=== PATIENT | male | born 1935 ===

== ENCOUNTER 2016-05-18 03:17 | Inpatient (IN) | payer MEDICARE, OTHER ==
[2016-05-18 03:19] VITALS: BMI 24.4
--- NOTE | 2016-05-18 03:25 | ED PDOC ---
Arrival/HPI - General Time Seen by Provider: 05/18/16 03:18 Historian: Patient, EMS - History of Present Illness Narrative History of Present Illness (Text): 05/18/16 03:22 Jese Damon is an 81 year old male, whose past medical history includes atrial fibrillation, CHF, diabetes, CAD, hypertension, hyperlipidemia, and CABG , who presents to the ED brought in by EMS on CPAP complaining of worsening shortness of breath tonight. Patient also reports associated chest pain. Patient denies any fever, chills, nausea, vomiting, diarrhea, urinary symptoms, back pain, neck pain, headache, dizziness, or any other complaints. Time/Duration: Other (tonight) Symptom Course: Unchanged Activities at Onset: Rest, Light Context: Home Past Medical History - Provider Review Nursing Documentation Reviewed: Yes - Infectious Disease Hx of Infectious Diseases: None - Tetanus Immunization Tetanus Immunization: Unknown - Cardiac Hx Cardiac Disorders: Yes (CAD,AICD) Hx Congestive Heart Failure: Yes Hx Hypertension: Yes - Pulmonary Hx Respiratory Disorders: Yes (SMOKED CIGARETTES H/O QUIT 1992) Hx Bronchitis: Yes Hx Pneumonia: Yes - Neurological Hx Neurological Disorder: (DENIES HISTORY) - HEENT Hx HEENT Disorder: Yes Hx Cataracts: Yes (Left) Hx Glaucoma: Yes (Right) - Renal Hx Renal Disorder: Yes Other/Comment: Kidney damage: 60% and 65% - Endocrine/Metabolic Hx Diabetes Mellitus Type 2: Yes - Hematological/Oncological Hx Blood Disorders: Yes Other/Comment: PATIENT STATED THAT HE HAD EPISODES OF HEMATURIA INTHE PAST AND HAD BLOOD TRANSFUSION - Integumentary Hx Dermatological Disorder: (DENIES HISTORY) - Musculoskeletal/Rheumatological Hx Musculoskeletal Disorders: Yes Hx Falls: Yes (in the past) Hx Gout: Yes - Gastrointestinal Hx Gastrointestinal Disorders: Yes Hx Gall Bladder Disease: Yes (CHOLECYSTECTOMY) - Genitourinary/Gynecological Hx Genitourinary Disorders: Yes Hx Prostate Problems: Yes - Psychiatric Hx Psychophysiologic Disorder: No Hx Substance Use: No - Surgical History Hx Cardiac Catheterization: Yes Hx Cholecystectomy: Yes (GB Sx: ? removal) Hx Open Heart Surgery: Yes (quadruple) Other/Comment: ICD implant - Anesthesia Hx Anesthesia: Yes Hx Anesthesia Reactions: No Hx Malignant Hyperthermia: No - Suicidal Assessment Feels Threatened In Home Enviroment: No Family/Social History - Physician Review Nursing Documentation Reviewed: Yes Family/Social History: No Known Family HX Smoking Status: Former Smoker Hx Alcohol Use: No Hx Substance Use: No Hx Substance Use Treatment: No Allergies/Home Meds Allergies/Adverse Reactions: Allergies aspirin Allergy (Verified 01/15/16 18:41) RASH Latex, Natural Rubber Allergy (Verified 01/15/16 18:41) RASH penicillin V Allergy (Verified 01/15/16 18:41) RASH Home Medications: Home Meds Medication Instructions Recorded Confirmed Atorvastatin [Lipitor] 20 mg PO DAILY 05/18/16 05/18/16 Colchicine [Colcrys] 0.6 mg PO DAILY 05/18/16 05/18/16 Docusate Sodium [Col-Rite] 100 mg PO DAILY 05/18/16 05/18/16 Febuxostat [Uloric] 40 mg PO DAILY 05/18/16 05/18/16 Furosemide [Lasix] 20 mg PO DAILY 05/18/16 05/18/16 Isosorbide Mononitrate [Imdur] 30 mg PO DAILY 05/18/16 05/18/16 Losartan [Cozaar] 25 mg PO DAILY 05/18/16 05/18/16 Metoprolol Tartrate [Lopressor] 25 mg PO BID 05/18/16 05/18/16 Multivits,Ca,Min/Iron/FA/Lycop 1 each PO DAILY 05/18/16 05/18/16 [Centrum Men's Tablet] Mv/Gnk Bi Ex/K.ginsg [Ra Central 1 each PO DAILY 05/18/16 05/18/16 Kaya Tablet] SITagliptin [Januvia] 50 mg PO DAILY 05/18/16 05/18/16 Warfarin [Coumadin] 2.5 mg PO DAILY 05/18/16 05/18/16 Review of Systems - Physician Review All systems were reviewed & negative as marked: Yes - Review of Systems Constitutional: Normal. absent: Fevers Eyes: Normal ENT: Normal Respiratory: SOB. absent: Cough Cardiovascular: Chest Pain Gastrointestinal: Normal. absent: Abdominal Pain, Diarrhea, Nausea, Vomiting Genitourinary Male: Normal. absent: Dysuria, Frequency, Hematuria, Urinary Output Changes Musculoskeletal: Normal. absent: Back Pain, Neck Pain Skin: Normal. absent: Rash Neurological: Normal. absent: Headache, Dizziness Endocrine: Normal Hemo/Lymphatic: Normal Psychiatric: Normal Physical Exam Vital Signs Reviewed: Yes Vital Signs Temp Pulse Resp BP Pulse Ox 05/18/16 18:15 60 113/69 05/18/16 18:02 113/69 05/18/16 18:00 66 113/64 05/18/16 13:14 64 122/60 05/18/16 13:06 65 122/60 05/18/16 09:31 98.2 F 69 17 129/60 99 05/18/16 07:58 67 18 118/65 100 05/18/16 07:10 70 18 124/57 L 100 05/18/16 06:00 73 18 161/67 H 100 05/18/16 05:08 84 18 143/89 95 05/18/16 03:20 98.0 F 77 30 H 150/94 H 100 Temperature: Afebrile Blood Pressure: Normal Pulse: Regular Respiratory Rate: Tachypneic Appearance: Positive for: Non-Toxic, Comfortable Pain Distress: None Mental Status: Positive for: Alert and Oriented X 3 - Systems Exam Head: Present: Atraumatic, Normocephalic Pupils: Present: PERRL Extroacular Muscles: Present: EOMI Conjunctiva: Present: Normal Mouth: Present: Moist Mucous Membranes Neck: Present: Normal Range of Motion Respiratory/Chest: Present: Rales (Rales at the bases). No: Respiratory Distress, Accessory Muscle Use Cardiovascular: Present: Regular Rate and Rhythm, Normal S1, S2. No: Murmurs Abdomen: Present: Normal Bowel Sounds. No: Tenderness, Distention, Peritoneal Signs Back: Present: Normal Inspection Upper Extremity: Present: Normal Inspection. No: Cyanosis, Edema Lower Extremity: Present: Normal Inspection. No: Edema Neurological: Present: GCS=15, CN II-XII Intact, Speech Normal Skin: Present: Warm, Dry, Normal Color. No: Rashes Psychiatric: Present: Alert, Oriented x 3, Normal Insight, Normal Concentration Medical Decision Making ED Course and Treatment: 05/18/16 03:22 Impression: 81 year old male brought in by EMS for shortness of breath and chest pain tonight. Differential Diagnosis include but are not limited to: CHF vs. COPD vs. pneumonia vs. ACS vs. dyspnea Plan: -- EKG -- Chest X-ray -- Labs, cardiac enzymes, BNP, VBG, blood cultures -- Reassess and disposition Prior Visits: Notes and results from previous visits were reviewed. Progress Notes: Reviewed EKG, atrial fibrillation at 119 bpm. Rapid ventricular response. Non- specific ST/T wave changes. Unchanged from previous EKG on 01/15/2016. 05/18/16 03:42 Reviewed radiology, Chest X-ray shows CHF. 05/18/16 04:[address] Jennings, who is aware and agrees with plan. Accepts pt in to her service. Requests ICU evaluation. 05/18/16 04:[address] Banks, tour agent, who is aware and agrees to evaluate pt for ICU. 05/18/16 05:[address] Banks, states pt can go to Telemetry. Pt will be admitted to Telemetry for CHF and pneumonia under Dr. Jennings's service. - Critical Care Critical Care Minutes: 30 minutes Narrative Critical Care (Text): Management of CHF - Lab Interpretations Lab Results: 05/18/16 03:41 05/18/16 03:41 Lab Results 05/18/16 03:41: WBC 7.5 D, RBC 3.65, Hgb 12.2 L, Hct 36.3 L, MCV 99.5, MCH 33.4 , MCHC 33.6, RDW 16.6 H, Plt Count 163, MPV 11.6 H, Gran % 86.2 H, Lymph % (Auto ) 8.2 L, [place] % (Auto) 3.8, Eos % (Auto) 1.3 L, Baso % (Auto) 0.5, Gran # 6.43, Lymph # 0.6 L, [place] # 0.3, Eos # 0.1, Baso # 0.04, PT 28.2 H, INR 2.61 H, APTT 28.9, pO2 83 H, VBG pH 7.36, VBG pCO2 47.0, VBG HCO3 26.6, VBG Total CO2 28.0, VBG O2 Sat (Calc) 97.8 H, VBG Base Excess 0.6, VBG Potassium 5.1, Glucose 168 H , Lactate 3.1 H, FiO2 21.0, Sodium 138.0, Potassium 4.1, Chloride 103.0, Carbon Dioxide 26, Anion Gap 16, BUN 36 H, Creatinine 2.1 H, Est GFR ( Amer) 37 , Est GFR (Non-Af Amer) 30, Random Glucose 159 H, Calcium 9.1, Total Bilirubin 1.3, AST 47, ALT 46, Alkaline Phosphatase 117, Lactate Dehydrogenase 638, Total Creatine Kinase 80, Troponin I 0.25 H* D, NT-Pro-B Natriuret Pep 3690 H, Total Protein 7.3, Albumin 3.8, Globulin 3.5, Albumin/Globulin Ratio 1.1, Venous Blood Potassium 5.1 - RAD Interpretation Radiology Orders: 05/18/16 03:23 CHEST PORTABLE [RAD] Stat - Medication Orders Current Medication Orders: Colchicine (Colocrys) 0.6 mg PO DAILY [facility] Last Admin: 05/18/16 13:14 Dose: 0.6 MG Docusate Sodium (Colace) 100 mg PO DAILY [facility] Last Admin: 05/18/16 13:06 Dose: 100 MG Stool Assessment Document 05/18/16 13:06 CHART (Rec: 05/18/16 13:06 CHART [id number]) Pattern Bowel Pattern No Bowel Movement Furosemide (Lasix) 40 mg IVP DAILY CHERYL Azithromycin (Zithromax 500mg In Ns) 250 mls @ 167 mls/hr IVPB DAILY CHERYL PRN Reason: Protocol Last Admin: 05/18/16 14:36 Dose: 167 MLS/HR eMAR Start Stop Document 05/18/16 14:36 CHART (Rec: 05/18/16 14:37 CHART [id number]) Intravenous Solution Start Date 05/18/16 Start Time 14:36 End Date 05/18/16 End time 16:06 Total Infusion Time 90 Milrinone Lactate/Dextrose (Primacor 20mg/100ml D5w) 100 mls @ 4.899 mls/hr IV .[id number] PRN; Protocol; 0.2 MCG/KG/MIN PRN Reason: TITRATE PER MD ORDER Last Admin: 05/18/16 18:00 Dose: 4.899 MLS/HR MAR Vitals Document 05/18/16 18:00 CHART (Rec: 05/18/16 18:01 CHART [id number]) Measurements Blood Pressure (100/60-150/90) 113/64 Pulse Rate (60-90) 66 Titration Intervention Document 05/18/16 18:00 CHART (Rec: 05/18/16 18:01 CHART [id number]) Titration Intake Container Volume 100 Titration Dosing Titration Dose 0.2 IV Rate 4.899 Intake/Decrease Start eMAR Start Stop Document 05/18/16 18:00 CHART (Rec: 05/18/16 18:01 CHART [id number]) Intravenous Solution Start Date 05/18/16 Start Time 18:01 Insulin Human Lispro (Humalog Med) 0 units SC ACHS CHERYL PRN Reason: Protocol Last Admin: 05/18/16 22:34 Dose: Not Given Non-Admin Reason: Blood Sugar Parameter MAR Blood Glucose Document 05/18/16 22:34 LGA (Rec: 05/18/16 22:34 LGA [id number]) Blood Glucose Finger Stick Blood Glucose (70-120) 145 Isosorbide Mononitrate (Imdur) 30 mg PO DAILY [facility] Last Admin: 05/18/16 13:06 Dose: 30 MG Levalbuterol HCl (Xopenex) 1.25 mg IH [id number] PRN PRN Reason: Shortness of Breath Losartan Potassium (Cozaar) 25 mg PO DAILY [facility] Last Admin: 05/18/16 13:14 Dose: 25 MG MAR Pulse and Blood Pressure Document 05/18/16 13:14 CHART (Rec: 05/18/16 13:15 CHART [id number]) Pulse Pulse Rate (60-90) 64 Blood Pressure Blood Pressure (100/60-150/90) 122/60 Metoprolol Tartrate (Lopressor) 25 mg PO BID [facility] Last Admin: 05/18/16 18:15 Dose: 25 MG MAR Pulse and Blood Pressure Document 05/18/16 18:15 CHART (Rec: 05/18/16 18:15 CHART [id number]) Pulse Pulse Rate (60-90) 60 Blood Pressure Blood Pressure (100/60-150/90) 113/69 Sitagliptin Phosphate (Januvia) 50 mg PO DAILY [facility] Last Admin: 05/18/16 13:14 Dose: 50 MG Discontinued Medications Atorvastatin Calcium (Lipitor) 20 mg PO DAILY [facility] Last Admin: 05/18/16 13:06 Dose: 20 MG Furosemide (Lasix) 20 mg PO DAILY [facility] Last Admin: 05/18/16 13:06 Dose: 20 MG MAR Blood Pressure Document 05/18/16 13:06 CHART (Rec: 05/18/16 13:06 CHART [id number]) Blood Pressure Blood Pressure (100/60-150/90) 122/60 Furosemide (Lasix) 40 mg IV ONCE ONE Stop: 05/18/16 18:01 Last Admin: 05/18/16 18:02 Dose: 40 MG MAR Blood Pressure Document 05/18/16 18:02 CHART (Rec: 05/18/16 18:02 CHART [id number]) Blood Pressure Blood Pressure (100/60-150/90) 113/69 eMAR Start Stop Document 05/18/16 18:02 CHART (Rec: 05/18/16 18:02 CHART [id number]) Intravenous Solution Start Date 05/18/16 Start Time 18:02 End Date 05/18/16 End time 18:04 Total Infusion Time 2 Aztreonam (Azactam 1 Gm) 100 mls @ 100 mls/hr IVPB STAT STA PRN Reason: Protocol Stop: 05/18/16 05:31 Last Admin: 05/18/16 05:05 Dose: 100 MLS/HR eMAR Start Stop Document 05/18/16 05:05 SB (Rec: 05/18/16 05:06 SB [id number]) Intravenous Solution Start Date 05/18/16 Start Time 05:06 End Date 05/18/16 Vancomycin HCl (Vancomycin 1gm) 250 mls @ 167 mls/hr IVPB STAT STA PRN Reason: Protocol Stop: 05/18/16 06:00 Last Admin: 05/18/16 06:22 Dose: 167 MLS/HR eMAR Start Stop Document 05/18/16 06:22 SB (Rec: 05/18/16 06:23 SB [id number]) Intravenous Solution Start Date 05/18/16 Start Time 06:23 End Date 05/18/16 Aztreonam (Azactam 1 Gm) 100 mls @ 100 mls/hr IVPB Q8 CHERYL PRN Reason: Protocol Stop: 05/18/16 22:59 Last Admin: 05/18/16 22:33 Dose: 100 MLS/HR eMAR Start Stop Document 05/18/16 22:33 LGA (Rec: 05/18/16 22:34 LGA [id number]) Intravenous Solution Start Date 05/18/16 Start Time 22:34 End Date 05/18/16 End time 23:34 Total Infusion Time 60 - Scribe Statement The provider has reviewed the documentation as recorded by the Wellington Suh Provider Attestation: All medical record entries made by the [place] were at my direction and personally dictated by me. I have reviewed the chart and agree that the record accurately reflects my personal performance of the history, physical exam, medical decision making, and the department course for this patient. I have also personally directed, reviewed, and agree with the discharge instructions and disposition. Disposition/Present on Arrival - Present on Arrival Any Indicators Present on Arrival: No History of DVT/PE: No History of Uncontrolled Diabetes: No Urinary Catheter: No History Surgical Site Infection Following: None - Disposition Have Diagnosis and Disposition been Completed?: Yes Diagnosis: CHF (congestive heart failure), Pneumonia Disposition: HOSPITALIZED Disposition Time: 05:15 Condition: FAIR
[2016-05-18 03:55] LABS: ADD MANUAL DIFF? NO
[2016-05-18 03:59] LABS: VENOUS BLOOD GAS BASE EXCESS 0.6 mmol/L (0.0-2.0); VENOUS BLOOD PH 7.36 (7.32-7.43)
[2016-05-18 04:19] LABS: ALB/GLOB RATIO 1.1 (1.1-1.8); BASO # 0.04 K/mm3 (0.0-2.0); BASO % 0.5 % (0.0-3.0); BILIRUBIN,TOTAL 1.3 mg/dL (0.2-1.3); CALCIUM 9.1 mg/dL (8.4-10.5); EOS # 0.1 (0.0-0.7); EOS % 1.3 % (1.5-5.0); GRAN # 6.43 (1.4-6.5); GRAN % 86.2 % (50.0-68.0); HEMATOCRIT 36.3 % (42.0-52.0); LYMPH # 0.6 (1.2-3.4); LYMPH % 8.2 % (22.0-35.0); MEAN CELL VOLUME 99.5 fL (80.0-105.0); MEAN CORPUSCULAR HEMOGLOBIN 33.4 pg (25.0-35.0); MEAN CORPUSCULAR HGB CONC 33.6 g/dl (31.0-37.0); MEAN PLATELET VOLUME 11.6 fl (7.0-11.0); MONO # 0.3 (0.1-0.6); MONO % 3.8 % (1.0-6.0); PLATELET COUNT 163 10^3/uL (120.0-450.0); POTASSIUM 4.1 mmol/L (3.6-5.0); RED CELL DISTRIBUTION WIDTH 16.6 % (11.5-14.5); TOTAL PROTEIN 7.3 g/dL (5.8-8.3); WHITE BLOOD COUNT 7.5 10^3/ul (4.5-11.0)
[2016-05-18 04:29] LABS: INR 2.61 (0.93-1.08); PARTIAL THROMBOPLASTIN TIME 28.9 Seconds (23.7-30.8)
[2016-05-18] MEDS ORDERED: Vancomycin 1gm in NS 250ml 250 ML IVPB STA (04:31)
[2016-05-18] MEDS ORDERED: Aztreonam 1 Gm in NS 100mL 100 ML IVPB STA (04:32)
[2016-05-18 04:35] LABS: TROPONIN I 0.25 ng/mL
--- NOTE | 2016-05-18 05:27 | CP.PCM.CON ---
<Davidson Malcolm - Last Filed: 05/18/16 06:53> History of Present Illness - History of Present Illness History of Present Illness: ICU Consult Note - Davidson Thomasedmond PGY1 HPI: Patient is a 81yo male with past medical history of chronic afib, CAD s/p CABG, CKD stage 3, ischemic cardiomyopathy s/p AICD placement, HTN, HLD, DM type 2, systolic CHF (LVEF ~25-30%) that presented c/o shortness of breath for the past 2 weeks. Patient reported that his shortness of breath was associated with intermittent chest pain that radiates into his back and nonproductive cough. He states that his symptoms have been on and off for the past 2 weeks however today he had more difficulty breathing and decided to come to the emergency room for evaluation. He states that he normally has to sleep on 3 pillows at night otherwise he feels like he is drowning. In the ED, patient's vitals were as follows: temperature 98.0F, heart rate 84bpm, blood pressure 143/ 89, o2 sat 98% on 2L NC. Labs were notable for a troponin of 0.25, NT-proBNP of 3690, lactate of 3.1, BUN 36, Creatinine 2.1. EKG revealed afib at [address]-T wave changes relative to prior EKG's. Patient denied abdominal pain, nausea, vomiting, diarrhea, fever, chills, dysuria, frequency, urgency, focal weakness, numbness, tingling. 12 point ROS as per HPI above, otherwise negative PMHx: see above PSHx: CABG, AICD placement Family Hx: Noncontributory Social Hx: Denies tobacco, alcohol and illicit drug use Allergies: ASA, latex, penicillin PMD: Dr. Jennings Past Patient History - Infectious Disease Hx of Infectious Diseases: None - Tetanus Immunizations Tetanus Immunization: Unknown - Past Social History Smoking Status: Former Smoker - CARDIAC Hx Cardiac Disorders: Yes (CAD,AICD) Hx Congestive Heart Failure: Yes Hx Hypertension: Yes - PULMONARY Hx Respiratory Disorders: Yes (SMOKED CIGARETTES H/O QUIT 1992) Hx Bronchitis: Yes Hx Pneumonia: Yes - NEUROLOGICAL Hx Neurological Disorder: (DENIES HISTORY) - HEENT Hx HEENT Problems: Yes Hx Cataracts: Yes (Left) Hx Glaucoma: Yes (Right) - RENAL Hx Chronic Kidney Disease: Yes Other/Comment: Kidney damage: 60% and 65% - ENDOCRINE/METABOLIC Hx Diabetes Mellitus Type 2: Yes - HEMATOLOGICAL/ONCOLOGICAL Hx Blood Disorders: Yes Other/Comment: PATIENT STATED THAT HE HAD EPISODES OF HEMATURIA INTHE PAST AND HAD BLOOD TRANSFUSION - INTEGUMENTARY Hx Dermatological Problems: (DENIES HISTORY) - MUSCULOSKELETAL/RHEUMATOLOGICAL Hx Musculoskeletal Disorders: Yes Hx Falls: Yes (in the past) Hx Gout: Yes - GASTROINTESTINAL Hx Gastrointestinal Disorders: Yes Hx Gall Bladder Disease: Yes (CHOLECYSTECTOMY) - GENITOURINARY/GYNECOLOGICAL Hx Genitourinary Disorders: Yes Hx Prostate Problems: Yes - PSYCHIATRIC Hx Psychophysiologic Disorder: No Hx Substance Use: No - SURGICAL HISTORY Hx Cardiac Catheterization: Yes Hx Cholecystectomy: Yes (GB Sx: ? removal) Hx Open Heart Surgery: Yes (quadruple) Other/Comment: ICD implant - ANESTHESIA Hx Anesthesia: Yes Hx Anesthesia Reactions: No Hx Malignant Hyperthermia: No Meds Allergies/Adverse Reactions: Allergies Allergy/AdvReac Type Severity Reaction Status Date / Time aspirin Allergy RASH Verified 01/15/16 18:41 Latex, Natural Rubber Allergy RASH Verified 01/15/16 18:41 penicillin V Allergy RASH Verified 01/15/16 18:41 - Medications Medications: Current Medications Aztreonam (Azactam 1 Gm) 100 mls @ 100 mls/hr IVPB STAT STA PRN Reason: Protocol Stop: 05/18/16 05:31 Last Admin: 05/18/16 05:05 Dose: 100 mls/hr Vancomycin HCl (Vancomycin 1gm) 250 mls @ 167 mls/hr IVPB STAT STA PRN Reason: Protocol Stop: 05/18/16 06:00 Physical Exam - Constitutional Appears: Non-toxic, No Acute Distress - Head Exam Head Exam: ATRAUMATIC, NORMAL INSPECTION, NORMOCEPHALIC - Eye Exam Eye Exam: EOMI, PERRL. absent: Conjunctival injection, Periorbital swelling, Scleral icterus - ENT Exam ENT Exam: Mucous Membranes Moist - Respiratory Exam Respiratory Exam: Decreased Breath Sounds (decreased breath sounds at bilateral lung bases; bilateral rales at bases), Rales, NORMAL BREATHING PATTERN. absent : Accessory Muscle Use, Chest Wall Tenderness, Clear to Auscultation Bilateral, Rhonchi, Wheezes, Respiratory Distress, Stridor - Cardiovascular Exam Cardiovascular Exam: Irregular Rhythm, +S1, +S2. absent: Bradycardia, Tachycardia, Gallop, Rubs - GI/Abdominal Exam GI & Abdominal Exam: Soft. absent: Distended, Firm, Guarding, Rebound, Rigid, Tenderness - Extremities Exam Extremities exam: Positive for: normal inspection, pedal edema (1+ pitting edema bilaterally). Negative for: calf tenderness, tenderness - Back Exam Back exam: NORMAL INSPECTION. absent: paraspinal tenderness, tenderness, vertebral tenderness - Neurological Exam Neurological exam: Alert, CN II-XII Intact, Oriented x3 - Psychiatric Exam Psychiatric exam: Normal Affect, Normal Mood - Skin Skin Exam: Dry, Intact, Normal Color, Warm Results - Vital Signs Recent Vital Signs: Last Vital Signs Temp 98.0 F 05/18/16 03:20 Pulse 84 05/18/16 05:08 Resp 18 05/18/16 05:08 BP 143/89 05/18/16 05:08 Pulse Ox 95 05/18/16 05:08 - Labs Result Diagrams: 05/18/16 03:41 05/18/16 03:41 Labs: Laboratory Results - last 24 hr 05/18/16 03:41 WBC 7.5 D RBC 3.65 Hgb 12.2 L Hct 36.3 L MCV 99.5 MCH 33.4 MCHC 33.6 RDW 16.6 H Plt Count 163 MPV 11.6 H Gran % 86.2 H Lymph % (Auto) 8.2 L [place] % (Auto) 3.8 Eos % (Auto) 1.3 L Baso % (Auto) 0.5 Gran # 6.43 Lymph # 0.6 L Dundy # 0.3 Eos # 0.1 Baso # 0.04 PT 28.2 H INR 2.61 H APTT 28.9 pO2 83 H VBG pH 7.36 VBG pCO2 47.0 VBG HCO3 26.6 VBG Total CO2 28.0 VBG O2 Sat (Calc) 97.8 H VBG Base Excess 0.6 VBG Potassium 5.1 Sodium 138 Chloride 100 Glucose 168 H Lactate 3.1 H FiO2 21.0 Potassium 4.1 Carbon Dioxide 26 Anion Gap 16 BUN 36 H Creatinine 2.1 H Est GFR ( Amer) 37 Est GFR (Non-Af Amer) 30 Random Glucose 159 H Calcium 9.1 Total Bilirubin 1.3 AST 47 ALT 46 Alkaline Phosphatase 117 Lactate Dehydrogenase 638 Total Creatine Kinase 80 Troponin I 0.25 H* D NT-Pro-B Natriuret Pep 3690 H Total Protein 7.3 Albumin 3.8 Globulin 3.5 Albumin/Globulin Ratio 1.1 Venous Blood Potassium 5.1 Assessment & Plan - Assessment and Plan (Free Text) Assessment: 81yo male with past medical history of chronic afib, CAD s/p CABG, CKD stage 3, ischemic cardiomyopathy s/p AICD placement, HTN, HLD, DM type 2, systolic CHF ( LVEF ~25-30%) that presented c/o shortness of breath for the past 2 weeks secondary to decompensated systolic congestive heart failure in the setting of possible NSTEMI. Plan: -Lab work and EKG reviewed and revealed no acute ST-T wave changes -Chest xray reviewed; increased pulmonary vascular congestion and pleural effusion/atelectasis; concerning for CHF exacerbation -Patient vitals within normal limits at the time of evaluation; O2sat >90% on 2L NC -Patient clinically stable and at this time does not require ICU level care for further evaluation and treatment -Recommend admitting the patient to telemetry for further evaluation and treatment of CHF exacerbation/NSTEMI as well as cardiology consultation Patient seen, discussed and evaluated with attending, Dr. Banks - Date & Time Date: 05/18/16 Time: 05:46 <Jocelyn CHRISTIANSON,Joe - Last Filed: 05/18/16 08:17> Results - Vital Signs Recent Vital Signs: Last Vital Signs Temp 98.0 F 05/18/16 03:20 Pulse 67 05/18/16 07:58 Resp 18 05/18/16 07:58 BP 118/65 05/18/16 07:58 Pulse Ox 100 05/18/16 07:58 - Labs Result Diagrams: 05/18/16 03:41 05/18/16 03:41 Labs: Laboratory Results - last 24 hr 05/18/16 07:15 pO2 117 H VBG pH 7.35 VBG pCO2 53.0 VBG HCO3 29.3 H VBG Total CO2 30.9 H VBG O2 Sat (Calc) 98.8 H VBG Base Excess 2.5 H VBG Potassium 4.3 Sodium 138.0 Chloride 107.0 Glucose 146 H Lactate 1.0 FiO2 21.0 Venous Blood Potassium 4.3 Attending/Attestation - Attestation Notes (Text): 04/03/17 08:15 -I agree with the above ICU consultation note completed by the resident physician. -Briefly, the patient is an 81 year old man with multiple chronic medical problems, who presents with elevated troponin, chest pain and SOB. Because his vitals signs are relatively normal, he can be adequately managed on the tele cervantes and doesn't require ICU level of care at this time. Recommend antibiotics, diuresis, serial trop's/EKG's, ASA, and a cards consult. Please feel free to reconsult if patient's condition changes. Thanks.
[2016-05-18 07:25] LABS: VENOUS BLOOD GAS BASE EXCESS 2.5 mmol/L (0.0-2.0); VENOUS BLOOD PH 7.35 (7.32-7.43)
--- NOTE | 2016-05-18 09:11 | RAD ---
HISTORY: sob COMPARISON: 01/15/2016 FINDINGS: LUNGS: There is a diffuse alveolar infiltrate in the right lung consistent with pneumonia PLEURA: No significant pleural effusion identified, no pneumothorax apparent. CARDIOVASCULAR: Moderate cardiomegaly OSSEOUS STRUCTURES: No significant abnormalities. VISUALIZED UPPER ABDOMEN: Normal. OTHER FINDINGS: None. IMPRESSION: There is a diffuse alveolar infiltrate in the right lung consistent with pneumonia
[2016-05-18] MEDS ORDERED: Levalbuterol 1.25 MG/3 ML Inhal Soln UD IH PRN (13:05)
[2016-05-18] MEDS: Azithromycin 500MG/NS 250ml 250 ML IVPB SCH (14:36)
[2016-05-18] MEDS: Aztreonam 1 Gm in NS 100mL 100 ML IVPB SCH ×2 (17:57→22:33)
[2016-05-18] MEDS: Milrinone 20mg/100ml D5W 100 ML IV PRN (18:00)
--- NOTE | 2016-05-18 19:02 | CARD ---
APPROVED REPORT EKG Measurement Heart [id number] <Conclusion> Atrial fibrillation with rapid ventricular response with premature ventricular or aberrantly conducted complexes Nonspecific ST and T wave abnormality, probably digitalis effect Abnormal ECG
--- NOTE | 2016-05-18 20:07 | HP ---
HISTORY OF PRESENT ILLNESS: The patient is an 81-year-old. States he has not been feeling well for the last few days, got shortness of breath, had chills yesterday and got increasingly weak, so family brought him to Emergency Room for evaluation. He was having intermittent chest discomfort also that radiates to his back. Complaining of cough with scant phlegm, has been going on for 2 weeks, but go t worse for the last 2 days and this morning. PAST MEDICAL HISTORY: Significant for: 1. Hypertension. 2. Chronic atrial fibrillation. 3. History of gout. 4. Non-insulin dependent diabetes. 5. Ischemic cardiomyopathy, status post defibrillator placement. 6. Hyperlipidemia. 7. Hypertension. 8. Deconditioning and difficulty walking. ALLERGIES: LATEX AND PENICILLIN. MEDICATIONS AT HOME: 1. He is on Colace 100 mg daily. 2. Multivitamin. 3. Coumadin 2.5 daily. 4. Lipitor 20 mg at bedtime. 5. Colcrys 0.6 daily, Lasix ____ mg daily, isosorbide 60 mg daily, Cozaar 50 mg daily. 6. Metoprolol 50 mg twice a day. 7. Januvia 50 mg daily. SOCIAL HISTORY: He is , lives with his . He used to be a smoker in the past. REVIEW OF SYSTEMS: Significant for generalized weakness, increasing shortness of breath, cough and c ongestion. PHYSICAL EXAMINATION: GENERAL: He is awake, alert, oriented, communicative. VITAL SIGNS: He is afebrile, pulse 60, respirations 18, blood pressure 113/69. LUNGS: Bilateral few expiratory rhonchi. Decreased breath sounds at bases. HEART: S1, S2 audible. ABDOMEN: Soft, nontender, no rebound, no guarding. NEUROLOGIC: The patient is awake and alert, able to move all extremities. EXTREMITIES: Bilateral leg, no edema. LABORATORY DATA: WBC 7.5, hemoglobin 12.2, hematocrit 36.3, platelet 163. PT 28.2, INR 2.61. Chemi stry: Sodium 138, potassium 4.1, chloride 100, CO2 26, BUN 36, creatinine 2.1, blood sugar 139. Tro ponin 0.25, BNP 3690. He had an x-ray chest done that shows diffuse alveolar infiltrate in the right lung consistent with pneumonia. ASSESSMENT AND PLAN: 1. Community-acquired pneumonia. 2. Ischemic cardiomyopathy. 3. Hypertension. 4. Hyperlipidemia. 5. Chronic kidney disease. 6. Coronary artery disease, status post open heart surgery many, many years ago. PLAN: We will continue patient on Azactam and Zithromax. Cardiology consult by Dr. Ruano has been re quested. We will follow up patient's CBC, CMP in a.m. Leonila Jennings MD cc: [phone] TT: 05/18/2016 20:06:04 jn
[2016-05-18] MEDS: Insulin Lispro (humaLOG) MEDIUM Coverage SC SCH (22:34)
[2016-05-19 07:01] LABS: ADD MANUAL DIFF? NO
[2016-05-19] MEDS: Milrinone 20mg/100ml D5W 100 ML IV PRN (07:07)
[2016-05-19 07:10] LABS: BASO # 0.03 K/mm3 (0.0-2.0); BASO % 0.5 % (0.0-3.0); EOS # 0.2 (0.0-0.7); EOS % 2.6 % (1.5-5.0); GRAN # 4.58 (1.4-6.5); GRAN % 71.4 % (50.0-68.0); HEMATOCRIT 31.7 % (42.0-52.0); LYMPH # 0.8 (1.2-3.4); LYMPH % 12.6 % (22.0-35.0); MEAN CORPUSCULAR HEMOGLOBIN 34.1 pg (25.0-35.0); MEAN CORPUSCULAR HGB CONC 34.1 g/dl (31.0-37.0); MEAN PLATELET VOLUME 10.9 fl (7.0-11.0); MONO # 0.8 (0.1-0.6); MONO % 12.9 % (1.0-6.0); PLATELET COUNT 120 10^3/uL (120.0-450.0); RED CELL DISTRIBUTION WIDTH 16.5 % (11.5-14.5); WHITE BLOOD COUNT 6.4 10^3/ul (4.5-11.0)
[2016-05-19 07:13] LABS: INR 2.74 (0.93-1.08)
[2016-05-19 07:22] LABS: BILIRUBIN,TOTAL 1.4 mg/dL (0.2-1.3); CALCIUM 8.7 mg/dL (8.4-10.5); MAGNESIUM 1.7 mg/dL (1.7-2.2); PHOSPHOROUS 3.3 mg/dL (2.5-4.5); POTASSIUM 3.9 mmol/L (3.6-5.0); TOTAL PROTEIN 6.2 g/dL (5.8-8.3)
[2016-05-19] MEDS: Insulin Lispro (humaLOG) MEDIUM Coverage SC SCH ×4 (07:30→22:10)
--- NOTE | 2016-05-19 08:04 | CON ---
DATE: 05/18/2016 REASON FOR CONSULTATION AND FOLLOWUP: Shortness of breath, chest pain in the axilla. BRIEF CLINICAL HISTORY: This is an 81-year-old male with past medical history significant for lopez ry artery disease, CABG, 5 vessels in 2007, history of AICD in 11/2014, congestive heart failure, car diomyopathy, came in with complaint of shortness of breath, was on CPAP, had of 1 episode of chest pa in in the axillary area. Denies any chest pain now. Denies any shortness of breath now. Denies any palpitation. PAST MEDICAL HISTORY: Significant for coronary artery disease, status post 5-vessel bypass in 1999; history of cardiomyopathy, history of chronic atrial fibrillation, diabetes, hypertension, hype rlipidemia, gouty arthritis; history of ICD placement, left axillary side of the chest in the axillar y line in the lateral chest wall. The AICD was done by Dr. Herron. Last stress test in 04/2015. H istory of AICD placed in 11/[address] Herron. PREVIOUS CARDIAC WORKUP: History of coronary artery disease, CABG 5 vessels, [place], in ; history of AICD 11/2014. Last echo 02/14/2015 showed 4-chamber dilatation, ejection fraction 30-35% , moderate aortic regurgitation, mild to moderate mitral regurgitation, moderate to severe tricuspid regurgitation, RV systolic pressure of 62, mild to moderate pulmonary hypertension, dilated IVC. La st stress test 04/16/2015 shows abnormal myocardial perfusion with fixed defect suggestive of myocard ial injury in the past, ejection fraction 50%. The patient's last echo 02/14/2015, as mentioned, 4-c hamber dilatation, ejection fraction 30-35%, moderate aortic regurg, mild to moderate mitral regurgit ation, moderate to severe tricuspid regurgitation, RV systolic pressure of 62, mild to moderate pulmo nary insufficiency. Following that, the patient had another stress test and echo done. Repeat stres s test was done on 01/16/2016, when the patient was admitted with shortness of breath, that shows abn ormal SPECT myocardial perfusion study, fixed anteroseptal and inferior defect suggestive of myocardi al injury, ejection fraction 32%. When compared with the previous study dated 04/15/2014, perfusion defect ____ no change dated 01/16/2016. The patient also had echocardiography done on 01/16/2016 maribel t shows mildly dilated hypertrophy, moderate to severe hypokinesis anterior wall, moderate aortic reg urgitation, moderate mitral regurgitation, severe tricuspid regurg, RV systolic pressure of 79 . The patient is in AFib. Calculated ejection fraction 31%. SOCIAL HISTORY: Denies any smoking. Denies any history of alcohol abuse. ALLERGIES: PENICILLIN, LATEX, ASPIRIN, TAPE. INTOLERANCE TO JUAN AND ARB INHIBITORS, GETS A COUGH. CURRENT MEDICATIONS: The patient is taking Coumadin 2.5 mg, Januvia, multivitamin, losartan, isosorb jacy ____nitrate, furosemide, Colace, colchicine, atorvastatin. REVIEW OF SYSTEMS: As per HPI. PHYSICAL EXAMINATION: VITAL SIGNS: Temperature afebrile, heart rate 65, blood pressure 122/60. HEENT: PERRLA. Extraocular muscles intact. NECK: Supple. No carotid bruit or thyromegaly. CHEST: Clear to auscultation. HEART: S1, S2 regular. ABDOMEN: Soft. EXTREMITIES: Clubbing and cyanosis negative. BLOOD WORKUP: WBC 7.5, hemoglobin 12.2, hematocrit 36.3, platelet count 163. Chemistry shows sodium 130, potassium 4.____, chloride 100, carbon dioxide 26, anion gap of 16, BUN 36, creatinine 2.1. Tr oponin 0.25. BNP 3690. Troponin 0.25. 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 Possibly this troponin could be secondary to a true myocardial infarction versus spill of the troponin from his congestive h eart failure in face of kidney disease; history of coronary artery disease, coronary artery bypass gr aft, status post 5 vessels in 1999, history of automatic implantable cardioverter-defibrillator place d previous to a stress test that was negative for ischemia, cardiomyopathy. RECOMMENDATION: Will start low dose of Primacor. Continue diuresis. Monitor CPK and troponin. If CPK and troponin trend up, consider cardiac catheterization. Otherwise, will treat medically because of risk of cardiac catheterization and patient may end up in dialysis; but if the patient ____ sympt oms suggestive of acute coronary syndrome, the choices are limited and we will proceed. Otherwise, w ill treat medically. INR is 2.61. We will hold Coumadin for now today and we will monitor the trend . Will follow with you. Thank you, Dr. Jennings, for providing the opportunity in taking care of this patient. Johanna Ruano MD cc: [phone] TT: 05/18/2016 18:06:12 Confirmation # [id number] Dictation # [id number] mn
[2016-05-19 08:43] LABS: TROPONIN I 0.31 ng/mL
--- NOTE | 2016-05-19 11:02 | PN ---
DATE: 05/19/2016 REASON FOR CONSULTATION AND FOLLOWUP: Shortness of breath and chest pain. BRIEF CLINICAL HISTORY: An 81-year-old male with past medical history significant for coronary arter y disease, CABG 5 vessels in 2007, history of AICD in 2014, congestive heart failure, cardiomyopathy, came in with complaint of shortness of breath, had one episode of chest pain in the axillary area. Denies any further episode of chest pain. The patient started IV Primacor, much comfortable. PHYSICAL EXAMINATION: VITAL SIGNS: Temperature afebrile, heart rate 74, blood pressure 144/71. HEENT: PERRLA. Extraocular muscles intact. NECK: Supple. No carotid bruits. No thyromegaly. CHEST: Clear to auscultation. HEART: S1, S2 regular. ABDOMEN: Soft. EXTREMITIES: Clubbing and cyanosis negative. LABORATORY DATA: Blood workup as follows: WBC 6.4, hemoglobin ____, hematocrit 31.7, platelet count 120. Chemistry shows sodium ____, potassium 3.9, chloride ____, carbon dioxide 33, anion gap of 11, BUN 38, creatinine 2.1. Troponin 0.25 and 0.31. BNP 3080. IMPRESSION: Decompensated congestive heart failure, acute on chronic systolic dysfunction, as well a s renal insufficiency, creatinine clearance 30 mL, PT/INR is 2.74 today. Rule out yrb-MO-vmastnu juliana cardial infarction versus leak of troponin secondary to congestive heart failure as well as renal ins ufficiency, history of coronary artery disease, 5-vessel coronary artery bypass graft in 2007, histor y of automatic implantable cardioverter-defibrillator in 2014, history of last stress test 04/16/2015 t hat showed fixed defect, no reversible ischemia, ejection fraction 50%. Last echo 02/14/2015, 4 moreno shawn dilatation, ejection fraction 30%-35%, moderate aortic regurg, mild to moderate mitral regurg, mi ld to moderate tricuspid regurg, right ventricular systolic pressure of 62, mild to moderate pulmonar y insufficiency. RECOMMENDATION: Continue to hold Coumadin. We will start when below. Lovenox, continue Primacor. Continue IV Lasix. History of chronic atrial fibrillation, tricuspid regurgitation, mitral regurgita tion, pulmonary hypertension. We will discuss with the family ____ cardiac catheterization versus me dical treatment because the patient has renal insufficiency, leak of troponin could be secondary to r enal insufficiency. Also risk of worsening renal insufficiency after the cardiac catheterization. I f the patient remains asymptomatic will treat medically, but if the patient develops chest pain, cons ider cardiac catheterization. Risk of cardiac catheterization is high. After the cardiac cath, caroline ent may need ____ of dialysis. We will discuss with the family. For now, we will hold Coumadin, we will put Plavix, add aspirin and discuss with the family. If the family agrees, we may proceed for c ardiac cath if patient agrees. Otherwise, we will treat medically and resume back Coumadin. Right n ow, does not need Lovenox because INR is therapeutic 2.6, going on the higher side. Johanna Ruano MD cc: [phone] TT: 05/19/2016 11:01:55 Confirmation # [id number] Dictation # [id number] lam
--- NOTE | 2016-05-19 12:38 | RAD ---
HISTORY: F/U pneumonia and compare COMPARISON: 05/18/2016 TECHNIQUE: Chest PA and lateral FINDINGS: LUNGS: There is improvement in the right-sided alveolar infiltrate. A minimal patchy infiltrate remains PLEURA: No significant pleural effusion identified. No pneumothorax apparent. CARDIOVASCULAR: Normal. OSSEOUS STRUCTURES: No significant abnormalities. VISUALIZED UPPER ABDOMEN: Normal. OTHER FINDINGS: None. IMPRESSION: Improvement in right-sided alveolar infiltrate
--- NOTE | 2016-05-19 12:53 | PN ---
DATE: 05/19/2016 SUBJECTIVE: The patient is an 81-year-old, seen and examined, lying in bed, comfortable. No more ch est pain. Has scanty cough. No fever or chills. PHYSICAL EXAMINATION: VITAL SIGNS: He is afebrile, pulse 74, respirations 20, blood pressure 144/71. LUNGS: Bilateral occasional scattered rhonchi posteriorly. HEART: S1, S2 audible. ABDOMEN: Soft, nontender, no rebound, no guarding. NEUROLOGIC: He is awake and alert, communicative. LABORATORY: WBC 6.4, hemoglobin 10.8, hematocrit 31.7, platelets 120. PT 29.6, creatinine 2.74. Ch emistry: Sodium 139, potassium 3.9, chloride 99, CO2 33, BUN 38, creatinine 2.0, blood sugar of 90. Troponin 0.31. BNP was 3690, today is 3380. His blood cultures are negative. ASSESSMENT: 1. Community-acquired pneumonia, chest pain, probably secondary to bronchitis. 2. Acute on chronic systolic congestive heart failure. 3. Status post pacemaker placement. 4. Chronic kidney disease. 5. History of gout. 6. Status post open heart surgery in 2007, and had defibrillator placed in 2014. 7. Biventricular failure, and in 2014, echo showed ejection fraction of 30%-35%. 8. Moderate aortic regurgitation. PLAN: Currently, patient is on nebulizer treatment. He is on IV antibiotics. He was started on mil rinone drip. His Coumadin is held in anticipation of possible cardiac catheterization if his chest p ain continues, as per Dr. Ruano's notes. He is on Zithromax and Azactam. We will continue that. Arnold andrews reevaluate this patient in a.m. Out of bed to chair and physical therapy has been recommended. Leonila Jennings MD cc: [phone] TT: 05/19/2016 12:52:37 Confirmation # [id number] Dictation # [id number] lam
[2016-05-19] MEDS: Azithromycin 500MG/NS 250ml 250 ML IVPB SCH (12:54)
[2016-05-19] MEDS: Aztreonam 1 Gm in NS 100mL 100 ML IVPB SCH ×2 (14:58→22:09)
[2016-05-20] MEDS: Milrinone 20mg/100ml D5W 100 ML IV PRN (06:39)
[2016-05-20 07:15] LABS: BASO # 0.03 K/mm3 (0.0-2.0); BASO % 0.6 % (0.0-3.0); EOS # 0.3 (0.0-0.7); EOS % 5.1 % (1.5-5.0); GRAN # 3.24 (1.4-6.5); GRAN % 63.4 % (50.0-68.0); HEMATOCRIT 31.4 % (42.0-52.0); LYMPH # 0.6 (1.2-3.4); LYMPH % 12.3 % (22.0-35.0); MEAN CELL VOLUME 99.7 fL (80.0-105.0); MEAN CORPUSCULAR HEMOGLOBIN 33.3 pg (25.0-35.0); MEAN CORPUSCULAR HGB CONC 33.4 g/dl (31.0-37.0); MEAN PLATELET VOLUME 10.6 fl (7.0-11.0); MONO % 18.6 % (1.0-6.0); PLATELET COUNT 118 10^3/uL (120.0-450.0); RED CELL DISTRIBUTION WIDTH 16.5 % (11.5-14.5); WHITE BLOOD COUNT 5.1 10^3/ul (4.5-11.0)
[2016-05-20 07:22] LABS: ADD MANUAL DIFF? NO
[2016-05-20 07:35] LABS: ALB/GLOB RATIO 0.9 (1.1-1.8); BILIRUBIN,TOTAL 1.2 mg/dL (0.2-1.3); CALCIUM 8.5 mg/dL (8.4-10.5); MAGNESIUM 1.8 mg/dL (1.7-2.2); PHOSPHOROUS 3.7 mg/dL (2.5-4.5); POTASSIUM 3.9 mmol/L (3.6-5.0); TOTAL PROTEIN 6.5 g/dL (5.8-8.3)
[2016-05-20 07:45] LABS: TROPONIN I 0.17 ng/mL
[2016-05-20] MEDS: Insulin Lispro (humaLOG) MEDIUM Coverage SC SCH ×4 (08:03→21:48)
--- NOTE | 2016-05-20 09:25 | PN ---
DATE: 05/20/2016 REASON FOR CONSULTATION AND FOLLOWUP: Shortness of breath, chest pain, unstable angina, hkh-XX-fcolh nt myocardial infarction. BRIEF CLINICAL HISTORY: This is an 81-year-old male with past medical history significant for lopez ry artery disease status post CABG in 1999, history of AICD in 1994 biventricular device, congestive heart failure with cardiomyopathy, came in with complaint of chest pain and 1 episode of chest pain i n axillary area. Denies any chest pain now, but troponin remains positive though it is trending down . PHYSICAL EXAMINATION: VITAL SIGNS: Temperature afebrile, heart rate 71, blood pressure 126/67. HEENT: PERRLA. Extraocular muscles intact. NECK: Supple. No carotid bruits. No thyromegaly. CHEST: Clear to auscultation. HEART: S1, S2 regular. ABDOMEN: Soft. EXTREMITIES: Clubbing and cyanosis negative. BLOOD WORKUP: WBC 5.1, hemoglobin 10.5, hematocrit 31.4, platelet count 118. Chemistry shows sodium 139, potassium 3.9, chloride 99, carbon dioxide 33, anion gap of 11, BUN 38, creatinine 2.1. Today' s creatinine is 1.8; 2.1 yesterday. Troponin 0.17. 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 Last stress t est 04/27/2015 shows a fixed defect, no reversible ischemia. Last echocardiogram had 4-chamber dilat ation, dated 02/14/2015, ejection fraction 30-35%, moderate aortic regurgitation, mild to moderate mi tral regurgitation, mild to moderate tricuspid regurgitation, right ventricular systolic pressure of 62. RECOMMENDATION: Will start aspirin and Plavix. Check PT/INR. Will discuss with the daughter, Devon zhang; left a message to call back for possible cardiac catheterization tomorrow (telephone [phone]) . Will check the renal function tomorrow. Continue Primacor for now. The patient came in with a cr eatinine 2.1. Now it is 1.8 today, improving. Will continue hydration. Will start Mucomyst and sta rt hydration 100 mL an hour tomorrow to prevent contrast-induced nephropathy. Will follow with you. Will update Dr. Jennings also. Thank you, Dr. Jennings, for providing the opportunity in taking care of this patient. Johanna Ruano MD cc: [phone] TT: 05/20/2016 09:25:22 Confirmation # [id number] Dictation # [id number] mn
[2016-05-20] MEDS: Azithromycin 500MG/NS 250ml 250 ML IVPB SCH (10:04)
[2016-05-20 10:20] LABS: INR 2.23 (0.93-1.08)
[2016-05-20] MEDS ORDERED: Magnesium Citrate Oral SOL (300 ml) PO ONE (11:40)
--- NOTE | 2016-05-20 16:12 | PN ---
DATE: 05/20/2016 SUBJECTIVE: The patient is 81 years old, seen and examined, lying in bed, seems to be comfortable. No cough, no congestion, no nausea, no vomiting, no diarrhea. I doubt that he has constipation. No fever or chills. PHYSICAL EXAMINATION: VITAL SIGNS: He is afebrile, pulse 64, respirations 19, blood pressure 136/74. LUNGS: Bilateral good air flow. HEART: S1, S2 audible. ABDOMEN: Soft, nontender, no rebound, no guarding. NEUROLOGIC: He is awake and alert, communicative. LABORATORY: Sodium 139, potassium 3.9, chloride 99, CO2 33, BUN 37, creatinine 1.8, blood sugar of 2 07, troponin 0.7. WBC is 5.1, hemoglobin 10.5, hematocrit 31.4, platelet of 118. His PT today is 24 .1, INR is 2.23. Blood cultures are negative. ASSESSMENT AND PLAN: 1. Community-acquired pneumonia. 2. Non-ST elevation myocardial infarction. 3. Chronic kidney disease that is improving on Primacor drip. 4. Probably ischemic cardiomyopathy. 5. Noninsulin dependent diabetes. 6. History of coronary artery disease, status post open heart surgery in 1999. 7. Status post defibrillator placement. 8. Hyperlipidemia. 9. Chronic atrial fibrillation. 10. History of gout. PLAN: He is off of Coumadin. We will give him 1 dose of magnesium citrate. He is currently on milr inone drip. We will continue that. He is getting Zithromax and was on Azactam. We will switch it t o p.o. . The patient is scheduled for cardiac cath in a.m. Discussed with Dr. Ruano. Discussed with the patient's daughter, Pili. Leonila Jennings MD cc: [phone] TT: 05/20/2016 16:11:38 Confirmation # [id number] Dictation # [id number] dn
[2016-05-20] MEDS: Cefpodoxime (Vantin) 200 mg Tab PO SCH (21:46)
[2016-05-21] MEDS: Milrinone 20mg/100ml D5W 100 ML IV PRN ×2 (02:08→23:52)
[2016-05-21 05:37] VITALS: O2SAT 100
[2016-05-21 06:46] LABS: ADD MANUAL DIFF? NO
[2016-05-21 06:56] LABS: BASO # 0.03 K/mm3 (0.0-2.0); BASO % 0.7 % (0.0-3.0); EOS # 0.3 (0.0-0.7); EOS % 6.6 % (1.5-5.0); GRAN # 2.65 (1.4-6.5); GRAN % 60.3 % (50.0-68.0); HEMATOCRIT 30.9 % (42.0-52.0); LYMPH # 0.8 (1.2-3.4); LYMPH % 18.7 % (22.0-35.0); MEAN CORPUSCULAR HEMOGLOBIN 33.3 pg (25.0-35.0); MEAN CORPUSCULAR HGB CONC 33.3 g/dl (31.0-37.0); MEAN PLATELET VOLUME 10.2 fl (7.0-11.0); MONO # 0.6 (0.1-0.6); MONO % 13.7 % (1.0-6.0); PLATELET COUNT 120 10^3/uL (120.0-450.0); RED CELL DISTRIBUTION WIDTH 16.3 % (11.5-14.5); WHITE BLOOD COUNT 4.4 10^3/ul (4.5-11.0)
[2016-05-21] MEDS ORDERED: Sodium Chloride 0.9% 1,000 ML IV SCH ×2 (07:00→10:01)
[2016-05-21 07:08] LABS: INR 1.74 (0.93-1.08)
[2016-05-21 07:10] LABS: CALCIUM 8.6 mg/dL (8.4-10.5); POTASSIUM 4.1 mmol/L (3.6-5.0)
[2016-05-21] MEDS: Insulin Lispro (humaLOG) MEDIUM Coverage SC SCH ×4 (07:38→23:50)
[2016-05-21] MEDS ORDERED: DiphenhydrAMINE 50 mg/ml Inj ONE (07:39)
[2016-05-21] MEDS ORDERED: Famotidine 20mg/50ml 50 ML IVPB ONE (07:40)
[2016-05-21] MEDS ORDERED: Lidocaine 2% Inj (20ml) ONE (08:30)
[2016-05-21] MEDS ORDERED: Iodixanol 320 MG/ML 200 ML BOTTLE IV ONE (08:30)
[2016-05-21] MEDS ORDERED: Midazolam 2 MG/2 ML VIAL ONE (08:30)
[2016-05-21] MEDS: Acetylcysteine 20% Inhal Soln (4ml) PO SCH ×2 (10:00→17:32)
--- NOTE | 2016-05-21 10:37 | PN ---
DATE: 05/21/2016 REASON FOR CONSULTATION AND FOLLOWUP: Shortness of breath, chest pain, unstable angina, pwb-MD-hdybz nt myocardial infarction. BRIEF CLINICAL HISTORY: This is an 81-year-old male with past medical history significant for lopez ry artery disease, status post CABG in 2004, 5 vessels, status post defibrillator done in 2014, admit claudio with unstable angina, underwent cardiac catheterization today that revealed 100% left main, RCA p roximal 99% occluded, saphenous graft to RCA, widely patent, PIÑA patent to LAD and diagonal was sequ ential, left radial sequential to OM1 and OM2, decreased LV function. Medical treatment recommended. IMPRESSION: The patient had INR today 1.7, BUN and creatinine today is 36 and 1.7. Admitting creati nine is 2.1. The patient is on Primacor. PLAN: Continue IV Lasix, give Primacor for 24 hours and if BUN and creatinine remain stable, possibl e discharge to transitional care unit tomorrow. We will resume back Coumadin. We will discuss with Dr. Jennings. Discussed with the family. Add digoxin diuretic, JUAN inhibitor and low dose of Coreg a nd when the patient is discharged, will give the prescription for Entresto. Discussed with the virginia mobley. The patient will get the benefit from the Entresto which is non-formulary here. We will add on now to the current regimen Coreg, as well as digoxin low doses on Wednesday, Wednesday, Wednesday. Thank you, Dr. Jennings, for providing the opportunity in taking care of this patient. Repeat the blo od workup in the morning including INR. Will give 5 mg Coumadin today. Johanna Ruano MD cc: [phone] TT: 05/21/2016 10:36:39 Confirmation # [id number] Dictation # [id number] lam
--- NOTE | 2016-05-21 12:22 | PN ---
DATE: 05/21/2016 SUBJECTIVE: The patient is an 81-year-old, seen and examined, lying in bed, just had cardiac cath do ne this morning. All his stents and grafts were found to be patent. The patient had a positive trop onin, probably it was demand ischemia because of his recent community-acquired pneumonia. PHYSICAL EXAMINATION: GENERAL: Today, he is awake and alert, communicative. VITAL SIGNS: He is afebrile, pulse 80, respirations 18, blood pressure 139/64. LUNGS: Bilateral fair airflow, no rhonchi or crackle. HEART: S1, S2 audible. Irregular rate control. ABDOMEN: Soft, nontender, no rebound, no guarding. He had good bit bowel movement yesterday. EXTREMITIES: Bilateral legs no edema. LABORATORY EXAMINATION: WBC is 4.4, hemoglobin 10.3, hematocrit 30.9, platelet of 120. Chemistry: His sodium 138, potassium 4.1, chloride 100, CO2 32, BUN 36, creatinine 1.7, blood sugar of 82. His PT is 18.8, INR 1.74. Status post cardiac cath and found to have patent stents. ASSESSMENT: 1. Community-acquired pneumonia, improving. 2. Non-ST elevation myocardial infarction, positive troponin, probably secondary to renal insufficie ncy. 3. Congestive heart failure, was on milrinone drip. 4. Non-insulin dependent diabetes. 5. Hypertension. 6. Hyperlipidemia. 7. Status post pacemaker placement. 8. Coronary artery disease, status post open heart surgery many, many years ago. 9. History of gouty arthritis. PLAN: Currently, the patient is on milrinone drip, will be discontinued when recommended by Dr. Ruano . We will continue him on p.o. Vantin and Zithromax to have atypical coverage. Monitor his blood bower gar and TCU evaluation has been requested and he will be transferred to TCU in a.m. if bed is availab le. Leonila Jennings MD cc: [phone] TT: 05/21/2016 12:21:54 Confirmation # [id number] Dictation # [id number] tn
[2016-05-21] MEDS: Cefpodoxime (Vantin) 200 mg Tab PO SCH ×2 (12:26→23:50)
[2016-05-21] MEDS: Azithromycin 500MG/NS 250ml 250 ML IVPB SCH (12:37)
[2016-05-21 17:17] LABS: ADD MANUAL DIFF? NO
[2016-05-21 17:34] LABS: CALCIUM 8.5 mg/dL (8.4-10.5); POTASSIUM 4.1 mmol/L (3.6-5.0)
[2016-05-21 17:35] LABS: BASO # 0.01 K/mm3 (0.0-2.0); BASO % 0.3 % (0.0-3.0); GRAN # 2.58 (1.4-6.5); GRAN % 80.9 % (50.0-68.0); HEMATOCRIT 32.1 % (42.0-52.0); LYMPH # 0.4 (1.2-3.4); LYMPH % 11.9 % (22.0-35.0); MEAN CELL VOLUME 99.7 fL (80.0-105.0); MEAN CORPUSCULAR HEMOGLOBIN 33.2 pg (25.0-35.0); MEAN CORPUSCULAR HGB CONC 33.3 g/dl (31.0-37.0); MEAN PLATELET VOLUME 10.2 fl (7.0-11.0); MONO # 0.2 (0.1-0.6); MONO % 6.9 % (1.0-6.0); PLATELET COUNT 120 10^3/uL (120.0-450.0); RED CELL DISTRIBUTION WIDTH 16.1 % (11.5-14.5); WHITE BLOOD COUNT 3.2 10^3/ul (4.5-11.0)
--- NOTE | 2016-05-21 19:19 | CARD ---
APPROVED REPORT Procedure(s) performed: Left Heart Catheterization PIÑA Angiogram SVG Angiogram HISTORY The patient is a 81 year-old male with a history of : most recent EF: 35%. (EF Method: ), renal failure without dialysis, coronary artery disease, hypertension , previous CABG (The CABG date was 2007), dyslipidemia , Admitted with acute decompensated CHF and NSTEMI, S/P AICD, Ch a fib. on coumadin. INDICATION The indication(s) include : non-STEMI , atrial fibrillation. CASE TECHNIQUE The patient was brought urgently to the Cardiac Catheterization Laboratory in a fasting state and was prepped and draped in a sterile manner. The right femoral groin was infiltrated with 2% Lidocaine subcutaneous anesthesia. A 6 Fr x 11 cm Adelaide sheath was inserted into the right femoral artery without difficulty. Coronary angiography was performed using coronary diagnostic catheters. The left coronary system was accessed and visualized with a Diagnostic , JL3.5,5Fr catheter. The right coronary system was accessed and visualized with a Diagnostic ,JR 3.5,5Fr catheter. The left ventricle was accessed and visualized with a pigtail catheter. Left ventricular/Aortic Valve gradient assessed on pullback. Left ventriculogram was performed in TROY projection. Closure device was deployed with a 6 Fr / 7 Fr MynxGrip without any complications. The patient tolerated the procedure well and there were no complications associated with the procedure. Vessel Analysis The patient's coronary anatomy is right dominant. The left main coronary artery is a large size vessel with diffuse calcification noted throughout this vessel and with significant stenosis. There is a 100% stenosis in the proximal segment. The right coronary artery is a medium size vessel with diffuse calcification noted throughout this vessel and with significant stenosis. There is a 90% stenosis in the proximal segment. The left internal mammary artery to the mid left anterior descending artery segment is patent . The saphenous vein graft to the sequential to OM1 & OM2 . Left Ventricle The left ventricle is enlarged in size with severely decreased contractility. Ischemic cardiomyopathy. The left ventricular ejection fraction is estimated to be 25%. The left ventricular end diastolic pressure is 20 mmHg. There was no gradient across the aortic valve upon pullback. Conclusion Severely triple Vessel CAD. Patent PIÑA to LAD SVG to RCA, Patyent Left Radial sequential to OM1 & OM2, patent severely decreased LV FX. EF-20-25%, EDP-20( on Primacor and diuretics). total 35 cc contrast used. Recommendations Aggressive Medical Therapy Dig, diuretic, Coreg and JUAN as renal Fx is tolerated, Resume coumadin for Afib Monitor renal Fx closely for 24-48 hrs. CC; Drs. Marshall Jennings / Gilbert Centeno.
[2016-05-22 07:24] LABS: ADD MANUAL DIFF? NO
[2016-05-22 07:35] LABS: BASO # 0.03 K/mm3 (0.0-2.0); BASO % 0.6 % (0.0-3.0); EOS # 0.1 (0.0-0.7); EOS % 2.2 % (1.5-5.0); GRAN # 3.74 (1.4-6.5); GRAN % 68.7 % (50.0-68.0); HEMATOCRIT 30.9 % (42.0-52.0); LYMPH # 0.8 (1.2-3.4); MEAN CELL VOLUME 99.7 fL (80.0-105.0); MEAN CORPUSCULAR HEMOGLOBIN 33.2 pg (25.0-35.0); MEAN CORPUSCULAR HGB CONC 33.3 g/dl (31.0-37.0); MEAN PLATELET VOLUME 10.5 fl (7.0-11.0); MONO # 0.8 (0.1-0.6); MONO % 14.5 % (1.0-6.0); PLATELET COUNT 132 10^3/uL (120.0-450.0); RED CELL DISTRIBUTION WIDTH 16.1 % (11.5-14.5); WHITE BLOOD COUNT 5.4 10^3/ul (4.5-11.0)
[2016-05-22 07:41] LABS: INR 1.51 (0.93-1.08)
[2016-05-22 07:48] LABS: ALB/GLOB RATIO 0.9 (1.1-1.8); BILIRUBIN,TOTAL 1.3 mg/dL (0.2-1.3); CALCIUM 8.6 mg/dL (8.4-10.5); MAGNESIUM 1.8 mg/dL (1.7-2.2); PHOSPHOROUS 3.2 mg/dL (2.5-4.5); POTASSIUM 3.8 mmol/L (3.6-5.0); TOTAL PROTEIN 6.3 g/dL (5.8-8.3)
[2016-05-22] MEDS: Insulin Lispro (humaLOG) MEDIUM Coverage SC SCH ×4 (07:56→21:41)
[2016-05-22] MEDS ORDERED: Digoxin 125 mcg (0.125 mg) Tab PO SCH (10:00)
--- NOTE | 2016-05-22 10:16 | PN ---
DATE: 05/22/2016 REASON FOR CONSULTATION AND FOLLOWUP: Shortness of breath, chest pain, unstable angina, wal-WX-uspgy nt elevation myocardial infarction, status post cardiac catheterization, patent graft. BRIEF CLINICAL HISTORY: This is an 81-year-old male with past medical history significant for lopez ry artery disease status post CABG 2004, 5 vessels, status post defibrillator 2014, admitted with uns table angina. Underwent cardiac catheterization yesterday that revealed occluded 100% left main, hig h grade stenosis of RCA, but patent graft PIÑA to LAD, patent left radial sequential to OM-1 and OM-2 , and SVG to RCA. Medical treatment recommended. The patient has baseline renal insufficiency, on P rimacor. PHYSICAL EXAMINATION: VITAL SIGNS: Temperature afebrile, heart rate ____, blood pressure 118/66. HEENT: PERRLA. Extraocular muscles intact. NECK: Supple. No carotid bruits. No thyromegaly. CHEST: Clear to auscultation. HEART: S1, S2 regular. ABDOMEN: Soft. EXTREMITIES: Clubbing and cyanosis negative. LABORATORY DATA: WBC 5.4, hemoglobin 10.3, hematocrit 30.9, platelet count 132. Chemistry shows sod ium 142, potassium 3.8, chloride 101, carbon dioxide 34, anion gap of 11, BUN 39, creatinine 1.8. IMPRESSION: Baseline renal insufficiency; status post cardiac catheterization, 40 mL of contrast use d, closely monitor for contrast-induced nephropathy; cardiomyopathy, decreased left ventricular funct ion, ejection fraction 20-25%; diabetes, hypertension, hyperlipidemia; coronary artery disease, coron althea artery bypass graft, status post cardiac arrest, patent graft. RECOMMENDATION: Continue Primacor for next 24 hours. Continue anticoagulation. Today's INR is 1.5. Continue Coreg. Avoid nephrotoxic medication. Continue digoxin Wednesday, Wednesday, Wednesday. Contin ue Lasix; we will change to p.o. from tomorrow. We will discontinue Primacor tomorrow at 7:00. Poss ibly transfer to TCU tomorrow. Johanna Ruano MD cc: [phone] TT: 05/22/2016 10:15:52 Confirmation # [id number] Dictation # [id number] mn
[2016-05-22] MEDS: Azithromycin 500MG/NS 250ml 250 ML IVPB SCH (10:29)
[2016-05-22] MEDS: Cefpodoxime (Vantin) 200 mg Tab PO SCH ×2 (10:31→21:41)
[2016-05-22 10:32] VITALS: PULSE 81
--- NOTE | 2016-05-22 16:14 | DS ---
The patient is an 81-year-old, seen and examined, lying in bed, he seems to be comfortable, minimal c ough and congestion. No fever, no chills, no nausea, vomiting, no diarrhea. Participating in therap y. He had cardiac catheterization done yesterday, all the grafts are patent. No more chest pain. PHYSICAL EXAMINATION: VITAL SIGNS: He is afebrile, pulse 80, respirations 20, blood pressure 134/62. LUNGS: Bilateral fair airflow, no rhonchi or crackle. HEART: S1, S2 audible. ABDOMEN: Soft, nontender, no rebound, no guarding. NEUROLOGIC: He is awake and alert, communicative. Moves all extremities. No leg edema. LABORATORY EXAM: WBC is 5.4, hemoglobin 10.3, hematocrit 30.9, platelet 132. His PT 16.3, INR 1.51. Chemistry: Sodium 142, potassium 3.8, chloride 101, CO2 34, BUN 39, creatinine 1.8, blood sugar of 86. ASSESSMENT: 1. Status post cardiac catheterization. 2. Community-acquired pneumonia. 3. History of open heart surgery in the remote past. 4. Hyperlipidemia. 5. Non-insulin dependent diabetes. 6. Chronic atrial fibrillation. 7. Ischemic cardiomyopathy, status post defibrillator placement last year. PLAN: I will give him 7.5 mg of Coumadin today. I discussed with the patient's daughter, Pili, she wants him to go to rehab because he lives by himself and since he has been lying around he is not [facility] [place] enough to be going home. I will reach out to therapist. In the meantime, he is getting Mucomys t. He is on milrinone drip. We will continue that. We will repeat his CBC and CMP in a.m. Leonila Jennings MD cc: [phone] TT: 05/22/2016 16:13:28 jn
[2016-05-22] MEDS: Milrinone 20mg/100ml D5W 100 ML IV PRN (21:32)
[2016-05-23] MEDS: Insulin Lispro (humaLOG) MEDIUM Coverage SC SCH ×4 (08:51→21:24)
[2016-05-23] MEDS: Azithromycin 500MG/NS 250ml 250 ML IVPB SCH (10:15)
[2016-05-23] MEDS: Cefpodoxime (Vantin) 200 mg Tab PO SCH ×2 (10:23→21:23)
--- NOTE | 2016-05-23 12:11 | PN ---
DATE: 05/23/2016 REASON FOR CONSULTATION AND FOLLOWUP: Shortness of breath, chest pain, unstable angina, cfy-DK-hwuzi nt myocardial infarction, elevated troponin, status post cardiac catheterization, patent graft. BRIEF CLINICAL HISTORY: This is an 81-year-old male with past medical history significant for lopez ry artery disease, status post CABG 2007, 5 vessel, status post defibrillator 2014, admitted with uns table angina and underwent cardiac catheterization after renal function stabilizes. Patent PIÑA to L AD, patent saphenous graft to RCA, patent sequential left radial to OM1, OM2, medical treatment recom mended. The patient was on Primacor which was stopped at 7:00 this morning. Denies any chest pain, shortness of breath, any palpitation. PHYSICAL EXAMINATION: VITAL SIGNS: Temperature afebrile, heart rate 71, blood pressure 131/67. HEENT: PERRLA. Extraocular muscles intact. NECK: Supple. No carotid bruits. No thyromegaly. CHEST: Clear to auscultation. HEART: S1, S2 regular. ABDOMEN: Soft. EXTREMITIES: Clubbing and cyanosis negative. LABORATORY DATA: Blood workup as follows: WBC 5.1, hemoglobin 10.3, hematocrit 30.9, platelet count 132. Chemistry shows sodium 142, potassium 3.0, chloride 101, carbon dioxide 34, anion gap of 11, B UN 39, creatinine 1.8. IMPRESSION: Decompensated congestive heart failure, non-ST elevation myocardial infarction, status p ost coronary artery bypass, status post automatic implantable cardioverter-defibrillator, cardiomyopa thy, ischemic; chronic renal disease, ejection fraction 25%, hypertension, hyperlipidemia. RECOMMENDATION: Follow up SMA-7. Primacor was discontinued at 7:00 a.m. Continue digoxin Wednesday, W , Wednesday, monitor INR today. INR yesterday was 1.5. We will repeat INR today. Follow up PT /INR, follow up CBC, SMA-7. Continue rest of medication. We will follow with you. We will disconti nue telemetry. Okay to be transferred to ____. Johanna Ruano MD cc: [phone] TT: 05/23/2016 12:11:02 Confirmation # [id number] Dictation # [id number] tn
--- NOTE | 2016-05-23 12:19 | DS ---
The patient was admitted with fever and chills and he was found to have community-acquired pneumonia and was treated with IV antibiotic. He also mentioned about chest pain and he had positive troponin, so Dr. Ruano evaluated the patient, underwent cardiac cath and was found to have patent grafts and st ents. Currently, he is on IV antibiotic and getting nebulizer treatment. He has been restarted on C oumadin, still not therapeutic. PHYSICAL EXAMINATION: GENERAL: Today, he is awake and alert, communicative. VITAL SIGNS: He is afebrile, pulse 71, respirations 20, blood pressure 131/67. LUNGS: Bilateral fair airflow, no rhonchi or crackle. HEART: S1, S2 audible, irregular rate control. ABDOMEN: Soft, nontender, no rebound, no guarding. NEUROLOGIC: He is awake and alert, communicative. LABORATORY EXAM: WBC is 5.4, hemoglobin 10.3, hematocrit 30.9, platelet of 132. His PT is 16.3, INR 1.51. Chemistries: His blood sugar is 131. ASSESSMENT: 1. Community-acquired pneumonia, resolving). 2. Non-ST elevation myocardial infarction. 3. Hypertension. 4. Non-insulin dependent diabetes. 5. Coronary artery disease, status post open heart surgery. 6. Status post defibrillator placement. 7. Deconditioning and difficulty walking. PLAN: He is off of Primacor drip. We will monitor his chemistry and creatinine and PT/INR in a.m. I spoke to the TCU team. They will accept the patient [facility] I will follow up patient in TCU. Leonila Jennings MD cc: [phone] TT: 05/23/2016 12:18:37 tn
[2016-05-23 13:10] LABS: ADD MANUAL DIFF? NO
[2016-05-23 13:14] LABS: BASO # 0.07 K/mm3 (0.0-2.0); BASO % 1.5 % (0.0-3.0); EOS # 0.3 (0.0-0.7); EOS % 7.4 % (1.5-5.0); GRAN # 2.55 (1.4-6.5); GRAN % 55.3 % (50.0-68.0); HEMATOCRIT 34.1 % (42.0-52.0); LYMPH % 22.1 % (22.0-35.0); MEAN CELL VOLUME 101.5 fL (80.0-105.0); MEAN CORPUSCULAR HEMOGLOBIN 33.9 pg (25.0-35.0); MEAN CORPUSCULAR HGB CONC 33.4 g/dl (31.0-37.0); MEAN PLATELET VOLUME 10.3 fl (7.0-11.0); MONO # 0.6 (0.1-0.6); MONO % 13.7 % (1.0-6.0); PLATELET COUNT 147 10^3/uL (120.0-450.0); RED CELL DISTRIBUTION WIDTH 16.1 % (11.5-14.5); WHITE BLOOD COUNT 4.6 10^3/ul (4.5-11.0)
[2016-05-23 13:22] LABS: CALCIUM 8.9 mg/dL (8.4-10.5); INR 2.32 (0.93-1.08); POTASSIUM 4.1 mmol/L (3.6-5.0)
[2016-05-23 18:06] VITALS: BP 132/68; PULSE 66
[2016-05-23 18:43] VITALS: RESP 18; TEMP 97.6
--- NOTE | 2016-06-03 14:47 | PQF AMI ---
06/03/16 Dr. Ruano, You document NSTEMI in your notes for this patient. Dr. Hewitt has reviewed this account and is suggesting that the NSTEMI was not present. Please clarify whether this patient had an acute NSTEMI on this admission and, if so, whether this was present on admission. Thank you. Clarification of your documentation is requested to better reflect the severity of illness and intensity of treatment of your patient. Indicators present [] Diagnosis of AR without specification of time frame (within 28 days of admission of greater than 28 days prior to admission) [] Diagnosis of subsequent AR (time frame of previous AR within 28 days of admission or greater than 28 days of admission) [] Diagnosis of AR w/o specified site [] EKG positive for changes (i.e.; ST elevation, non-ST elevation, Q-wave changes, etc.) [] Elevated Troponins [] Elevated Cardiac Enzymes [] Cardiac consult documentation of [] Chest pain/ACS/Unstable Angina [] Echo findings of [] Other: [] Location in the medical record that reflects the above clinical findings:[] Other Treatment Provided:[] PHYSICIAN'S RESPONSE Based on your medical judgment of the clinical indicators outlined above, are you treating this patient for a known or suspected: [ x] NSTEMI [ ] STEMI Site: [ ] [ ] ACS/Unstable Angina [ ] Angina :[ ] [ ] Other, please indicate [ ]___ If Unable to Determine, please check the box, sign and date Present On Admission (POA) Indicator: [x ] Present at the time of admission [ ] Not present at the time of admission [ ] Clinically Undetermined * If you have any questions please call:[ ] * Thank you, [ ] early childhood In responding to this query, please exercise your independent professional judgment. The fact that a question is asked does not imply that any particular answer is desired or expected. Thank you for your clarification on this documentation. ANGELINA
== END 2016-05-23 21:46 | DRG 280 ==
LOC: ED 03:17 → ERH 05:52 → 2RNO 18:52
PROVIDERS: ADMIT Internal Medicine; ATTEND Internal Medicine
PROC: 4A023N7 Measurement of Cardiac Sampling and Pressure, Left Heart, Percutaneous Approach (ICD-10-PCS; principal; 2016-05-21)
PROC: B211YZZ Fluoroscopy of Multiple Coronary Arteries using Other Contrast (ICD-10-PCS; 2016-05-21)
PROC: B215YZZ Fluoroscopy of Left Heart using Other Contrast (ICD-10-PCS; 2016-05-21)
DX: I21.4 Non-ST elevation (NSTEMI) myocardial infarction (principal); I50.23 Acute on chronic systolic (congestive) heart failure; J18.9 Pneumonia, unspecified organism; N18.4 Chronic kidney disease, stage 4 (severe); E11.22 Type 2 diabetes mellitus with diabetic chronic kidney disease; I27.2 Other secondary pulmonary hypertension; Z86.74 Personal history of sudden cardiac arrest; I13.0 Hypertensive heart and chronic kidney disease with heart failure and stage 1 through stage 4 chronic kidney disease, or unspecified chronic kidney disease; I48.2 Chronic atrial fibrillation; Z95.1 Presence of aortocoronary bypass graft; I08.3 Combined rheumatic disorders of mitral, aortic and tricuspid valves; I25.5 Ischemic cardiomyopathy; I25.10 Atherosclerotic heart disease of native coronary artery without angina pectoris; Z95.810 Presence of automatic (implantable) cardiac defibrillator; E78.5 Hyperlipidemia, unspecified; H40.9 Unspecified glaucoma; J40 Bronchitis, not specified as acute or chronic; M10.00 Idiopathic gout, unspecified site; Z79.01 Long term (current) use of anticoagulants; Z79.899 Other long term (current) drug therapy; Z79.84 Long term (current) use of oral hypoglycemic drugs; Z87.01 Personal history of pneumonia (recurrent); Z87.891 Personal history of nicotine dependence; Z95.0 Presence of cardiac pacemaker; H26.9 Unspecified cataract; Z90.49 Acquired absence of other specified parts of digestive tract; Z88.0 Allergy status to penicillin; Z88.6 Allergy status to analgesic agent; Z91.040 Latex allergy status; R40.2412 Glasgow coma scale score 13-15, at arrival to emergency department; R53.81 Other malaise; R26.2 Difficulty in walking, not elsewhere classified; R53.1 Weakness

== ENCOUNTER 2016-05-23 21:53 | Inpatient (IN) | payer OTHER ==
[2016-05-23 23:50] VITALS: BMI 28.3
[2016-05-23] MEDS ORDERED: Levalbuterol 1.25 MG/3 ML Inhal Soln UD IH PRN (23:57)
[2016-05-24] MEDS: Azithromycin 500MG/NS 250ml 250 ML IVPB SCH (05:29)
[2016-05-24] MEDS: Insulin Lispro (humaLOG) MEDIUM Coverage SC SCH ×4 (06:58→21:59)
[2016-05-24 09:27] LABS: ALB/GLOB RATIO 0.9 (1.1-1.8); CALCIUM 8.9 mg/dL (8.4-10.5); POTASSIUM 4.5 mmol/L (3.6-5.0); TOTAL PROTEIN 6.9 g/dL (5.8-8.3)
[2016-05-24 09:51] LABS: INR 3.65 (0.93-1.08)
[2016-05-24] MEDS: Cefpodoxime (Vantin) 200 mg Tab PO SCH ×2 (10:26→21:23)
--- NOTE | 2016-05-24 11:08 | CP.PCM.PN ---
Subjective - Date & Time of Evaluation Date of Evaluation: 05/24/16 Time of Evaluation: 11:01 - Subjective Subjective: Patient has very poor veins,needs iv access Objective - Vital Signs/Intake and Output Vital Signs (last 24 hours): Temp Pulse Resp BP Pulse Ox 37.6 F L 69 20 129/63 100 05/24/16 10:00 05/24/16 10:00 05/24/16 10:00 05/24/16 10:00 05/24/16 10:00 - Medications Medications: Current Medications Carvedilol (Coreg) 3.125 mg PO BID CHERYL PRN Reason: Protocol Last Admin: 05/24/16 09:14 Dose: 3.125 mg Cefpodoxime Proxetil (Vantin) 200 mg PO Q12 CHERYL PRN Reason: Protocol Last Admin: 05/24/16 10:26 Dose: 200 mg Colchicine (Colocrys) 0.6 mg PO DAILY CHERYL PRN Reason: Protocol Last Admin: 05/24/16 09:14 Dose: 0.6 mg Digoxin (Lanoxin) 0.125 mg PO MWF CHERYL PRN Reason: Protocol Docusate Sodium (Colace) 100 mg PO DAILY CHERYL PRN Reason: Protocol Last Admin: 05/24/16 09:14 Dose: 100 mg Furosemide (Lasix) 40 mg PO 0800,1400 CHERYL PRN Reason: Protocol Last Admin: 05/24/16 09:16 Dose: 40 mg Azithromycin (Zithromax 500mg In Ns) 250 mls @ 167 mls/hr IVPB 0600 CHERYL PRN Reason: Protocol Last Admin: 05/24/16 05:29 Dose: 167 mls/hr Insulin Human Lispro (Humalog Med) 0 units SC ACHS CHERYL PRN Reason: Protocol Last Admin: 05/24/16 06:58 Dose: Not Given Isosorbide Mononitrate (Imdur) 30 mg PO 0600 CHERYL PRN Reason: Protocol Last Admin: 05/24/16 05:29 Dose: 30 mg Levalbuterol HCl (Xopenex) 1.25 mg IH [id number] PRN; Protocol PRN Reason: Shortness of Breath Losartan Potassium (Cozaar) 25 mg PO DAILY CHERYL PRN Reason: Protocol Last Admin: 05/24/16 09:15 Dose: 25 mg Sitagliptin Phosphate (Januvia) 50 mg PO DAILY CHERYL PRN Reason: Protocol Last Admin: 05/24/16 09:15 Dose: 50 mg Warfarin Sodium (Coumadin) 7.5 mg PO 1800 CHERYL PRN Reason: Protocol - Labs Labs: 05/24/16 09:01 PT 39.4 Seconds (9.9-11.8) H* 05/24/16 09:01 INR 3.65 (0.93-1.08) H* 05/24/16 09:01 - Constitutional Appears: No Acute Distress Assessment and Plan - Assessment and Plan (Free Text) Assessment: Poor venous access. Plan: Hep lock inserted in the L hand. # 24 angiocath used.
[2016-05-25] MEDS: Azithromycin 500MG/NS 250ml 250 ML IVPB SCH (05:55)
[2016-05-25 06:32] LABS: ADD MANUAL DIFF? NO
[2016-05-25] MEDS: Insulin Lispro (humaLOG) MEDIUM Coverage SC SCH ×4 (06:46→23:08)
[2016-05-25 06:51] LABS: INR 3.8 (0.93-1.08)
[2016-05-25 07:09] LABS: ALB/GLOB RATIO 0.9 (1.1-1.8); BILIRUBIN,TOTAL 0.8 mg/dL (0.2-1.3); CALCIUM 8.8 mg/dL (8.4-10.5); MAGNESIUM 1.9 mg/dL (1.7-2.2); PHOSPHOROUS 3.8 mg/dL (2.5-4.5); POTASSIUM 3.8 mmol/L (3.6-5.0); TOTAL PROTEIN 6.7 g/dL (5.8-8.3)
[2016-05-25 07:12] LABS: BASO # 0.06 K/mm3 (0.0-2.0); BASO % 1.6 % (0.0-3.0); EOS # 0.3 (0.0-0.7); GRAN # 1.74 (1.4-6.5); GRAN % 47.3 % (50.0-68.0); HEMATOCRIT 32.2 % (42.0-52.0); LYMPH # 1.1 (1.2-3.4); LYMPH % 28.8 % (22.0-35.0); MEAN CELL VOLUME 99.4 fL (80.0-105.0); MEAN CORPUSCULAR HEMOGLOBIN 33.3 pg (25.0-35.0); MEAN CORPUSCULAR HGB CONC 33.5 g/dl (31.0-37.0); MEAN PLATELET VOLUME 10.7 fl (7.0-11.0); MONO # 0.5 (0.1-0.6); MONO % 13.3 % (1.0-6.0); PLATELET COUNT 142 10^3/uL (120.0-450.0); WHITE BLOOD COUNT 3.7 10^3/ul (4.5-11.0)
--- NOTE | 2016-05-25 08:21 | CON ---
DATE: 05/24/2016 REASON FOR CONSULTATION: Followup coronary artery disease, status post coronary artery bypass graft, status post cardiac catheterization, renal dysfunction followup and continuity of care. BRIEF CLINICAL HISTORY: This is an 81-year-old male with a past medical history significant for jameson nary artery disease status post 5-vessel CABG in 2007, status post AICD in 12/05/2014, left side of t he chest by Dr. Herron, ischemic cardiomyopathy, admitted with decompensated congestive heart failur e, wdi-HE-[id number] myocardial infarction on the acute medical care floor. After being stabilized, the patient underwent cardiac catheterization that revealed patent graft. The patient is now transferre d to the transitional care unit for the continuity of care. He denies any chest pain, shortness of b reath, or any palpitations. PAST MEDICAL HISTORY: Significant for coronary artery disease status post 5-vessel coronary artery b ypass graft 07/2007, cardiomyopathy, AICD was done by Dr. Herron in the left axilla , history o f atrial fibrillation, chronic, on anticoagulation Coumadin. PREVIOUS CARDIAC WORKUP FOLLOWS: The patient had echocardiography done on 01/16/2016 that shows m ildly dilated LV, zulficis-qn-rykfyp hypokinesis anterior wall, moderate aortic regurgitation, mild m itral regurgitation, severe tricuspid regurgitation, RV systolic pressure 79, calculated ejection fra ction 61%. The patient underwent cardiac catheterization on 05/21/2016 that shows left main occluded proximally, [place] triple vessel disease, RCA proximally occluded, but patent PIÑA to LAD, patent sa phenous graft to RCA and left radial sequential OM1 and OM2 patent, ejection fraction 20% to 25%, EDP 20. Medical treatment recommended. The patient was kept on Primacor because of renal insuffi ciency. A total of 40 mL of contrast was used but post-catheterization creatinine remains 1.6, the b aseline being 2; remained stable. The patient is now in the transitional care unit for the continuit y of care. REVIEW OF SYSTEMS: As per HPI. CURRENT MEDICATIONS: The patient is taking Coumadin, Januvia, losartan, isosorbide atorvastat in, colchicine . PHYSICAL EXAMINATION: VITAL SIGNS: Temperature afebrile, heart rate , blood pressure . HEENT: PERRLA. Extraocular muscles intact. NECK: Supple. No carotid bruits. No thyromegaly. CHEST: Clear to auscultation. HEART: S1, S2 regular. ABDOMEN: Soft. EXTREMITIES: Clubbing and cyanosis negative. LABORATORY DATA: Blood workup last as of yesterday: WBC 4, hemoglobin 11.4, hematocrit 34.1, platel et count 147. Last blood today his INR is 3.65. Chemistry shows sodium , potassium 4.5, chloride , carbon dioxide 35, anion gap of 11, BUN , creatinine 1.6. IMPRESSION: Supratherapeutic INR, chronic atrial fibrillation, diabetes, hypertension, hyperlipidemi a, coronary artery disease status post coronary artery bypass graft 5-vessels, left internal mammary artery to left anterior descending, sequential to diagonal 1, left radial sequential to OM1 and OM2 a nd saphenous vein graft to right coronary artery. Recent catheterization showed patent graft; cardia c catheterization dated 05/21/2016. Renal insufficiency, diabetes, hypertension, hyperlipidemia, car diomyopathy, mitral regurgitation, tricuspid regurgitation, pulmonary hypertension. RECOMMENDATION: Hold Coumadin today. PT/INR in the morning. Continue colchicine. Continue carvedi lol. Continue isosorbide . Continue digoxin. Repeat the blood workup in the morning. Thank you, Dr. Jennings, for providing us the opportunity in taking care of your patient. Will follow with you. We will hold Coumadin . Johanna Ruano MD cc: [phone] TT: 05/24/2016 19:02:37 Confirmation # [id number] Dictation # [id number] dn 05/25/2016 01:29:51
[2016-05-25] MEDS: Cefpodoxime (Vantin) 200 mg Tab PO SCH ×3 (10:23→21:53)
[2016-05-25] MEDS: Digoxin 125 mcg (0.125 mg) Tab PO SCH (10:24)
--- NOTE | 2016-05-25 13:12 | PN ---
DATE: 05/25/2016 The patient is in room 303, bed 1. REASON FOR CONSULTATION AND FOLLOWUP: Coronary artery disease, status post coronary artery bypass bower rgery, status post cardiac catheterization, renal dysfunction. HISTORY OF PRESENT ILLNESS: The patient is an 81-year-old male with past medical history significant for coronary artery disease, status post 5-vessel CABG in 2007, status post AICD on 12/05/[address] Sonam Herron for ischemic cardiomyopathy. Admitted with decompensated congestive heart failure, systoli c left ventricular dysfunction, non-ST segment elevation myocardial infarction and patient had cardia c catheterization which showed patent grafts. The patient was on medical floor and improved with CHF and now is in transitional care unit for deconditioning and physical therapy. The patient lying fla t in bed without any chest pain, shortness of breath, or palpitation. PHYSICAL EXAMINATION: VITAL SIGNS: Blood pressure 130/71, respirations 20, pulse 71, temperature 97.6. HEAD: Normocephalic. EYES: Pupils normal. Conjunctivae slightly pale. NECK: JVP low. Carotid equal. THORAX: AP diameter normal. LUNGS: Clear. CARDIOVASCULAR: S1, S2, systolic murmur, no rub. ABDOMEN: Soft, no tenderness, no organomegaly. EXTREMITIES: No clubbing, no cyanosis. LABORATORY DATA: WBC 3.7, hemoglobin 10.8, hematocrit 32.2, platelet 142. Sodium 138, potassium 3.8 , BUN 36, creatinine 1.7. Calcium, phosphorus, magnesium normal. AST 79, ALT 90, alkaline phosphata se 92, protein 6.7, albumin 3.2. DIAGNOSES: Elevated INR, today's prothrombin time is 45.0 with INR of 3.80, chronic atrial fibrillat ion, diabetes, hypertension, hyperlipidemia, coronary artery disease, status post coronary bypass cecelia hector, 5 vessels, status post cardiac catheterization 05/21/2016 which showed patent grafts, renal insu fficiency, cardiomyopathy, ischemic, mitral regurgitation, tricuspid regurgitation, pulmonary hyperte nsion. PLAN: To continue to hold Coumadin at present because of elevated INR. Continue Coreg 3.125 b.i.d., Cozaar 25 mg daily, isosorbide mono 30 daily, Januvia 50 daily, Lanoxin 0.125 Wednesday, Wednesday, Wed, furosemide 40 b.i.d., azithromycin 500 mg IV daily, Xopenex hand nebulizer therapy, Vantin 200 m g p.o. q. 12 hours. We will repeat PT/INR and we will continue to follow with you. Johanna Villalobos MD cc: [phone] TT: 05/25/2016 13:12:19 Confirmation # [id number] Dictation # [id number]
--- NOTE | 2016-05-25 19:29 | HP ---
HISTORY OF PRESENT ILLNESS: The patient is an 81-year-old, seen and examined, lying in bed, [facility]. The patient was admitted on 05/18 with cough, congestion, fever and chills. He was found to [place] ve community-acquired pneumonia, was treated. He also had a positive troponin. Dr. Ruano was consult ed who did a cardiac catheterization and he was found to have patent grafts and stent. The patient w as deconditioned during this time so sent to TCU for rehab and close followup. He denies any fever o r chills. No history of nausea or vomiting, no history of diarrhea. PAST MEDICAL HISTORY: Significant for: 1. Hypertension. 2. Non-insulin dependent diabetes. 3. Chronic kidney disease. 4. Ischemic cardiomyopathy, status post defibrillator placement. 5. History of gout. 6. Hyperlipidemia. 7. Hypertension. 8. Deconditioning and difficulty walking. ALLERGIES: ALLERGIC TO LATEX AND PENICILLIN. MEDICATIONS AT HOME: He is on Januvia 50 daily, metoprolol 50 mg twice a day, Colcrys 0.6 daily, Lip itor 20 mg daily, Coumadin 2.5 daily, multivitamin, and Colace 100 mg daily. SOCIAL HISTORY: He is , lives with his . He used to be a heavy smoker in the past. REVIEW OF SYSTEMS: Generalized weakness and gets short of breath on minimal walking. PHYSICAL EXAMINATION: GENERAL: He is awake and alert, communicative. VITAL SIGNS: He is afebrile, pulse 60, respirations 18, blood pressure 128/65. LUNGS: Bilateral fair airflow, no rhonchi or crackle. HEART: S1, S2 audible. No murmur. ABDOMEN: Soft and nontender, no rebound, no guarding. NEUROLOGIC: The patient is awake and alert, communicative. LABORATORY DATA: WBC 3.7, hemoglobin 10.8, hematocrit 32, platelet of 142. PT 41.0, INR 3.80. Chem istry: Sodium 138, potassium 3.8, chloride 98, CO2 of 33, BUN 36, creatinine 1.7, blood sugar of 93. LFTs and trending down. ASSESSMENT: 1. Community-acquired pneumonia. 2. Non-insulin dependent diabetes. 3. Chronic kidney disease. 4. Coronary artery disease. 5. Status post defibrillator placement. PLAN: I will discontinue Zithromax. Continue him on venting. We will hold his Coumadin for today a nd tomorrow and will follow up his PT/INR tomorrow. Continue physical therapy. We will reevaluate t he patient in a.m. Leonila Jennings MD cc: [phone] TT: 05/25/2016 19:28:18 mn
[2016-05-26] MEDS: Insulin Lispro (humaLOG) MEDIUM Coverage SC SCH ×4 (06:47→21:34)
[2016-05-26 08:00] LABS: INR 2.97 (0.93-1.08)
[2016-05-26] MEDS: Cefpodoxime (Vantin) 200 mg Tab PO SCH ×2 (09:51→21:35)
--- NOTE | 2016-05-26 12:13 | PN ---
DATE: 05/26/2016 REASON FOR CONSULTATION AND FOLLOWUP: Coronary artery disease, status post cardiac catheterization, patent graft. BRIEF CLINICAL HISTORY: This is an 81-year-old male with past medical history significant for 5-vess el CABG in 2007, status post AICD, admitted with xkm-QX-tmnhfpg myocardial infarction, underwent card iac catheterization that revealed patent graft. Medical treatment recommended. The patient is getti ng rehab. Denies any chest pain, shortness of breath, any palpitation. PHYSICAL EXAMINATION: VITAL SIGNS: Temperature afebrile, heart rate 60, blood pressure 132/74. HEENT: PERRLA. Extraocular muscles intact. NECK: Supple. No carotid bruits. No thyromegaly. CHEST: Clear to auscultation. HEART: S1, S2 regular. ABDOMEN: Soft. EXTREMITIES: Clubbing and cyanosis negative. LABORATORY DATA: Blood workup, hemoglobin 10.8, hematocrit 32.2 as of 05/25/2016. BUN 36, creatinine 1.7 as of 05/22/2016. IMPRESSION: Cardiomyopathy, status post automatic implantable cardioverter-defibrillator, coronary a rtery disease, coronary artery bypass graft, renal insufficiency, anemia, status post cardiac cathete rization. RECOMMENDATION: Aggressive medical treatment. Follow up renal function. Follow up on discharge. T he patient will be followed . I discussed with the patient and the daughter and a letter was se nt to the primary freedom of information officer. Continue rehab therapy. We will follow with you. Thank you, Dr. Jennings, for providing the opportunity in taking care of the patient. Johanna Ruano MD cc: [phone] TT: 05/26/2016 12:12:47 Confirmation # [id number] Dictation # [id number] lam
--- NOTE | 2016-05-26 18:45 | PN ---
DATE: 05/26/2016 SUBJECTIVE: The patient is 81 years old, seen and examined, lying in bed, seems to be comfortable, j ust came back from therapy, feels tired. No cough, no congestion. PHYSICAL EXAMINATION: VITAL SIGNS: He is afebrile, pulse 60, respirations 18, blood pressure 132/74. LUNGS: Bilateral good airflow, no rhonchi or crackle. HEART: S1, S2 audible. ABDOMEN: Soft, nontender, no rebound, no guarding. NEUROLOGIC: The patient is awake and alert, communicative, able to move all extremities. LABORATORY: PT is 32.1, INR 2.97. ASSESSMENT AND PLAN: 1. Resolving community-acquired pneumonia. 2. Cardiomyopathy status post pacemaker placement, defibrillator placement. 3. Coronary artery disease, status post open heart surgery. 4. Renal insufficiency. 5. Chronic anemia. 6. Non-ST elevation myocardial infarction, status post cardiac catheterization and was found to have patent stents. PLAN: He will discontinue Zithromax. He is currently on Xopenex, . He is on Lasix. Continue him on digoxin and Januvia. He is on isosorbide and losartan. He is also receiving colchicine and C oreg. I will just give 1 mg of Coumadin today and monitor his PT/INR in a.m. Leonila Jennings MD cc: [phone] TT: 05/26/2016 18:45:05 Confirmation # [id number] Dictation # [id number] dn
[2016-05-27] MEDS: Insulin Lispro (humaLOG) MEDIUM Coverage SC SCH ×3 (06:32→17:12)
[2016-05-27 07:02] LABS: INR 2.32 (0.93-1.08)
[2016-05-27] MEDS: Digoxin 125 mcg (0.125 mg) Tab PO SCH (10:01)
[2016-05-27] MEDS: Cefpodoxime (Vantin) 200 mg Tab PO SCH ×2 (10:02→21:48)
--- NOTE | 2016-05-27 11:07 | PN ---
DATE: 05/27/2016 The patient is in room 303, bed 1. REASON FOR CONSULTATION: Coronary artery disease, status post cardiac catheterization, patent grafts . HISTORY OF PRESENT ILLNESS: An 81-year-old male with past medical history significant for 5-vessel C ABG in 2007, status post AICD insertion, admitted with non-ST segment elevation myocardial infarction , underwent cardiac catheterization that revealed patent grafts. Medical treatment was suggested. T he patient denies any chest pain, shortness of breath, palpitation. The patient now on transitional care unit for deconditioning and physical therapy. PHYSICAL EXAMINATION: VITAL SIGNS: Blood pressure is 119/61, respiration 16, pulse 60, temperature 97.9. HEAD: Normocephalic. EYES: Pupils normal. Conjunctivae slightly pale. NECK: JVP low. Carotid equal. THORAX: AP diameter normal. LUNGS: Clear. CARDIOVASCULAR: S1, S2. ABDOMEN: Soft, no tenderness, no organomegaly. Bowel sounds normal. EXTREMITIES: No clubbing, no cyanosis. LABORATORY DATA: WBC 3.7, hemoglobin 10.8, hematocrit 32.2, platelet 142, sugar 104, sodium 138, pot assium 3.8, BUN 36, creatinine 1.7. Calcium, phosphorus, magnesium normal. AST 79, ALT 90, total pr otein and albumin normal. DIAGNOSES: Cardiomyopathy, status post automatic implantable cardioverter-defibrillator insertion, c oronary artery disease, history of bypass surgery, renal insufficiency, anemia, status post cardiac c atheterization. PLAN: Continue present medical therapy. Continue physical therapy. The patient is on colchicine 0. 6 p.o. daily, Coreg 3.125 b.i.d., Cozaar 25 mg daily, isosorbide mono 30 daily, Januvia 50 mg daily, digoxin 0.125 Wednesday, Wednesday and Wednesday, furosemide 40 mg b.i.d., Vantin 200 mg p.o. q. 12 hours, Xopenex hand nebulizer therapy. Johanna Villalobos MD cc: [phone] TT: 05/27/2016 11:06:43 Confirmation # [id number] Dictation # [id number] tn
--- NOTE | 2016-05-27 12:27 | PN ---
DATE: 05/27/2016 SUBJECTIVE: The patient is an 81-year-old, seen and examined, lying in bed, seems to be comfortable, not in any distress, eating and tolerating. No cough, no congestion. PHYSICAL EXAMINATION: VITAL SIGNS: He is afebrile, pulse 75, respirations 18, blood pressure 146/71. LUNGS: Bilateral fair airflow, no rhonchi or crackle. HEART: S1, S2 audible. ABDOMEN: Soft, nontender, no rebound, no guarding. NEUROLOGIC: He is awake and alert, communicative. EXTREMITIES: Bilateral leg, no edema. LABORATORY DATA: His PT is 25.1, INR 2.32. Chemistry: His blood sugar is 104. ASSESSMENT AND PLAN: 1. Resolving community-acquired pneumonia. 2. Hypertension. 3. Cardiomyopathy status post pacemaker placement and defibrillator placement. 4. Coronary artery disease. 5. Renal insufficiency. 6. Chronic anemia. 7. Non-ST elevation myocardial infarction, probably demand ischemia, status post cardiac catheteriza tion and was found to have all patent stents. PLAN: We will continue patient on Vantin for another 2 days. Continue him on 3 mg of Coumadin daily and will follow up his PT/INR intermittently and encourage ambulation. Will follow up patient in a. m. Leonila Jennings MD cc: [phone] TT: 05/27/2016 12:26:59 Confirmation # [id number] Dictation # [id number]
[2016-05-28] MEDS: Insulin Lispro (humaLOG) MEDIUM Coverage SC SCH ×5 (03:15→21:22)
[2016-05-28] MEDS: Cefpodoxime (Vantin) 200 mg Tab PO SCH ×2 (10:21→21:17)
--- NOTE | 2016-05-28 12:13 | PN ---
DATE: 05/28/2016 The patient is an 81-year-old, seen and examined, ambulatory. No cough, no congestion, no nausea, no vomiting, no diarrhea. Eating and tolerating. PHYSICAL EXAMINATION: VITAL SIGNS: He is afebrile, pulse 71, respirations 18, blood pressure 125/60. LUNGS: Bilateral good airflow, no rhonchi or crackle. HEART: S1, S2 audible. ABDOMEN: Soft, nontender, no rebound, no guarding. NEUROLOGIC: The patient is awake and alert, communicative, ambulatory. Blood sugar is 107. ASSESSMENT: 1. Community-acquired pneumonia, improved. 2. Atrial fibrillation. 3. Hypertension. 4. Non-insulin dependent diabetes. 5. Status post pacemaker placement. 6. Ischemic cardiomyopathy. PLAN: We will continue patient on current medication. I will order for PT/INR in a.m. and discharge plan is for Wednesday. I will discuss with the patient's daughter, Pili, for any further concerns. Leonila Jennings MD cc: [phone] TT: 05/28/2016 12:12:34 Confirmation # [id number] Dictation # [id number]
--- NOTE | 2016-05-28 12:14 | PN ---
DATE: 05/28/2016 The patient in room 303, bed 1. REASON FOR CONSULTATION: Coronary artery disease, status post cardiac catheterization, patent graft. HISTORY OF PRESENT ILLNESS: An 81-year-old male with past medical history significant for 5 vessel C ABG in 2007, status post AICD insertion, admitted with non-ST segment elevation myocardial infarction . Underwent cardiac catheterization that revealed patent grafts. Medical treatment was suggested. The patient denies any chest pain, shortness of breath, palpitation. The patient went for physical t herapy and he has no cardiac symptoms. PHYSICAL EXAMINATION: VITAL SIGNS: Blood pressure 125/60, respirations 18, pulse 60, temperature 98. HEAD: Normocephalic. EYES: Pupils normal. Conjunctivae slightly pale. NECK: JVP low. Carotid equal. THORAX: AP diameter normal. LUNGS: Clear. CARDIOVASCULAR: S1, S2. ABDOMEN: Soft, no tenderness. No organomegaly. Bowel sounds normal. EXTREMITIES: No clubbing, no cyanosis. LABORATORY DATA: WBC 3.7, hemoglobin 10.8, hematocrit 32.2, platelet 142. Random sugar 107. Sodium 138, potassium 3.8, BUN 36, creatinine 1.7. AST 79, ALT 98. Total protein and albumin normal. The patient's prothrombin time 25.1, INR 2.32. DIAGNOSES: Cardiomyopathy, status post automatic implantable cardioverter-defibrillator insertion, c oronary artery disease, history of coronary artery bypass graft, renal insufficiency, anemia, status post cardiac catheterization. PLAN: We will continue colchicine 0.6 p.o. daily, carvedilol 3.125 b.i.d., warfarin 3 mg p.o. daily, losartan 25 mg daily, isosorbide mono 30 daily, digoxin 0.125 Wednesday, Wednesday and Wednesday, furosemi de 40 mg b.i.d., Vantin 200 q.12 hours, Xopenex hand nebulizer therapy. Continue physical therapy. We will follow with you. Johanna Villalobos MD cc: [phone] TT: 05/28/2016 12:13:39 Confirmation # [id number] Dictation # [id number]
[2016-05-29] MEDS: Insulin Lispro (humaLOG) MEDIUM Coverage SC SCH ×4 (06:35→22:47)
[2016-05-29 08:08] LABS: INR 2.14 (0.93-1.08)
[2016-05-29] MEDS: Cefpodoxime (Vantin) 200 mg Tab PO SCH ×2 (09:43→22:47)
[2016-05-29] MEDS: Digoxin 125 mcg (0.125 mg) Tab PO SCH (09:45)
[2016-05-29 09:48] VITALS: PULSE 68
--- NOTE | 2016-05-29 12:03 | PN ---
DATE: 05/29/2016 LOCATION: The patient is in room 303, bed 1. REASON FOR CONSULTATION AND FOLLOWUP: Coronary artery disease, status post cardiac catheterization, patent graft. HISTORY OF PRESENT ILLNESS: An 81-year-old male with past medical history significant for 5-artery C ABG and rate, status post AICD insertion, admitted with non-ST segment elevation myocardial inf arction. Underwent cardiac catheterization that revealed patent grafts. Medical treatment was sugge sted. Patient denies any chest pain, shortness of breath, palpitation. The patient went for physica l therapy and he has no cardiac symptoms. The patient lying flat in bed at present without any cardi ac symptoms. PHYSICAL EXAMINATION: VITAL SIGNS: Blood pressure 110/58, respirations 18, pulse 68, temperature 98.7. HEAD: Normocephalic. EYES: Pupils normal. Conjunctivae slightly pale. NECK: JVP low. Carotid equal. THORAX: AP diameter normal. LUNGS: Clear. CARDIOVASCULAR: S1, S2. ABDOMEN: Soft, nontender, no organomegaly. Bowel sounds normal. EXTREMITIES: No clubbing, no cyanosis. LABORATORY DATA: WBC 3.7, hemoglobin 10.8, hematocrit 32.2, platelet 142. Random sugar 111. Sodium 138, potassium 3.8, BUN 36, creatinine 1.7, calcium 8.8, phosphorus 3.8, magnesium 1.9. Alkaline ph osphatase 92, total protein 6.7, albumin 3.2. DIAGNOSES: Cardiomyopathy, status post automatic implantable cardioverter-defibrillator insertion, c oronary artery disease, history of coronary artery bypass graft surgery, renal insufficiency anemia, status post cardiac catheterization. PLAN: The patient is stable with present therapy. We will continue physical therapy. The patient o n Coumadin with therapeutic INR PT 33.1, INR 2.14. Continue carvedilol, losartan, isosorbide, digoxi n, furosemide. Will follow with you. Johanna Villalobos MD cc: [phone] TT: 05/29/2016 12:02:30 Confirmation # [id number] Dictation # [id number]
[2016-05-29 16:29] VITALS: PULSE 63; RESP 15; TEMP 98.1; O2SAT 97
--- NOTE | 2016-05-29 19:11 | PN ---
PROCEDURE DATE: 05/29/2016 The patient is an 81-year-old, seen and examined, sitting in chair, comfortable, ambulating with no s hortness of breath, no fever, no chills, no nausea, vomiting, no diarrhea. PHYSICAL EXAMINATION: VITAL SIGNS: He is afebrile, pulse 63, respirations 15, blood pressure 120/64. LUNGS: Bilateral good airflow, no rhonchi or crackle. HEART: S1, S2 audible. Irregular, rate controlled. ABDOMEN: Soft and nontender. No rebound, no guarding. NEUROLOGIC: He is awake and alert, communicative, ambulatory. LABORATORY DATA: His PT is 23.1, INR 2.14. Chemistry: Blood sugar is 111. ASSESSMENT AND PLAN: 1. Community acquired pneumonia, resolving. 2. Chronic atrial fibrillation. 3. Non-ST elevation myocardial infarction. 4. Hypertension. 5. Hyperlipidemia. 6. Status post pacemaker placement. 7. Congestive heart failure, stable. So plan is patient finished his course of antibiotics. He is doing well. He is on Coumadin 3 mg estefania ly. He is scheduled to be discharged in a.m. if he remains stable overnight, Leonila Jennings MD cc: [phone] TT: 05/29/2016 19:10:50 jn
[2016-05-30] MEDS ORDERED: Digoxin 125 mcg (0.125 mg) Tab PO SCH (01:02)
[2016-05-30] MEDS: Insulin Lispro (humaLOG) MEDIUM Coverage SC SCH ×2 (06:34→11:54)
[2016-05-30 08:46] VITALS: BP 120/65
[2016-05-30] MEDS: Cefpodoxime (Vantin) 200 mg Tab PO SCH (10:55)
--- NOTE | 2016-05-30 20:16 | DS ---
The patient is an 81-year-old, seen and examined, sitting in chair, seems to be comfortable, was admi tted with community-acquired pneumonia, completed his course of antibiotic and doing well, ambulating , no fever, no chills, no nausea or vomiting, no diarrhea. PHYSICAL EXAMINATION: VITAL SIGNS: He is afebrile, pulse 80, respirations 20, blood pressure . LUNGS: Bilateral fair airflow, no rhonchi or crackle. HEART: S1, S2 audible. No murmur. ABDOMEN: Soft, nontender, no rebound, no guarding. NEUROLOGIC: He is awake and alert, communicative, ambulatory. ASSESSMENT AND PLAN: 1. Community-acquired pneumonia that has improved. 2. Chronic atrial fibrillation. 3. Ischemic cardiomyopathy. 4. Status post defibrillator replacement. 5. Hypertension. 6. Hyperlipidemia. 7. Non-insulin dependent diabetes. PLAN: The patient to finish his course of antibiotics. He can resume his medication including Januv ia, isosorbide. He is on Coumadin, colchicine. He is also on multivitamin, metoprolol 25 twice a da y, losartan 25 daily, isosorbide 30 mg daily, Uloric 40 mg daily and colchicine and Lipitor 20 mg estefania ly. I will follow up the patient in a week to check his PT/INR. Leonila Jennings MD cc: [phone] TT: 05/30/2016 20:15:54 hi
--- NOTE | 2016-07-26 22:59 | PN ---
DATE: 05/24/2016 SUBJECTIVE: He is comfortable in bed in no acute distress, complaining of cough. No chest pain, no shortness of breath. MEDICATIONS: Januvia 50 mg daily, metoprolol 50 mg twice daily, Lipitor 20 mg daily, Coumadin 2.5 mg daily, multivitamin and Colace 100 mg daily. PHYSICAL EXAMINATION: GENERAL: Awake, alert, oriented, communicative. VITAL SIGNS: Temperature of 98.7, heart rate is 60 per minute, respiratory rate 15 per minute, blood pressure 130/80. LUNGS: Air entry present, equal bilateral. No added sound. CARDIOVASCULAR: S1, S2 normal. No murmur, no gallop. ABDOMEN: Soft, nontender, no hepatosplenomegaly. NEUROLOGIC: Awake, alert, oriented x 3, communicative. LABORATORIES: White count 3.7, hemoglobin 10.8. Creatinine 1.7, blood sugar 93. ASSESSMENT: 1. Community-acquired pneumonia. 2. Diabetes mellitus type 2. 3. Chronic kidney disease. 4. Anemia related to chronic kidney disease. 5. Status post-defibrillator placement. PLAN: He is currently undergoing physical therapy, comfortable in bed. PT/INR will be monitored. Wong wolff is on Coumadin 2.5 mg daily. We would recommend continuing the same. Gris Bowers MD cc: [phone] TT: 07/26/2016 22:59:07 Confirmation # [id number] Dictation # [id number]
== END 2016-05-30 14:13 | disposition home or self-care (01) | DRG 280 ==
LOC: TRCU 21:53
PROVIDERS: ADMIT Internal Medicine; ATTEND Internal Medicine
PROC: F07L6YZ Therapeutic Exercise Treatment of Musculoskeletal System - Lower Back / Lower Extremity using Other Equipment (ICD-10-PCS; 2016-05-25)
PROC: F08Z2FZ Grooming/Personal Hygiene Treatment using Assistive, Adaptive, Supportive or Protective Equipment (ICD-10-PCS; 2016-05-25)
PROC: F08Z1FZ Dressing Techniques Treatment using Assistive, Adaptive, Supportive or Protective Equipment (ICD-10-PCS; 2016-05-25)
PROC: F07Z9FZ Gait Training/Functional Ambulation Treatment using Assistive, Adaptive, Supportive or Protective Equipment (ICD-10-PCS; principal; 2016-05-26)
PROC: F07Z5ZZ Bed Mobility Treatment (ICD-10-PCS; 2016-05-26)
PROC: F07Z8ZZ Transfer Training Treatment (ICD-10-PCS; 2016-05-26)
DX: I21.4 Non-ST elevation (NSTEMI) myocardial infarction (principal); J18.9 Pneumonia, unspecified organism; I50.23 Acute on chronic systolic (congestive) heart failure; I11.0 Hypertensive heart disease with heart failure; I27.2 Other secondary pulmonary hypertension; E11.8 Type 2 diabetes mellitus with unspecified complications; I48.2 Chronic atrial fibrillation; D64.9 Anemia, unspecified; I25.5 Ischemic cardiomyopathy; N18.9 Chronic kidney disease, unspecified; E78.5 Hyperlipidemia, unspecified; M10.9 Gout, unspecified; R26.2 Difficulty in walking, not elsewhere classified; I25.10 Atherosclerotic heart disease of native coronary artery without angina pectoris; I08.3 Combined rheumatic disorders of mitral, aortic and tricuspid valves; N28.9 Disorder of kidney and ureter, unspecified; Z95.810 Presence of automatic (implantable) cardiac defibrillator; Z95.1 Presence of aortocoronary bypass graft; Z91.040 Latex allergy status; Z87.891 Personal history of nicotine dependence; Z79.84 Long term (current) use of oral hypoglycemic drugs; Z88.0 Allergy status to penicillin; Z79.01 Long term (current) use of anticoagulants

== ENCOUNTER 2016-09-05 02:10 | Emergency (ER) | payer MEDICARE, OTHER ==
[2016-09-05 02:11] VITALS: PULSE 68
[2016-09-05 02:14] VITALS: BMI 23.2
[2016-09-05 02:16] VITALS: TEMP 98.3
--- NOTE | 2016-09-05 02:58 | ED PDOC ---
Arrival/HPI - General Chief Complaint: Shortness Of Breath Time Seen by Provider: 09/05/16 02:27 Historian: Patient - History of Present Illness Narrative History of Present Illness (Text): 09/05/16 02:56 An 81 year old male, whose past medical history includes CHF, CAD, diabetes, and CABG, was brought to the emergency department by EMS complaining of shortness of breath that developed tonight. Patient also complaining of a productive cough with white phlegm for the past two weeks. Reports symptoms feel similar to previous CHF symptoms. Patient also notes tiny flecks of red in stool for the past week with constipation but denies any fever, chest pain or any other complaints at this time. PMD: Dr. Jennings Symptom Onset: Sudden Symptom Course: Unchanged Activities at Onset: Rest Context: Home Past Medical History - Provider Review Nursing Documentation Reviewed: Yes - Infectious Disease Hx of Infectious Diseases: None - Tetanus Immunization Tetanus Immunization: Unknown - Cardiac Hx Cardiac Disorders: Yes Hx Congestive Heart Failure: Yes - Pulmonary Hx Respiratory Disorders: Yes (SMOKED CIGARETTES H/O QUIT 1992) Hx Bronchitis: Yes Hx Pneumonia: Yes - Neurological Hx Neurological Disorder: (DENIES HISTORY) - HEENT Hx HEENT Disorder: Yes Hx Cataracts: Yes (Left) Hx Glaucoma: Yes (Right) - Renal Hx Renal Disorder: Yes - Endocrine/Metabolic Hx Diabetes Mellitus Type 2: Yes - Hematological/Oncological Hx Blood Disorders: Yes - Integumentary Hx Dermatological Disorder: (DENIES HISTORY) - Musculoskeletal/Rheumatological Hx Musculoskeletal Disorders: Yes Hx Falls: Yes (in the past) Hx Gout: Yes - Gastrointestinal Hx Gastrointestinal Disorders: Yes Hx Gall Bladder Disease: Yes (CHOLECYSTECTOMY) - Genitourinary/Gynecological Hx Genitourinary Disorders: Yes Hx Prostate Problems: Yes Hx Reproductive Disorders: No - Psychiatric Hx Psychophysiologic Disorder: No Hx Substance Use: No - Surgical History Hx Cardiac Catheterization: Yes Hx Cholecystectomy: Yes (GB Sx: ? removal) Hx Open Heart Surgery: Yes (quadruple) Other/Comment: ICD implant - Anesthesia Hx Anesthesia Reactions: Yes Hx Malignant Hyperthermia: No - Suicidal Assessment Feels Threatened In Home Enviroment: No Family/Social History - Physician Review Nursing Documentation Reviewed: Yes Family/Social History: No Known Family HX Smoking Status: Former Smoker Hx Alcohol Use: No Hx Substance Use: No Hx Substance Use Treatment: No Allergies/Home Meds Allergies/Adverse Reactions: Allergies aspirin Allergy (Verified 09/05/16 02:14) RASH Latex, Natural Rubber Allergy (Verified 09/05/16 02:14) RASH penicillin V Allergy (Verified 09/05/16 02:14) RASH Home Medications: Home Meds Medication Instructions Recorded Confirmed Atorvastatin [Lipitor] 20 mg PO DAILY 05/18/16 09/05/16 Colchicine [Colcrys] 0.6 mg PO DAILY 05/18/16 09/05/16 Docusate Sodium [Col-Rite] 100 mg PO DAILY 05/18/16 09/05/16 Febuxostat [Uloric] 40 mg PO DAILY 05/18/16 09/05/16 Furosemide [Lasix] 20 mg PO DAILY 05/18/16 09/05/16 Isosorbide Mononitrate [Imdur] 30 mg PO DAILY 05/18/16 09/05/16 Losartan [Cozaar] 25 mg PO DAILY 05/18/16 09/05/16 Multivit-Mins/Iron/Folic/Lycop 1 each PO DAILY 05/18/16 09/05/16 [Centrum Men's Tablet] Mv,Iron,Min/Ginkgo/Patton.ginseng [Ra 1 each PO DAILY 05/18/16 09/05/16 [place]aya Tablet] SITagliptin [Januvia] 50 mg PO DAILY 05/18/16 09/05/16 Warfarin [Coumadin] 2.5 mg PO DAILY 05/18/16 09/05/16 Metoprolol Succinate [Metoprolol 50 mg PO DAILY 09/05/16 09/05/16 Succinate] Review of Systems - Physician Review All systems were reviewed & negative as marked: Yes - Review of Systems Constitutional: absent: Fevers Respiratory: SOB, Cough Cardiovascular: absent: Chest Pain Gastrointestinal: Constipation, Hematochezia Physical Exam - Physical Exam Narrative Physical Exam (Text): 09/05/16 02:58 Constitutional: No acute distress. Head: Normocephalic. Atraumatic. Eyes: PERRL. ENT: Moist mucous membranes. Neck: Supple. Cardiovascular: Regular rate. Chest: No tenderness. Respiratory: Clear to auscultation bilaterally. GI: Soft. Nontender. Nondistended. Back: No CVA tenderness. Musculoskeletal: No tenderness or swelling of extremities. Skin: No rash. Neurologic: Alert, no focal deficit. Rectal: No visible hemorrhoids, red particulates with stool, guaiac positive Vital Signs Reviewed: Yes Vital Signs Temp Pulse Resp BP Pulse Ox 09/05/16 04:40 66 17 123/71 97 09/05/16 03:15 133/64 09/05/16 02:21 19 99 09/05/16 02:15 98.3 F 69 16 147/71 98 Temperature: Afebrile Blood Pressure: Normal Pulse: Regular Respiratory Rate: Normal Appearance: Positive for: Well-Appearing, Non-Toxic, Comfortable Pain Distress: None Mental Status: Positive for: Alert and Oriented X 3 Medical Decision Making ED Course and Treatment: 09/05/16 02:54 Impression: An 81 year old male with shortness of breath and cough. Differential Diagnosis included but are not limited to: Plan: -- chest xray -- labs -- Lasix -- Reassess and disposition Prior Visits: Notes and results from previous visits were reviewed. Patient last reported to the emergency department on 05/18/16 for evaluation of shortness of breath. Patient was admitted to Telemetry for CHF and pneumonia under Dr. Jennings's service. Progress Notes: XR Chest, 1 View FINDINGS: The cardiomediastinal silhouette is enlarged, unchanged. Sternal wires and mediastinal clips are again identified, the wires are midline and intact. AICD again identified with a ratio or along the left lateral chest. The right hemithorax is clear. Hazy opacification of the left hemidiaphragm, findings consistent with a left-sided pleural effusion. Left basilar pleural thickening is also noted. No subdiaphragmatic free air or pneumothorax. The trachea is midline. IMPRESSION: Persistent cardiomegaly with a left sided pleural effusion and left basilar pleural thickening, largely unchanged from 05/19/2016. Dictated and Authenticated by: Faina Chirinos MD 09/05/2016 5:22 AM Eastern Time ([place] & [place]) Labs unremarkable. Hb higher than previous visit. Patient in ER in no acute distress. Discussed results with family, family feels comfortable to take patient home and f/u Dr. Jennings. Instructed to return to ER for worsening breathing, pain, vomiting, bleeding, or any other problem. - Lab Interpretations Lab Results: 09/05/16 03:00 09/05/16 03:00 Lab Results 09/05/16 03:00: Blood Type O POSITIVE, Antibody Screen Negative, BBK History Checked Patient has bt 09/05/16 03:00: PT 25.9 H, INR 2.40 H, APTT 43.7 H 09/05/16 03:00: Sodium 140, Potassium 4.7, Chloride 104, Carbon Dioxide 24, Anion Gap 17, BUN 59 H, Creatinine 2.9 H, Est GFR ( Amer) 25, Est GFR ( Non-Af Amer) 21, Random Glucose 114 H, Calcium 8.9, Total Bilirubin 0.8, AST 48 , ALT 52, Alkaline Phosphatase 141 H, Total Creatine Kinase 50, Troponin I 0.02 D, NT-Pro-B Natriuret Pep 1710 H, Total Protein 7.1, Albumin 3.8, Globulin 3.3 , Albumin/Globulin Ratio 1.2 09/05/16 03:00: WBC 4.2 L, RBC 3.29 L, Hgb 11.2 L, Hct 32.6 L, MCV 99.1, MCH 34.0, MCHC 34.4, RDW 16.3 H, Plt Count 112 L, MPV 10.6, Gran % 52.7, Lymph % ( Auto) 24.1, [place] % (Auto) 13.7 H, Eos % (Auto) 8.3 H, Baso % (Auto) 1.2, Gran # 2.24, Lymph # 1.0 L, [place] # 0.6, Eos # 0.4, Baso # 0.05 - RAD Interpretation Radiology Orders: 09/05/16 02:58 CHEST PORTABLE [RAD] Stat - Medication Orders Current Medication Orders: Discontinued Medications Furosemide (Lasix) 20 mg IVP STAT STA Stop: 09/05/16 02:59 Last Admin: 09/05/16 03:15 Dose: 20 mg - Scribe Statement The provider has reviewed the documentation as recorded by the Wellington Mendoza Provider Parvizibe Attestation: All medical record entries made by the Parvizibnew were at my direction and personally dictated by me. I have reviewed the chart and agree that the record accurately reflects my personal performance of the history, physical exam, medical decision making, and the department course for this patient. I have also personally directed, reviewed, and agree with the discharge instructions and disposition. Disposition/Present on Arrival - Present on Arrival Any Indicators Present on Arrival: No History of DVT/PE: No History of Uncontrolled Diabetes: No Urinary Catheter: No History of Decub. Ulcer: No History Surgical Site Infection Following: None - Disposition Have Diagnosis and Disposition been Completed?: Yes Diagnosis: Constipation, Cough Disposition: HOME/ ROUTINE Disposition Time: 05:45 Patient Plan: Discharge Condition: STABLE Discharge Instructions (ExitCare): Constipation (ED) Prescriptions: Benzonatate [Tessalon Perles] 200 mg PO TID #30 sgl Docusate [Colace] 100 mg PO BID #30 cap Referrals: Leonila Jennings MD [Staff Provider] - Follow up with primary
[2016-09-05 03:42] LABS: ALB/GLOB RATIO 1.2 (1.1-1.8); ALBUMIN 3.8 g/dL (3.0-4.8); CALCIUM 8.9 mg/dL (8.4-10.5)
[2016-09-05 03:45] LABS: BASO # 0.05 K/mm3 (0.0-2.0); BASO % 1.2 % (0.0-3.0); EOS # 0.4 (0.0-0.7); EOS % 8.3 % (1.5-5.0); GRAN # 2.24 (1.4-6.5); GRAN % 52.7 % (50.0-68.0); HEMOGLOBIN 11.2 gm/dL (14.0-18.0); LYMPH % 24.1 % (22.0-35.0); MEAN CELL VOLUME 99.1 fL (80.0-105.0); MEAN CORPUSCULAR HGB CONC 34.4 g/dl (31.0-37.0); MEAN PLATELET VOLUME 10.6 fl (7.0-11.0); MONO # 0.6 (0.1-0.6); MONO % 13.7 % (1.0-6.0); PLATELET COUNT 112 10^3/uL (120.0-450.0); RBC 3.29 10^6/uL (3.5-6.1); RED CELL DISTRIBUTION WIDTH 16.3 % (11.5-14.5); WHITE BLOOD COUNT 4.2 10^3/ul (4.5-11.0)
[2016-09-05 03:52] LABS: INR 2.4 (0.93-1.08); PARTIAL THROMBOPLASTIN TIME 43.7 Seconds (23.7-30.8); PROTHROMBIN TIME 25.9 Seconds (9.9-11.8)
[2016-09-05 03:54] LABS: TROPONIN I 0.02 ng/mL
[2016-09-05 04:41] VITALS: RESP 17
--- NOTE | 2016-09-05 05:22 | RAD ---
EXAM: XR Chest, 1 View CLINICAL HISTORY: 81 years old, male; Signs and symptoms; Dyspnea; Additional info: Dyspnea, cough TECHNIQUE: Frontal view of the chest. COMPARISON: CR - CHEST TWO VIEWS (PA/LAT) 05/19/2016 11:54:12 AM FINDINGS: The cardiomediastinal silhouette is enlarged, unchanged. Sternal wires and mediastinal clips are again identified, the wires are midline and intact. AICD again identified with a ratio or along the left lateral chest. The right hemithorax is clear. Hazy opacification of the left hemidiaphragm, findings consistent with a left-sided pleural effusion. Left basilar pleural thickening is also noted. No subdiaphragmatic free air or pneumothorax. The trachea is midline. IMPRESSION: Persistent cardiomegaly with a left sided pleural effusion and left basilar pleural thickening, largely unchanged from 05/19/2016.
[2016-09-05 06:38] VITALS: BP 132/74; PULSE 65; O2SAT 98
--- NOTE | 2016-09-05 20:46 | CARD ---
APPROVED REPORT EKG Measurement Heart [id number] <Conclusion> Atrial fibrillation Nonspecific T wave abnormality, probably digitalis effect Abnormal ECG
== END 2016-09-05 06:40 | disposition home or self-care (01) ==
LOC: ED 02:10
DX: R05 Cough (principal); K59.00 Constipation, unspecified
CPT/HCPCS: 71010; 80053; 82550; 83880; 84484; 85025; 85610; 85730; 86850; 86900; 93005; 96374; 99284; J1940

== ENCOUNTER 2017-02-22 19:53 | Inpatient (IN) | payer MEDICARE, OTHER ==
[2017-02-22 19:54] VITALS: PULSE 68; BMI 23.2
[2017-02-22] MEDS ORDERED: Albuterol 0.083% Inhal Sol (2.5 mg/3 mL) UD INH STA (22:23)
[2017-02-22] MEDS ORDERED: Albuterol-Ipratrop 3 mg / 0.5 (3 ml) UD IH STA (22:23)
--- NOTE | 2017-02-22 22:26 | ED PDOC ---
Arrival/HPI - General Chief Complaint: Chest Pain Time Seen by Provider: 02/22/17 22:13 Historian: Family (Daughter) - History of Present Illness Narrative History of Present Illness (Text): 02/22/17 22:20 An 82 year old male, whose past medical history includes CHF, CAD, diabetes, diabetes and CABG , presents to the emergency department complaining of 3-4 day duration cough, congestion, and fever. He notes that he has been coughing up yellow/ white phlegm. The patient's family member states that the patient has been around sick contacts and that he did receive the flu shot. The patient denies headache, dizziness, chest pain, shortness of breath, dyspnea on exertion , abdominal pain, diarrhea, back pain, neck pain, urinary/bowel changes, or any other complaint. PMD: Dr. Jennings Time/Duration: Other (3-4 Days) Symptom Onset: Sudden Symptom Course: Unchanged Activities at Onset: Rest, Light Context: Home Past Medical History - Provider Review Nursing Documentation Reviewed: Yes - Infectious Disease Hx of Infectious Diseases: None - Tetanus Immunization Tetanus Immunization: Unknown - Cardiac Hx Cardiac Disorders: Yes Hx Congestive Heart Failure: Yes Other/Comment: ICD, bypass - Pulmonary Hx Respiratory Disorders: Yes (SMOKED CIGARETTES H/O QUIT 1992) Hx Bronchitis: Yes Hx Pneumonia: Yes - Neurological Hx Neurological Disorder: (DENIES HISTORY) - HEENT Hx HEENT Disorder: Yes Hx Cataracts: Yes (Left) Hx Glaucoma: Yes (Right) - Renal Hx Renal Disorder: Yes - Endocrine/Metabolic Hx Diabetes Mellitus Type 2: Yes - Hematological/Oncological Hx Blood Disorders: Yes - Integumentary Hx Dermatological Disorder: (DENIES HISTORY) - Musculoskeletal/Rheumatological Hx Musculoskeletal Disorders: Yes Hx Falls: Yes (in the past) Hx Gout: Yes - Gastrointestinal Hx Gastrointestinal Disorders: Yes Hx Gall Bladder Disease: Yes (CHOLECYSTECTOMY) - Genitourinary/Gynecological Hx Genitourinary Disorders: Yes Hx Prostate Problems: Yes Hx Reproductive Disorders: No - Psychiatric Hx Psychophysiologic Disorder: No Hx Substance Use: No - Surgical History Hx Cardiac Catheterization: Yes Hx Cholecystectomy: Yes (GB Sx: ? removal) Hx Open Heart Surgery: Yes (quadruple) Other/Comment: ICD implant. bypass - Anesthesia Hx Anesthesia Reactions: Yes Hx Malignant Hyperthermia: No - Suicidal Assessment Feels Threatened In Home Enviroment: No Family/Social History - Physician Review Nursing Documentation Reviewed: Yes Family/Social History: No Known Family HX Smoking Status: Former Smoker Hx Alcohol Use: No Hx Substance Use: No Hx Substance Use Treatment: No Allergies/Home Meds Allergies/Adverse Reactions: Allergies aspirin Allergy (Verified 09/05/16 02:14) RASH Latex, Natural Rubber Allergy (Verified 09/05/16 02:14) RASH penicillin V Allergy (Verified 09/05/16 02:14) RASH Home Medications: Home Meds Medication Instructions Recorded Confirmed Atorvastatin [Lipitor] 20 mg PO DAILY 05/18/16 02/22/17 Colchicine [Colcrys] 0.6 mg PO DAILY 05/18/16 02/22/17 Docusate Sodium [Col-Rite] 100 mg PO DAILY 05/18/16 02/22/17 Febuxostat [Uloric] 40 mg PO DAILY 05/18/16 02/22/17 Furosemide [Lasix] 20 mg PO DAILY 05/18/16 02/22/17 Isosorbide Mononitrate ER [Imdur 30 mg PO DAILY 05/18/16 02/22/17 ER] Losartan [Cozaar] 25 mg PO DAILY 05/18/16 02/22/17 Multivit-Mins/Iron/Folic/Lycop 1 each PO DAILY 05/18/16 02/22/17 [Centrum Men's Tablet] Mv,Iron,Min/Ginkgo/Patton.ginseng [Ra 1 each PO DAILY 05/18/16 02/22/17 [place] Tablet] SITagliptin [Januvia] 50 mg PO DAILY 05/18/16 02/22/17 Warfarin [Coumadin] 2.5 mg PO DAILY 05/18/16 02/22/17 Metoprolol Succinate [Metoprolol 50 mg PO TID 09/05/16 02/22/17 Succinate] Review of Systems - Physician Review All systems were reviewed & negative as marked: Yes - Review of Systems Constitutional: Fevers Respiratory: Cough. absent: SOB Cardiovascular: absent: Chest Pain, LONG Gastrointestinal: absent: Abdominal Pain Genitourinary Male: absent: Urinary Output Changes Musculoskeletal: absent: Back Pain, Neck Pain Neurological: absent: Headache, Dizziness Physical Exam Vital Signs Reviewed: Yes Vital Signs Temp Pulse Resp BP Pulse Ox 02/22/17 19:54 100.4 F H 80 16 160/87 H 98 Temperature: Febrile Blood Pressure: Hypertensive Pulse: Regular Respiratory Rate: Normal Appearance: Positive for: Well-Appearing, Non-Toxic Pain Distress: None Mental Status: Positive for: Alert and Oriented X 3 - Systems Exam Head: Present: Atraumatic, Normocephalic Pupils: Present: PERRL Extroacular Muscles: Present: EOMI Conjunctiva: Present: Normal Mouth: Present: Moist Mucous Membranes Neck: Present: Normal Range of Motion Respiratory/Chest: Present: Rales (Throughout entire chest. ), Rhonchi ( Throughout entire chest. ) Cardiovascular: Present: Regular Rate and Rhythm, Normal S1, S2. No: Murmurs Abdomen: Present: Normal Bowel Sounds. No: Tenderness, Distention, Peritoneal Signs Back: Present: Normal Inspection Upper Extremity: Present: Normal Inspection. No: Cyanosis, Edema Lower Extremity: Present: Normal Inspection. No: Edema Neurological: Present: GCS=15, CN II-XII Intact, Speech Normal Skin: Present: Warm, Dry, Normal Color. No: Rashes Psychiatric: Present: Alert, Oriented x 3, Normal Insight, Normal Concentration Medical Decision Making ED Course and Treatment: 02/22/17 22:28 Impression: An 82 year old male presents to the emergency department complaining of 3-4 day duration fever, cough, and congestion that has worsened over the past 2 days. Plan: -- EKG -- Chest X-ray -- Labs -- Tylenol, Albuterol, Duoneb, and IV Fluids -- Blood/ Sputum/ Urine Culture -- Urinalysis -- Reassess and disposition Prior Visits: Notes and results from previous visits were reviewed. Patient was last seen in the emergency department on 09/05/16. The patient was seen in the emergency department compaining of shortness of breath. The pateint was dsicharged home. Progress Notes: 02/23/17 01:35: Chest X-ray: Read and interpreted by me shows left lower lobe infiltrate. 02/23/17 01:56: Case discussed in detail with Dr. Villagomez, covering for Dr. Jennings. Will admit patient to his service. - Lab Interpretations Lab Results: 02/22/17 22:29 02/22/17 22:29 Lab Results 02/22/17 23:00: Influenza Typ A,B (EIA) Negative for flu a/b 02/22/17 23:00: Urine Color Yellow, Urine Appearance Clear, Urine pH 6.0, Ur Specific [place] 1.020, Urine Protein Trace H, Urine Glucose (UA) Negative, Urine Ketones Negative, Urine Blood Trace-lysed H, Urine Nitrate Negative, Urine Bilirubin Negative, Urine Urobilinogen 0.2, Ur Leukocyte Esterase Negative , Urine RBC 1 - 3, Urine WBC 0 - 2, Ur Epithelial Cells 0 - 2 02/22/17 22:29: Sodium 141, Chloride 105, Potassium 4.8, Carbon Dioxide 24, Anion Gap 17, BUN 52 H, Creatinine 2.3 H, Est GFR ( Amer) 33, Est GFR ( Non-Af Amer) 27, Random Glucose 130 H, Calcium 9.2, Phosphorus 3.7, Magnesium 1.9, Total Bilirubin 1.2, AST 55, ALT 52, Alkaline Phosphatase 103, Troponin I 0.05 D, NT-Pro-B Natriuret Pep 3630 H, Total Protein 7.7, Albumin 4.0, Globulin 3.7, Albumin/Globulin Ratio 1.1 02/22/17 22:29: pO2 88 H, VBG pH 7.38, VBG pCO2 44.0, VBG HCO3 26.0, VBG Total CO2 27.4, VBG O2 Sat (Calc) 97.9 H, VBG Base Excess 0.5, VBG Potassium 6.0 H, Sodium 138.0, Chloride 105.0, Glucose 137 H, Lactate 1.9, FiO2 21.0, Venous Blood Potassium 6.0 H 02/22/17 22:29: PT 39.2 H, INR 3.35 H, APTT 59.1 H 02/22/17 22:29: WBC 4.8, RBC 3.41 L, Hgb 11.6 L, Hct 34.9 L, MCV 102.3, MCH 34.0 , MCHC 33.2, RDW 15.9 H, Plt Count 111 L, MPV 10.9, Gran % 66.8, Lymph % (Auto) 7.2 L, Darke % (Auto) 23.8 H, Eos % (Auto) 1.4 L, Baso % (Auto) 0.8, Gran # 3.23 , Lymph # 0.4 L, Darke # 1.2 H, Eos # 0.1, Baso # 0.04, Neutrophils % (Manual) 61 , Band Neutrophils % 7 H, Lymphocytes % (Manual) 7 L, Monocytes % (Manual) 21 H , Eosinophils % (Manual) 2, Platelet Evaluation Low I have reviewed the lab results: Yes - RAD Interpretation Radiology Orders: 02/22/17 22:18 CHEST PORTABLE [RAD] Stat - EKG Interpretation Interpreted by ED Physician: Yes Type: 12 lead EKG - Medication Orders Current Medication Orders: Acetaminophen (Tylenol 325mg Tab) 975 mg PO ONCE PRN PRN Reason: Fever >100.4 F Last Admin: 02/22/17 22:29 Dose: 975 mg MAR Pain/Vitals Document 02/22/17 22:29 AB (Rec: 02/22/17 22:29 [id number]) Pain Reassessment Is This A Pain ReAssessment? No Sodium Chloride (Sodium Chloride 0.9%) 1,000 mls @ 150 mls/hr IV .Q6H40M CHERYL Last Admin: 02/22/17 22:29 Dose: 150 mls/hr eMAR Start Stop Document 02/22/17 22:29 AB (Rec: 02/22/17 22:30 AB [facility] [id number]) Intravenous Solution Start Date 02/22/17 Start Time 22:30 Ceftriaxone Sodium (Rocephin 1 Gram Ivpb) 1 gm in 100 mls @ 200 mls/hr IVPB STAT STA PRN Reason: Protocol Stop: 02/23/17 02:10 Azithromycin (Zithromax 500mg In Ns) 500 mg in 250 mls @ 167 mls/hr IVPB STAT STA PRN Reason: Protocol Stop: 02/23/17 03:10 Discontinued Medications Albuterol Sulfate (Albuterol 0.083% Inhal Beranne (2.5 Mg/3 Ml) Ud) 2.5 mg INH STAT STA Stop: 02/22/17 22:24 Last Admin: 02/22/17 22:50 Dose: 2.5 mg Albuterol/Ipratropium (Duoneb 3 Mg/0.5 Mg (3 Ml) Ud) 3 ml IH STAT STA Stop: 02/22/17 22:24 Last Admin: 02/22/17 23:48 Dose: 3 ml Furosemide (Lasix) 20 mg PO STAT STA Stop: 02/23/17 01:42 - PA / SURVEILLANCE SYSTEM MONITOR / Resident Statement MD/DO has reviewed & agrees with the documentation as recorded. - Scribe Statement The provider has reviewed the documentation as recorded by the Parvizibnew Sommers Provider [place] Attestation: All medical record entries made by the Parvizibnew were at my direction and personally dictated by me. I have reviewed the chart and agree that the record accurately reflects my personal performance of the history, physical exam, medical decision making, and the department course for this patient. I have also personally directed, reviewed, and agree with the discharge instructions and disposition. Disposition/Present on Arrival - Present on Arrival Any Indicators Present on Arrival: No History of DVT/PE: No History of Uncontrolled Diabetes: No Urinary Catheter: No History of Decub. Ulcer: No History Surgical Site Infection Following: None - Disposition Have Diagnosis and Disposition been Completed?: Yes Diagnosis: CHF (congestive heart failure), Pneumonia Disposition: HOSPITALIZED Disposition Time: 01:41 Patient Plan: Admission Patient Problems: Current Active Problems Problem Status Onset CHF (congestive heart failure) Acute Pneumonia Acute Condition: GOOD Discharge Instructions (ExitCare): Heart Failure (ED) Referrals: Leonila Jennings MD [Primary Care Provider] - Follow up with primary Forms: [employer] (Croatian)
[2017-02-22] MEDS: Sodium Chloride 0.9% 1,000 ML IV SCH (22:29)
[2017-02-22 22:36] LABS: VENOUS BLOOD GAS BASE EXCESS 0.5 mmol/L (0.0-2.0); VENOUS BLOOD GAS PO2 88 mm/Hg (30-55); VENOUS BLOOD PH 7.38 (7.32-7.43)
[2017-02-22 22:48] LABS: INR 3.35 (0.93-1.08); PARTIAL THROMBOPLASTIN TIME 59.1 Seconds (25.1-36.5); PROTHROMBIN TIME 39.2 SECONDS (9.4-12.5)
[2017-02-22 22:49] LABS: BASO # 0.04 K/mm3 (0.0-2.0); BASO % 0.8 % (0.0-3.0); EOS # 0.1 (0.0-0.7); EOS % 1.4 % (1.5-5.0); GRAN # 3.23 (1.4-6.5); GRAN % 66.8 % (50.0-68.0); HEMOGLOBIN 11.6 g/dL (14.0-18.0); LYMPH # 0.4 (1.2-3.4); LYMPH % 7.2 % (22.0-35.0); MEAN CELL VOLUME 102.3 fl (80.0-105.0); MEAN CORPUSCULAR HGB CONC 33.2 g/dl (31.0-37.0); MEAN PLATELET VOLUME 10.9 fl (7.0-11.0); MONO # 1.2 (0.1-0.6); MONO % 23.8 % (1.0-6.0); PLATELET COUNT 111 10^3/uL (120.0-450.0); RBC 3.41 10^6/uL (3.5-6.1); RED CELL DISTRIBUTION WIDTH 15.9 % (11.5-14.5); WHITE BLOOD COUNT 4.8 10^3/ul (4.5-11.0)
[2017-02-22 22:55] LABS: TROPONIN I 0.05 ng/mL
[2017-02-22 23:02] LABS: ALB/GLOB RATIO 1.1 (1.1-1.8); CALCIUM 9.2 mg/dL (8.4-10.5); MAGNESIUM 1.9 mg/dL (1.7-2.2)
[2017-02-23 00:04] LABS: BAND 7 % (0-2); EOSINOPHIL 2 % (0.0-3.0); LYMPHOCYTE 7 % (22.0-35.0); MONOCYTE 21 % (1.0-6.0); NEUTROPHIL 61 % (50.0-70.0); PLATELET ESTIMATE LOW (NORMAL)
[2017-02-23 00:04] LABS: URINE BILIRUBIN NEGATIVE (NEGATIVE); URINE BLOOD TRACE-LYSED (NEGATIVE); URINE GLUCOSE (UA) NEGATIVE (NEGATIVE); URINE LEUKOCYTE ESTERASE NEGATIVE Leu/uL (NEGATIVE); URINE NITRATE NEGATIVE (NEGATIVE); URINE PROTEIN TRACE mg/dL (<30 mg/dL); URINE UROBILINOGEN 0.2 E.U./dL (<1 E.U./dL)
[2017-02-23 00:05] LABS: URINE APPEARANCE CLEAR (CLEAR); URINE COLOR YELLOW (YELLOW)
[2017-02-23 00:16] LABS: URINE EPITHELIAL CELLS 0 - 2 /hpf (0-5); URINE WBC 0 - 2 /hpf (0-6)
[2017-02-23] MEDS ORDERED: cefTRIAXone 1 gm 1 GM/100 ML BAG IVPB STA (01:41)
[2017-02-23] MEDS ORDERED: Azithromycin 500MG/NS 250ml 500 MG/250 ML BAG IVPB STA (01:41)
[2017-02-23] MEDS: Sodium Chloride 0.9% 1,000 ML IV SCH (06:45)
[2017-02-23] MEDS ORDERED: Sodium Chloride 0.9% 1,000 ML IV SCH (07:20)
--- NOTE | 2017-02-23 08:23 | HP ---
CHIEF COMPLAINT AND HISTORY OF PRESENT ILLNESS: This is an 82-year-old who is coming into the hospital with complaints of cough, congestion and fever for the past 4 days. The patient states that he has a history of diabetes type 2, coronary artery disease with coronary artery bypass graft. He says he has been around other family members, who have been ill. He did receive the flu shot by his primary care doctor. He denies any nausea. He does have some epigastric discomfort as well. He says it is about 3/10. No back pain. No dysuria or frequency. He has no dizziness. He denies any numbness or tingling in the hands or the feet. REVIEW OF SYMPTOMS: All other review of symptoms are within normal limits except as mentioned. ALLERGIES: ASPIRIN, LATEX, NATURAL RUBBER, AND PENICILLIN. PAST MEDICAL HISTORY: 1. Hypertension. 2. Diabetes type 2. 3. CKD. 4. Ischemic cardiomyopathy status post defibrillator placement. 5. Gout. 6. Dyslipidemia. 7. Hypertension. SOCIAL HISTORY: He is . He lives with his . He was heavy smoker in the past, but quit. FAMILY HISTORY: Noncontributory. PHYSICAL EXAMINATION: VITAL SIGNS: He has temperature of 97.5, pulse of 82, blood pressure of 125/70, respirations 16, and O2 saturation is 99%. Height 6 feet, weight is 200 pounds, and BMI is 27.1. GENERAL: The patient lying in bed, uncomfortable, and in no acute distress. HEENT: Atraumatic and normocephalic. Anicteric sclerae. Moist mucosa. [place] conjunctivae. No oral lesions. NECK: No JVD, anterior and posterior adenopathy, thyromegaly, or bruits. CARDIOVASCULAR: S1 and S2 regular. No murmur, rubs, or gallop. LUNGS: Clear to auscultation bilaterally. No wheezes, rales, or rhonchi. ABDOMEN: Bowel sounds are positive. Soft, nontender and nondistended. No hepatosplenomegaly. No rebound and no guarding. EXTREMITIES: No cyanosis, clubbing, or edema. NEUROLOGIC: No facial asymmetry. Tongue is midline. No uvula deviation. Power is 5/5 upper extremity and lower extremity. Sensation intact in upper extremity and lower extremity. PSYCHIATRIC: He is awake, alert and oriented x3. No anxiety or depression. He has normal affect. GENITOURINARY: No CVA tenderness. VASCULAR: 2+ pulses in the carotid pulses and pedal pulses. SKIN: No erythema or nodules. SPINE: Shows normal curvature. LABORATORY DATA: White count of 4.8, hemoglobin 11.6, and platelet count of 111. He has INR of 3.3. The patient has sodium of 141 and his creatinine is 2.3. ProBNP is 3630 and now troponin is 0.05. Urine shows nitrates are negative, bilirubin is negative, and esterase is negative. Serology is negative. IMAGING DATA: Chest x-ray shows left lower lobe infiltrate. ASSESSMENT: 1. Pneumonia. 2. Diabetes type 2. 3. Chronic kidney disease, stage III. 4. Penicillin allergy. 5. Diabetes type 2. 6. Gout. 7. Dyslipidemia. 8. Hypertension. 9. Ischemic cardiomyopathy status post defibrillator. PLAN: The patient wants to be admitted to the hospital. Blood cultures and urine cultures have been ordered. The patient is on nebulizer treatment. He is getting IV fluids with normal saline. I will decrease his edwin saline to 75 an hour. He is going to need Infectious Diseases evaluation. He will be on Colchicine for his gout. The patient is going to be on Coumadin. I will decrease the patient's dosage as his INR is elevated. He is on losartan for his hypertension. He is on isosorbide for his heart condition. He is going to be on Januvia for his diabetes, I will continue that. The patient is on Lasix daily. I will increase his Lasix to 40 mg, while he is being treated for the pneumonia. The patient is on Lipitor for dyslipidemia. He is going to be on Uloric for his gout as well. He is on Colace for his constipation and this will be continued. The patient will be on a diabetic diet. Peyman Villagomez MD
[2017-02-23] MEDS: Promethazine 6.25 MG/5 ML CUP PO PRN ×2 (09:00→17:43)
--- NOTE | 2017-02-23 09:39 | RAD ---
HISTORY: Sepsis Patient COMPARISON: 09/05/2016 FINDINGS: LUNGS: No active pulmonary disease. PLEURA: No significant pleural effusion identified, no pneumothorax apparent. CARDIOVASCULAR: Moderate cardiomegaly. OSSEOUS STRUCTURES: Sternal wires. VISUALIZED UPPER ABDOMEN: Normal. OTHER FINDINGS: External pacer/defibrillator IMPRESSION: No active disease.
[2017-02-23] MEDS: Non Formulary Medication (Febuxostat [Uloric] 40 MG) PO SCH (09:51)
[2017-02-23] MEDS ORDERED: Non Formulary Medication (Febuxostat [Uloric] 40 MG) PO SCH (10:00)
[2017-02-23] MEDS: Albuterol-Ipratrop 3 mg / 0.5 (3 ml) UD IH SCH ×2 (11:17→19:56)
--- NOTE | 2017-02-23 12:54 | CP.PCM.CON ---
<HoangRonaldo leiva - Last Filed: 02/23/17 12:57> History of Present Illness - History of Present Illness History of Present Illness: Infectious disease consultation. Attending: Dr. Aguilar. This is an 82 yo male with past medical hx of CAD, s/p CABG and defibrillator, HTN, HLD, DM presenting with chief complaint of subjective fever and cough x 3 days. ID consulted for "pneumonia." Pt was in usual state of health until 3 days ago. Reports cough with white and yellow phlegm. Also reports sob. PMD was on vacation and condition was getting worse so pt came into ER. Denies recent travel but does report both and daughter sick at home with flu like sx. Did receive flu shot this past year. Reports only subjective fever at home, did not take temp. PMH: CAD, HTN, HLD, DM PSH: CABG, defibrillator Allergies: ASA, PCN, natural rubber FH: non contributory Social hx: Former smoker. Quit 1989. Does not drink or use drugs. Born in [facility]. Review of Systems - Review of Systems All systems: reviewed and no additional remarkable complaints except Review of Systems: negative except as stated in HPI. Past Patient History - Infectious Disease Hx of Infectious Diseases: None - Tetanus Immunizations Tetanus Immunization: Unknown - Past Medical History & Family History Past Medical History?: Yes Past Family History: Reviewed and not pertinent - Past Social History Smoking Status: Former Smoker Chewing Tobacco Use: No Cigar Use: No Alcohol: None Drugs: Denies Home Situation {Lives}: With Family Domestic Violence: Negative - CARDIAC Hx Congestive Heart Failure: Yes Hx Internal Defibrillator: Yes - PULMONARY Hx Pneumonia: Yes - NEUROLOGICAL Hx Neurological Disorder: (DENIES HISTORY) - HEENT Hx HEENT Problems: Yes Hx Cataracts: Yes (Left) Hx Glaucoma: Yes (Right) - RENAL Hx Chronic Kidney Disease: Yes - ENDOCRINE/METABOLIC Hx Diabetes Mellitus Type 1: Yes - HEMATOLOGICAL/ONCOLOGICAL Hx Blood Disorders: Yes - INTEGUMENTARY Hx Dermatological Problems: (DENIES HISTORY) - MUSCULOSKELETAL/RHEUMATOLOGICAL Hx Falls: No - GASTROINTESTINAL Hx Gastrointestinal Disorders: Yes Hx Gall Bladder Disease: Yes (CHOLECYSTECTOMY) - GENITOURINARY/GYNECOLOGICAL Hx Genitourinary Disorders: Yes Hx Prostate Problems: Yes Hx Reproductive Disorders: No - PSYCHIATRIC Hx Psychophysiologic Disorder: No Hx Substance Use: No - SURGICAL HISTORY Hx Surgeries: Yes Hx Open Heart Surgery: Yes - ANESTHESIA Hx Anesthesia Reactions: Yes Hx Malignant Hyperthermia: No Meds Allergies/Adverse Reactions: Allergies Allergy/AdvReac Type Severity Reaction Status Date / Time aspirin Allergy RASH Verified 09/05/16 02:14 Latex, Natural Rubber Allergy RASH Verified 09/05/16 02:14 penicillin V Allergy RASH Verified 09/05/16 02:14 - Medications Medications: Current Medications Acetaminophen (Tylenol 325mg Tab) 975 mg PO ONCE PRN PRN Reason: Fever >100.4 F Last Admin: 02/22/17 22:29 Dose: 975 mg Albuterol/Ipratropium (Duoneb 3 Mg/0.5 Mg (3 Ml) Ud) 3 ml IH BID [facility] Last Admin: 02/23/17 11:17 Dose: 3 ml Atorvastatin Calcium (Lipitor) 20 mg PO DIN [facility] Colchicine (Colocrys) 0.6 mg PO DAILY [facility] Last Admin: 02/23/17 09:50 Dose: Not Given Docusate Sodium (Colace) 100 mg PO BID [facility] Last Admin: 02/23/17 09:50 Dose: 100 mg Furosemide (Lasix) 40 mg PO DAILY [facility] Last Admin: 02/23/17 09:52 Dose: 20 mg Azithromycin (Zithromax 500mg In Ns) 500 mg in 250 mls @ 167 mls/hr IVPB DAILY [facility] PRN Reason: Protocol Isosorbide Mononitrate (Imdur Er) 30 mg PO DAILY [facility] Last Admin: 02/23/17 09:51 Dose: 30 mg Losartan Potassium (Cozaar) 25 mg PO DAILY [facility] Last Admin: 02/23/17 09:50 Dose: 25 mg Non-Formulary Medication (Febuxostat [Uloric]) 40 mg PO DAILY [facility] Last Admin: 02/23/17 09:51 Dose: Not Given Promethazine HCl (Phenergan Syrup) 6.25 mg PO Q4H PRN PRN Reason: Cough Last Admin: 02/23/17 09:00 Dose: 6.25 mg Sitagliptin Phosphate (Januvia) 25 mg PO DAILY [facility] Last Admin: 02/23/17 09:51 Dose: 25 mg Warfarin Sodium (Coumadin) 2 mg PO 1800 [facility] Physical Exam - Constitutional Appears: Non-toxic, No Acute Distress - Head Exam Head Exam: ATRAUMATIC, NORMAL INSPECTION, NORMOCEPHALIC - Eye Exam Eye Exam: EOMI - ENT Exam ENT Exam: Mucous Membranes Moist - Neck Exam Neck exam: Positive for: Full Rom, Normal Inspection - Respiratory Exam Respiratory Exam: Wheezes. absent: Respiratory Distress - Cardiovascular Exam Cardiovascular Exam: +S1, +S2 - GI/Abdominal Exam GI & Abdominal Exam: Normal Bowel Sounds, Soft. absent: Tenderness - Extremities Exam Extremities exam: Positive for: full ROM, normal inspection - Back Exam Back exam: NORMAL INSPECTION - Neurological Exam Neurological exam: Alert, Oriented x3 - Psychiatric Exam Psychiatric exam: Normal Affect, Normal Mood - Skin Skin Exam: Dry, Intact, Normal Color, Warm Results - Vital Signs Recent Vital Signs: Last Vital Signs Temp 98.4 F 02/23/17 10:13 Pulse 74 02/23/17 10:13 Resp 18 02/23/17 10:13 BP 158/85 H 02/23/17 10:13 Pulse Ox 100 02/23/17 10:13 - Labs Result Diagrams: 02/22/17 22:29 02/22/17 22:29 Assessment & Plan - Assessment and Plan (Free Text) Assessment: This is an 82 yo male with past medical hx of CAD, HTN, HLD, DM presenting with productive cough, congestion, subjective fever, sob x 3 days. 1. Bronchitis -suspect bronchitis -pt does have significant wheezing -pneumonia lower on differential -will order CXR PA and lateral to further assist in diagnosis -procalcitonin pending -urine legionella and mycoplasma pending -UA neg for LE and nitrate, trace blood -pt is currently afebrile with 100.4 overnight -continue azithromycin 500 mg IVPB daily -blood cultures pending -urine culture pending -sputum culture pending discussed with Dr. Aguilar <Lorenzo Aguilar - Last Filed: 02/23/17 16:33> Meds - Medications Medications: Current Medications Acetaminophen (Tylenol 325mg Tab) 975 mg PO ONCE PRN PRN Reason: Fever >100.4 F Last Admin: 02/22/17 22:29 Dose: 975 mg Albuterol/Ipratropium (Duoneb 3 Mg/0.5 Mg (3 Ml) Ud) 3 ml IH BID [facility] Last Admin: 02/23/17 11:17 Dose: 3 ml Atorvastatin Calcium (Lipitor) 20 mg PO DIN [facility] Colchicine (Colocrys) 0.6 mg PO DAILY [facility] Last Admin: 02/23/17 09:50 Dose: Not Given Docusate Sodium (Colace) 100 mg PO BID [facility] Last Admin: 02/23/17 09:50 Dose: 100 mg Furosemide (Lasix) 40 mg PO DAILY [facility] Last Admin: 02/23/17 09:52 Dose: 20 mg Azithromycin (Zithromax 500mg In Ns) 500 mg in 250 mls @ 167 mls/hr IVPB DAILY [facility] PRN Reason: Protocol Isosorbide Mononitrate (Imdur Er) 30 mg PO DAILY [facility] Last Admin: 02/23/17 09:51 Dose: 30 mg Losartan Potassium (Cozaar) 25 mg PO DAILY [facility] Last Admin: 02/23/17 09:50 Dose: 25 mg Non-Formulary Medication (Febuxostat [Uloric]) 40 mg PO DAILY [facility] Last Admin: 02/23/17 09:51 Dose: Not Given Promethazine HCl (Phenergan Syrup) 6.25 mg PO Q4H PRN PRN Reason: Cough Last Admin: 02/23/17 09:00 Dose: 6.25 mg Sitagliptin Phosphate (Januvia) 25 mg PO DAILY [facility] Last Admin: 02/23/17 09:51 Dose: 25 mg Warfarin Sodium (Coumadin) 2 mg PO 1800 [facility] Results - Vital Signs Recent Vital Signs: Last Vital Signs Temp 98.4 F 02/23/17 10:13 Pulse 74 02/23/17 10:13 Resp 18 02/23/17 10:13 BP 158/85 H 02/23/17 10:13 Pulse Ox 100 02/23/17 10:13 - Labs Result Diagrams: 02/22/17 22:29 02/22/17 22:29 Assessment & Plan - Assessment and Plan (Free Text) Assessment: Infectious Diseases Attending Physician Attestation Patient seen and examined, discussed with medical laboratory technical officer. I have reviewed the patient's HPI, ROS, past medical, social, personal and family histories, physical exam, labs and imaging. I agree with the above findings, assessment and plan. In addition, we will check blood cx and CXR PA-L and treat probable acute bronchitis with Zithromax and will monitor clinically.
--- NOTE | 2017-02-23 14:29 | RAD ---
HISTORY: chest congestion/wheezing COMPARISON: 02/22/2017 TECHNIQUE: Chest PA and lateral FINDINGS: LUNGS: No active pulmonary disease. PLEURA: No significant pleural effusion identified. No pneumothorax apparent. CARDIOVASCULAR: There is moderate cardiomegaly. There is mild vascular congestion. OSSEOUS STRUCTURES: No significant abnormalities. VISUALIZED UPPER ABDOMEN: Normal. OTHER FINDINGS: None. IMPRESSION: Moderate cardiomegaly. Mild vascular congestion
--- NOTE | 2017-02-23 22:43 | CARD ---
APPROVED REPORT EKG Measurement Heart [id number] <Conclusion> Atrial fibrillation Nonspecific T wave abnormality, probably digitalis effect Abnormal ECG
[2017-02-24 07:38] LABS: INR 2.3 (0.93-1.08); PROTHROMBIN TIME 26.9 SECONDS (9.4-12.5)
[2017-02-24] MEDS: Albuterol-Ipratrop 3 mg / 0.5 (3 ml) UD IH SCH ×4 (07:40→19:38)
--- NOTE | 2017-02-24 08:14 | PN ---
DATE: 02/24/2017 SUBJECTIVE: The patient says that he is feeling a bit better from yesterday. He has no complaints of any headaches, dizziness, or nausea. PHYSICAL EXAMINATION: VITAL SIGNS: Temperature is 98.4, pulse is 74, blood pressure is 158/85, and respirations are 18. GENERAL: The patient is lying in bed, flat, comfortable. HEENT: No oral lesion. Anicteric sclerae. Moist mucosa. NECK: No JVD, adenopathy, or thyromegaly. CARDIOVASCULAR: S1 and S2, regular. No murmurs, rubs, or gallops. LUNGS: Clear to auscultation bilaterally. No wheeze, rales, or rhonchi. ABDOMEN: Bowel sounds are positive, soft, nontender, and nondistended. EXTREMITIES: No cyanosis, clubbing or edema. LABORATORY DATA: White count of 4.8, hemoglobin 11.6. ASSESSMENT: 1. Bronchitis. 2. Acute chronic obstructive pulmonary disease exacerbation. 3. Diabetes type 2. 4. Chronic kidney disease, stage III. 5. PENICILLIN ALLERGY. 6. Gout. 7. Dyslipidemia. 8. Hypertension. 9. Ischemic cardiomyopathy, status post defibrillator. PLAN: The patient is currently comfortable. He is on Coumadin, this will be continued. The patient has an INR that has been ordered today. He is being followed by Infectious Disease, I appreciate their input. I did speak to the patient's and daughter yesterday. They are also sick. I gave them antibiotics in my office. The patient is on Lipitor for dyslipidemia. The patient is on Lasix. The patient is on Zithromax antibiotics. I have also asked physical therapy to follow the patient. The patient had blood cultures that are negative. The procalcitonin level is low at 0.35. Flu is negative as well. Peyman Villagomez MD
[2017-02-24] MEDS ORDERED: Albuterol-Ipratrop 3 mg / 0.5 (3 ml) UD IH PRN (09:42)
--- NOTE | 2017-02-24 10:01 | PQF PNEUMO ---
This form is a permanent part of the medical record Dr. Villagomez, Your H&P noted a LLL infiltrate on the CXR and listed pneumonia as a diagnosis. This diagnosis also noted by ER physician. Please document if pneumonia was ruled out after more through workup. Pneumonia , Bronchitis and Flu Clarification of your documentation is requested to better reflect the severity of illness and intensity of treatment of your patient. Indicators present [x] Documented diagnosis of pneumonia [x] X-ray findings: [] Positive Sputum cultures [x] Cough w/ fever [] Abnormal lungs sounds [] Poor gag reflex [] Speech consults/swallow evaluation [] Vent dependence [] Other: [] Location in the medical record that reflects the above clinical findings: [] Treatment Provided: [] PHYSICIAN'S RESPONSE Based on your medical judgment of the clinical indicators outlined above, are you treating this patient for a known or suspected: [] Aspiration pneumonia [] Community acquired pneumonia [] Ventilator associated pneumonia [] Viral pneumonia [] Bacterial pneumonia Please specify organism: [] [] Other, please indicate [] If Unable to Determine, please check the box, sign and date. Present On Admission (POA) Indicator: [] Present at the time of admission [] Not present at the time of admission [] Clinically Undetermined In responding to this query, please exercise your independent professional judgment. The fact that a question is asked does not imply that any particular answer is desired or expected. Thank you for your clarification on this documentation. If you have any questions please call:[ ] * Thank you, [ ]Venessa Roberson [facility] #[id number] telecommunications analyst ANGELINA
[2017-02-24] MEDS: Azithromycin 500MG/NS 250ml 500 MG/250 ML BAG IVPB SCH (10:08)
[2017-02-24] MEDS: MethylPREDNISolone 40 mg Vial IVP SCH ×2 (10:08→22:01)
[2017-02-24] MEDS: Non Formulary Medication (Febuxostat [Uloric] 40 MG) PO SCH (10:16)
--- NOTE | 2017-02-24 12:59 | CP.PCM.PN ---
<Ronaldo Harris - Last Filed: 02/24/17 13:03> Subjective - Date & Time of Evaluation Date of Evaluation: 02/24/17 Time of Evaluation: 13:00 - Subjective Subjective: Infectious disease progress note. Attending: Dr. Aguilar. Pt seen and examined at bedside. No acute distress. Still feels congested with headache. No fevers. Still with some wheezing. Flu is negative Objective - Vital Signs/Intake and Output Vital Signs (last 24 hours): Temp Pulse Resp BP Pulse Ox 99.5 F 77 18 114/57 L 97 02/24/17 08:28 02/24/17 08:28 02/24/17 08:28 02/24/17 09:58 02/24/17 08:28 Intake and Output: 02/24/17 02/24/17 06:59 18:59 Intake Total 180 Balance 180 - Medications Medications: Current Medications Acetaminophen (Tylenol 325mg Tab) 975 mg PO ONCE PRN PRN Reason: Fever >100.4 F Last Admin: 02/22/17 22:29 Dose: 975 mg Albuterol/Ipratropium (Duoneb 3 Mg/0.5 Mg (3 Ml) Ud) 3 ml IH Q2H PRN PRN Reason: Shortness of Breath Albuterol/Ipratropium (Duoneb 3 Mg/0.5 Mg (3 Ml) Ud) 3 ml IH TID [facility] Last Admin: 02/24/17 07:40 Dose: 3 ml Atorvastatin Calcium (Lipitor) 20 mg PO DIN [facility] Last Admin: 02/23/17 17:17 Dose: 20 mg Colchicine (Colocrys) 0.6 mg PO DAILY [facility] Last Admin: 02/24/17 09:58 Dose: 0.6 mg Docusate Sodium (Colace) 100 mg PO BID [facility] Last Admin: 02/24/17 10:16 Dose: Not Given Furosemide (Lasix) 40 mg PO DAILY [facility] Last Admin: 02/24/17 09:58 Dose: 40 mg Azithromycin (Zithromax 500mg In Ns) 500 mg in 250 mls @ 167 mls/hr IVPB DAILY [facility] PRN Reason: Protocol Last Admin: 02/24/17 10:08 Dose: 167 mls/hr Isosorbide Mononitrate (Imdur Er) 30 mg PO DAILY [facility] Last Admin: 02/24/17 09:58 Dose: 30 mg Losartan Potassium (Cozaar) 25 mg PO DAILY [facility] Last Admin: 02/24/17 10:05 Dose: 25 mg Methylprednisolone (Solu-Medrol) 40 mg IVP Q12 [facility] Last Admin: 02/24/17 10:08 Dose: 40 mg Non-Formulary Medication (Febuxostat [Uloric]) 40 mg PO DAILY [facility] Last Admin: 02/24/17 10:16 Dose: Not Given Promethazine HCl (Phenergan Syrup) 6.25 mg PO Q4H PRN PRN Reason: Cough Last Admin: 02/23/17 17:43 Dose: 6.25 mg Sitagliptin Phosphate (Januvia) 25 mg PO DAILY [facility] Last Admin: 02/24/17 10:05 Dose: 25 mg Warfarin Sodium (Coumadin) 2.5 mg PO 1800 [facility] PRN Reason: Protocol - Labs Labs: PT 26.9 SECONDS (9.4-12.5) H 02/24/17 06:45 INR 2.30 (0.93-1.08) H 02/24/17 06:45 APTT 59.1 Seconds (25.1-36.5) H 02/22/17 22:29 - Constitutional Appears: No Acute Distress - Head Exam Head Exam: ATRAUMATIC, NORMAL INSPECTION, NORMOCEPHALIC - Eye Exam Eye Exam: EOMI - ENT Exam ENT Exam: Mucous Membranes Moist - Neck Exam Neck Exam: Full ROM, Normal Inspection - Respiratory Exam Respiratory Exam: Wheezes. absent: Respiratory Distress - Cardiovascular Exam Cardiovascular Exam: +S1, +S2 - GI/Abdominal Exam GI & Abdominal Exam: Soft, Normal Bowel Sounds. absent: Tenderness - Extremities Exam Extremities Exam: Full ROM, Normal Inspection - Neurological Exam Neurological Exam: Alert, Awake, Oriented x3 - Psychiatric Exam Psychiatric exam: Normal Affect, Normal Mood - Skin Skin Exam: Dry, Intact, Normal Color, Warm Assessment and Plan - Assessment and Plan (Free Text) Assessment: This is an 82 yo male with past medical hx of CAD, HTN, HLD, DM presenting with productive cough, congestion, subjective fever, sob x 3 days. 1. Bronchitis -suspect bronchitis -pneumonia lower on differential -CXR PA and lateral shows no evidence of pulmonary disease with cardiomegaly and mild vascular congestion -procalcitonin within normal limits -urine legionella negative and mycoplasma pending -UA neg for LE and nitrate, trace blood -pt is currently afebrile -continue azithromycin 500 mg IVPB daily -continue solumedrol -flu negative -blood cultures negative thus far -urine culture pending -sputum culture pending discussed with Dr. Aguilar <Lorenzo Aguilardomenic oRberts - Last Filed: 02/24/17 17:14> Objective - Vital Signs/Intake and Output Vital Signs (last 24 hours): Temp Pulse Resp BP Pulse Ox 99.5 F 77 18 114/57 L 97 02/24/17 08:28 02/24/17 08:28 02/24/17 08:28 02/24/17 09:58 02/24/17 08:28 Intake and Output: 02/24/17 02/24/17 06:59 18:59 Intake Total 180 Balance 180 - Medications Medications: Current Medications Acetaminophen (Tylenol 325mg Tab) 975 mg PO ONCE PRN PRN Reason: Fever >100.4 F Last Admin: 02/22/17 22:29 Dose: 975 mg Albuterol/Ipratropium (Duoneb 3 Mg/0.5 Mg (3 Ml) Ud) 3 ml IH Q2H PRN PRN Reason: Shortness of Breath Albuterol/Ipratropium (Duoneb 3 Mg/0.5 Mg (3 Ml) Ud) 3 ml IH TID [facility] Last Admin: 02/24/17 14:20 Dose: 3 ml Atorvastatin Calcium (Lipitor) 20 mg PO DIN [facility] Last Admin: 02/23/17 17:17 Dose: 20 mg Colchicine (Colocrys) 0.6 mg PO DAILY [facility] Last Admin: 02/24/17 09:58 Dose: 0.6 mg Docusate Sodium (Colace) 100 mg PO BID [facility] Last Admin: 02/24/17 10:16 Dose: Not Given Furosemide (Lasix) 40 mg PO DAILY [facility] Last Admin: 02/24/17 09:58 Dose: 40 mg Azithromycin (Zithromax 500mg In Ns) 500 mg in 250 mls @ 167 mls/hr IVPB DAILY [facility] PRN Reason: Protocol Last Admin: 02/24/17 10:08 Dose: 167 mls/hr Isosorbide Mononitrate (Imdur Er) 30 mg PO DAILY [facility] Last Admin: 02/24/17 09:58 Dose: 30 mg Losartan Potassium (Cozaar) 25 mg PO DAILY [facility] Last Admin: 02/24/17 10:05 Dose: 25 mg Methylprednisolone (Solu-Medrol) 40 mg IVP Q12 [facility] Last Admin: 02/24/17 10:08 Dose: 40 mg Non-Formulary Medication (Febuxostat [Uloric]) 40 mg PO DAILY [facility] Last Admin: 02/24/17 10:16 Dose: Not Given Promethazine HCl (Phenergan Syrup) 6.25 mg PO Q4H PRN PRN Reason: Cough Last Admin: 02/23/17 17:43 Dose: 6.25 mg Sitagliptin Phosphate (Januvia) 25 mg PO DAILY [facility] Last Admin: 02/24/17 10:05 Dose: 25 mg Warfarin Sodium (Coumadin) 2.5 mg PO 1800 [facility] PRN Reason: Protocol - Labs Labs: PT 26.9 SECONDS (9.4-12.5) H 02/24/17 06:45 INR 2.30 (0.93-1.08) H 02/24/17 06:45 APTT 59.1 Seconds (25.1-36.5) H 02/22/17 22:29 Assessment and Plan - Assessment and Plan (Free Text) Assessment: Infectious Diseases Attending Physician Attestation Patient seen and examined, discussed with medical center manager. I agree with the above findings, assessment and plan.
[2017-02-25] MEDS: Albuterol-Ipratrop 3 mg / 0.5 (3 ml) UD IH SCH ×4 (07:46→20:38)
[2017-02-25 07:56] LABS: HEMOGLOBIN 10.8 g/dL (14.0-18.0); MEAN CELL VOLUME 101.5 fl (80.0-105.0); MEAN CORPUSCULAR HEMOGLOBIN 33.3 pg (25.0-35.0); MEAN CORPUSCULAR HGB CONC 32.8 g/dl (31.0-37.0); MEAN PLATELET VOLUME 9.9 fl (7.0-11.0); RBC 3.24 10^6/uL (3.5-6.1); RED CELL DISTRIBUTION WIDTH 15.5 % (11.5-14.5); WHITE BLOOD COUNT 4.5 10^3/ul (4.5-11.0)
[2017-02-25 08:13] LABS: ALBUMIN 3.5 g/dL (3.0-4.8); CALCIUM 8.8 mg/dL (8.4-10.5)
--- NOTE | 2017-02-25 10:37 | CP.PCM.PN ---
<Linsey Diaz - Last Filed: 02/25/17 10:47> Subjective - Date & Time of Evaluation Date of Evaluation: 02/25/17 Time of Evaluation: 10:34 - Subjective Subjective: PGY-[address] Villagomez Pt complaint of sore throat but no odynophagia. Breathing was "a little better" , still have coughs, and the phlegms was hard to produce. Denies F/C, CP. Objective - Vital Signs/Intake and Output Vital Signs (last 24 hours): Temp Pulse Resp BP Pulse Ox 98.0 F 77 18 133/78 98 02/25/17 07:30 02/25/17 07:30 02/25/17 07:30 02/25/17 07:30 02/25/17 07:30 Intake and Output: 02/25/17 02/25/17 06:59 18:59 Intake Total 1020 Output Total 800 Balance 220 - Medications Medications: Current Medications Acetaminophen (Tylenol 325mg Tab) 975 mg PO ONCE PRN PRN Reason: Fever >100.4 F Last Admin: 02/22/17 22:29 Dose: 975 mg Albuterol/Ipratropium (Duoneb 3 Mg/0.5 Mg (3 Ml) Ud) 3 ml IH Q2H PRN PRN Reason: Shortness of Breath Albuterol/Ipratropium (Duoneb 3 Mg/0.5 Mg (3 Ml) Ud) 3 ml IH TID [facility] Last Admin: 02/25/17 07:46 Dose: 3 ml Atorvastatin Calcium (Lipitor) 20 mg PO DIN [facility] Last Admin: 02/24/17 18:15 Dose: 20 mg Colchicine (Colocrys) 0.6 mg PO DAILY [facility] Last Admin: 02/24/17 09:58 Dose: 0.6 mg Docusate Sodium (Colace) 100 mg PO BID [facility] Last Admin: 02/24/17 18:15 Dose: Not Given Furosemide (Lasix) 40 mg PO DAILY [facility] Last Admin: 02/24/17 09:58 Dose: 40 mg Azithromycin (Zithromax 500mg In Ns) 500 mg in 250 mls @ 167 mls/hr IVPB DAILY [facility] PRN Reason: Protocol Last Admin: 02/24/17 10:08 Dose: 167 mls/hr Isosorbide Mononitrate (Imdur Er) 30 mg PO DAILY [facility] Last Admin: 02/24/17 09:58 Dose: 30 mg Losartan Potassium (Cozaar) 25 mg PO DAILY [facility] Last Admin: 02/24/17 10:05 Dose: 25 mg Methylprednisolone (Solu-Medrol) 40 mg IVP Q12 [facility] Last Admin: 02/24/17 22:01 Dose: 40 mg Non-Formulary Medication (Febuxostat [Uloric]) 40 mg PO DAILY [facility] Last Admin: 02/24/17 10:16 Dose: Not Given Promethazine HCl (Phenergan Syrup) 6.25 mg PO Q4H PRN PRN Reason: Cough Last Admin: 02/23/17 17:43 Dose: 6.25 mg Sitagliptin Phosphate (Januvia) 25 mg PO DAILY [facility] Last Admin: 02/24/17 10:05 Dose: 25 mg Warfarin Sodium (Coumadin) 2.5 mg PO 1800 [facility] PRN Reason: Protocol Last Admin: 02/24/17 18:15 Dose: 2.5 mg - Labs Labs: 02/25/17 07:30 02/25/17 07:30 PT 26.9 SECONDS (9.4-12.5) H 02/24/17 06:45 INR 2.30 (0.93-1.08) H 02/24/17 06:45 APTT 59.1 Seconds (25.1-36.5) H 02/22/17 22:29 - Constitutional Appears: No Acute Distress - Head Exam Head Exam: ATRAUMATIC, NORMAL INSPECTION, NORMOCEPHALIC - Eye Exam Eye Exam: EOMI, Normal appearance, PERRL. absent: Scleral icterus Pupil Exam: NORMAL ACCOMODATION - ENT Exam ENT Exam: Mucous Membranes Moist Additional comments: Slightly injected pharynx. No erythema. No pus - Neck Exam Additional comments: supple - Respiratory Exam Respiratory Exam: Clear to Ausculation Bilateral, Rales (Base of lungs), Wheezes , NORMAL BREATHING PATTERN - Cardiovascular Exam Cardiovascular Exam: REGULAR RHYTHM, +S1, +S2 - GI/Abdominal Exam GI & Abdominal Exam: Soft, Normal Bowel Sounds. absent: Tenderness - Extremities Exam Extremities Exam: absent: Calf Tenderness - Neurological Exam Neurological Exam: Alert, Awake, Oriented x3 - Psychiatric Exam Psychiatric exam: Normal Affect, Normal Mood - Skin Skin Exam: Dry, Warm Assessment and Plan - Assessment and Plan (Free Text) Plan: Mr Damon 82M presented with cough, congestion, fever x 4 days. A: 1. Bronchitis. Unlikely pneumonia 2. COPD exacerbaton 3. Diabetes 2 4. LARRY on CKD 3 - improving. Cre 2.1 5. Gout 6. Hypertension, dyslipidemia 7. Ischemic cardiomyopathy. s/p defibrillator placement 8. Hx CAD s/p CABG 9. A fib on warfarin 10. Allergy to penicillin P: Zithromax 500 daily Solumedrol 40 q12 Duoneb tid. phergan prn Daily INR. Coumadin dose accordingly (2.5) On lasix PO 40 qd Continue imdur ER 30, losartan 25 Continue lipitor, colchicine. uloric daily Continue Januvia 25 daily colace bid f/u urine leginella, mycoplasma Carb consit diet Consult: Dr Castelan s/r/d/w Dr. Villagomez <Peyman Villagomez S - Last Filed: 02/26/17 00:27> Objective - Vital Signs/Intake and Output Vital Signs (last 24 hours): Temp Pulse Resp BP Pulse Ox 98.0 F 77 18 133/78 98 02/25/17 07:30 02/25/17 07:30 02/25/17 07:30 02/25/17 10:49 02/25/17 07:30 Intake and Output: 02/25/17 02/26/17 18:59 06:59 Intake Total 600 1200 Output Total 600 300 Balance 0 900 - Medications Medications: Current Medications Acetaminophen (Tylenol 325mg Tab) 975 mg PO ONCE PRN PRN Reason: Fever >100.4 F Last Admin: 02/22/17 22:29 Dose: 975 mg Albuterol/Ipratropium (Duoneb 3 Mg/0.5 Mg (3 Ml) Ud) 3 ml IH Q2H PRN PRN Reason: Shortness of Breath Albuterol/Ipratropium (Duoneb 3 Mg/0.5 Mg (3 Ml) Ud) 3 ml IH TID [facility] Last Admin: 02/25/17 20:38 Dose: 3 ml Atorvastatin Calcium (Lipitor) 20 mg PO DIN [facility] Last Admin: 02/25/17 16:28 Dose: 20 mg Benzocaine/Menthol (Cepacol Sore Throat) 1 jacob MT TID [facility] Last Admin: 02/25/17 17:32 Dose: 1 jacob Colchicine (Colocrys) 0.6 mg PO DAILY [facility] Last Admin: 02/25/17 10:52 Dose: 0.6 mg Docusate Sodium (Colace) 100 mg PO BID [facility] Last Admin: 02/25/17 17:33 Dose: Not Given Furosemide (Lasix) 40 mg PO DAILY [facility] Last Admin: 02/25/17 10:49 Dose: 40 mg Azithromycin (Zithromax 500mg In Ns) 500 mg in 250 mls @ 167 mls/hr IVPB DAILY [facility] PRN Reason: Protocol Last Admin: 02/25/17 10:53 Dose: 167 mls/hr Isosorbide Mononitrate (Imdur Er) 30 mg PO DAILY [facility] Last Admin: 02/25/17 10:51 Dose: 30 mg Losartan Potassium (Cozaar) 25 mg PO DAILY [facility] Last Admin: 02/25/17 10:57 Dose: 25 mg Methylprednisolone (Solu-Medrol) 40 mg IVP Q12 [facility] Last Admin: 02/25/17 21:21 Dose: 40 mg Non-Formulary Medication (Febuxostat [Uloric]) 40 mg PO DAILY [facility] Last Admin: 02/25/17 10:52 Dose: Not Given Promethazine HCl (Phenergan Syrup) 6.25 mg PO Q4H PRN PRN Reason: Cough Last Admin: 02/25/17 21:27 Dose: 6.25 mg Sitagliptin Phosphate (Januvia) 25 mg PO DAILY [facility] Last Admin: 02/25/17 10:51 Dose: 25 mg Warfarin Sodium (Coumadin) 2.5 mg PO 1800 [facility] PRN Reason: Protocol Last Admin: 02/25/17 17:31 Dose: 2.5 mg - Labs Labs: 02/25/17 07:30 02/25/17 07:30 PT 26.9 SECONDS (9.4-12.5) H 02/24/17 06:45 INR 2.30 (0.93-1.08) H 02/24/17 06:45 APTT 59.1 Seconds (25.1-36.5) H 02/22/17 22:29 Assessment and Plan - Assessment and Plan (Free Text) Plan: Pt seen by me and above note reviewed. Pt seen and examined. Labs and vitals reviewed.Agree with above note. Pt is impoving with Sue Bose. May need TCU.
[2017-02-25] MEDS: MethylPREDNISolone 40 mg Vial IVP SCH ×2 (10:51→21:21)
[2017-02-25] MEDS: Non Formulary Medication (Febuxostat [Uloric] 40 MG) PO SCH (10:52)
[2017-02-25] MEDS: Azithromycin 500MG/NS 250ml 500 MG/250 ML BAG IVPB SCH (10:53)
[2017-02-25] MEDS: Benzocaine/Menthol (Cepacol) Lozenge MT SCH ×2 (16:27→17:32)
--- NOTE | 2017-02-25 16:53 | CP.PCM.PN ---
Subjective - Date & Time of Evaluation Date of Evaluation: 02/25/17 Time of Evaluation: 13:00 - Subjective Subjective: Breathing a little better, less cough. No fevers overnight. Objective - Vital Signs/Intake and Output Vital Signs (last 24 hours): Temp Pulse Resp BP Pulse Ox 98.0 F 77 18 133/78 98 02/25/17 07:30 02/25/17 07:30 02/25/17 07:30 02/25/17 07:30 02/25/17 07:30 Intake and Output: 02/25/17 02/25/17 06:59 18:59 Intake Total 1020 Output Total 800 Balance 220 - Medications Medications: Current Medications Acetaminophen (Tylenol 325mg Tab) 975 mg PO ONCE PRN PRN Reason: Fever >100.4 F Last Admin: 02/22/17 22:29 Dose: 975 mg Albuterol/Ipratropium (Duoneb 3 Mg/0.5 Mg (3 Ml) Ud) 3 ml IH Q2H PRN PRN Reason: Shortness of Breath Albuterol/Ipratropium (Duoneb 3 Mg/0.5 Mg (3 Ml) Ud) 3 ml IH TID [facility] Last Admin: 02/25/17 07:46 Dose: 3 ml Atorvastatin Calcium (Lipitor) 20 mg PO DIN [facility] Last Admin: 02/24/17 18:15 Dose: 20 mg Colchicine (Colocrys) 0.6 mg PO DAILY [facility] Last Admin: 02/24/17 09:58 Dose: 0.6 mg Docusate Sodium (Colace) 100 mg PO BID [facility] Last Admin: 02/24/17 18:15 Dose: Not Given Furosemide (Lasix) 40 mg PO DAILY [facility] Last Admin: 02/24/17 09:58 Dose: 40 mg Azithromycin (Zithromax 500mg In Ns) 500 mg in 250 mls @ 167 mls/hr IVPB DAILY [facility] PRN Reason: Protocol Last Admin: 02/24/17 10:08 Dose: 167 mls/hr Isosorbide Mononitrate (Imdur Er) 30 mg PO DAILY [facility] Last Admin: 02/24/17 09:58 Dose: 30 mg Losartan Potassium (Cozaar) 25 mg PO DAILY [facility] Last Admin: 02/24/17 10:05 Dose: 25 mg Methylprednisolone (Solu-Medrol) 40 mg IVP Q12 [facility] Last Admin: 02/24/17 22:01 Dose: 40 mg Non-Formulary Medication (Febuxostat [Uloric]) 40 mg PO DAILY [facility] Last Admin: 02/24/17 10:16 Dose: Not Given Promethazine HCl (Phenergan Syrup) 6.25 mg PO Q4H PRN PRN Reason: Cough Last Admin: 02/23/17 17:43 Dose: 6.25 mg Sitagliptin Phosphate (Januvia) 25 mg PO DAILY [facility] Last Admin: 02/24/17 10:05 Dose: 25 mg Warfarin Sodium (Coumadin) 2.5 mg PO 1800 [facility] PRN Reason: Protocol Last Admin: 02/24/17 18:15 Dose: 2.5 mg - Labs Labs: 02/25/17 07:30 02/25/17 07:30 PT 26.9 SECONDS (9.4-12.5) H 02/24/17 06:45 INR 2.30 (0.93-1.08) H 02/24/17 06:45 APTT 59.1 Seconds (25.1-36.5) H 02/22/17 22:29 - Constitutional Appears: Non-toxic - Head Exam Head Exam: NORMAL INSPECTION - ENT Exam ENT Exam: Mucous Membranes Moist - Neck Exam Neck Exam: absent: Meningismus - Respiratory Exam Respiratory Exam: Decreased Breath Sounds - Cardiovascular Exam Cardiovascular Exam: +S1, +S2 - GI/Abdominal Exam GI & Abdominal Exam: Soft. absent: Tenderness Assessment and Plan - Assessment and Plan (Free Text) Plan: Assessment acute bronchitis, slowly improving history of Sepsis secondary to Left upper lobe and left lower lobe (multifocal) healthcare-associated pneumonia with possible gram positive cocci and/or gram negative bacilli CAD S/P CABG in 1999 with ischemic cardiomyopathy and congestive heart failure Chronic renal failure S/P AICD placement (Nov 2014) HTN history of pneumonia history of bronchitis Left eye cataract right eye glaucoma DM lower extremities arthritis Plan Will continue Zithromax to complete 3-5 days
[2017-02-25] MEDS: Promethazine 6.25 MG/5 ML CUP PO PRN (21:27)
--- NOTE | 2017-02-26 07:33 | PN ---
DATE: 02/26/2017 SUBJECTIVE: The patient states he is feeling better. He has no complaints of any headaches or dizziness. No nausea. PHYSICAL EXAMINATION: VITAL SIGNS: Temperature is 98, pulse of 77, blood pressure 132/78, respirations 18. GENERAL: The patient is lying in bed, flat, comfortable. HEENT: No oral lesion. Anicteric sclerae. Moist mucosa. NECK: No JVD, adenopathy, or thyromegaly. CARDIOVASCULAR: S1 and S2, regular. No murmurs, rubs, or gallops. LUNGS: Clear to auscultation bilaterally. No wheeze, rales, or rhonchi. ABDOMEN: Bowel sounds are positive, soft, nontender and nondistended. EXTREMITIES: No cyanosis, clubbing or edema. LABORATORY DATA: White count of 4.5, hemoglobin of 10.8. Creatinine is 3.1. ASSESSMENT: 1. Bronchitis. 2. Chronic obstructive pulmonary disease exacerbation. 3. Diabetes type 2. 4. Chronic kidney disease, stage III. 5. PENICILLIN ALLERGY. 6. Gout. 7. Dyslipidemia. 8. Hypertension. 9. Ischemic cardiomyopathy, status post defibrillator. PLAN: The patient continues to be on Coumadin. The patient is on Colchicine for his gout. He is receiving nebulizer treatments. He is on Januvia for his diabetes. The patient is on steroids for his COPD. The patient is ambulating. He is on Lipitor for dyslipidemia. He is on azithromycin for antibiotics. He was seen by physical therapy. He had blood cultures, urine cultures and have been negative. Peyman Villagomez MD
[2017-02-26] MEDS: Albuterol-Ipratrop 3 mg / 0.5 (3 ml) UD IH SCH ×3 (07:54→22:15)
[2017-02-26 08:17] VITALS: RESP 20
[2017-02-26] MEDS: MethylPREDNISolone 40 mg Vial IVP SCH (09:53)
[2017-02-26] MEDS: Azithromycin 500MG/NS 250ml 500 MG/250 ML BAG IVPB SCH (09:53)
[2017-02-26] MEDS: Benzocaine/Menthol (Cepacol) Lozenge MT SCH ×3 (10:10→17:23)
--- NOTE | 2017-02-26 14:24 | CP.PCM.PN ---
Subjective - Date & Time of Evaluation Date of Evaluation: 02/26/17 Time of Evaluation: 12:25 - Subjective Subjective: Comfortable, still with cough but a little less, no fevers overnight, breathing is better. Objective - Vital Signs/Intake and Output Vital Signs (last 24 hours): Temp Pulse Resp BP Pulse Ox 97.7 F 83 20 120/60 97 02/26/17 07:30 02/26/17 07:30 02/26/17 07:30 02/26/17 09:53 02/26/17 07:30 Intake and Output: 02/26/17 02/26/17 06:59 18:59 Intake Total 1200 Output Total 400 Balance 800 - Medications Medications: Current Medications Acetaminophen (Tylenol 325mg Tab) 975 mg PO ONCE PRN PRN Reason: Fever >100.4 F Last Admin: 02/22/17 22:29 Dose: 975 mg Albuterol/Ipratropium (Duoneb 3 Mg/0.5 Mg (3 Ml) Ud) 3 ml IH Q2H PRN PRN Reason: Shortness of Breath Albuterol/Ipratropium (Duoneb 3 Mg/0.5 Mg (3 Ml) Ud) 3 ml IH TID [facility] Last Admin: 02/26/17 07:54 Dose: 3 ml Atorvastatin Calcium (Lipitor) 20 mg PO DIN [facility] Last Admin: 02/25/17 16:28 Dose: 20 mg Benzocaine/Menthol (Cepacol Sore Throat) 1 jacob MT TID [facility] Last Admin: 02/26/17 10:10 Dose: 1 jacob Colchicine (Colocrys) 0.6 mg PO DAILY [facility] Last Admin: 02/26/17 09:52 Dose: 0.6 mg Docusate Sodium (Colace) 100 mg PO BID [facility] Last Admin: 02/26/17 09:52 Dose: 100 mg Furosemide (Lasix) 40 mg PO DAILY [facility] Last Admin: 02/26/17 09:53 Dose: 40 mg Azithromycin (Zithromax 500mg In Ns) 500 mg in 250 mls @ 167 mls/hr IVPB DAILY [facility] PRN Reason: Protocol Last Admin: 02/26/17 09:53 Dose: 167 mls/hr Isosorbide Mononitrate (Imdur Er) 30 mg PO DAILY [facility] Last Admin: 02/26/17 09:53 Dose: 30 mg Losartan Potassium (Cozaar) 25 mg PO DAILY [facility] Last Admin: 02/26/17 09:52 Dose: 25 mg Methylprednisolone (Solu-Medrol) 40 mg IVP DAILY [facility] Last Admin: 02/26/17 09:53 Dose: 40 mg Non-Formulary Medication (Febuxostat [Uloric]) 40 mg PO DAILY [facility] Last Admin: 02/25/17 10:52 Dose: Not Given Promethazine HCl (Phenergan Syrup) 6.25 mg PO Q4H PRN PRN Reason: Cough Last Admin: 02/25/17 21:27 Dose: 6.25 mg Sitagliptin Phosphate (Januvia) 25 mg PO DAILY [facility] Last Admin: 02/26/17 09:53 Dose: 25 mg Warfarin Sodium (Coumadin) 2.5 mg PO 1800 [facility] PRN Reason: Protocol Last Admin: 02/25/17 17:31 Dose: 2.5 mg - Labs Labs: 02/25/17 07:30 02/25/17 07:30 PT 26.9 SECONDS (9.4-12.5) H 02/24/17 06:45 INR 2.30 (0.93-1.08) H 02/24/17 06:45 APTT 59.1 Seconds (25.1-36.5) H 02/22/17 22:29 - Constitutional Appears: Non-toxic - Head Exam Head Exam: NORMAL INSPECTION - ENT Exam ENT Exam: Mucous Membranes Moist - Neck Exam Neck Exam: absent: Lymphadenopathy, Meningismus - Respiratory Exam Respiratory Exam: Decreased Breath Sounds - Cardiovascular Exam Cardiovascular Exam: +S1, +S2 - GI/Abdominal Exam GI & Abdominal Exam: Soft. absent: Tenderness Assessment and Plan - Assessment and Plan (Free Text) Plan: Assessment acute bronchitis, slowly improving history of Sepsis secondary to Left upper lobe and left lower lobe (multifocal) healthcare-associated pneumonia with possible gram positive cocci and/or gram negative bacilli CAD S/P CABG in 1999 with ischemic cardiomyopathy and congestive heart failure Chronic renal failure S/P AICD placement (Nov 2014) HTN history of pneumonia history of bronchitis Left eye cataract right eye glaucoma DM lower extremities arthritis Plan Will continue Zithromax to complete 3-5 days (day 3 today), steroids and nebulizer treatments
[2017-02-26] MEDS: Non Formulary Medication (Febuxostat [Uloric] 40 MG) PO SCH (16:28)
[2017-02-27] MEDS: Promethazine 6.25 MG/5 ML CUP PO PRN (04:35)
[2017-02-27 07:50] LABS: INR 3.41 (0.93-1.08); PROTHROMBIN TIME 40.2 SECONDS (9.4-12.5)
[2017-02-27] MEDS: Albuterol-Ipratrop 3 mg / 0.5 (3 ml) UD IH SCH ×4 (08:00→19:27)
[2017-02-27] MEDS: Benzocaine/Menthol (Cepacol) Lozenge MT SCH ×3 (12:09→18:19)
[2017-02-27] MEDS: Azithromycin 500MG/NS 250ml 500 MG/250 ML BAG IVPB SCH (12:11)
[2017-02-27] MEDS: MethylPREDNISolone 40 mg Vial IVP SCH (12:15)
[2017-02-27] MEDS: Non Formulary Medication (Febuxostat [Uloric] 40 MG) PO SCH (18:14)
--- NOTE | 2017-02-27 18:17 | PN ---
DATE: 02/27/2017 SUBJECTIVE: The patient is in bed, in no acute distress, nontoxic. PHYSICAL EXAMINATION VITAL SIGNS: Temperature is 98, blood pressure is 130/60, respiratory rate of 18. HEENT: Unremarkable. NECK: Supple. LUNGS: Have decreased breath sounds. HEART: Normal S1, S2. ABDOMEN: Soft, nontender. LABORATORY DATA: Reveals a white count is 4.5, hemoglobin of 10, platelets of 86. Chemistries reveals a BUN of 54, creatinine of 2.1 and procalcitonin 0.35. Urinalysis is noted. Serology is positive. Microbiology reveals cultures are no growth. Review of orders reveals the patient is to be on IV azithromycin and the patient is on prednisone. ASSESSMENT/PLAN: This is an 82-year-old male admitted with sepsis secondary to left upper lobe and left lower lobe multifocal healthcare-associated pneumonia with normal procalcitonin. The patient with coronary artery disease, ischemic cardiomyopathy, congestive heart failure, history of pneumonia, bronchitis, and diabetes and arthritis and on day number 4 of Zithromax and the patient is found to have positive serology for influenza. Urine antigen is negative. A chest x-ray is reviewed. We will switch to p.o. Zithromax and Tamiflu. Dr. Villagomez's note is reviewed. On admission, the patient did have a fever. We will place the patient on isolation. We will follow with you. Review of the EKG reveals the patient to have a QTC interval of 421. Trevor Castelan MD
[2017-02-27 21:47] VITALS: O2SAT 100
[2017-02-28] MEDS: Albuterol-Ipratrop 3 mg / 0.5 (3 ml) UD IH SCH ×2 (07:45→13:44)
[2017-02-28 08:32] VITALS: PULSE 78; TEMP 97.4
[2017-02-28] MEDS: Benzocaine/Menthol (Cepacol) Lozenge MT SCH (09:13)
[2017-02-28] MEDS: MethylPREDNISolone 40 mg Vial IVP SCH (09:13)
[2017-02-28] MEDS: Non Formulary Medication (Febuxostat [Uloric] 40 MG) PO SCH (09:15)
[2017-02-28] MEDS: Promethazine 6.25 MG/5 ML CUP PO PRN (09:18)
[2017-02-28 09:21] VITALS: BP 145/85
--- NOTE | 2017-02-28 19:27 | PN ---
DATE: 02/27/2017 FOLLOWUP NOTE HISTORY OF PRESENT ILLNESS: Mr. Damon is an 82-year-old male admitted with cough, fever, congestion and he was found to have influenza positive. He has a history of hypertension, blood pressure controlled on current medication, history of coronary artery disease, stable. No issues recently. He also has chronic kidney disease and chronic anemia. Hemoglobin and hematocrit has been stable. He is complaining of cough, fatigue, and weakness. REVIEW OF SYSTEMS: Overnight review of system as per HPI. Rest of 12-point review of systems reviewed negative. PHYSICAL EXAMINATION: GENERAL: Comfortable in bed, in no acute distress. VITAL SIGNS: Temperature is 98.7, heart rate is 80 per minute, blood pressure 125/70, respiratory rate is 18 per minute, oxygen saturation is 99% on room air. HEENT: Normal. Pallor positive. NECK: Supple. No lymphadenopathy. CHEST: Air entry present and equal bilaterally. No added sounds. CARDIOVASCULAR: S1, S2 normal. No murmur. No gallop. ABDOMEN: Soft, nontender. No hepatosplenomegaly. EXTREMITIES: No edema. VP PUBLIC RELATIONS: Alert and oriented x3. No focal sensorimotor deficit. SPINE: Nontender. SKIN: No petechiae. No rash. LABORATORY DATA: White count 4.8, hemoglobin 10, platelet count of 80,000. INR 3.3. Sodium 141 and creatinine 2.3. ASSESSMENT AND PLAN: 1. Left lower lobe pneumonia. 2. Influenza A. 3. Anemia. 4. Thrombocytopenia. 5. Chronic kidney disease stage III. 6. Influenza A. 7. Coronary artery disease status post defibrillator. PLAN: We will continue Tamiflu, therapeutic on current dose of Coumadin. Encourage bedside physical therapy. He is currently on respiratory isolation for influenza A. ID consultation with Dr. Castelan appreciated and notes reviewed. We will continue Tamiflu 75 mg p.o. b.i.d. He is also on prednisolone 40 mg daily, Imdur 30 mg daily. Continue Lasix 40 mg daily, Zithromax 250 mg daily. Discharge planning for tomorrow. Gris Bowers MD
--- NOTE | 2017-03-01 10:08 | DS ---
DISCHARGE DIAGNOSES: 1. Influenza A. 2. Coronary artery disease. 3. Chronic kidney disease stage 3. 4. Anemia. 5. Thrombocytopenia. HOSPITAL COURSE: The patient was admitted with cough, fever, cold. He was found to have influenza A, treated with Tamiflu. He also received antibiotics for pneumonia. Left lower lobe infiltrate. General condition improved during hospitalization. He is being discharged home in stable condition. PHYSICAL EXAMINATION: GENERAL: Comfortable in bed in no acute distress. VITAL SIGNS: Temperature 98.7, heart rate 80 per minute, blood pressure 120/70, respiratory rate 18 per minute. HEENT: Pallor positive. NECK: No lymphadenopathy. CHEST: Fair entry present and equal bilateral. No added sounds. CARDIOVASCULAR: S1 and S2 normal. No murmur, no gallop. ABDOMEN: Soft, nontender. No hepatosplenomegaly. EXTREMITIES: No edema. ASSISTANT BROKER: Alert and oriented x3. No focal, sensory, or motor deficits. SKIN: No petechiae. No rash. DISPOSITION: Discharged home. DISCHARGE MEDICATIONS: Continue home medications; Lipitor 20 mg daily, Tamiflu 75 mg p.o. b.i.d., Lasix 40 mg daily, Imdur 30 mg p.o. b.i.d., Cozaar 25 mg daily, Coumadin 2.5 mg daily, Januvia 75 mg daily. Prescription given to the patient. DIET: Regular diet. FOLLOWUP: With Dr. Jennings in one week. Discussed with the staff nurse, discussed with the patient. Discussed with the patient's daughter regarding discharge home. Time spent in preparing discharge and coordinating care, 60 minutes. Gris Bowers MD
--- NOTE | 2017-03-01 10:39 | PN ---
DATE: 02/28/2017 SUBJECTIVE: The patient seen earlier this morning in room 568, bed 2. He is doing well. No fevers. No chills. No nausea. PHYSICAL EXAMINATION VITAL SIGNS: Temperature was 97, blood pressure was 140/80, respiratory rate 20. HEENT: Unremarkable. NECK: Supple. LUNGS: Have decreased breath sounds. HEART: Normal S1, S2. ABDOMEN: Soft and nontender. LABORATORY DATA: Reveals a white count of 4.5, hemoglobin of 10, and platelets of 86,000. Microbiology is noted. ASSESSMENT AND PLAN: This is an 82-year-old admitted with sepsis secondary to upper lobe, left lower lobe multifocal healthcare associated pneumonia with a normal procalcitonin, coronary artery disease and the patient with ischemic cardiomyopathy, congestive heart failure, history of pneumonia, bronchitis, diabetes, and arthritis and day #5 of Zithromax and positive influenza, should complete five days of Tamiflu and Zithromax. Trevor Castelan MD
== END 2017-02-28 14:03 | disposition home or self-care (01) | DRG 194 ==
LOC: ED 19:53 → ERH 02-23 01:56 → 2A 02-23 07:27 → 5RNO 02-23 19:07
PROVIDERS: ADMIT Internal Medicine Nephrology; ATTEND Internal Medicine
DX: J18.9 Pneumonia, unspecified organism (principal); J10.00 Influenza due to other identified influenza virus with unspecified type of pneumonia; I13.0 Hypertensive heart and chronic kidney disease with heart failure and stage 1 through stage 4 chronic kidney disease, or unspecified chronic kidney disease; N17.9 Acute kidney failure, unspecified; J44.1 Chronic obstructive pulmonary disease with (acute) exacerbation; J44.0 Chronic obstructive pulmonary disease with (acute) lower respiratory infection; E11.22 Type 2 diabetes mellitus with diabetic chronic kidney disease; I12.9 Hypertensive chronic kidney disease with stage 1 through stage 4 chronic kidney disease, or unspecified chronic kidney disease; I50.9 Heart failure, unspecified; N18.3 Chronic kidney disease, stage 3 (moderate); D69.6 Thrombocytopenia, unspecified; D64.9 Anemia, unspecified; I48.91 Unspecified atrial fibrillation; I25.10 Atherosclerotic heart disease of native coronary artery without angina pectoris; J20.9 Acute bronchitis, unspecified; H40.9 Unspecified glaucoma; H26.9 Unspecified cataract; M10.9 Gout, unspecified; E78.5 Hyperlipidemia, unspecified; I25.5 Ischemic cardiomyopathy; M19.90 Unspecified osteoarthritis, unspecified site; Z87.891 Personal history of nicotine dependence; Z79.01 Long term (current) use of anticoagulants; Z95.1 Presence of aortocoronary bypass graft; Z88.6 Allergy status to analgesic agent; Z88.0 Allergy status to penicillin; Z95.810 Presence of automatic (implantable) cardiac defibrillator; Z79.84 Long term (current) use of oral hypoglycemic drugs

== ENCOUNTER 2017-04-20 09:50 | Emergency (ER) | payer MEDICARE, OTHER ==
[2017-04-20 09:51] VITALS: PULSE 68
[2017-04-20 09:55] VITALS: BMI 25.7
[2017-04-20 10:04] VITALS: RESP 18; TEMP 98.1
--- NOTE | 2017-04-20 10:24 | ED PDOC ---
Arrival/HPI - General Chief Complaint: Trauma Time Seen by Provider: 04/20/17 10:20 - History of Present Illness Narrative History of Present Illness (Text): 82 y/o M c PMHx Afib on warfarin p/w fall this morning. Patient's knees buckled , causing him to fall onto his buttocks and striking the back of his head. He denies preceding dizziness, chest pain, palpitations, dyspnea. He does report nausea after the fall. Past Medical History - Infectious Disease Hx of Infectious Diseases: None - Tetanus Immunization Tetanus Immunization: Unknown - Cardiac Hx Cardiac Disorders: Yes Hx Congestive Heart Failure: Yes - Pulmonary Hx Pneumonia: Yes - Neurological Hx Neurological Disorder: (DENIES HISTORY) - HEENT Hx HEENT Disorder: Yes Hx Cataracts: Yes (Left) Hx Glaucoma: Yes (Right) - Renal Hx Renal Disorder: Yes - Endocrine/Metabolic Hx Diabetes Mellitus Type 1: Yes - Hematological/Oncological Hx Blood Disorders: Yes - Integumentary Hx Dermatological Disorder: (DENIES HISTORY) - Musculoskeletal/Rheumatological Hx Falls: No - Gastrointestinal Hx Gastrointestinal Disorders: Yes Hx Gall Bladder Disease: Yes (CHOLECYSTECTOMY) - Genitourinary/Gynecological Hx Genitourinary Disorders: Yes Hx Prostate Problems: Yes Hx Reproductive Disorders: No - Psychiatric Hx Psychophysiologic Disorder: No Hx Substance Use: No - Surgical History Hx Open Heart Surgery: Yes - Anesthesia Hx Anesthesia Reactions: Yes Hx Malignant Hyperthermia: No - Suicidal Assessment Feels Threatened In Home Enviroment: No Family/Social History Family/Social History: No Known Family HX Smoking Status: Former Smoker Hx Alcohol Use: No Hx Substance Use: No Hx Substance Use Treatment: No Allergies/Home Meds Allergies/Adverse Reactions: Allergies aspirin Allergy (Verified 04/20/17 10:01) RASH Latex, Natural Rubber Allergy (Verified 09/05/16 02:14) RASH penicillin V Allergy (Verified 04/20/17 10:01) RASH Home Medications: Home Meds Medication Instructions Recorded Confirmed Atorvastatin [Lipitor] 20 mg PO DAILY 05/18/16 04/20/17 Colchicine [Colcrys] 0.6 mg PO DAILY 05/18/16 04/20/17 Docusate Sodium [Col-Rite] 100 mg PO DAILY 05/18/16 04/20/17 Febuxostat [Uloric] 40 mg PO DAILY 05/18/16 04/20/17 Furosemide [Lasix] 20 mg PO DAILY 05/18/16 04/20/17 Isosorbide Mononitrate ER [Imdur 30 mg PO DAILY 05/18/16 04/20/17 ER] Losartan [Cozaar] 25 mg PO DIN 05/18/16 04/20/17 SITagliptin [Januvia] 50 mg PO DAILY 05/18/16 04/20/17 Metoprolol Succinate [Metoprolol 50 mg PO BID 09/05/16 04/20/17 Succinate] Multivitamin/Iron/Folic Acid 1 tab PO DAILY 04/20/17 04/20/17 [Centrum Adults Tablet] Review of Systems - Physician Review All systems were reviewed & negative as marked: Yes - Review of Systems Constitutional: absent: Fevers Respiratory: absent: SOB Physical Exam - Physical Exam Narrative Physical Exam (Text): Gen: NAD Head: NC, AT Eyes: PERRL ENT: MMM Neck: No midline tenderness Chest: No tenderness CV: Regular rate Lungs: CTA b/l Abd: Soft, NT Back: No CVA tenderness. + lumbar midline tenderness. Extremities: No tenderness or swelling, FROM x 4. Pelvis stable. Skin: No rash Neuro: Alert, no focal deficit Vital Signs Temp Pulse Resp BP Pulse Ox 04/20/17 09:51 98.1 F 64 18 137/72 99 Finger Stick Blood Glucose: 126 Medical Decision Making ED Course and Treatment: 04/20/17 11:02 CT Head: Creator : Dr. Demarco, Joaquín CHRISTIANSON COMPARISON: 09/12/2012 FINDINGS: HEMORRHAGE: No intracranial hemorrhage. BRAIN: No mass effect or edema. There is chronic encephalomalacia in the right cerebellar hemisphere VENTRICLES: Unremarkable. No hydrocephalus. CALVARIUM: Unremarkable. PARANASAL SINUSES: Unremarkable as visualized. No significant inflammatory changes. MASTOID AIR CELLS: Unremarkable as visualized. No inflammatory changes. OTHER FINDINGS: None. IMPRESSION: No acute intracranial findings 04/20/17 11:39 FINDINGS: BONES: Normal alignment. No listhesis. No fracture. DISC SPACES: Unremarkable. OTHER FINDINGS: Marginal osteophytes are seen with larger osteophytes anteriorly IMPRESSION: No acute findings Patient in no acute distress. Will discharge with copy of INR for his PMD, no active bleeding at this time. - Lab Interpretations Lab Results: 04/20/17 10:30 04/20/17 10:30 Lab Results 04/20/17 10:30: Sodium 140, Potassium 4.1, Chloride 105, Carbon Dioxide 26, Anion Gap 14, BUN 43 H, Creatinine 2.0 H, Est GFR ( Amer) 39, Est GFR ( Non-Af Amer) 32, Random Glucose 122 H, Calcium 9.2, Total Bilirubin 0.9, AST 48 , ALT 47, Alkaline Phosphatase 135 H D, Total Protein 6.9, Albumin 3.5, Globulin 3.4, Albumin/Globulin Ratio 1.0 L 04/20/17 10:30: PT 44.1 H, INR 3.73 H*, APTT 55.4 H 04/20/17 10:30: WBC 4.3 L, RBC 3.44 L, Hgb 11.6 L, Hct 34.8 L, MCV 101.2, MCH 33.7, MCHC 33.3, RDW 15.5 H, Plt Count 106 L, MPV 10.0, Gran % 53.5, Lymph % ( Auto) 18.0 L, [place] % (Auto) 21.5 H, Eos % (Auto) 6.3 H, Baso % (Auto) 0.7, Gran # 2.29, Lymph # (Auto) 0.8 L, [place] # (Auto) 0.9 H, Eos # (Auto) 0.3, Baso # ( Auto) 0.03, Neutrophils % (Manual) 58, Lymphocytes % (Manual) 18 L, Monocytes % (Manual) 20 H, Eosinophils % (Manual) 4 H - RAD Interpretation Radiology Orders: 04/20/17 10:20 HEAD W/O CONTRAST [CT] Stat LS SPINE AP/LAT [RAD] Stat Imaging Aide: Radiologist Disposition/Present on Arrival - Present on Arrival Any Indicators Present on Arrival: No History of DVT/PE: No History of Uncontrolled Diabetes: No Urinary Catheter: No History of Decub. Ulcer: No History Surgical Site Infection Following: None - Disposition Have Diagnosis and Disposition been Completed?: Yes Diagnosis: Back pain Disposition: HOME/ ROUTINE Disposition Time: 11:39 Patient Plan: Discharge Condition: STABLE Discharge Instructions (ExitCare): Preventing Falls in the Older Adult Referrals: Leonila Jennings MD [Primary Care Provider] - Follow up with primary Forms: [employer] (Nepali)
[2017-04-20 10:43] LABS: BASO # 0.03 K/mm3 (0.0-2.0); BASO % 0.7 % (0.0-3.0); EOS # 0.3 (0.0-0.7); EOS % 6.3 % (1.5-5.0); GRAN # 2.29 (1.4-6.5); GRAN % 53.5 % (50.0-68.0); HEMOGLOBIN 11.6 g/dL (14.0-18.0); LYMPH # 0.8 (1.2-3.4); MEAN CELL VOLUME 101.2 fl (80.0-105.0); MEAN CORPUSCULAR HEMOGLOBIN 33.7 pg (25.0-35.0); MEAN CORPUSCULAR HGB CONC 33.3 g/dl (31.0-37.0); MONO # 0.9 (0.1-0.6); MONO % 21.5 % (1.0-6.0); PLATELET COUNT 106 10^3/uL (120.0-450.0); RBC 3.44 10^6/uL (3.5-6.1); RED CELL DISTRIBUTION WIDTH 15.5 % (11.5-14.5); WHITE BLOOD COUNT 4.3 10^3/ul (4.5-11.0)
[2017-04-20 10:52] LABS: ALBUMIN 3.5 g/dL (3.0-4.8); CALCIUM 9.2 mg/dL (8.4-10.5)
--- NOTE | 2017-04-20 10:56 | CT ---
PROCEDURE: CT HEAD WITHOUT CONTRAST. HISTORY: fall COMPARISON: 09/12/2012 TECHNIQUE: Axial computed tomography images were obtained through the head/brain without intravenous contrast. Radiation dose: Total exam DLP = 830 mGy-cm. This CT exam was performed using one or more of the following dose reduction techniques: Automated exposure control, adjustment of the mA and/or kV according to patient size, and/or use of iterative reconstruction technique. FINDINGS: HEMORRHAGE: No intracranial hemorrhage. BRAIN: No mass effect or edema. There is chronic encephalomalacia in the right cerebellar hemisphere VENTRICLES: Unremarkable. No hydrocephalus. CALVARIUM: Unremarkable. PARANASAL SINUSES: Unremarkable as visualized. No significant inflammatory changes. MASTOID AIR CELLS: Unremarkable as visualized. No inflammatory changes. OTHER FINDINGS: None. IMPRESSION: No acute intracranial findings
[2017-04-20 11:00] LABS: PARTIAL THROMBOPLASTIN TIME 55.4 Seconds (25.1-36.5); PROTHROMBIN TIME 44.1 SECONDS (9.4-12.5)
[2017-04-20 11:02] LABS: INR 3.73 (0.93-1.08)
[2017-04-20 11:13] LABS: EOSINOPHIL 4 % (0.0-3.0); LYMPHOCYTE 18 % (22.0-35.0); MONOCYTE 20 % (1.0-6.0); NEUTROPHIL 58 % (50.0-70.0)
--- NOTE | 2017-04-20 11:37 | RAD ---
PROCEDURE: Radiographs of the Lumbar Spine. HISTORY: fall, back pain COMPARISON: No prior. FINDINGS: BONES: Normal alignment. No listhesis. No fracture. DISC SPACES: Unremarkable. OTHER FINDINGS: Marginal osteophytes are seen with larger osteophytes anteriorly IMPRESSION: No acute findings
[2017-04-20 12:07] VITALS: BP 128/61; PULSE 55; O2SAT 96
--- NOTE | 2017-04-20 19:44 | CARD ---
APPROVED REPORT EKG Measurement Heart [id number] <Conclusion> Atrial fibrillation Nonspecific T wave abnormality, probably digitalis effect Abnormal ECG
--- NOTE | 2017-04-21 04:06 | CON ---
DATE: HISTORY OF PRESENT ILLNESS: Patient is an 82-year-old, seen, known to me from office practice. According to daughter, he was getting ready to go to the bathroom and he got up. His right knee buckled and he fell on his hips, hitting his back of the head against the wall. After that, he started to feel dizzy and lightheaded and he felt nauseous. So daughter called ambulance and he was brought to the emergency room. No history of shortness of breath. No chest pain. PAST MEDICAL HISTORY: Significant for: 1. Chronic kidney disease. 2. Status post pacemaker placement. 3. History of congestive heart failure. 4. Status post open heart surgery. 5. History of multiple admissions for pneumonia and gouty arthritis. 6. Ead-dntuyij-hmmrvdzum diabetes. PAST SURGICAL HISTORY: Significant for: 1. Left cataract extraction and right eye glaucoma surgery. 2. Open heart surgery. 3. History of defibrillator placement. 4. Status post cholecystectomy. ALLERGIES: HE IS ALLERGIC TO ASPIRIN, LATEX, NATURAL RUBBER, AND PENICILLIN. MEDICATIONS: At home, he is on multivitamin, warfarin 2.5 daily, Januvia 50 mg daily, metoprolol 50 mg twice a day, losartan 25 daily, isosorbide 30 mg daily, Lasix 20 mg daily, Uloric 40 mg daily, Colace, colchicine, and atorvastatin. REVIEW OF SYSTEMS: Significant for right knee pain and slight back pain. PHYSICAL EXAMINATION: GENERAL: He is awake, alert, oriented, communicative, conversing appropriately. VITAL SIGNS: He is afebrile, pulse 64, respirations 18, blood pressure 128/61. LUNGS: Bilateral good airflow. No rhonchi or crackle. HEART: S1 and S2 audible. ABDOMEN: Soft, nontender. No rebound. No guarding. NEUROLOGIC: He is awake, alert, oriented, and communicate. Moves all extremities. LABORATORY DATA: WBC 4.3, hemoglobin 11.6, hematocrit 34.8, and platelets of 106. PT 44.1, INR 3.73. Chemistry: Sodium 140, potassium 4.1, chloride 105, CO2 23, BUN 43, creatinine 2.0, blood sugar 122, alk phos is 135. He has lumbar spine x-ray done that has no active finding. CT scan of the head is unremarkable for any intracranial bleed. ASSESSMENT: 1. Status post fall, secondary to right knee buckling and arthritis. 2. History of gouty arthritis. 3. Coronary artery disease. 4. Hypertension. 5. Chronic atrial fibrillation. 6. Lmv-eekiqzz-wyjjvpach diabetes. PLAN: The patient was seen and examined. Clinically stable. Can be discharged home. He is given prescription of tramadol 50 mg q. 8 hours p.r.n. He will follow up in the office. Leonila Jennings MD
== END 2017-04-20 12:46 | disposition home or self-care (01) ==
LOC: ED 09:50
DX: M54.9 Dorsalgia, unspecified (principal); E10.9 Type 1 diabetes mellitus without complications; N18.9 Chronic kidney disease, unspecified; I50.9 Heart failure, unspecified; Z95.0 Presence of cardiac pacemaker

== ENCOUNTER 2017-07-27 21:48 | Observation (INO) | payer MEDICARE, OTHER ==
[2017-07-27 21:48] VITALS: PULSE 68
--- NOTE | 2017-07-27 22:17 | ED PDOC ---
Arrival/HPI <Som Mandel - Last Filed: 07/27/17 22:24> - General Historian: Patient <Ilan Carrera - Last Filed: 07/28/17 01:25> - General Chief Complaint: Abnormal Labs Time Seen by Provider: 07/27/17 22:01 - History of Present Illness Narrative History of Present Illness (Text): 07/27/17 22:11 82yo male with pmhx of Afib, diabetes, CAD on Coumadin referred to ED by Dr. Jennings for elevated INR. The daughter by the bedside states patient have red left eye and bruises on his left arm. He saw Dr. Jennings yesterday where blood was taken and was called tonight and referred to ED. He otherwise denies hemoptysis, melena, hematochezia, any other complaint. (Ilan Carrera) Past Medical History - Provider Review Nursing Documentation Reviewed: Yes - Infectious Disease Hx of Infectious Diseases: None - Tetanus Immunization Tetanus Immunization: Unknown - Cardiac Hx Cardiac Disorders: Yes Hx Congestive Heart Failure: Yes - Pulmonary Hx Pneumonia: Yes - Neurological Hx Neurological Disorder: (DENIES HISTORY) - HEENT Hx HEENT Disorder: Yes Hx Cataracts: Yes (Left) Hx Glaucoma: Yes (Right) - Renal Hx Renal Disorder: Yes - Endocrine/Metabolic Hx Diabetes Mellitus Type 1: Yes - Hematological/Oncological Hx Blood Disorders: Yes - Integumentary Hx Dermatological Disorder: (DENIES HISTORY) - Musculoskeletal/Rheumatological Hx Falls: No - Gastrointestinal Hx Gastrointestinal Disorders: Yes Hx Gall Bladder Disease: Yes (CHOLECYSTECTOMY) - Genitourinary/Gynecological Hx Genitourinary Disorders: Yes Hx Prostate Problems: Yes Hx Reproductive Disorders: No - Psychiatric Hx Psychophysiologic Disorder: No Hx Substance Use: No - Surgical History Hx Open Heart Surgery: Yes - Anesthesia Hx Anesthesia Reactions: Yes Hx Malignant Hyperthermia: No - Suicidal Assessment Feels Threatened In Home Enviroment: No <Ilan Carrera - Last Filed: 07/28/17 01:25> Family/Social History - Physician Review Nursing Documentation Reviewed: Yes Family/Social History: Unknown Family HX Smoking Status: Former Smoker Hx Alcohol Use: No Hx Substance Use: No Hx Substance Use Treatment: No <Ilan Carrera - Last Filed: 07/28/17 01:25> Allergies/Home Meds <Som Mandel - Last Filed: 07/27/17 22:24> <drissIlan A - Last Filed: 07/28/17 01:25> Allergies/Adverse Reactions: Allergies aspirin Allergy (Verified 04/20/17 10:01) RASH Latex, Natural Rubber Allergy (Verified 09/05/16 02:14) RASH penicillin V Allergy (Verified 04/20/17 10:01) RASH Home Medications: Home Meds Medication Instructions Recorded Confirmed Atorvastatin [Lipitor] 20 mg PO DAILY 05/18/16 04/20/17 Colchicine [Colcrys] 0.6 mg PO DAILY 05/18/16 04/20/17 Docusate Sodium [Col-Rite] 100 mg PO DAILY 05/18/16 04/20/17 Febuxostat [Uloric] 40 mg PO DAILY 05/18/16 04/20/17 Furosemide [Lasix] 20 mg PO DAILY 05/18/16 04/20/17 Isosorbide Mononitrate ER [Imdur 30 mg PO DAILY 05/18/16 04/20/17 ER] Losartan [Cozaar] 25 mg PO DIN 05/18/16 04/20/17 SITagliptin [Januvia] 50 mg PO DAILY 05/18/16 04/20/17 Metoprolol Succinate [Metoprolol 50 mg PO BID 09/05/16 04/20/17 Succinate] Multivitamin/Iron/Folic Acid 1 tab PO DAILY 04/20/17 04/20/17 [Centrum Adults Tablet] Review of Systems - Physician Review All systems were reviewed & negative as marked: Yes - Review of Systems Constitutional: Normal Eyes: Other (Left eye redness) ENT: Normal Respiratory: Normal Cardiovascular: Normal Gastrointestinal: Normal Genitourinary Male: Normal Musculoskeletal: Normal Skin: Other (Left arm bruise) Neurological: Normal Endocrine: Normal Hemo/Lymphatic: Normal Psychiatric: Normal <Ilan Carrera A - Last Filed: 07/28/17 01:25> Physical Exam Vital Signs Reviewed: Yes Temperature: Afebrile Blood Pressure: Normal Pulse: Regular Respiratory Rate: Normal Appearance: Positive for: Well-Appearing, Non-Toxic, Comfortable Pain Distress: None Mental Status: Positive for: Alert and Oriented X 3 - Systems Exam Head: Present: Atraumatic, Normocephalic Pupils: Present: PERRL Extroacular Muscles: Present: EOMI Conjunctiva: No: Icteric (Blood red left conjuctiva) Mouth: Present: Moist Mucous Membranes Neck: Present: Normal Range of Motion Respiratory/Chest: Present: Clear to Auscultation, Good Air Exchange. No: Respiratory Distress, Accessory Muscle Use Cardiovascular: Present: Regular Rate and Rhythm, Normal S1, S2. No: Murmurs Abdomen: No: Tenderness, Distention, Peritoneal Signs Back: Present: Normal Inspection Upper Extremity: Present: Normal Inspection. No: Cyanosis, Edema Lower Extremity: Present: Normal Inspection. No: Edema Neurological: Present: GCS=15, CN II-XII Intact, Speech Normal Skin: Present: Warm, Dry, Normal Color, Other (Purpura noted over left arm). No : Rashes Psychiatric: Present: Alert, Oriented x 3, Normal Insight, Normal Concentration <Ilan Carrera - Last Filed: 07/28/17 01:25> Vital Signs Temp Pulse Resp BP Pulse Ox 07/27/17 22:05 97.7 F 74 18 136/78 98 Medical Decision Making <Som Mandel - Last Filed: 07/27/17 22:24> <Ilan Carrera - Last Filed: 07/28/17 01:25> ED Course and Treatment: 07/28/17 01:22 PT present for stated history. He was hemodynamically stable. He denied melena, hematochezia and hemoptysis. He however has left subconjunctival hemorrhage and left arm purpura. INR of 4.99 was noted. Vitamin 5mg was given in ED. He will be placed on OBS for a repeat INR. Case was DW Dr. Jennings and she accepts pt for admission. Result and plan was DW both pt and the daughter and they agreed. (Ilan Carrera A) - Lab Interpretations Lab Results: 07/27/17 22:41 07/27/17 22:41 Lab Results 07/27/17 22:41: Blood Type O POSITIVE, Antibody Screen Negative, BBK History Checked Patient has bt 07/27/17 22:41: Sodium 143, Potassium 4.7, Chloride 102, Carbon Dioxide 28, Anion Gap 18, BUN 44 H, Creatinine 2.5 H, Est GFR ( Amer) 30, Est GFR ( Non-Af Amer) 25, Random Glucose 85, Calcium 9.1, Total Bilirubin 1.4 H, AST 56, ALT 46, Alkaline Phosphatase 154 H, Total Protein 7.4, Albumin 3.9, Globulin 3.5 , Albumin/Globulin Ratio 1.1 07/27/17 22:41: PT 58.8 H, INR 4.99 H*, APTT 69.3 H 07/27/17 22:41: WBC 4.4 L, RBC 3.64, Hgb 11.9 L, Hct 35.6 L, MCV 97.8 D, MCH 32.7, MCHC 33.4, RDW 16.3 H, Plt Count 118 L, MPV 10.2, Gran % 54.5, Lymph % ( Auto) 20.9 L, [place] % (Auto) 17.2 H, Eos % (Auto) 6.0 H, Baso % (Auto) 1.4, Gran # 2.37, Lymph # (Auto) 0.9 L, [place] # (Auto) 0.8 H, Eos # (Auto) 0.3, Baso # ( Auto) 0.06 - Medication Orders Current Medication Orders: Discontinued Medications Phytonadione 5 mg/ Sodium (Chloride) 50.5 mls @ 100 mls/hr IV ONCE ONE Stop: 07/28/17 00:20 Last Admin: 07/28/17 00:50 Dose: 100 mls/hr eMAR Start Stop Document 07/28/17 00:50 LA (Rec: 07/28/17 00:51 DEDRA [id number]) Intravenous Solution Start Date 07/28/17 Start Time 00:50 End Date 07/28/17 End time 01:21 Total Infusion Time 31 - PA / WOOD ENGRAVER / Resident Statement JAMAL has reviewed & agrees with the documentation as recorded. JAMAL has examined the patient and agrees with the treatment plan. <Som Mandel - Last Filed: 07/27/17 22:24> Disposition/Present on Arrival <Som Mandel - Last Filed: 07/27/17 22:24> - Present on Arrival Any Indicators Present on Arrival: No History of DVT/PE: No History of Uncontrolled Diabetes: No Urinary Catheter: No History of Decub. Ulcer: No History Surgical Site Infection Following: None - Disposition Have Diagnosis and Disposition been Completed?: Yes Disposition Time: 00:05 Patient Plan: Admission <Ilan Carrera - Last Filed: 07/28/17 01:25> - Disposition Diagnosis: Coagulopathy, Subconjunctival hemorrhage Disposition: HOSPITALIZED Patient Problems: Current Active Problems Problem Status Onset Coagulopathy Acute Condition: FAIR
[2017-07-27 23:02] LABS: BASO # 0.06 K/mm3 (0.0-2.0); BASO % 1.4 % (0.0-3.0); EOS # 0.3 (0.0-0.7); GRAN # 2.37 (1.4-6.5); GRAN % 54.5 % (50.0-68.0); HEMOGLOBIN 11.9 g/dL (14.0-18.0); LYMPH # 0.9 (1.2-3.4); LYMPH % 20.9 % (22.0-35.0); MEAN CELL VOLUME 97.8 fl (80.0-105.0); MEAN CORPUSCULAR HEMOGLOBIN 32.7 pg (25.0-35.0); MEAN CORPUSCULAR HGB CONC 33.4 g/dl (31.0-37.0); MEAN PLATELET VOLUME 10.2 fl (7.0-11.0); MONO # 0.8 (0.1-0.6); MONO % 17.2 % (1.0-6.0); RBC 3.64 10^6/uL (3.5-6.1); RED CELL DISTRIBUTION WIDTH 16.3 % (11.5-14.5); WHITE BLOOD COUNT 4.4 10^3/ul (4.5-11.0)
[2017-07-27 23:22] LABS: ALB/GLOB RATIO 1.1 (1.1-1.8); ALBUMIN 3.9 g/dL (3.0-4.8); CALCIUM 9.1 mg/dL (8.4-10.5); PARTIAL THROMBOPLASTIN TIME 69.3 Seconds (25.1-36.5); PROTHROMBIN TIME 58.8 SECONDS (9.4-12.5)
[2017-07-27 23:24] LABS: INR 4.99 (0.93-1.08)
[2017-07-27] MEDS ORDERED: Phytonadione 5 MG in Sodium Chloride 0.9% 50 ML IV ONE (23:50)
[2017-07-28 05:08] VITALS: RESP 20; BMI 27.1
[2017-07-28 08:35] VITALS: BP 132/80; PULSE 62; TEMP 97.6; O2SAT 98
[2017-07-28 08:46] LABS: INR 3.07 (0.93-1.08); PROTHROMBIN TIME 36.1 SECONDS (9.4-12.5)
[2017-07-28] MEDS ORDERED: POLYETHYLENE GLYCOL 3350 17 GM/Dose PACKET PO SCH (10:00)
[2017-07-28] MEDS ORDERED: Metoprolol Succinate 50 mg XL Tab PO SCH (10:00)
--- NOTE | 2017-07-28 17:01 | CARD ---
APPROVED REPORT EKG Measurement Heart [id number] <Conclusion> Atrial fibrillation Nonspecific ST and T wave abnormality, probably digitalis effect Abnormal ECG
--- NOTE | 2017-07-29 00:24 | HP ---
HISTORY OF PRESENT ILLNESS: The patient is an 82-year-old male who was seen in office day before yesterday, had his PT/INR drawn because he has left eye subconjunctival hemorrhage, and his INR was 5.97. I called his daughter Pili, who brought him over to reverse his PT/INR. The patient denies any headache. No nausea, vomiting. No diarrhea. PAST MEDICAL HISTORY: Significant for, 1. Hypertension. 2. Chronic atrial fibrillation. 3. Status post defibrillator placement. 4. Non-insulin dependent diabetes. 5. Gouty arthritis. 6. Hyperlipidemia. ALLERGIES: ALLERGIC TO ASPIRIN AND LATEX, NATURAL RUBBER AND PENICILLIN. MEDICATIONS AT HOME: He is on Coumadin 2.5 mg daily, Januvia 50 mg daily, multivitamin, metoprolol 50 twice a day, losartan 25 daily, isosorbide 30 mg daily, Lasix 20 daily, Uloric 40 mg daily, colchicine 0.6 daily, Lipitor 20 mg daily. SOCIAL HISTORY: Denies smoking or drinking. Used to be smoker in the remote past. PHYSICAL EXAMINATION: GENERAL: He is awake, alert, oriented, communicative. VITAL SIGNS: He is afebrile, pulse 62, respirations 20, blood pressure 132/80. LUNGS: Bilateral fair airflow. No rhonchi or crackle. HEART: S1 and S2 audible. ABDOMEN: Soft, nontender. No rebound. No guarding. NEUROLOGICAL: The patient is awake, alert, oriented, communicative. HEAD AND NECK: He has left subconjunctival hemorrhage. ASSESSMENT: 1. Status post supratherapeutic INR. 2. Left subconjunctival hemorrhage. 3. Chronic atrial fibrillation. 4. Hypertension. 5. Hyperlipidemia. 6. Status post defibrillator placement. 7. Gouty arthritis. LABORATORY DATA: Lab work last night showed WBC is 4.4, hemoglobin 11.9, hematocrit 35.6, platelets 118. PT last night was 58.8, INR 4.99. Vitamin K 5 mg was given. Repeat PT is 36.1 and INR is 3.07. Chemistry: Sodium 143, potassium 4.7, chloride 102, CO2 of 29, BUN 44, creatinine 2.5, blood sugar of 85. PLAN: We will discharge the patient today. We will hold his Coumadin today. He can start from tomorrow. I will see him in the office . Leonila Jennings MD [facility] # [id number]
== END 2017-07-28 14:54 | disposition home or self-care (01) ==
LOC: ED 21:48 → ERH 07-28 00:09 → 5RSO 07-28 03:58
PROVIDERS: ADMIT Internal Medicine; ATTEND Internal Medicine
DX: D68.9 Coagulation defect, unspecified (principal); H11.32 Conjunctival hemorrhage, left eye; E10.9 Type 1 diabetes mellitus without complications; E78.5 Hyperlipidemia, unspecified; H40.9 Unspecified glaucoma; I11.0 Hypertensive heart disease with heart failure; I50.9 Heart failure, unspecified; I25.10 Atherosclerotic heart disease of native coronary artery without angina pectoris; I48.2 Chronic atrial fibrillation; M10.9 Gout, unspecified; Z79.01 Long term (current) use of anticoagulants; Z79.899 Other long term (current) drug therapy; Z87.01 Personal history of pneumonia (recurrent); Z87.891 Personal history of nicotine dependence; Z95.810 Presence of automatic (implantable) cardiac defibrillator; Z88.6 Allergy status to analgesic agent
CPT/HCPCS: 36415; 80053; 85025; 85610; 85730; 86850; 86900; 93005; 96360; G0378; J3430

== ENCOUNTER 2017-09-03 15:03 | Emergency (ER) | payer MEDICARE, OTHER ==
[2017-09-03 15:03] VITALS: PULSE 68; BMI 27.1
[2017-09-03 15:15] VITALS: PULSE 69; RESP 18
--- NOTE | 2017-09-03 15:37 | ED PDOC ---
Arrival/HPI - General Chief Complaint: Abnormal Labs Time Seen by Provider: 09/03/17 15:12 Historian: Patient - History of Present Illness Narrative History of Present Illness (Text): 09/03/17 15:19 A 82 year old male, whose past medical history includes atrial fibrillation and CAD on Coumadin, was sent by PMD to the emergency department for abnormal labs. Patient reports she had her INR checked yesterday and was called by PMD for low INR levels. Patient has been admitted twice in the past for similar results. Notes also experiencing some slight shortness of breath, which is baseline for the patient. Patient denies any other symptomatic complaints at this time. PMD: Dr. Jennings Past Medical History - Provider Review Nursing Documentation Reviewed: Yes - Infectious Disease Hx of Infectious Diseases: None - Tetanus Immunization Tetanus Immunization: Unknown - Cardiac Hx Cardiac Disorders: Yes Hx Congestive Heart Failure: Yes - Pulmonary Hx Pneumonia: Yes - Neurological Hx Neurological Disorder: (DENIES HISTORY) - HEENT Hx HEENT Disorder: Yes Hx Cataracts: Yes (Left) Hx Glaucoma: Yes (Right) - Renal Hx Renal Disorder: Yes - Endocrine/Metabolic Hx Diabetes Mellitus Type 1: Yes - Hematological/Oncological Hx Blood Disorders: Yes - Integumentary Hx Dermatological Disorder: (DENIES HISTORY) - Musculoskeletal/Rheumatological Hx Falls: Yes - Gastrointestinal Hx Gastrointestinal Disorders: Yes Hx Gall Bladder Disease: Yes (CHOLECYSTECTOMY) - Genitourinary/Gynecological Hx Genitourinary Disorders: Yes Hx Prostate Problems: Yes - Psychiatric Hx Psychophysiologic Disorder: No Hx Substance Use: No - Surgical History Hx Open Heart Surgery: Yes - Anesthesia Hx Anesthesia Reactions: Yes Hx Malignant Hyperthermia: No - Suicidal Assessment Feels Threatened In Home Enviroment: No Family/Social History - Physician Review Nursing Documentation Reviewed: Yes Family/Social History: No Known Family HX Smoking Status: Former Smoker Hx Alcohol Use: No Hx Substance Use: No Hx Substance Use Treatment: No Allergies/Home Meds Allergies/Adverse Reactions: Allergies aspirin Allergy (Verified 09/03/17 15:11) RASH Latex, Natural Rubber Allergy (Verified 09/03/17 15:11) RASH penicillin V Allergy (Verified 09/03/17 15:11) RASH Home Medications: Home Meds Medication Instructions Recorded Confirmed Atorvastatin [Lipitor] 20 mg PO DAILY 05/18/16 07/28/17 Colchicine [Colcrys] 0.6 mg PO DAILY 05/18/16 07/28/17 Docusate Sodium [Col-Rite] 100 mg PO DAILY 05/18/16 07/28/17 Febuxostat [Uloric] 40 mg PO DAILY 05/18/16 07/28/17 Furosemide [Lasix] 20 mg PO DAILY 05/18/16 07/28/17 Isosorbide Mononitrate ER [Imdur 30 mg PO DAILY 05/18/16 07/28/17 ER] Losartan [Cozaar] 25 mg PO DIN 05/18/16 07/28/17 SITagliptin [Januvia] 50 mg PO DAILY 05/18/16 07/28/17 Metoprolol Succinate [Metoprolol 50 mg PO BID 09/05/16 07/28/17 Succinate] Multivitamin/Iron/Folic Acid 1 tab PO DAILY 04/20/17 07/28/17 [Centrum Adults Tablet] Review of Systems - Physician Review All systems were reviewed & negative as marked: Yes - Review of Systems Constitutional: absent: Fevers, Night Sweats Respiratory: SOB (slightly; (baseline)). absent: Cough Cardiovascular: absent: Chest Pain, Palpitations Gastrointestinal: absent: Abdominal Pain, Diarrhea, Nausea, Vomiting Neurological: absent: Headache, Dizziness Physical Exam Vital Signs Reviewed: Yes Vital Signs Temp Pulse Resp BP Pulse Ox 09/03/17 16:39 97.6 F 69 18 134/66 96 09/03/17 16:37 97.6 F 69 18 134/66 96 09/03/17 15:05 97.7 F 69 129/70 98 09/03/17 15:03 97.7 F 69 18 129/70 98 Temperature: Afebrile Blood Pressure: Normal Pulse: Irregular Respiratory Rate: Normal Appearance: Positive for: Well-Appearing, Non-Toxic, Comfortable Pain Distress: None Mental Status: Positive for: Alert and Oriented X 3 - Systems Exam Head: Present: Atraumatic, Normocephalic Pupils: Present: PERRL Extroacular Muscles: Present: EOMI Conjunctiva: Present: Normal Mouth: Present: Moist Mucous Membranes Neck: Present: Normal Range of Motion Respiratory/Chest: Present: Clear to Auscultation, Good Air Exchange. No: Respiratory Distress, Accessory Muscle Use Cardiovascular: Present: Irregular Rhythm Abdomen: No: Tenderness, Distention, Peritoneal Signs Back: Present: Normal Inspection Upper Extremity: Present: Normal Inspection. No: Cyanosis, Edema Lower Extremity: Present: Normal Inspection. No: Edema Neurological: Present: GCS=15, CN II-XII Intact, Speech Normal Skin: Present: Warm, Dry, Normal Color. No: Rashes Psychiatric: Present: Alert, Oriented x 3, Normal Insight, Normal Concentration Medical Decision Making ED Course and Treatment: 09/03/17 15:21 Impression: 82 year old male with elevated INR levels. Physical exam shows irregular rhythm; otherwise normal examination. Plan: -- Labs -- Reassess and disposition Prior Visits: Notes and results from previous visits were reviewed. Patient was last seen in the emergency department on 07/27/2017 for elevated INR. Patient was admitted to the hospital. Progress Notes: INR drawn and was 2.34. Case discussed with Dr. Bowers, residential construction instructor for Dr. Jennings. Patient can be discharged home as INR is not sub- or supratherapeutic. Advised followup with Dr. Jennings. Patient complained of an upset stomach and some nausea prior to discharge, zofran given. - Lab Interpretations Lab Results: 09/03/17 15:30 09/03/17 15:30 Lab Results 09/03/17 15:30: Sodium 144, Potassium 4.3, Chloride 106, Carbon Dioxide 26, Anion Gap 16, BUN 48 H, Creatinine 2.7 H, Est GFR ( Amer) 28, Est GFR ( Non-Af Amer) 23, Random Glucose 119 H, Calcium 8.6, Total Bilirubin 2.2 H, AST 59, ALT 50, Alkaline Phosphatase 122, Total Protein 7.0, Albumin 3.5, Globulin 3.6, Albumin/Globulin Ratio 1.0 L 09/03/17 15:30: PT 27.2 H, INR 2.34 H, APTT 49.3 H 09/03/17 15:30: WBC 4.1 L, RBC 3.31 L, Hgb 11.0 L, Hct 32.3 L, MCV 97.6, MCH 33.2, MCHC 34.1, RDW 17.4 H, Plt Count 93 L, MPV 12.2 H, Gran % 61.9, Lymph % ( Auto) 20.4 L, [place] % (Auto) 13.1 H, Eos % (Auto) 3.9, Baso % (Auto) 0.7, Gran # 2.55, Lymph # (Auto) 0.8 L, [place] # (Auto) 0.5, Eos # (Auto) 0.2, Baso # (Auto) 0.03 I have reviewed the lab results: Yes - EKG Interpretation EKG Interpretation (Text): 15:08- atrial fibrillation, rate 66bpm, normal axis, QTc normal 429, no ST elevation Interpreted by ED Physician: Yes Type: 12 lead EKG - Scribe Statement The provider has reviewed the documentation as recorded by the [place] Provider Scribe Attestation: All medical record entries made by the Scribe were at my direction and personally dictated by me. I have reviewed the chart and agree that the record accurately reflects my personal performance of the history, physical exam, medical decision making, and the department course for this patient. I have also personally directed, reviewed, and agree with the discharge instructions and disposition. Disposition/Present on Arrival - Present on Arrival Any Indicators Present on Arrival: Yes History of DVT/PE: No History of Uncontrolled Diabetes: Yes Urinary Catheter: No History of Decub. Ulcer: No History Surgical Site Infection Following: CABG - Mediastinitis, Orthopedic Procedures, Obstetrical/Gynecological Surgery - Disposition Have Diagnosis and Disposition been Completed?: Yes Diagnosis: INR (international normal ratio) abnormal Disposition: HOME/ ROUTINE Disposition Time: 16:40 Condition: STABLE Discharge Instructions (ExitCare): Prothrombin Time (PT) Test and International Normalized Ratio (INR) Additional Instructions: SHANIQUA RUBALCAVA, thank you for letting us take care of you today. Your provider was Peggy Arcos MD and you were treated for HEART PROBLEM. The emergency medical care you received today was directed at your acute symptoms. If you were prescribed any medication, please fill it and take as directed. It may take several days for your symptoms to resolve. Return to the Emergency Department if your symptoms worsen, do not improve, or if you have any other problems. Please contact your doctor or call one of the physicians/clinics you have been referred to that are listed on the Patient Visit Information form that is included in your discharge packet. Bring any paperwork you were given at discharge with you along with any medications you are taking to your follow up visit. Our treatment cannot replace ongoing medical care by a primary care provider outside of the emergency department. Thank you for allowing the [facility] team to be part of your care today. If you had an X-Ray or CT scan: A Radiologist will review the ED reading if any change in treatment is needed we will contact you. If you had a blood, urine, or wound culture: It will take several days for the results, if any change in treatment is needed we will contact you. If you had an STI test: It will take 48 hours for the results. Please call after 1 week if you have not heard back. Forms: [employer] (Ukrainian)
[2017-09-03 15:57] LABS: ALBUMIN 3.5 g/dL (3.0-4.8); CALCIUM 8.6 mg/dL (8.4-10.5)
[2017-09-03 16:01] LABS: BASO # 0.03 K/mm3 (0.0-2.0); BASO % 0.7 % (0.0-3.0); EOS # 0.2 (0.0-0.7); EOS % 3.9 % (1.5-5.0); GRAN # 2.55 (1.4-6.5); GRAN % 61.9 % (50.0-68.0); LYMPH # 0.8 (1.2-3.4); LYMPH % 20.4 % (22.0-35.0); MEAN CELL VOLUME 97.6 fl (80.0-105.0); MEAN CORPUSCULAR HEMOGLOBIN 33.2 pg (25.0-35.0); MEAN CORPUSCULAR HGB CONC 34.1 g/dl (31.0-37.0); MEAN PLATELET VOLUME 12.2 fl (7.0-11.0); MONO # 0.5 (0.1-0.6); MONO % 13.1 % (1.0-6.0); RBC 3.31 10^6/uL (3.5-6.1); RED CELL DISTRIBUTION WIDTH 17.4 % (11.5-14.5); WHITE BLOOD COUNT 4.1 10^3/ul (4.5-11.0)
[2017-09-03 16:05] LABS: INR 2.34 (0.93-1.08); PARTIAL THROMBOPLASTIN TIME 49.3 Seconds (25.1-36.5); PROTHROMBIN TIME 27.2 SECONDS (9.4-12.5)
[2017-09-03 16:39] VITALS: BP 134/66; TEMP 97.6; O2SAT 96
--- NOTE | 2017-09-03 17:41 | CARD ---
APPROVED REPORT Date of service: 09/03/2017 EKG Measurement Heart [id number] <Conclusion> Atrial fibrillation Nonspecific ST and T wave abnormality, probably digitalis effect Abnormal ECG
== END 2017-09-03 16:39 | disposition home or self-care (01) ==
LOC: ED 15:03
DX: R79.1 Abnormal coagulation profile (principal); I48.91 Unspecified atrial fibrillation; I25.10 Atherosclerotic heart disease of native coronary artery without angina pectoris; I50.9 Heart failure, unspecified; Z87.891 Personal history of nicotine dependence; Z79.01 Long term (current) use of anticoagulants
CPT/HCPCS: 80053; 85025; 85610; 85730; 93005; 99281; J2405

== ENCOUNTER 2017-09-30 20:09 | Inpatient (IN) | payer MEDICARE, OTHER ==
[2017-09-30 20:09] VITALS: PULSE 68
[2017-09-30 20:31] VITALS: BMI 29.1
--- NOTE | 2017-09-30 21:28 | ED PDOC ---
Arrival/HPI - General Chief Complaint: Chest Pain Time Seen by Provider: 09/30/17 20:59 Historian: Patient, Family - History of Present Illness Narrative History of Present Illness (Text): 09/30/17 21:28 82 y/o M w/ h/o hypertension, atrial fibrillation, s/p defibrillator placement , diabetes, and CHF on Coumadin, presents to the emergency department complaining of shortness of breath associated with cough that began approximately 3 days ago. As per daughter, she noticed patient has been having issues getting air. Patient also reports persistent lower abdominal pain associated with multiple episode having diarrhea even with adjustment of anti- constipation medication. Patient was recently admitted for supra-therapeutic INR levels which is being managed by Dr. Jennings. Patient denies fever, chills, chest pain, nausea, vomiting, urinary symptom, back pain, neck pain, headache, dizziness, or any other complaints. PMD: Dr. Jennings Time/Duration: Other (3 days) Symptom Onset: Gradual Symptom Course: Unchanged Quality: Unable to Describe Activities at Onset: Significant Context: Home Past Medical History - Provider Review Nursing Documentation Reviewed: Yes - Travel History Have you recently traveled outside [place] w/in the past 3 mons?: No - Infectious Disease Hx of Infectious Diseases: None - Tetanus Immunization Tetanus Immunization: Unknown - Cardiac Hx Cardiac Disorders: Yes Hx Congestive Heart Failure: Yes Hx Internal Defibrillator: Yes - Pulmonary Hx Pneumonia: Yes - Neurological Hx Neurological Disorder: (DENIES HISTORY) - HEENT Hx HEENT Disorder: Yes Hx Cataracts: Yes (Left) Hx Glaucoma: Yes (Right) - Renal Hx Renal Disorder: Yes - Endocrine/Metabolic Hx Diabetes Mellitus Type 1: Yes - Hematological/Oncological Hx Blood Disorders: Yes - Integumentary Hx Dermatological Disorder: (DENIES HISTORY) - Musculoskeletal/Rheumatological Hx Falls: Yes - Gastrointestinal Hx Gastrointestinal Disorders: Yes Hx Gall Bladder Disease: Yes (CHOLECYSTECTOMY) - Genitourinary/Gynecological Hx Genitourinary Disorders: Yes Hx Prostate Problems: Yes - Psychiatric Hx Psychophysiologic Disorder: No Hx Substance Use: No - Surgical History Hx Open Heart Surgery: Yes - Anesthesia Hx Anesthesia Reactions: Yes Hx Malignant Hyperthermia: No - Suicidal Assessment Feels Threatened In Home Enviroment: No Family/Social History - Physician Review Nursing Documentation Reviewed: Yes Family/Social History: No Known Family HX Smoking Status: Former Smoker Hx Alcohol Use: No Hx Substance Use: No Hx Substance Use Treatment: No Allergies/Home Meds Allergies/Adverse Reactions: Allergies aspirin Allergy (Verified 09/30/17 21:01) RASH Latex, Natural Rubber Allergy (Verified 09/30/17 21:01) RASH penicillin V Allergy (Verified 09/30/17 21:01) RASH Home Medications: Home Meds Medication Instructions Recorded Confirmed Atorvastatin [Lipitor] 20 mg PO DAILY 05/18/16 09/30/17 Colchicine [Colcrys] 0.6 mg PO DAILY 05/18/16 09/30/17 Docusate Sodium [Col-Rite] 100 mg PO DAILY 05/18/16 09/30/17 Febuxostat [Uloric] 40 mg PO DAILY 05/18/16 09/30/17 Furosemide [Lasix] 20 mg PO DAILY 05/18/16 09/30/17 Isosorbide Mononitrate ER [Imdur 30 mg PO DAILY 05/18/16 09/30/17 ER] Losartan [Cozaar] 25 mg PO DIN 05/18/16 09/30/17 SITagliptin [Januvia] 50 mg PO DAILY 05/18/16 09/30/17 Metoprolol Succinate [Metoprolol 50 mg PO BID 09/05/16 09/30/17 Succinate] Multivitamin/Iron/Folic Acid 1 tab PO DAILY 04/20/17 09/30/17 [Centrum Adults Tablet] Review of Systems - Physician Review All systems were reviewed & negative as marked: Yes - Review of Systems Constitutional: absent: Fevers, Other (Chills) Respiratory: SOB, Cough Cardiovascular: absent: Chest Pain Gastrointestinal: Abdominal Pain, Diarrhea. absent: Nausea, Vomiting Genitourinary Male: absent: Dysuria, Frequency, Hematuria Musculoskeletal: absent: Back Pain, Neck Pain Neurological: absent: Headache, Dizziness Physical Exam Vital Signs Reviewed: Yes Vital Signs Temp Pulse Resp BP Pulse Ox 10/01/17 00:09 97.3 F L 63 18 128/74 100 09/30/17 23:49 124/80 09/30/17 20:30 60 20 129/80 98 09/30/17 20:29 60 20 129/80 98 Blood Pressure: Normal Pulse: Regular Respiratory Rate: Normal Appearance: Positive for: Well-Appearing, Non-Toxic, Comfortable Pain Distress: None Mental Status: Positive for: Alert and Oriented X 3 - Systems Exam Head: Present: Atraumatic, Normocephalic Pupils: Present: PERRL Extroacular Muscles: Present: EOMI Conjunctiva: Present: Normal Mouth: Present: Moist Mucous Membranes Neck: Present: Normal Range of Motion Respiratory/Chest: Present: Clear to Auscultation, Decreased Breath Sounds ( Bilateral ), Other (Healed surgical scarred at the midline sternum.). No: Respiratory Distress, Accessory Muscle Use Cardiovascular: Present: Regular Rate and Rhythm, Normal S1, S2. No: Murmurs Abdomen: Present: Tenderness (Lower abdominal tenderness to palpation), Normal Bowel Sounds, Guarding (Voluntary ). No: Distention, Peritoneal Signs, Rebound Back: Present: Normal Inspection Upper Extremity: Present: Normal Inspection. No: Cyanosis, Edema Lower Extremity: Present: Normal Inspection. No: Edema Neurological: Present: GCS=15, CN II-XII Intact, Speech Normal Skin: Present: Warm, Dry, Normal Color. No: Rashes Psychiatric: Present: Alert, Oriented x 3, Normal Insight, Normal Concentration Medical Decision Making ED Course and Treatment: 09/30/17 21:28 Impression: 82 year old male presents complaining of shortness of breath associated with cough that began 3 days ago. Patient also presents complaining of persistent abdominal pain associated with multiple episodes of diarrhea. Plan: -- VBG -- CT C/A/P -- Labs -- CXR -- Blood Cultures -- EKG -- UA/Urine Culture Prior Visits: Notes and results from pervious visits were reviewed. Patient was last seen in the emergency department on 09/03/17 sent by PMD for abnormal labs. Patient was discharged. Progress Notes: 09/30/17 20:24 EKG Ordered, read & interpreted by ED provider Impression:A-Fib at 62 BPM with no visible p-Waves. Diffuse inverted T-Waves. CXR Ordered, read and interpreted by ED provider Impression: Cardiomegaly,increased vascular markings, Pulmonary congestion, no infiltrates seen. 09/30/17 23:[address] Jennings who is aware and agrees with the plan. Accepts patient onto her service and request Dr. Ruano(cardiology)for consult. Patient requests 20 Lasix and does not want any fluids. CT Abdomen and Pelvis Without Intravenous Contrast Dictated and Authenticated by: Renan Cohen MD 10/01/2017 1:47 AM IMPRESSION: There is anasarca. There is a small amount of free fluid. CT Chest Without Intravenous Contrast Dictated and Authenticated by: Renan Cohen MD 10/01/2017 1:43 AM IMPRESSION: 1. Cardiomegaly. 2. Moderate right pleural effusion. 3. Bilateral lower lobe atelectasis. Partially calcified left pleural plaque. 10/01/17 03:32 - Lab Interpretations Microbiology Results: Microbiology Results 09/30/17 22:05 Blood Blood Culture - Preliminary NO GROWTH AFTER 48 HOURS 09/30/17 21:15 Blood Blood Culture - Preliminary NO GROWTH AFTER 48 HOURS Lab Results: 09/30/17 21:15 09/30/17 21:15 Lab Results 09/30/17 21:26: POC Glucose (mg/dL) 120 H 09/30/17 21:20: pO2 52, VBG pH 7.35, VBG pCO2 55.0, VBG HCO3 30.4 H, VBG Total CO2 32.1 H, VBG O2 Sat (Calc) 84.5 H, VBG Base Excess 3.4 H, VBG Potassium 4.5, Glucose 119 H, Lactate 1.2, FiO2 21.0, Sodium 137.0, Chloride 105.0, Venous Blood Potassium 4.5 09/30/17 21:15: PT 41.7 H, INR 3.56 H* 09/30/17 21:15: WBC 3.7 L, RBC 3.33 L, Hgb 11.2 L, Hct 32.0 L, MCV 96.1, MCH 33.6, MCHC 35.0, RDW 17.9 H, Plt Count 100 L, MPV 10.8, Gran % 50.7, Lymph % ( Auto) 16.2 L, Sampson % (Auto) 26.1 H, Eos % (Auto) 5.7 H, Baso % (Auto) 1.3, Gran # 1.88, Lymph # (Auto) 0.6 L, Sampson # (Auto) 1.0 H, Eos # (Auto) 0.2, Baso # ( Auto) 0.05, Neutrophils % (Manual) 62, Lymphocytes % (Manual) 16 L, Monocytes % (Manual) 13 H, Eosinophils % (Manual) 8 H, Basophils % (Manual) 1, Platelet Evaluation Low 09/30/17 21:15: Sodium 138, Potassium 4.5, Chloride 101, Carbon Dioxide 27, Anion Gap 14, BUN 41 H, Creatinine 2.5 H, Est GFR ( Amer) 30, Est GFR ( Non-Af Amer) 25, Random Glucose 112 H, Calcium 9.0, Magnesium 1.8, Total Bilirubin 2.1 H, AST 63 H, ALT 46, Alkaline Phosphatase 129 H, Troponin I 0.03 D, NT-Pro-B Natriuret Pep 3280 H, Total Protein 6.8, Albumin 3.2, Globulin 3.6, Albumin/Globulin Ratio 0.9 L I have reviewed the lab results: Yes - RAD Interpretation Radiology Orders: 09/30/17 21:29 CHEST PORTABLE [RAD] Stat - EKG Interpretation Interpreted by ED Physician: Yes Type: 12 lead EKG - Medication Orders Current Medication Orders: Atorvastatin Calcium (Lipitor) 20 mg PO DIN [facility] Last Admin: 10/03/17 17:06 Dose: 20 mg Colchicine (Colocrys) 0.6 mg PO DAILY [facility] Last Admin: 10/03/17 10:28 Dose: 0.6 mg Dicyclomine HCl (Bentyl) 10 mg PO QID PRN PRN Reason: Pain, Mild (1-3) Last Admin: 10/01/17 13:25 Dose: 10 mg Furosemide (Lasix) 40 mg PO DAILY [facility] Last Admin: 10/03/17 10:28 Dose: 40 mg MAR Blood Pressure Document 10/03/17 10:28 RDS (Rec: 10/03/17 10:28 RDS [id number]) Blood Pressure Blood Pressure (100/60-150/90) 117/61 Isosorbide Mononitrate (Imdur Er) 30 mg PO DAILY [facility] Last Admin: 10/03/17 10:29 Dose: 30 mg Losartan Potassium (Cozaar) 25 mg PO DIN [facility] Last Admin: 10/03/17 17:06 Dose: 25 mg MAR Pulse and Blood Pressure Document 10/03/17 17:06 RIVER (Rec: 10/03/17 17:07 [facility] [id number] Pulse Pulse Rate (60-90) 60 Blood Pressure Blood Pressure (100/60-150/90) 122/68 Metoprolol Succinate (Toprol Xl) 50 mg PO BID [facility] Last Admin: 10/03/17 17:15 Dose: Not Given Non-Admin Reason: Patient Refused Sitagliptin Phosphate (Januvia) 50 mg PO DAILY [facility] Last Admin: 10/03/17 10:28 Dose: 50 mg Discontinued Medications Albuterol Sulfate (Albuterol 0.083% Inhal Breanne (2.5 Mg/3 Ml) Ud) 2.5 mg INH STAT STA Stop: 09/30/17 23:26 Last Admin: 09/30/17 23:49 Dose: 2.5 mg Furosemide (Lasix) 20 mg IVP STAT STA Stop: 09/30/17 23:10 Last Admin: 09/30/17 23:49 Dose: 20 mg MAR Blood Pressure Document 09/30/17 23:49 RG (Rec: 09/30/17 23:[address] [id number] Blood Pressure Blood Pressure (100/60-150/90) 124/80 IVP Administration Document 09/30/17 23:49 RG (Rec: 09/30/17 23:[id number]) Charges for Administration # of IVP Administrations 1 Furosemide (Lasix) 20 mg PO DAILY [facility] Last Admin: 10/02/17 09:37 Dose: 20 mg MAR Blood Pressure Document 10/02/17 09:37 RDS (Rec: 10/02/17 09:37 RDS [id number]) Blood Pressure Blood Pressure (100/60-150/90) 115/54 Furosemide (Lasix) 20 mg PO ONCE ONE Stop: 10/02/17 11:01 Last Admin: 10/02/17 11:56 Dose: 20 mg MAR Blood Pressure Document 10/02/17 11:56 RDS (Rec: 10/02/17 11:57 RDS [id number]) Blood Pressure Blood Pressure (100/60-150/90) 121/64 Lactated Ringer's (Lactated Ringer's) 1,000 mls @ 50 mls/hr IV .Q20H [facility]ERY[facility] Stop: 10/02/17 03:59 Last Admin: 10/01/17 09:30 Dose: 50 mls/hr eMAR Start Stop Document 10/01/17 09:30 VM (Rec: 10/01/17 10:20 VM [id number]) Intravenous Solution Start Date 10/01/17 Start Time 09:30 Lactated Ringer's (Lactated Ringer's) 1,000 mls @ 40 mls/hr IV .Q24H CHERYL Stop: 10/02/17 07:59 Morphine Sulfate (Morphine) 2 mg IVP STAT STA Stop: 09/30/17 23:26 Last Admin: 09/30/17 23:50 Dose: 2 mg MAR Pain Assessment Document 09/30/17 23:50 RG (Rec: 09/30/17 23:51 [id number]) Pain Reassessment Is this a pain reassessment? Yes Sleep Is patient sleeping during reassessment? No Presence of Pain Presence of Pain Yes Pain Scale Used Pain Scale Used Numeric Location Pain Location Body Site Abdomen Generalized Description Description Burning Intensity of Pain at present 7 Pain Behavior Rubbing Site IVP Administration Document 09/30/17 23:50 RG (Rec: 09/30/17 23:51 [id number]) Charges for Administration # of IVP Administrations 1 Re-Assess: MAR Pain Assessment Document 10/01/17 00:50 FDE (Rec: 10/01/17 01:27 FDE [id number]) Pain Reassessment Is this a pain reassessment? Yes Sleep Is patient sleeping during reassessment? No Presence of Pain Presence of Pain No Warfarin Sodium (Coumadin) 2 mg PO 1800 [facility]ERYL PRN Reason: Protocol Last Admin: 10/02/17 17:36 Dose: 2 mg - Scribe Statement The provider has reviewed the documentation as recorded by the [place] Shi Provider Scribe Attestation: All medical record entries made by the [place] were at my direction and personally dictated by me. I have reviewed the chart and agree that the record accurately reflects my personal performance of the history, physical exam, medical decision making, and the department course for this patient. I have also personally directed, reviewed, and agree with the discharge instructions and disposition. Disposition/Present on Arrival - Present on Arrival Any Indicators Present on Arrival: No History of DVT/PE: No History of Uncontrolled Diabetes: No Urinary Catheter: No History of Decub. Ulcer: No History Surgical Site Infection Following: CABG - Mediastinitis, Orthopedic Procedures - Disposition Have Diagnosis and Disposition been Completed?: No Diagnosis: Dyspnea Disposition: HOSPITALIZED Disposition Time: 23:00 Patient Plan: Admission Condition: STABLE
[2017-09-30 21:39] LABS: VENOUS BLOOD GAS BASE EXCESS 3.4 mmol/L (0.0-2.0); VENOUS BLOOD GAS PO2 52 mm/Hg (30-55); VENOUS BLOOD PH 7.35 (7.32-7.43)
[2017-09-30 21:42] LABS: BASO # 0.05 K/mm3 (0.0-2.0); BASO % 1.3 % (0.0-3.0); EOS # 0.2 (0.0-0.7); EOS % 5.7 % (1.5-5.0); GRAN # 1.88 (1.4-6.5); GRAN % 50.7 % (50.0-68.0); HEMOGLOBIN 11.2 g/dL (14.0-18.0); LYMPH # 0.6 (1.2-3.4); LYMPH % 16.2 % (22.0-35.0); MEAN CELL VOLUME 96.1 fl (80.0-105.0); MEAN CORPUSCULAR HEMOGLOBIN 33.6 pg (25.0-35.0); MEAN PLATELET VOLUME 10.8 fl (7.0-11.0); MONO % 26.1 % (1.0-6.0); PLATELET COUNT 100 10^3/uL (120.0-450.0); RBC 3.33 10^6/uL (3.5-6.1); RED CELL DISTRIBUTION WIDTH 17.9 % (11.5-14.5); WHITE BLOOD COUNT 3.7 10^3/ul (4.5-11.0)
[2017-09-30 21:49] LABS: ALB/GLOB RATIO 0.9 (1.1-1.8); ALBUMIN 3.2 g/dL (3.0-4.8)
[2017-09-30 21:57] LABS: INR 3.56; PROTHROMBIN TIME 41.7 SECONDS (9.4-12.5)
[2017-09-30 22:02] LABS: TROPONIN I 0.03 ng/mL
[2017-09-30 22:16] LABS: BASOPHIL 1 % (0.0-1.0); EOSINOPHIL 8 % (0.0-3.0); LYMPHOCYTE 16 % (22.0-35.0); MONOCYTE 13 % (1.0-6.0); NEUTROPHIL 62 % (50.0-70.0)
[2017-09-30 22:17] LABS: PLATELET ESTIMATE LOW (NORMAL)
[2017-09-30] MEDS ORDERED: Albuterol 0.083% Inhal Sol (2.5 mg/3 mL) UD INH STA (23:25)
[2017-09-30] MEDS ORDERED: Morphine 2 mg/ml ISec IVP STA (23:25)
[2017-10-01 00:12] LABS: URINE BILIRUBIN NEGATIVE (NEGATIVE); URINE BLOOD MODERATE (NEGATIVE); URINE GLUCOSE (UA) NEGATIVE (NEGATIVE); URINE LEUKOCYTE ESTERASE NEGATIVE Leu/uL (NEGATIVE); URINE PROTEIN TRACE mg/dL (<30 mg/dL); URINE UROBILINOGEN 0.2 E.U./dL (<1 E.U./dL)
[2017-10-01 00:14] LABS: URINE APPEARANCE CLEAR (CLEAR); URINE COLOR YELLOW (YELLOW)
[2017-10-01 00:24] LABS: URINE BACTERIA RARE (NEG); URINE EPITHELIAL CELLS 0 - 2 /hpf (0-5); URINE WBC 0 - 2 /hpf (0-6)
--- NOTE | 2017-10-01 07:00 | CP.PCM.CON ---
History of Present Illness - History of Present Illness History of Present Illness: Awake,alert,lying in bed, no distress Reason for consultation: Cardiac evaluation of shortness of breath, history of coronary artery disease, history of coronary artery bypass grafting x 4 in 2007 , AICD Brief history of present illness: A 82 year old male, [place] who was brought to ER by daughter due to shortness of breath. Patient woke up with difficulty breathing ("gasping for air). He was just recently seen by PMD due to constipation. He was prescribed Linzess. He took it and caused diarrhea. He claimed to have total 7 bowel movements in a day. He felt weak and went to sleep and when he woke up he experienced shortness of breath. Denies chest pain. History of hypertension, coronary artery disease post CABG in 2007, gouty arthritis,AICD, CKD, chronic atrial fibrillation on Coumadin,hyperlipidemia. Recently at [facility] [place] (07/28/17) due to elevated INR with left conjunctival hemorrhage , treated and discharged. Seen and examined by me and Dr. Ruano Review of Systems - Review of Systems All systems: reviewed and no additional remarkable complaints except Review of Systems: except from HPI Past Patient History - Infectious Disease Hx of Infectious Diseases: None - Tetanus Immunizations Tetanus Immunization: Unknown - Past Medical History & Family History Past Medical History?: Yes - Past Social History Smoking Status: Former Smoker - CARDIAC Hx Cardiac Disorders: Yes Hx Congestive Heart Failure: Yes Hx Internal Defibrillator: Yes - PULMONARY Hx Pneumonia: Yes - NEUROLOGICAL Hx Neurological Disorder: (DENIES HISTORY) - HEENT Hx HEENT Problems: Yes Hx Cataracts: Yes (Left) Hx Glaucoma: Yes (Right) - RENAL Hx Chronic Kidney Disease: Yes - ENDOCRINE/METABOLIC Hx Diabetes Mellitus Type 1: Yes - HEMATOLOGICAL/ONCOLOGICAL Hx Blood Disorders: Yes - INTEGUMENTARY Hx Dermatological Problems: (DENIES HISTORY) - MUSCULOSKELETAL/RHEUMATOLOGICAL Hx Falls: Yes - GASTROINTESTINAL Hx Gastrointestinal Disorders: Yes Hx Gall Bladder Disease: Yes (CHOLECYSTECTOMY) - GENITOURINARY/GYNECOLOGICAL Hx Genitourinary Disorders: Yes Hx Prostate Problems: Yes - PSYCHIATRIC Hx Psychophysiologic Disorder: No Hx Substance Use: No - SURGICAL HISTORY Hx Open Heart Surgery: Yes - ANESTHESIA Hx Anesthesia Reactions: Yes Hx Malignant Hyperthermia: No Meds Allergies/Adverse Reactions: Allergies Allergy/AdvReac Type Severity Reaction Status Date / Time aspirin Allergy RASH Verified 09/30/17 21:01 Latex, Natural Rubber Allergy RASH Verified 09/30/17 21:01 penicillin V Allergy RASH Verified 09/30/17 21:01 Physical Exam - Constitutional Appears: No Acute Distress - Eye Exam Eye Exam: Normal appearance - ENT Exam ENT Exam: Mucous Membranes Moist - Respiratory Exam Respiratory Exam: Decreased Breath Sounds, NORMAL BREATHING PATTERN - Cardiovascular Exam Cardiovascular Exam: REGULAR RHYTHM, +S1, +S2 Additional comments: Telemetry 62/min atrial fibrillation - GI/Abdominal Exam GI & Abdominal Exam: Normal Bowel Sounds, Soft Additional comments: vague abdominal pain non tender - Extremities Exam Additional comments: 2+ pedal edema - Neurological Exam Neurological exam: Alert, Oriented x3 - Psychiatric Exam Psychiatric exam: Normal Affect - Skin Skin Exam: Intact, Warm Results - Vital Signs Recent Vital Signs: Last Vital Signs Temp 98 F 10/01/17 06:00 Pulse 60 10/01/17 06:00 Resp 20 10/01/17 06:00 BP 128/72 10/01/17 06:00 Pulse Ox 96 10/01/17 06:00 - Labs Result Diagrams: 09/30/17 21:15 09/30/17 21:15 Labs: Laboratory Results - last 24 hr 09/30/17 23:56 Urine Color Yellow Urine Appearance Clear Urine pH 6.0 Ur Specific [place] 1.015 Urine Protein Trace H Urine Glucose (UA) Negative Urine Ketones Negative Urine Blood Moderate H Urine Nitrate Negative Urine Bilirubin Negative Urine Urobilinogen 0.2 Ur Leukocyte Esterase Negative Urine RBC 5 - 10 Urine WBC 0 - 2 Ur Epithelial Cells 0 - 2 Urine Bacteria Rare Assessment & Plan - Assessment and Plan (Free Text) Assessment: A 82 year old male, [place] who was brought to ER by daughter due to shortness of breath. Patient woke up with difficulty breathing ("gasping for air ). He was just recently seen by PMD due to constipation. He was prescribed Linzess. He took it and caused diarrhea. He claimed to have total 7 bowel movements in a day. He felt weak and went to sleep and when he woke up he experienced shortness of breath. Denies chest pain. History of hypertension, former smoker,coronary artery disease post CABG in 2007, CHF gouty arthritis, AICD, chronic atrial fibrillation on Coumadin,diabetes mellitus, hyperlipidemia. Recently at [facility] (07/28/17) due to elevated INR with left conjunctival hemorrhage, treated and discharged. Exacerbation of congestive heart failure. Review of previous cardiac work up: 05/31/16- Cardiac cath for NSTEMI Triple vessel disease- Patent PIÑA to LAD Patent SVG to RCA Patent left radial sequential to OM 1 and OM2 Severely decreased LVEF 20-25% At that time, optimal medical treatment-IV Primacor and aggresive diurese 01/16/16-ECHO done- Moderate to severe hypokinesis in the apical anterior wall Moderate aortic/mitral regurgitation Severe TR, RSVP 79mmHg No vegetation Plan: ECHO to evaluated LV function Will hydrate with LR at 50 cc/hr x 1 liter Will hold lasix today and resume tomorrow Denies shortness of breath now Elevated INR-hold coumadin today Resume home medications Will hold Colace due to recent diarrhea CT of abdomen done awaiting result for abdominal pain Continue current treatment Continue current medications Will follow up Plan and treatment discussed with Dr. Ruano Thank you Dr. Jennings for the opportunity of taking care of Mr. Jese Damon - Date & Time Date: 10/01/17 Time: 06:20
[2017-10-01] MEDS ORDERED: Lactated Ringer's 1,000 ML IV SCH ×2 (08:00→11:34)
--- NOTE | 2017-10-01 09:36 | CARD ---
APPROVED REPORT Date of service: 09/30/2017 EKG Measurement Heart [id number] <Conclusion> Atrial fibrillation Nonspecific ST and T wave Changes. Abnormal ECG
[2017-10-01 09:53] LABS: BASO # 0.05 K/mm3 (0.0-2.0); BASO % 1.3 % (0.0-3.0); EOS # 0.2 (0.0-0.7); EOS % 5.8 % (1.5-5.0); GRAN # 1.95 (1.4-6.5); GRAN % 51.3 % (50.0-68.0); HEMOGLOBIN 11.2 g/dL (14.0-18.0); LYMPH # 0.7 (1.2-3.4); LYMPH % 19.2 % (22.0-35.0); MEAN CELL VOLUME 97.3 fl (80.0-105.0); MEAN CORPUSCULAR HEMOGLOBIN 33.3 pg (25.0-35.0); MEAN CORPUSCULAR HGB CONC 34.3 g/dl (31.0-37.0); MEAN PLATELET VOLUME 10.9 fl (7.0-11.0); MONO # 0.9 (0.1-0.6); MONO % 22.4 % (1.0-6.0); RBC 3.36 10^6/uL (3.5-6.1); RED CELL DISTRIBUTION WIDTH 18.2 % (11.5-14.5); WHITE BLOOD COUNT 3.8 10^3/ul (4.5-11.0)
[2017-10-01 10:00] LABS: INR 3.13; PROTHROMBIN TIME 36.9 SECONDS (9.4-12.5)
--- NOTE | 2017-10-01 10:04 | RAD ---
Date of service: 09/30/2017 HISTORY: Shortness of breath COMPARISON: 02/23/2017. FINDINGS: LUNGS: The lungs are well inflated. There is mild pulmonary venous congestion. PLEURA: Small pleural effusions, larger on the left, no pneumothorax apparent. CARDIOVASCULAR: There is severe cardiomegaly. Status post CABG. There is stable position of left-sided pacemaker. OSSEOUS STRUCTURES: No significant abnormalities. VISUALIZED UPPER ABDOMEN: Normal. OTHER FINDINGS: None. IMPRESSION: Findings are compatible with mild congestive heart failure.
[2017-10-01 10:09] LABS: ALB/GLOB RATIO 0.9 (1.1-1.8); ALBUMIN 3.2 g/dL (3.0-4.8)
[2017-10-01] MEDS: Metoprolol Succinate 50 mg XL Tab PO SCH ×2 (11:00→17:27)
--- NOTE | 2017-10-01 11:36 | CT ---
Date of service: 10/01/2017 PROCEDURE: CT Chest, Abdomen and Pelvis without intravenous contrast HISTORY: chest and abdominal pain COMPARISON: 04/15/2015. CT thorax abdomen and pelvis. TECHNIQUE: Radiation dose: Total exam DLP = mGy-cm. This CT exam was performed using one or more of the following dose reduction techniques: Automated exposure control, adjustment of the mA and/or kV according to patient size, and/or use of iterative reconstruction technique. FINDINGS: CT CHEST WITHOUT CONTRAST: LUNGS: Compressive atelectasis related to right pleural effusion. Otherwise no significant pulmonary abnormalities. MEDIASTINUM: Dilated main pulmonary artery 4.1 cm consistent with pulmonary arterial hypertension. Unremarkable thoracic aorta. LYMPH NODES: Unremarkable. PLEURA: Moderate right pleural effusion, small left pleural effusion. These represent new findings compared to the prior study. BONES: Unremarkable. OTHER FINDINGS: None. CT ABDOMEN AND PELVIS: LIVER: Unremarkable. No gross lesion or ductal dilatation. GALLBLADDER AND BILE DUCTS: Status post cholecystectomy. No abnormality is seen in the gallbladder fossa. PANCREAS: Unremarkable. No gross lesion or ductal dilatation. SPLEEN: Unremarkable. ADRENALS: Unremarkable. No mass. KIDNEYS AND URETERS: Unremarkable. No hydronephrosis. No solid mass. Stable bilateral renal cysts. VASCULATURE: Unremarkable. No aortic aneurysm. BOWEL: Unremarkable. No obstruction. No gross mural thickening. APPENDIX: Normal appendix. PERITONEUM: Low volume intra-abdominal ascites. . No free air. LYMPH NODES: Unremarkable. No enlarged lymph nodes. BLADDER: Unremarkable. REPRODUCTIVE: Unremarkable. BONES: No acute fracture. OTHER FINDINGS: Mild anasarca identified. IMPRESSION: Thorax: Small bilateral pleural effusions. Manifestations of pulmonary arterial hypertension. Cardiomegaly without CHF. Abdomen and pelvis. No acute findings related to/accounting for the clinical presentation. Additional benign and/or incidental findings described above. Concordant results (preliminary interpretation) provided by [employer]. Procedure Completed: 00:41. Preliminary ([facility]) Report: Dictated and Authenticated: 01:47. Final Interpretation: 11:35. October 01, 2017.
--- NOTE | 2017-10-01 15:11 | HP ---
Copied To: Leonila Jennings MD Attending MD: Leonila Jennings MD HISTORY OF PRESENT ILLNESS: The patient is an 82-year-old [place] Citizen male, known to me from office practice, was seen in office last week. Complaining of constipation for 2-3 days. He was given samples of Linzess. After he took for 2 days, he started to have diarrhea. He was advised to discontinue that and was put on maintenance of 70 mg of Linzess. The patient said he has been feeling weak, increasing shortness of breath, some chest discomfort, so he was brought to emergency room by daughter for further evaluation. No history of fever. No hemoptysis. No hematemesis. No rectal bleeding. He states he does not have good appetite. The patient states he is getting shortness of breath even lying down, but more on walking. The patient also states that he had 7 bowel movements yesterday and since then he felt weak. He could not sleep last night. PAST MEDICAL HISTORY: Significant for, 1. Hypertension. 2. Coronary artery disease, status post open heart surgery. 3. Quadruple bypass in 2007. 4. Status for defibrillator replacement 2 years ago. 5. Chronic AFib. 6. Vhi-oqlzyiz-cvujanwty diabetes. 7. Hypertension. 8. Hyperlipidemia. 9. History of gout. ALLERGIES: HE IS ALLERGIC TO ASPIRIN, LATEX, NATURAL RUBBER AND PENICILLIN. MEDICATIONS AT HOME: He is on Coumadin 2.5 daily, Januvia 50 mg daily, multivitamin, metoprolol 50 mg twice a day, losartan 25 daily, isosorbide 30 mg daily, Lasix 20 mg daily, Uloric 40 mg daily, colchicine 0.6 daily, Lipitor 20 mg daily. SOCIAL HISTORY: He used to be a smoker, almost half a pack for 40 years, socially drinks, but does not do none of the above since he is sick. PHYSICAL EXAMINATION: GENERAL: He complained of feeling abdominal pain. Complained of decreased appetite. Did not have bowel movement since he came here. Does complain of intermittent chest pain. VITAL SIGNS: He is afebrile, pulse 71, respirations 18, blood pressure . LUNGS: Bilateral good airflow. No rhonchi or crackle. HEART: S1 and S2 audible. ABDOMEN: Soft. Nontender. No rebound. No guarding. NEUROLOGICAL: The patient is awake, alert, oriented and communicative. EXTREMITIES: Bilateral leg, no edema. LABORATORY EXAM: WBC 3.8, hemoglobin 11.2, hematocrit 32.7, platelet 295. PT is 36.9, INR 3.13. Chemistry: Sodium 141, potassium 4.5, chloride 101, CO2 of 29, BUN 40, creatinine 2.4, blood sugar of 125, AST 61. Had CT scan of the abdomen and pelvis done shows bilateral pleural effusion and pulmonary hypertension. No CHF noted. Abdomen and pelvis, no acute finding. Echocardiogram is pending. ASSESSMENT: 1. Diarrhea secondary to laxative that has been on hold. 2. Abdominal discomfort, probably gastroenteritis. 3. Mild congestive heart failure. 4. Dehydration and prerenal azotemia. 5. Coronary artery disease, status post open heart surgery with history of gout. 6. Zwf-znlwsia-cfpsnnpqs diabetes. PLAN: The patient is currently on IV fluid. We will keep him on clear liquid diet. His Coumadin is on hold. We will order for PT/INR in a.m. If he started to feel better, we will advance his diet and possible plan in the a.m. if he start tolerating his diet. Leonila Jennings MD
--- NOTE | 2017-10-01 18:39 | CARD ---
APPROVED REPORT Date of service: 10/01/2017 EXAM: Two-dimensional and M-mode echocardiogram with Doppler and color Doppler. INDICATION EVALUATE LVFX,SOB 2D DIMENSIONS Left Atrium (2D)6.6 (1.6-4.0cm)IVSd1.2 (0.7-1.1cm) LVDd5.7 (3.9-5.9cm)PWd1.1 (0.7-1.1cm) LVDs5.0 (2.5-4.0cm)FS (%) 12.0 % LVEF (%)25.5 (>50%) M-Mode DIMENSIONS Aortic Root2.90 (2.2-3.7cm)Aortic Cusp Exc.1.70 (1.5-2.0cm) Aortic Valve AoV Peak Yqnschwy620.0cm/Blaire Peak GR.7mmHgAI P 1/2 [id number] Mitral Valve MV E Zicayqfk40.0cm/sMV A Jdbxlple87.1cm/sE/A ratio2.3 TDI Lateral E' Peak V6.82cm/sE/Lateral E'11.0E/Medial E'0.0 Pulmonary Valve PV Peak Dasucavt67.0cm/sPV Peak Grad.1mmHg Tricuspid Valve TR Peak Fumozqch675xg/sRAP OWELCUWV65qqRcGA Peak Gr.48mmHg FSVB51heLb LEFT VENTRICLE The left ventricle is normal size. There is mild concentric left ventricular hypertrophy. The ejection fraction is severely impaired.EF-20-25% There is mild to moderate hypokinesis in the apical anterior wall. Transmitral Doppler flow pattern is Grade II-pseudonormal filling dynamics. No left ventricle thrombus noted on this study. There is no ventricular septal defect visualized. There is no left ventricular aneurysm. There is no mass noted in the left ventricle. RIGHT VENTRICLE The right ventricle is moderately to severely dilated. There is normal right ventricular wall thickness. Systolic function of is moderately reduced. ATRIA The left atrium is moderately dilated. The right atrium is severely dilated. The interatrial septum is intact with no evidence for an atrial septal defect. AORTIC VALVE The aortic valve is calcified but opens well. There is moderate aortic regurgitation. Aortic Sclerosis VS mild There is no aortic valvular vegetation. MITRAL VALVE The mitral valve is thickened but opens well. Mitral regurgitation is mild to moderate. There is no mitral valve stenosis. There is no evidence of mitral valve prolapse. TRICUSPID VALVE The tricuspid valve leaflets are thickened , but open well. There is moderate to severe tricuspid regurgitation.RVSP-58 mmofHg There is moderate pulmonary hypertension. There is no tricuspid valve stenosis. There is no tricuspid valve prolapse or vegetation. PULMONIC VALVE The pulmonic valve is borderline thickened. There is no pulmonic valvular regurgitation. There is no pulmonic valvular stenosis. GREAT VESSELS The aortic root is normal in size. The ascending aorta is normal in size. The pulmonary artery is normal. The IVC is dilated. PERICARDIAL EFFUSION There is no pleural effusion. There is no pericardial effusion. <Conclusion> The left ventricle is normal size. The ejection fraction is severely impaired.EF-20-25% The right ventricle is moderately to severely dilated. Systolic function of is moderately reduced. There is moderate aortic regurgitation. Aortic Sclerosis VS mild Mitral regurgitation is mild to moderate. There is moderate to severe tricuspid regurgitation.RVSP-58 mmofHg There is moderate pulmonary hypertension. The IVC is dilated. There is no pericardial effusion. No vegetation or thrombus noted.
[2017-10-02 07:07] LABS: BASO # 0.04 K/mm3 (0.0-2.0); BASO % 1.2 % (0.0-3.0); EOS # 0.1 (0.0-0.7); EOS % 4.3 % (1.5-5.0); GRAN # 1.72 (1.4-6.5); HEMOGLOBIN 11.5 g/dL (14.0-18.0); LYMPH # 0.7 (1.2-3.4); LYMPH % 20.3 % (22.0-35.0); MEAN CELL VOLUME 97.4 fl (80.0-105.0); MEAN CORPUSCULAR HEMOGLOBIN 33.4 pg (25.0-35.0); MEAN CORPUSCULAR HGB CONC 34.3 g/dl (31.0-37.0); MONO # 0.7 (0.1-0.6); MONO % 21.2 % (1.0-6.0); RBC 3.44 10^6/uL (3.5-6.1); RED CELL DISTRIBUTION WIDTH 18.2 % (11.5-14.5); WHITE BLOOD COUNT 3.3 10^3/ul (4.5-11.0)
--- NOTE | 2017-10-02 07:08 | CP.PCM.PN ---
Subjective - Date & Time of Evaluation Date of Evaluation: 10/02/17 Time of Evaluation: 06:45 - Subjective Subjective: No distress, denies chest pain,easily awaken ,alert,lying in bed, Reason for consultation: Cardiac evaluation of shortness of breath, history of coronary artery disease, history of coronary artery bypass grafting x 4 in 2008 , AICD, hypertension Seen and examined by me and Dr. Ruano Objective - Vital Signs/Intake and Output Vital Signs (last 24 hours): Temp Pulse Resp BP Pulse Ox 98.0 F 67 19 146/79 100 10/02/17 05:58 10/02/17 05:58 10/02/17 05:58 10/02/17 05:58 10/02/17 05:58 Intake and Output: 10/02/17 10/02/17 06:59 18:59 Intake Total 780 Output Total 3 Balance 777 - Medications Medications: Current Medications Atorvastatin Calcium (Lipitor) 20 mg PO DIN [facility] Last Admin: 10/01/17 17:27 Dose: 20 mg Colchicine (Colocrys) 0.6 mg PO DAILY [facility] Last Admin: 10/01/17 10:19 Dose: 0.6 mg Dicyclomine HCl (Bentyl) 10 mg PO QID PRN PRN Reason: Pain, Mild (1-3) Last Admin: 10/01/17 13:25 Dose: 10 mg Furosemide (Lasix) 20 mg PO DAILY [facility] Lactated Ringer's (Lactated Ringer's) 1,000 mls @ 40 mls/hr IV .Q24H [facility] Stop: 10/02/17 07:59 Isosorbide Mononitrate (Imdur Er) 30 mg PO DAILY [facility] Last Admin: 10/01/17 10:20 Dose: 30 mg Losartan Potassium (Cozaar) 25 mg PO DIN [facility] Last Admin: 10/01/17 17:27 Dose: 25 mg Metoprolol Succinate (Toprol Xl) 50 mg PO BID [facility] Last Admin: 10/01/17 17:27 Dose: 50 mg Sitagliptin Phosphate (Januvia) 50 mg PO DAILY [facility] Last Admin: 10/01/17 10:19 Dose: 50 mg - Labs Labs: 10/01/17 09:45 10/01/17 09:45 PT 36.9 SECONDS (9.4-12.5) H 08/17/18 09:45 INR 3.13 10/01/17 09:45 - Constitutional Appears: No Acute Distress - Eye Exam Eye Exam: Normal appearance - ENT Exam ENT Exam: Mucous Membranes Moist - Respiratory Exam Respiratory Exam: Decreased Breath Sounds, NORMAL BREATHING PATTERN Additional comments: nasal cannula - Cardiovascular Exam Cardiovascular Exam: +S1, +S2 - GI/Abdominal Exam GI & Abdominal Exam: Soft, Normal Bowel Sounds - Neurological Exam Neurological Exam: Alert, Awake, Oriented x3 - Psychiatric Exam Psychiatric exam: Normal Affect - Skin Skin Exam: Intact, Warm Assessment and Plan - Assessment and Plan (Free Text) Assessment: A 82 year old male, [place] who was brought to ER by daughter due to shortness of breath. Patient woke up with difficulty breathing ("gasping for air ). He was just recently seen by PMD due to constipation. He was prescribed Linzess. He took it and caused diarrhea. He claimed to have total 7 bowel movements in a day. He felt weak and went to sleep and when he woke up he experienced shortness of breath. Denies chest pain. History of hypertension, former smoker,coronary artery disease post CABG in 2007, CHF gouty arthritis, AICD, chronic atrial fibrillation on Coumadin,diabetes mellitus, hyperlipidemia. Recently at [facility] (07/28/17) due to elevated INR with left conjunctival hemorrhage, treated and discharged. Exacerbation of congestive heart failure. 05/31/16- Cardiac cath for NSTEMI Triple vessel disease- Patent PIÑA to LAD Patent SVG to RCA Patent left radial sequential to OM 1 and OM2 Severely decreased LVEF 20-25% At that time, optimal medical treatment-IV Primacor and aggresive diurese 01/16/16-ECHO done- Moderate to severe hypokinesis in the apical anterior wall Moderate aortic/mitral regurgitation Severe TR, RSVP 79mmHg No vegetation Plan: ECHO done yesterday- Left ventricle normal size, LVEF 20-25% Right ventricle is moderatelt to severely dilated, moderately reduced systolic function Moderate AR/MR/TR, moderate pulmonary hypertension, no pericardial effusion. Continue IV fluids to complete [address] scan of chest and abdomen done- small bilateral pleural effusion secondary to Pulmonary hypertension Will restart Lasix today Continue current treatment Continue current medications Will follow up Plan and treatment discussed with Dr. Ruano
[2017-10-02 07:13] LABS: INR 2.57; PROTHROMBIN TIME 30.1 SECONDS (9.4-12.5)
[2017-10-02 07:21] LABS: ALB/GLOB RATIO 0.9 (1.1-1.8); ALBUMIN 3.2 g/dL (3.0-4.8); CALCIUM 8.9 mg/dL (8.4-10.5)
[2017-10-02] MEDS: Metoprolol Succinate 50 mg XL Tab PO SCH ×2 (09:37→17:30)
--- NOTE | 2017-10-02 12:24 | PN ---
Copied To: Leonila Jennings MD Attending MD: Leonila Jennings MD DATE: 10/02/2017 SUBJECTIVE: The patient is 82 years old, still has abdominal discomfort, complaint of diarrhea. No documented vomiting. PHYSICAL EXAMINATION: VITAL SIGNS: He is afebrile, pulse 61, respirations 19, blood pressure 115/54. LUNGS: Bilateral fair airflow. No rhonchi or crackle. HEART: S1 and S2 audible. ABDOMEN: Soft. No rebound. No guarding. NEUROLOGICAL: He is awake, alert, oriented, communicative. LABORATORY EXAM: WBC 3.3, hemoglobin 11.5, hematocrit 33.5, platelet of 90. PT is 30.1, INR 2.57. Chemistry: Sodium 140, potassium 5.1, chloride 101, CO2 of 29, BUN 38, creatinine 2.3, blood sugar of 125. His total bili is 3, AST 64. His blood culture, urine cultures are negative. CT scan of the abdomen and pelvis is unremarkable. Echocardiogram shows moderate pulmonary hypertension, mitral regurg, severe tricuspid regurg, moderate aortic regurg. Systolic function is moderately reduced with ejection fraction of 20-25%. ASSESSMENT: 1. Abdominal discomfort, etiology is still unclear. Could be passive hepatic congestion. 2. Gastroenteritis. Seemed to be resolving. 3. Acute on chronic renal insufficiency. 4. Chronic atrial fibrillation. 5. Hypertension. 6. Hyperlipidemia. PLAN: We will advance his diet. Monitor his kidney function. If he tolerate his food, possible discharge in the a.m. Leonila Jennings MD
[2017-10-03 07:31] LABS: BASO # 0.05 K/mm3 (0.0-2.0); BASO % 1.5 % (0.0-3.0); EOS # 0.2 (0.0-0.7); EOS % 6.4 % (1.5-5.0); GRAN # 1.95 (1.4-6.5); GRAN % 56.6 % (50.0-68.0); HEMOGLOBIN 11.2 g/dL (14.0-18.0); LYMPH # 0.6 (1.2-3.4); LYMPH % 16.3 % (22.0-35.0); MEAN CELL VOLUME 98.5 fl (80.0-105.0); MEAN CORPUSCULAR HGB CONC 33.5 g/dl (31.0-37.0); MEAN PLATELET VOLUME 10.6 fl (7.0-11.0); MONO # 0.7 (0.1-0.6); MONO % 19.2 % (1.0-6.0); RBC 3.39 10^6/uL (3.5-6.1); RED CELL DISTRIBUTION WIDTH 18.2 % (11.5-14.5); WHITE BLOOD COUNT 3.4 10^3/ul (4.5-11.0)
[2017-10-03 07:40] LABS: INR 2.54; PROTHROMBIN TIME 29.8 SECONDS (9.4-12.5)
[2017-10-03 08:10] LABS: ALB/GLOB RATIO 0.9 (1.1-1.8); CALCIUM 8.6 mg/dL (8.4-10.5)
--- NOTE | 2017-10-03 09:32 | CP.PCM.PN ---
Subjective - Date & Time of Evaluation Date of Evaluation: 10/03/17 Time of Evaluation: 06:55 - Subjective Subjective: Awake, No distress, denies chest pain, Reason for consultation and follow up: Cardiac evaluation of shortness of breath , history of coronary artery disease, history of coronary artery bypass grafting x 4 in 2008, AICD, hypertension Seen and examined by me and Dr. Ruano Objective - Vital Signs/Intake and Output Vital Signs (last 24 hours): Temp Pulse Resp BP Pulse Ox 98 F 61 20 109/60 99 10/03/17 06:00 10/03/17 06:00 10/03/17 06:00 10/03/17 06:00 10/03/17 06:00 Intake and Output: 10/03/17 10/03/17 06:59 18:59 Intake Total 1200 Output Total 600 Balance 600 - Medications Medications: Current Medications Atorvastatin Calcium (Lipitor) 20 mg PO DIN [facility] Last Admin: 10/02/17 17:30 Dose: 20 mg Colchicine (Colocrys) 0.6 mg PO DAILY [facility] Last Admin: 10/02/17 09:37 Dose: 0.6 mg Dicyclomine HCl (Bentyl) 10 mg PO QID PRN PRN Reason: Pain, Mild (1-3) Last Admin: 10/01/17 13:25 Dose: 10 mg Furosemide (Lasix) 40 mg PO DAILY [facility] Last Admin: 10/02/17 11:58 Dose: Not Given Isosorbide Mononitrate (Imdur Er) 30 mg PO DAILY [facility] Last Admin: 10/02/17 09:37 Dose: 30 mg Losartan Potassium (Cozaar) 25 mg PO DIN [facility] Last Admin: 10/02/17 17:30 Dose: 25 mg Metoprolol Succinate (Toprol Xl) 50 mg PO BID [facility] Last Admin: 10/02/17 17:30 Dose: 50 mg Sitagliptin Phosphate (Januvia) 50 mg PO DAILY [facility] Last Admin: 10/02/17 09:37 Dose: 50 mg Warfarin Sodium (Coumadin) 2 mg PO 1800 CHERYL PRN Reason: Protocol Last Admin: 10/02/17 17:36 Dose: 2 mg - Labs Labs: 10/03/17 06:00 10/03/17 06:00 PT 29.8 SECONDS (9.4-12.5) H 10/03/17 06:00 INR 2.54 10/03/17 06:00 - Constitutional Appears: No Acute Distress - Eye Exam Eye Exam: Normal appearance - ENT Exam ENT Exam: Mucous Membranes Moist - Respiratory Exam Respiratory Exam: Clear to Ausculation Bilateral, NORMAL BREATHING PATTERN - Cardiovascular Exam Cardiovascular Exam: REGULAR RHYTHM, +S1, +S2 Additional comments: AICD - GI/Abdominal Exam GI & Abdominal Exam: Soft, Normal Bowel Sounds - Extremities Exam Extremities Exam: Normal Capillary Refill Additional comments: 1+edema - Neurological Exam Neurological Exam: Alert, Awake, Oriented x3 - Psychiatric Exam Psychiatric exam: Normal Affect - Skin Skin Exam: Dry, Warm Assessment and Plan - Assessment and Plan (Free Text) Assessment: A 82 year old male, [place] who was brought to ER by daughter due to shortness of breath. Patient woke up with difficulty breathing ("gasping for air ). He was just recently seen by PMD due to constipation. He was prescribed Linzess. He took it and caused diarrhea. He claimed to have total 7 bowel movements in a day. He felt weak and went to sleep and when he woke up he experienced shortness of breath. Denies chest pain. History of hypertension, former smoker,coronary artery disease post CABG in 2007, CHF gouty arthritis, AICD, chronic atrial fibrillation on Coumadin,diabetes mellitus, hyperlipidemia. [place] [facility] [place] due to elevated INR with left conjunctival hemorrhage, treated and discharged. Exacerbation of congestive heart failure. ECHO done Left ventricle normal size, LVEF 20-25%, Right ventricle is moderate to severely dilated, moderately reduced systolic function , Moderate AR/MR/TR, moderate pulmonary hypertension, no pericardial effusion. 05/31/16- Cardiac cath for NSTEMI Triple vessel disease- Patent PIÑA to LAD Patent SVG to RCA Patent left radial sequential to OM 1 and OM2 Severely decreased LVEF 20-25% At that time, optimal medical treatment-IV Primacor and aggresive diurese Plan: Denies shortness of breath Restarted Coumadin yesterday Complaining of loose stools yesterday Stool for occult blood and C-diff sent GI consult Positive for occult blood, will hold coumadin for now Continue current treatment Continue current medications Will follow up Plan and treatment discussed with Dr. Ruano
[2017-10-03] MEDS: Metoprolol Succinate 50 mg XL Tab PO SCH ×3 (10:29→17:15)
[2017-10-03 11:03] LABS: BILIRUBIN,DIRECT 1.3 mg/dL (0.0-0.4)
--- NOTE | 2017-10-03 14:53 | PN ---
Copied To: Peyman Villagomez MD Attending MD: Peyman Villagomez MD DATE: 10/03/2017 SUBJECTIVE: The patient has no complaints of any chest pain. No shortness of breath. No headaches or dizziness. PHYSICAL EXAMINATION: VITAL SIGNS: Temperature is 98, pulse of 60, blood pressure is 117/61, respirations 18. GENERAL: The patient is lying in bed, flat, comfortable. HEENT: No oral lesion. Anicteric sclerae. Moist mucosa. NECK: No JVD, adenopathy, or thyromegaly. CARDIOVASCULAR: S1 and S2, regular. No murmurs, rubs, or gallops. LUNGS: Clear to auscultation bilaterally. No wheeze, rales, or rhonchi. ABDOMEN: Bowel sounds are positive, soft, nontender and nondistended. EXTREMITIES: No cyanosis, clubbing or edema. LABORATORY DATA: White count of 3.4, hemoglobin 11.2. Creatinine is 3.4. ASSESSMENT: 1. Acute congestive heart failure secondary to systolic dysfunction with an ejection fraction of 20-25%. 2. Moderate aortic regurgitation, mitral regurgitation. 3. Pulmonary hypertension. 4. Coronary artery disease, status post coronary artery bypass graft. 5. Hypertension. 6. Dyslipidemia. 7. Chronic kidney disease stage 4. PLAN: The patient is currently on colchicine. This will be continued. He is on isosorbide. The patient is on Lasix daily. He is going to be on Lipitor for dyslipidemia. He is on metoprolol and this will be continued. He is on a heart-healthy diet. The patient is going to continue with Lasix. He is being followed by Cardiology, Dr. Ruano. Peyman Villagomez MD
--- NOTE | 2017-10-03 16:40 | CON ---
Copied To: Mazin Patton MD Attending MD: Mazin Patton MD DATE: 10/03/2017 CONSULTATION IN GASTROENTEROLOGY REQUESTING PHYSICIAN: Dr. Leonila Jennings MD. REASON FOR CONSULT: I have been asked to see this 82-year-old male with multiple comorbidities including atrial fibrillation, on warfarin; congestive heart failure; pulmonary hypertension; coronary artery disease with history of coronary artery bypass surgery in 2007; cardiac arrhythmia with AICD; who comes to the hospital with diarrhea after being treated with Linzess for constipation. The patient was admitted with weakness, increasing shortness of breath and chest discomfort. He denies any melena, rectal bleeding, hematemesis, fevers or chills. He feels better this morning without any further weakness or chest pain. He has not had any further diarrhea. He does admit to some mild nausea. Routine blood work shows mildly elevated liver enzymes with a total bilirubin in the 2 range. AST is greater than ALT, mildly elevated. Again, he denies any abdominal pain, nausea, vomiting. He did have a cholecystectomy many years ago. PAST MEDICAL HISTORY: Notable for atrial fibrillation, on warfarin; history of coronary artery disease, status post quadruple bypass in 2007; ventricular arrhythmia, status post AICD placement; type 2 diabetes mellitus; chronic anemia; chronic renal insufficiency; hypertension. SOCIAL HISTORY: He is a former smoker of half a pack a day for over 40 years. He quit years ago. He denies alcohol use. FAMILY HISTORY: Noncontributory. REVIEW OF SYSTEMS: Fourteen-point review of systems is notable for weakness, shortness of breath, chest pain, diarrhea. MEDICATIONS AT HOME: Include Januvia, metoprolol, losartan, Isordil, Lasix, Uloric, colchicine, Lipitor and warfarin. PHYSICAL EXAMINATION: GENERAL: Elderly male, lying in bed, in no acute distress. VITAL SIGNS: Reveal temperature of 98, blood pressure 117/61, heart rate of 60. HEENT: Reveals sclerae to be white. Conjunctivae pink. NECK: Supple. CHEST: Reveals decreased breath sounds at the bases. HEART: Exam reveals an irregularly irregular rate. There is a II/ systolic murmur. ABDOMEN: Soft, nontender. EXTREMITIES: Show no edema. LABORATORY DATA: Reveal white blood cell count 3.4, hemoglobin 11.2, platelet count of 91,000. Chemistries reveal BUN 40, creatinine 2.4, total bilirubin 2.1, AST 60, ALT 53. IMPRESSION: 1. An 82-year-old male with coronary artery disease, history of ventricular arrhythmia, history of diabetes mellitus, chronic renal insufficiency, chronic anemia with weakness, shortness of breath and chest pain. I suspect that the patient became dehydrated after treatment for his constipation with Linzess with diarrhea. He is improved symptomatically this morning. CT scan of the abdomen and pelvis showed bilateral pleural effusions, dilated pulmonary artery consistent with pulmonary hypertension, but no other abnormalities in the abdomen. 2. Elevated liver enzymes with mild hyperbilirubinemia. This maybe Gilbert's syndrome versus chronic mild hemolysis. 3. Anemia with low platelets and low white blood cell count. Etiology of the pancytopenia is unclear. RECOMMENDATIONS: We will check reticulocyte count, LDH, direct bilirubin for workup of his mildly elevated liver enzymes. His GI symptoms have mostly resolved. He is tolerating solid foods. No further GI workup is planned at this time given his multiple comorbidities and poor overall prognosis. Mazin Patton MD [facility] # [phone]
[2017-10-03 21:59] VITALS: RESP 18
[2017-10-04 06:45] LABS: INR 2.73
--- NOTE | 2017-10-04 07:29 | CP.PCM.PN ---
Subjective - Date & Time of Evaluation Date of Evaluation: 10/04/17 Time of Evaluation: 06:15 - Subjective Subjective: Feels okay,Awake, No distress Reason for consultation and follow up: Cardiac evaluation of shortness of breath , history of coronary artery disease, history of coronary artery bypass grafting x 4 in 2008, AICD, hypertension Seen and examined by me and Dr. Ruano Objective - Vital Signs/Intake and Output Vital Signs (last 24 hours): Temp Pulse Resp BP Pulse Ox 98.2 F 65 18 100/52 L 97 10/03/17 21:59 10/03/17 21:59 10/03/17 21:59 10/03/17 21:59 10/03/17 21:59 Intake and Output: 10/04/17 10/04/17 06:59 18:59 Intake Total 870 Balance 870 - Medications Medications: Current Medications Atorvastatin Calcium (Lipitor) 20 mg PO DIN [facility] Last Admin: 10/03/17 17:06 Dose: 20 mg Colchicine (Colocrys) 0.6 mg PO DAILY [facility] Last Admin: 10/03/17 10:28 Dose: 0.6 mg Dicyclomine HCl (Bentyl) 10 mg PO QID PRN PRN Reason: Pain, Mild (1-3) Last Admin: 10/01/17 13:25 Dose: 10 mg Furosemide (Lasix) 40 mg PO DAILY [facility] Last Admin: 10/03/17 10:28 Dose: 40 mg Isosorbide Mononitrate (Imdur Er) 30 mg PO DAILY [facility] Last Admin: 10/03/17 10:29 Dose: 30 mg Losartan Potassium (Cozaar) 25 mg PO DIN [facility] Last Admin: 10/03/17 17:06 Dose: 25 mg Metoprolol Succinate (Toprol Xl) 50 mg PO BID [facility] Last Admin: 10/03/17 17:15 Dose: Not Given Sitagliptin Phosphate (Januvia) 50 mg PO DAILY [facility] Last Admin: 10/03/17 10:28 Dose: 50 mg - Labs Labs: 10/03/17 06:00 10/03/17 06:00 PT 32.0 SECONDS (9.4-12.5) H 10/04/17 06:00 INR 2.73 10/04/17 06:00 - Constitutional Appears: No Acute Distress - Eye Exam Eye Exam: Normal appearance - ENT Exam ENT Exam: Mucous Membranes Moist - Respiratory Exam Respiratory Exam: Decreased Breath Sounds, Clear to Ausculation Bilateral, NORMAL BREATHING PATTERN - Cardiovascular Exam Cardiovascular Exam: +S1, +S2 - GI/Abdominal Exam GI & Abdominal Exam: Soft, Normal Bowel Sounds - Extremities Exam Extremities Exam: Normal Capillary Refill - Neurological Exam Neurological Exam: Alert, Awake, Oriented x3 - Psychiatric Exam Psychiatric exam: Normal Affect - Skin Skin Exam: Dry, Warm Assessment and Plan - Assessment and Plan (Free Text) Assessment: A 82 year old male, [place] who was brought to ER by daughter due to shortness of breath. Patient woke up with difficulty breathing ("gasping for air ). He was just recently seen by PMD due to constipation. He was prescribed Linzess. He took it and caused diarrhea. He claimed to have total 7 bowel movements in a day. He felt weak and went to sleep and when he woke up he experienced shortness of breath. Denies chest pain. History of hypertension, former smoker,coronary artery disease post CABG in 2007, CHF gouty arthritis, AICD, chronic atrial fibrillation on Coumadin,diabetes mellitus, hyperlipidemia. [place] [facility] [place] due to elevated INR with left conjunctival hemorrhage, treated and discharged. Exacerbation of congestive heart failure. ECHO done Left ventricle normal size, LVEF 20-25%, Right ventricle is moderate to severely dilated, moderately reduced systolic function , Moderate AR/MR/TR, moderate pulmonary hypertension, no pericardial effusion. 05/31/16- Cardiac cath for NSTEMI,Triple vessel disease- Patent PIÑA to LAD, Patent SVG to RCA, Patent left radial sequential to OM 1 and OM2 Severely decreased LVEF 20-25%, At that time, optimal medical treatment-IV Primacor and aggresive diurese. Plan: Clinically improved Denies shortness of breath Denies diarrhea, soft stools GI on consult No further work up per GI Will resume Coumadin for Afib Continue current treatment Continue current medications Discharge planning Instructed to follow up with Used Car Manager at [facility] post discharge Plan and treatment discussed with Dr. Ruano
[2017-10-04 07:56] VITALS: PULSE 63; TEMP 97.8; O2SAT 98
[2017-10-04] MEDS: Metoprolol Succinate 50 mg XL Tab PO SCH (09:37)
[2017-10-04 09:41] VITALS: BP 100/53
[2017-10-04 09:56] LABS: HEMOGLOBIN 10.8 g/dL (14.0-18.0); MEAN CELL VOLUME 97.8 fl (80.0-105.0); MEAN CORPUSCULAR HEMOGLOBIN 33.9 pg (25.0-35.0); MEAN CORPUSCULAR HGB CONC 34.6 g/dl (31.0-37.0); MEAN PLATELET VOLUME 11.2 fl (7.0-11.0); RBC 3.19 10^6/uL (3.5-6.1); WHITE BLOOD COUNT 3.8 10^3/ul (4.5-11.0)
[2017-10-04 10:10] LABS: ALB/GLOB RATIO 0.9 (1.1-1.8); ALBUMIN 2.9 g/dL (3.0-4.8); CALCIUM 8.6 mg/dL (8.4-10.5)
--- NOTE | 2017-10-04 15:36 | DS ---
Copied To: Leonila Jennings MD Attending MD: Leonila Jennings MD HISTORY OF PRESENT ILLNESS: The patient is an 82 years old, seen and examined. He states he is eating and tolerating. Diarrhea subsides. Off and on gets abdominal cramp. No blood in the stool visible; however, he has FOBT, occult blood is positive. PHYSICAL EXAMINATION: VITAL SIGNS: Today, patient is afebrile, pulse 63, respirations 18, blood pressure 100/53. LUNGS: Bilateral fair airflow. No rhonchi or crackle. HEART: S1, S2 audible. ABDOMEN: Soft, nontender. No rebound, no guarding. NEUROLOGICAL: Patient is awake, alert, oriented, communicative. EXTREMITIES: Bilateral legs, no edema. LABORATORY DATA: WBC 3.8, hemoglobin 10.8, hematocrit 31.2, platelet of 83. PT 32, INR 2.73. Chemistry: Sodium 138, potassium 4.6, chloride 101, CO2 of 27, BUN 43, creatinine 2. Blood sugar 113. Total bili is 1.7. Alk phos is 160. Stool for C. diff is negative. ASSESSMENT: 1. Gastroenteritis, seemed to be resolving. 2. Congestive heart failure. 3. Hypertension. 4. Chronic atrial fibrillation, on anticoagulant. 5. Status post defibrillator placement because of cardiomyopathy. 6. Chronic kidney disease. PLAN: Patient gets short of breath on walking. He is deconditioned. He is a good candidate for TCU. We will start the TCU evaluation. If he is accepted, he will be transferred to TCU later on today. Leonila Jennings MD
--- NOTE | 2017-10-04 18:41 | PN ---
Copied To: Mazin Patton MD Attending MD: Mazin Patton MD DATE: 10/04/2017 SUBJECTIVE: The patient is lying in bed. He feels better. He denies any further diarrhea. He denies any nausea or vomiting. He admits to some mild abdominal cramps. PHYSICAL EXAMINATION: VITAL SIGNS: Reveal that he is afebrile. Vital signs are stable. HEENT: Reveal sclerae to be white. Conjunctivae pink. NECK: Supple. CHEST: Lungs are clear. HEART: Reveals regular rate and rhythm. ABDOMEN: Soft, nontender. No mass. EXTREMITIES: Show no edema. IMPRESSION: Probable diarrhea secondary to Linzess. His diarrhea appears to have improved. He denies any nausea or vomiting. He still has some occasional abdominal cramps. RECOMMENDATIONS: The patient is stable from a GI standpoint. He can be followed up as an outpatient. We would hold Linzess. We will try MiraLax 17 g 2 to 3 times a day as needed for severe constipation. Mazin Patton MD : 10/04/2017 18:26:10
== END 2017-10-04 15:31 | DRG 291 ==
LOC: ED 20:09 → ERH 23:10 → 2RSO 10-01 01:08 → 5RNO 10-03 13:24
PROVIDERS: ADMIT Internal Medicine; ATTEND Internal Medicine
DX: I13.0 Hypertensive heart and chronic kidney disease with heart failure and stage 1 through stage 4 chronic kidney disease, or unspecified chronic kidney disease (principal); I50.21 Acute systolic (congestive) heart failure; J98.11 Atelectasis; N18.4 Chronic kidney disease, stage 4 (severe); R17 Unspecified jaundice; I48.2 Chronic atrial fibrillation; I42.9 Cardiomyopathy, unspecified; K52.9 Noninfective gastroenteritis and colitis, unspecified; I25.10 Atherosclerotic heart disease of native coronary artery without angina pectoris; I08.0 Rheumatic disorders of both mitral and aortic valves; I27.20 Pulmonary hypertension, unspecified; D64.9 Anemia, unspecified; D69.6 Thrombocytopenia, unspecified; D72.819 Decreased white blood cell count, unspecified; E78.5 Hyperlipidemia, unspecified; E86.0 Dehydration; H11.32 Conjunctival hemorrhage, left eye; H40.9 Unspecified glaucoma; E11.22 Type 2 diabetes mellitus with diabetic chronic kidney disease; K59.00 Constipation, unspecified; R79.1 Abnormal coagulation profile; E11.36 Type 2 diabetes mellitus with diabetic cataract; Z79.01 Long term (current) use of anticoagulants; Z95.810 Presence of automatic (implantable) cardiac defibrillator; Z95.1 Presence of aortocoronary bypass graft; Z87.891 Personal history of nicotine dependence; Z87.01 Personal history of pneumonia (recurrent); Z79.899 Other long term (current) drug therapy

== ENCOUNTER 2017-10-04 15:35 | Inpatient (IN) | payer OTHER ==
[2017-10-04 16:02] VITALS: BMI 28.5
[2017-10-04] MEDS: Metoprolol Succinate 50 mg XL Tab PO SCH (17:18)
--- NOTE | 2017-10-05 07:57 | CP.PCM.CON ---
History of Present Illness - History of Present Illness History of Present Illness: Awake, alert. no distress Reason for consultation: Continuity of care in TCU ,shortness of breath, exacerbation of congestive heart failure,history of coronary artery disease post CABG in 2007, CHF gouty arthritis,AICD, chronic atrial fibrillation on Coumadin,diabetes mellitus, hyperlipidemia. Brief history of present illness. Transferred to TCU for reconditioning, An 82 year old male, [place] Citizen who was brought to ER by daughter due to shortness of breath. Patient woke up with difficulty breathing ("gasping for air). He was just recently seen by PMD due to constipation. He was prescribed Linzess. He took it and caused diarrhea. He claimed to have total 7 bowel movements in a day. He felt weak and went to sleep and when he woke up he experienced shortness of breath. Denies chest pain. History of hypertension, former smoker, coronary artery disease post CABG in 2007, CHF gouty arthritis,AICD, chronic atrial fibrillation on Coumadin,diabetes mellitus, hyperlipidemia. Seen and examined by me and Dr. Ruano Review of Systems - Review of Systems All systems: reviewed and no additional remarkable complaints except Review of Systems: from HPI Past Patient History - Infectious Disease Hx of Infectious Diseases: None - Tetanus Immunizations Tetanus Immunization: Unknown - Past Medical History & Family History Past Medical History?: Yes - Past Social History Smoking Status: Former Smoker - CARDIAC Hx Cardiac Disorders: Yes Hx Congestive Heart Failure: Yes Hx Hypercholesterolemia: Yes - PULMONARY Hx Pneumonia: Yes - NEUROLOGICAL Hx Neurological Disorder: (DENIES HISTORY) - HEENT Hx HEENT Problems: Yes Hx Cataracts: Yes (Left) Hx Glaucoma: Yes (Right) - RENAL Hx Chronic Kidney Disease: Yes - ENDOCRINE/METABOLIC Hx Diabetes Mellitus Type 1: Yes - HEMATOLOGICAL/ONCOLOGICAL Hx Blood Disorders: Yes - INTEGUMENTARY Hx Dermatological Problems: (DENIES HISTORY) - MUSCULOSKELETAL/RHEUMATOLOGICAL Hx Falls: Yes - GASTROINTESTINAL Hx Gastrointestinal Disorders: Yes (constipation then diarrhea,blood in stool, gastroenteritis,gerd,cholecystect) - GENITOURINARY/GYNECOLOGICAL Hx Genitourinary Disorders: No Hx Reproductive Disorders: Yes (bph) - PSYCHIATRIC Hx Psychophysiologic Disorder: No Hx Substance Use: No - SURGICAL HISTORY Hx Open Heart Surgery: Yes - ANESTHESIA Hx Anesthesia Reactions: Yes Hx Malignant Hyperthermia: No Meds Allergies/Adverse Reactions: Allergies Allergy/AdvReac Type Severity Reaction Status Date / Time aspirin Allergy RASH Verified 10/04/17 20:59 Latex, Natural Rubber Allergy RASH Verified 10/04/17 20:59 penicillin V Allergy RASH Verified 10/04/17 20:59 - Medications Medications: Current Medications Atorvastatin Calcium (Lipitor) 20 mg PO DIN [facility] PRN Reason: Protocol Last Admin: 10/04/17 17:19 Dose: 20 mg Colchicine (Colocrys) 0.6 mg PO DAILY [facility] PRN Reason: Protocol Dicyclomine HCl (Bentyl) 10 mg PO QID PRN PRN Reason: Pain, Mild (1-3) Furosemide (Lasix) 40 mg PO 0600 [facility] PRN Reason: Protocol Last Admin: 10/05/17 06:17 Dose: 40 mg Isosorbide Mononitrate (Imdur Er) 30 mg PO 0600 [facility] PRN Reason: Protocol Last Admin: 10/05/17 06:17 Dose: 30 mg Losartan Potassium (Cozaar) 25 mg PO DIN [facility] PRN Reason: Protocol Last Admin: 10/04/17 17:18 Dose: 25 mg Metoprolol Succinate (Toprol Xl) 50 mg PO 0800,1800 [facility] PRN Reason: Protocol Last Admin: 10/04/17 17:18 Dose: 50 mg Sitagliptin Phosphate (Januvia) 25 mg PO DAILY [facility] PRN Reason: Protocol Warfarin Sodium (Coumadin) 2.5 mg PO 1800 [facility] PRN Reason: Protocol Last Admin: 10/04/17 17:19 Dose: 2.5 mg Physical Exam - Constitutional Appears: No Acute Distress - Eye Exam Eye Exam: Normal appearance - ENT Exam ENT Exam: Mucous Membranes Moist - Respiratory Exam Respiratory Exam: Decreased Breath Sounds, NORMAL BREATHING PATTERN - Cardiovascular Exam Cardiovascular Exam: +S1, +S2 Additional comments: AICD - GI/Abdominal Exam GI & Abdominal Exam: Normal Bowel Sounds, Soft - Extremities Exam Additional comments: 1+edema - Neurological Exam Neurological exam: Alert, Oriented x3 - Psychiatric Exam Psychiatric exam: Normal Affect - Skin Skin Exam: Dry, Warm Results - Vital Signs Recent Vital Signs: Last Vital Signs Temp 97.9 F 10/04/17 22:03 Pulse 61 10/04/17 22:03 Resp 20 10/04/17 22:03 BP 122/65 10/05/17 06:17 Pulse Ox - Labs Labs: Laboratory Results - last 24 hr 10/04/17 10/04/17 10/05/17 16:04 21:17 05:06 POC Glucose (mg/dL) 122 H 129 H 93 Assessment & Plan - Assessment and Plan (Free Text) Assessment: Transferred to TCU for reconditioning. An 82 year old male, [place] Citizen who was brought to the ER by daughter due to shortness of breath. Patient woke up with difficulty breathing ("gasping for air). He was just recently seen by PMD due to constipation. He was prescribed Linzess. He took it and caused diarrhea. He claimed to have total 7 bowel movements in a day. He felt weak and went to sleep and when he woke up he experienced shortness of breath. Denies chest pain. History of hypertension, former smoker,coronary artery disease post CABG in 2007, CHF gouty arthritis,AICD, chronic atrial fibrillation on Coumadin, diabetes mellitus, hyperlipidemia. [place] [facility] [place] due to elevated INR with left conjunctival hemorrhage, treated and discharged. Exacerbation of congestive heart failure. ECHO done Left ventricle normal size, LVEF 20-25%, Right ventricle is moderate to severely dilated, moderately reduced systolic function, Moderate AR/MR/TR, moderate pulmonary hypertension, no pericardial effusion. 05/31/16- Cardiac cath for NSTEMI,Triple vessel disease- Patent PIÑA to LAD, Patent SVG to RCA, Patent left radial sequential to OM 1 and OM2 Severely decreased LVEF 20-25%, At that time, optimal medical treatment-IV Primacor and aggresive diurese. Plan: Clinically improved Denies shortness of breath Denies diarrhea, soft stools GI on consult No further work up per GI Will resume Coumadin for Afib Continue current treatment Continue current medications Discharge planning Instructed to follow up with Construction Operations Manager at [place] post discharge Plan and treatment discussed with Dr. Ruano Plan: Transferred to TCU for reconditioning For physical therapy Denies shortness of breath Continue current treatment Continue current medications Will follow up Plan and treatment discussed with Dr. Ruano Thank you Dr. Jennings for the opportunity of taking care of Mr. Jese Damon - Date & Time Date: 10/05/17 Time: 06:50
[2017-10-05] MEDS: Metoprolol Succinate 50 mg XL Tab PO SCH ×2 (08:02→17:36)
[2017-10-05] MEDS: guaiFENesin DM 100 mg-10 mg/5 ml UD PO PRN (17:37)
[2017-10-06] MEDS: guaiFENesin DM 100 mg-10 mg/5 ml UD PO PRN ×3 (06:03→19:50)
[2017-10-06 06:23] LABS: INR 2.92; PROTHROMBIN TIME 34.3 SECONDS (9.4-12.5)
[2017-10-06 06:28] LABS: BASO # 0.07 K/mm3 (0.0-2.0); BASO % 1.7 % (0.0-3.0); EOS # 0.1 (0.0-0.7); EOS % 2.2 % (1.5-5.0); GRAN # 2.29 (1.4-6.5); HEMOGLOBIN 11.5 g/dL (14.0-18.0); LYMPH # 0.8 (1.2-3.4); LYMPH % 19.8 % (22.0-35.0); MEAN CELL VOLUME 95.9 fl (80.0-105.0); MEAN CORPUSCULAR HEMOGLOBIN 33.3 pg (25.0-35.0); MEAN CORPUSCULAR HGB CONC 34.7 g/dl (31.0-37.0); MEAN PLATELET VOLUME 10.8 fl (7.0-11.0); MONO # 0.8 (0.1-0.6); MONO % 20.3 % (1.0-6.0); PLATELET COUNT 96 10^3/uL (120.0-450.0); RBC 3.45 10^6/uL (3.5-6.1); RED CELL DISTRIBUTION WIDTH 17.9 % (11.5-14.5); WHITE BLOOD COUNT 4.1 10^3/ul (4.5-11.0)
[2017-10-06 06:47] LABS: CALCIUM 8.8 mg/dL (8.4-10.5)
--- NOTE | 2017-10-06 07:01 | CP.PCM.PN ---
Subjective - Date & Time of Evaluation Date of Evaluation: 10/06/17 Time of Evaluation: 06:40 - Subjective Subjective: Awake, alert. no distress, OOB to chair Reason for consultation and follow up: Continuity of care in TCU ,shortness of breath, exacerbation of congestive heart failure,history of coronary artery disease post CABG in 2007, CHF gouty arthritis,AICD, chronic atrial fibrillation on Coumadin,diabetes mellitus, hyperlipidemia. Seen and examined by me and Dr. Ruano Objective - Vital Signs/Intake and Output Vital Signs (last 24 hours): Temp Pulse Resp BP Pulse Ox 98 F 62 20 96/48 L 99 10/05/17 16:00 10/05/17 17:36 10/05/17 16:00 10/06/17 06:03 10/05/17 16:00 - Medications Medications: Current Medications Atorvastatin Calcium (Lipitor) 20 mg PO DIN [facility] PRN Reason: Protocol Last Admin: 10/05/17 17:36 Dose: 20 mg Colchicine (Colocrys) 0.6 mg PO DAILY [facility] PRN Reason: Protocol Last Admin: 10/05/17 10:18 Dose: 0.6 mg Dicyclomine HCl (Bentyl) 10 mg PO TID [facility] Last Admin: 10/05/17 17:34 Dose: 10 mg Furosemide (Lasix) 40 mg PO 0600 [facility] PRN Reason: Protocol Last Admin: 10/06/17 06:03 Dose: Not Given Guaifenesin/Dextromethorphan (Robitussin Dm) 5 ml PO Q4H PRN PRN Reason: Cough Last Admin: 10/06/17 06:03 Dose: 5 ml Isosorbide Mononitrate (Imdur Er) 30 mg PO 0600 [facility] PRN Reason: Protocol Last Admin: 10/06/17 06:03 Dose: Not Given Losartan Potassium (Cozaar) 25 mg PO DIN [facility] PRN Reason: Protocol Last Admin: 10/05/17 17:35 Dose: 25 mg Metoprolol Succinate (Toprol Xl) 50 mg PO 0800,1800 [facility] PRN Reason: Protocol Last Admin: 10/05/17 17:36 Dose: 50 mg Sitagliptin Phosphate (Januvia) 25 mg PO DAILY [facility] PRN Reason: Protocol Last Admin: 10/05/17 10:19 Dose: 25 mg Warfarin Sodium (Coumadin) 2.5 mg PO 1800 [facility] PRN Reason: Protocol Last Admin: 10/05/17 17:35 Dose: 2.5 mg - Labs Labs: 10/06/17 05:30 10/06/17 05:30 PT 34.3 SECONDS (9.4-12.5) H 10/06/17 05:30 INR 2.92 10/06/17 05:30 - Constitutional Appears: No Acute Distress - Eye Exam Eye Exam: Normal appearance - ENT Exam ENT Exam: Mucous Membranes Moist - Respiratory Exam Respiratory Exam: Decreased Breath Sounds, Clear to Ausculation Bilateral, NORMAL BREATHING PATTERN - Cardiovascular Exam Cardiovascular Exam: +S1, +S2 - GI/Abdominal Exam GI & Abdominal Exam: Soft, Normal Bowel Sounds - Neurological Exam Neurological Exam: Alert, Awake, Oriented x3 - Psychiatric Exam Psychiatric exam: Normal Affect - Skin Skin Exam: Intact, Warm Assessment and Plan - Assessment and Plan (Free Text) Assessment: Transferred to TCU for reconditioning. An 82 year old male, Iranian who was brought to the ER by daughter due to shortness of breath. Patient woke up with difficulty breathing ("gasping for air). He was just recently seen by PMD due to constipation. He was prescribed Linzess. He took it and caused diarrhea. He claimed to have total 7 bowel movements in a day. He felt weak and went to sleep and when he woke up he experienced shortness of breath. Denies chest pain. History of hypertension, former smoker,coronary artery disease post CABG in 2007, CHF gouty arthritis,AICD, chronic atrial fibrillation on Coumadin, diabetes mellitus, hyperlipidemia. Recently at [facility] [place]) due to elevated INR with left conjunctival hemorrhage, treated and discharged. Exacerbation of congestive heart failure. ECHO done Left ventricle normal size, LVEF 20-25%, Right ventricle is moderate to severely dilated, moderately reduced systolic function, Moderate AR/MR/TR, moderate pulmonary hypertension, no pericardial effusion. 05/31/16- Cardiac cath for NSTEMI,Triple vessel disease- Patent PIÑA to LAD, Patent SVG to RCA, Patent left radial sequential to OM 1 and OM2 Severely decreased LVEF 20-25%, At that time, optimal medical treatment-IV Primacor and aggresive diurese. Plan: Episode of disorientation last night, claimed that he got out of bed walk to the hallway, and does not know where he was. RN assisted back to bed Stable heart rate and blood pressure Denies shortness of breath Physical therapy in progress Patient claimed doing well with physical therapy Denies shortness of breath Continue current treatment Continue current medications Will follow up Plan and treatment discussed with Dr. Ruano
[2017-10-06 08:01] LABS: EOSINOPHIL 2 % (0.0-3.0); LYMPHOCYTE 22 % (22.0-35.0); MONOCYTE 15 % (1.0-6.0); NEUTROPHIL 61 % (50.0-70.0)
[2017-10-06 08:02] LABS: MICROCYTOSIS SLIGHT; PLATELET ESTIMATE LOW (NORMAL); POIKILOCYTOSIS SLIGHT
[2017-10-06] MEDS: Metoprolol Succinate 50 mg XL Tab PO SCH ×2 (08:06→17:25)
--- NOTE | 2017-10-06 08:10 | HP ---
Copied To: Leonila Jennings MD Attending MD: Leonila Jennings MD DATE OF EXAM: 10/05/2017 HISTORY OF PRESENT ILLNESS: Patient is [id number] who initially came in with abdominal pain, increasing shortness of breath, and since he was complaining of diarrhea had CT scan of the abdomen and pelvis done that was unremarkable, so patient was also seen by Plumbing Drafter and diuresis was done. His Coumadin level is being monitored. The patient still complains of having off and on cramps, feel weak, gets short of breath on walking little distance. PAST MEDICAL HISTORY: Significant for, 1. Chronic atrial fibrillation. 2. Non-insulin dependent diabetes. 3. Hypertension. 4. Hyperlipidemia. 5. Coronary artery disease. 6. Status post defibrillator placement. 7. History of open heart surgery. ALLERGIES: ALLERGIC TO ASPIRIN, LATEX, NATURAL RUBBER AND PENICILLIN. MEDICATIONS AT HOME: He is on Coumadin 2.5 mg daily, Januvia 50 mg daily, multivitamin. He is on metoprolol 50 mg twice a day, losartan 25 daily, isosorbide 30 mg daily, Lasix 20 mg daily, Uloric 40 mg daily, colchicine 0.6 daily, Lipitor 20 mg daily. SOCIAL HISTORY: He is , lives with his and daughter. He used to be a heavy smoker, but quit 30 years ago. REVIEW OF SYSTEMS: Significant for intermittent abdominal cramping pain, but no more diarrhea. PHYSICAL EXAMINATION: GENERAL: He is awake, alert, oriented, communicative. VITAL SIGNS: He is afebrile, pulse 75, respirations 20, blood pressure 137/92. LUNGS: Bilateral fair airflow. Decreased at bases and posteriorly. HEART: S1 and S2 audible. Irregular rate controlled. ABDOMEN: Soft, nontender. No rebound. No guarding. NEUROLOGICAL: He is awake, alert, oriented, communicative. EXTREMITIES: Bilateral legs. No edema. LABORATORY EXAM: Blood sugar is 92. ASSESSMENT: 1. Status post congestive heart failure exacerbation. 2. Gastroenteritis improving. 3. Hypertension. 4. Hyperlipidemia. 5. Coronary artery disease. 6. Non-insulin dependent diabetes. 7. Chronic atrial fibrillation. 8. Ischemic cardiomyopathy. PLAN: Currently, he is on colchicine, Coumadin. We will follow PT/INR. We will follow CBC, CMP and we will reevaluate patient in a.m. Leonila Jennings MD
--- NOTE | 2017-10-06 17:09 | PN ---
Copied To: Leonila Jennings MD Attending MD: Leonila Jennings MD DATE: 10/06/2017 SUBJECTIVE: The patient is 82 years old, seen in physical therapy, doing well. His oral intake is fair, participating in therapy. PHYSICAL EXAMINATION: VITAL SIGNS: He is afebrile. Pulse 72, respirations 18, and blood pressure 98/48. LUNGS: Bilateral good airflow. No rhonchi or crackle. HEART: S1 and S2 audible. ABDOMEN: Soft. Nontender. No rebound. No guarding. NEUROLOGIC: The patient is awake, alert, oriented, and communicative. LABORATORY EXAM: WBC is 4.1, hemoglobin 11.5, hematocrit 33.1, and platelets of 96. PT 34.3, INR 2.92. Chemistry: Sodium 136, potassium 4.9, chloride 100, CO2 of 24. BUN 52, creatinine 2.3. Blood sugar of 91. ASSESSMENT: 1. Status post congestive heart failure exacerbation, intermittent abdominal pain, etiology unclear, history of diverticulosis. 2. Hypertension. 3. History of gout. 4. Coronary artery disease, status post open heart surgery. 5. Dilated cardiomyopathy with poor ejection fraction, status post defibrillator placement. 6. Non-insulin dependent diabetes. PLAN: Currently, patient is on Bentyl, given another 24-hour schedule. Patient and family are interested in colonoscopy. I will talk to Dr. Patton. His last colonoscopy patient states was almost 5 years ago. Continue physical therapy. We will follow PT/INR intermittently. Leonila Jennings MD
--- NOTE | 2017-10-07 07:04 | CP.PCM.PN ---
Subjective - Date & Time of Evaluation Date of Evaluation: 10/07/17 Time of Evaluation: 06:40 - Subjective Subjective: easily awaken, no distress, lying in bed Reason for consultation and follow up: Continuity of care in TCU ,shortness of breath, exacerbation of congestive heart failure,history of coronary artery disease post CABG in 2007, CHF gouty arthritis,AICD, chronic atrial fibrillation on Coumadin,diabetes mellitus, hyperlipidemia. Seen and examined by me and Objective - Vital Signs/Intake and Output Vital Signs (last 24 hours): Temp Pulse Resp BP Pulse Ox 98.2 F 64 20 128/74 100 10/06/17 16:00 10/06/17 17:25 10/06/17 10:00 10/07/17 05:42 10/06/17 16:00 - Medications Medications: Current Medications Atorvastatin Calcium (Lipitor) 20 mg PO DIN CHERYL PRN Reason: Protocol Last Admin: 10/06/17 17:25 Dose: 20 mg Colchicine (Colocrys) 0.6 mg PO DAILY CHERYL PRN Reason: Protocol Last Admin: 10/06/17 10:02 Dose: 0.6 mg Dicyclomine HCl (Bentyl) 10 mg PO TID CHERYL Last Admin: 10/06/17 17:28 Dose: 10 mg Furosemide (Lasix) 40 mg PO 0600 CHERYL PRN Reason: Protocol Last Admin: 10/07/17 05:42 Dose: 40 mg Guaifenesin/Dextromethorphan (Robitussin Dm) 5 ml PO Q4H PRN PRN Reason: Cough Last Admin: 10/06/17 19:50 Dose: 5 ml Isosorbide Mononitrate (Imdur Er) 30 mg PO 0600 CHERYL PRN Reason: Protocol Last Admin: 10/07/17 05:43 Dose: 30 mg Losartan Potassium (Cozaar) 25 mg PO DIN CHERYL PRN Reason: Protocol Last Admin: 10/06/17 17:25 Dose: 25 mg Metoprolol Succinate (Toprol Xl) 50 mg PO 0800,1800 CHERYL PRN Reason: Protocol Last Admin: 10/06/17 17:25 Dose: 50 mg Sitagliptin Phosphate (Januvia) 25 mg PO DAILY CHERYL PRN Reason: Protocol Last Admin: 10/06/17 10:02 Dose: 25 mg Warfarin Sodium (Coumadin) 2.5 mg PO 1800 CHERYL PRN Reason: Protocol Last Admin: 10/06/17 17:24 Dose: 2.5 mg - Labs Labs: 10/06/17 05:30 10/06/17 05:30 PT 34.3 SECONDS (9.4-12.5) H 10/06/17 05:30 INR 2.92 10/06/17 05:30 - Constitutional Appears: No Acute Distress - Eye Exam Eye Exam: Normal appearance - ENT Exam ENT Exam: Mucous Membranes Moist - Respiratory Exam Respiratory Exam: Decreased Breath Sounds, NORMAL BREATHING PATTERN - Cardiovascular Exam Cardiovascular Exam: +S1, +S2 - GI/Abdominal Exam GI & Abdominal Exam: Soft, Normal Bowel Sounds - Extremities Exam Extremities Exam: Normal Capillary Refill - Neurological Exam Neurological Exam: Alert, Awake, Oriented x3 - Psychiatric Exam Psychiatric exam: Normal Affect - Skin Skin Exam: Intact, Warm Assessment and Plan - Assessment and Plan (Free Text) Assessment: Transferred to TCU for reconditioning. An 82 year old male, [place] who was brought to the ER by daughter due to shortness of breath. Patient woke up with difficulty breathing ("gasping for air). He was just recently seen by PMD due to constipation. He was prescribed Linzess. He took it and caused diarrhea. He claimed to have total 7 bowel movements in a day. He felt weak and went to sleep and when he woke up he experienced shortness of breath. Denies chest pain. History of hypertension, former smoker,coronary artery disease post CABG in 2007, CHF gouty arthritis,AICD, chronic atrial fibrillation on Coumadin, diabetes mellitus, hyperlipidemia. Recently at [facility] [place] (07/28/17) due to elevated INR with left conjunctival hemorrhage, treated and discharged. Exacerbation of congestive heart failure. ECHO done Left ventricle normal size, LVEF 20-25%, Right ventricle is moderate to severely dilated, moderately reduced systolic function, Moderate AR/MR/TR, moderate pulmonary hypertension, no pericardial effusion. 05/31/16- Cardiac cath for NSTEMI,Triple vessel disease- Patent PIÑA to LAD, Patent SVG to RCA, Patent left radial sequential to OM 1 and OM2 Severely decreased LVEF 20-25%, At that time, optimal medical treatment-IV Primacor and aggresive diurese. Physical therapy in progress. Plan: Cardiac status stable Stable heart rate and blood pressure Denies shortness of breath Physical therapy in progress On Lipitor 20 mg daily,Colchicine 0.6 mg daily, Lasix 40 mg daily,Imdur ER 30 mg daily,Cozaar 25 mg daily, Toprol XL 50 mg BID, coumadin 2.5 mg daily Continue current treatment Continue current medications Family requested patient to have colonoscopy GI consulted Will follow up Plan and treatment discussed with
[2017-10-07] MEDS: Metoprolol Succinate 50 mg XL Tab PO SCH ×2 (09:49→17:38)
--- NOTE | 2017-10-07 15:50 | PN ---
Copied To: Leonila Jennings MD Attending MD: Leonila Jennings MD DATE: 10/07/2017 SUBJECTIVE: The patient is 82 years old, seen and examined. There was a report that the patient was somewhat confused the previous night, he walked out without knowledge that he is getting out of bed, was also talking something that did not make sense. PHYSICAL EXAMINATION: VITAL SIGNS: He is afebrile, pulse 67, respirations 16, blood pressure 112/55. LUNGS: Bilateral fair airflow. No rhonchi or crackle. HEART: S1, S2 audible. ABDOMEN: Soft, nontender. No rebound, no guarding. NEUROLOGICAL: The patient is awake, alert, oriented, able to communicate. EXTREMITIES: Bilateral legs, no edema. LABORATORY DATA: PT yesterday was 34, INR 2.92. Chemistry: Blood sugar is 107. ASSESSMENT: 1. Abdominal pain seems to be resolving. 2. Chronic atrial fibrillation. 3. Brief period of delusion and confusion. 4. History of hypertension. 5. Woh-uxasgcc-nlwgafoyc diabetes. 6. History of gout. PLAN: We will continue the patient on Coumadin, order for PT/INR in a.m. Continue all current medications. Encouraged physical therapy. I will start him on Colace and follow up closely. We will talk to Dr. Patton, if there is any plan for colonoscopy. Leonila Jennings MD
--- NOTE | 2017-10-08 07:17 | CP.PCM.PN ---
Subjective - Date & Time of Evaluation Date of Evaluation: 10/08/17 Time of Evaluation: 06:25 - Subjective Subjective: awake,alert, no distress, lying in bed Reason for consultation and follow up: Continuity of care in TCU ,shortness of breath, exacerbation of congestive heart failure,history of coronary artery disease post CABG in 2007, CHF gouty arthritis,AICD, chronic atrial fibrillation on Coumadin,diabetes mellitus, hyperlipidemia. Seen and examined by me and Objective - Vital Signs/Intake and Output Vital Signs (last 24 hours): Temp Pulse Resp BP Pulse Ox 97.6 F 67 20 108/62 94 L 10/07/17 16:00 10/07/17 17:38 10/07/17 16:00 10/08/17 05:54 10/07/17 16:41 - Medications Medications: Current Medications Atorvastatin Calcium (Lipitor) 20 mg PO DIN CHERYL PRN Reason: Protocol Last Admin: 10/07/17 17:37 Dose: 20 mg Colchicine (Colocrys) 0.6 mg PO DAILY CHERYL PRN Reason: Protocol Last Admin: 10/07/17 09:49 Dose: 0.6 mg Dicyclomine HCl (Bentyl) 10 mg PO TID CHERYL Last Admin: 10/07/17 17:36 Dose: 10 mg Docusate Sodium (Colace) 100 mg PO DAILY CHERYL Furosemide (Lasix) 40 mg PO 0600 CHERYL PRN Reason: Protocol Last Admin: 10/08/17 05:54 Dose: 40 mg Guaifenesin/Dextromethorphan (Robitussin Dm) 5 ml PO Q4H PRN PRN Reason: Cough Last Admin: 10/06/17 19:50 Dose: 5 ml Isosorbide Mononitrate (Imdur Er) 30 mg PO 0600 CHERYL PRN Reason: Protocol Last Admin: 10/08/17 05:54 Dose: 30 mg Losartan Potassium (Cozaar) 25 mg PO DIN CHERYL PRN Reason: Protocol Last Admin: 10/07/17 17:37 Dose: 25 mg Metoprolol Succinate (Toprol Xl) 50 mg PO 0800,1800 CHERYL PRN Reason: Protocol Last Admin: 10/07/17 17:38 Dose: 50 mg Sitagliptin Phosphate (Januvia) 25 mg PO DAILY CHERYL PRN Reason: Protocol Last Admin: 10/07/17 10:48 Dose: 25 mg Warfarin Sodium (Coumadin) 2.5 mg PO 1800 CHERYL PRN Reason: Protocol Last Admin: 10/07/17 18:11 Dose: 2.5 mg - Labs Labs: 10/06/17 05:30 10/06/17 05:30 PT 34.3 SECONDS (9.4-12.5) H 10/06/17 05:30 INR 2.92 10/06/17 05:30 - Constitutional Appears: No Acute Distress - Eye Exam Eye Exam: Normal appearance - ENT Exam ENT Exam: Mucous Membranes Moist - Respiratory Exam Respiratory Exam: Decreased Breath Sounds, Clear to Ausculation Bilateral, NORMAL BREATHING PATTERN - Cardiovascular Exam Cardiovascular Exam: +S1, +S2 - GI/Abdominal Exam GI & Abdominal Exam: Soft, Normal Bowel Sounds - Neurological Exam Neurological Exam: Alert, Awake, Oriented x3 - Psychiatric Exam Psychiatric exam: Normal Affect - Skin Skin Exam: Intact, Warm Assessment and Plan - Assessment and Plan (Free Text) Assessment: Transferred to TCU for reconditioning. An 82 year old male, [place] who was brought to the ER by daughter due to shortness of breath. Patient woke up with difficulty breathing ("gasping for air). He was just recently seen by PMD due to constipation. He was prescribed Linzess. He took it and caused diarrhea. He claimed to have total 7 bowel movements in a day. He felt weak and went to sleep and when he woke up he experienced shortness of breath. Denies chest pain. History of hypertension, former smoker,coronary artery disease post CABG in 2007, CHF gouty arthritis,AICD, chronic atrial fibrillation on Coumadin, diabetes mellitus, hyperlipidemia. [place] [facility] [place] due to elevated INR with left conjunctival hemorrhage, treated and discharged. Exacerbation of congestive heart failure. ECHO done Left ventricle normal size, LVEF 20-25%, Right ventricle is moderate to severely dilated, moderately reduced systolic function, Moderate AR/MR/TR, moderate pulmonary hypertension, no pericardial effusion. 05/31/16- Cardiac cath for NSTEMI,Triple vessel disease- Patent PIÑA to LAD, Patent SVG to RCA, Patent left radial sequential to OM 1 and OM2 Severely decreased LVEF 20-25%, At that time, optimal medical treatment-IV Primacor and aggresive diurese. Physical therapy in progress. Plan: Feels better, felt some dizziness when standing too long in the bathroom Will check orthostatic vital signs Cardiac status stable Stable heart rate and blood pressure Denies shortness of breath Physical therapy in progress On Lipitor 20 mg daily,Colchicine 0.6 mg daily, Lasix 40 mg daily,Imdur ER 30 mg daily,Cozaar 25 mg daily, Toprol XL 50 mg BID, coumadin 2.5 mg daily Continue current treatment Continue current medications Discharge planning Will follow up Plan and treatment discussed with
[2017-10-08] MEDS: Metoprolol Succinate 50 mg XL Tab PO SCH ×2 (07:59→17:27)
[2017-10-08] MEDS: guaiFENesin DM 100 mg-10 mg/5 ml UD PO PRN (10:48)
--- NOTE | 2017-10-08 16:34 | PN ---
Copied To: Leonila Jennings MD Attending MD: Leonila Jennings MD DATE: 10/08/2017 SUBJECTIVE: The patient is 82 years old, seen and examined. Complained of shortness of breath on walking, gets short of breath. No chest pain. Pulse ox goes up to 92%. PHYSICAL EXAMINATION VITAL SIGNS: He is afebrile, pulse 68, respiration 18, blood pressure 108/62. LUNGS: Bilateral diffusely decreased breath sounds. HEART: S1 and S2 audible. ABDOMEN: Soft, nontender. No rebound. No guarding. NEUROLOGICAL: He is awake, alert, oriented, communicative, able to ambulate. LABORATORY DATA: Blood sugar is 95. ASSESSMENT: 1. Chronic obstructive pulmonary disease exacerbation. 2. Congestive heart failure exacerbation. 3. Ischemic cardiomyopathy. 4. Coronary artery disease status post open heart surgery. 5. Status post defibrillator placement. 6. Non-insulin dependent diabetes. PLAN: We will continue the patient on Bentyl gentle laxative. I will order for PT/INR in the a.m. I will also monitor his electrolyte and possible discharge next week. Leonila Jennings MD
[2017-10-09 07:20] LABS: BASO # 0.05 K/mm3 (0.0-2.0); BASO % 1.2 % (0.0-3.0); EOS # 0.2 (0.0-0.7); EOS % 3.7 % (1.5-5.0); GRAN # 2.23 (1.4-6.5); GRAN % 55.2 % (50.0-68.0); HEMOGLOBIN 10.3 g/dL (14.0-18.0); MEAN CELL VOLUME 94.5 fl (80.0-105.0); MEAN CORPUSCULAR HEMOGLOBIN 33.6 pg (25.0-35.0); MEAN CORPUSCULAR HGB CONC 35.5 g/dl (31.0-37.0); MEAN PLATELET VOLUME 10.4 fl (7.0-11.0); MONO # 0.6 (0.1-0.6); MONO % 14.9 % (1.0-6.0); RBC 3.07 10^6/uL (3.5-6.1); RED CELL DISTRIBUTION WIDTH 17.7 % (11.5-14.5)
--- NOTE | 2017-10-09 07:23 | CP.PCM.PN ---
Subjective - Date & Time of Evaluation Date of Evaluation: 10/09/17 Time of Evaluation: 07:10 - Subjective Subjective: awake,alert, no distress, lying in bed, shortness of breath when walking Reason for consultation and follow up: Continuity of care in TCU ,shortness of breath, exacerbation of congestive heart failure,history of coronary artery disease post CABG in 2007, CHF gouty arthritis,AICD, chronic atrial fibrillation on Coumadin,diabetes mellitus, hyperlipidemia. Seen and examined by me and Objective - Vital Signs/Intake and Output Vital Signs (last 24 hours): Temp Pulse Resp BP Pulse Ox 97.6 F 64 20 97/51 L 99 10/08/17 16:00 10/08/17 17:27 10/08/17 16:00 10/09/17 05:18 10/08/17 16:59 - Medications Medications: Current Medications Atorvastatin Calcium (Lipitor) 20 mg PO DIN CHERYL PRN Reason: Protocol Last Admin: 10/08/17 17:27 Dose: 20 mg Colchicine (Colocrys) 0.6 mg PO DAILY CHERYL PRN Reason: Protocol Last Admin: 10/08/17 10:46 Dose: 0.6 mg Dicyclomine HCl (Bentyl) 10 mg PO TID CHERYL Last Admin: 10/08/17 17:26 Dose: 10 mg Docusate Sodium (Colace) 100 mg PO DAILY CHERYL Last Admin: 10/08/17 10:51 Dose: Not Given Furosemide (Lasix) 40 mg PO 0600 CHERYL PRN Reason: Protocol Last Admin: 10/09/17 05:18 Dose: Not Given Guaifenesin/Dextromethorphan (Robitussin Dm) 5 ml PO Q4H PRN PRN Reason: Cough Last Admin: 10/08/17 10:48 Dose: 5 ml Isosorbide Mononitrate (Imdur Er) 30 mg PO 0600 CHERYL PRN Reason: Protocol Last Admin: 10/09/17 05:17 Dose: 30 mg Losartan Potassium (Cozaar) 25 mg PO DIN CHERYL PRN Reason: Protocol Last Admin: 10/08/17 17:27 Dose: Not Given Metoprolol Succinate (Toprol Xl) 50 mg PO 0800,1800 CHERYL PRN Reason: Protocol Last Admin: 10/08/17 17:27 Dose: Not Given Sitagliptin Phosphate (Januvia) 25 mg PO DAILY CHERYL PRN Reason: Protocol Last Admin: 10/08/17 10:46 Dose: 25 mg Warfarin Sodium (Coumadin) 2.5 mg PO 1800 CHERYL PRN Reason: Protocol Last Admin: 10/08/17 17:26 Dose: 2.5 mg - Labs Labs: 10/06/17 05:30 10/06/17 05:30 PT 34.3 SECONDS (9.4-12.5) H 10/06/17 05:30 INR 2.92 10/06/17 05:30 - Constitutional Appears: No Acute Distress - Eye Exam Eye Exam: Normal appearance - ENT Exam ENT Exam: Mucous Membranes Moist - Respiratory Exam Respiratory Exam: Decreased Breath Sounds, NORMAL BREATHING PATTERN Additional comments: nasal cannula - Cardiovascular Exam Cardiovascular Exam: +S1, +S2 - GI/Abdominal Exam GI & Abdominal Exam: Soft, Normal Bowel Sounds - Neurological Exam Neurological Exam: Alert, Awake, Oriented x3 - Psychiatric Exam Psychiatric exam: Normal Affect - Skin Skin Exam: Dry, Warm Assessment and Plan - Assessment and Plan (Free Text) Assessment: Transferred to TCU for reconditioning. An 82 year old male, Stateless who was brought to the ER by daughter due to shortness of breath. Patient woke up with difficulty breathing ("gasping for air). He was just recently seen by PMD due to constipation. He was prescribed Linzess. He took it and caused diarrhea. He claimed to have total 7 bowel movements in a day. He felt weak and went to sleep and when he woke up he experienced shortness of breath. Denies chest pain. History of hypertension, former smoker,coronary artery disease post CABG in 2007, CHF gouty arthritis,AICD, chronic atrial fibrillation on Coumadin, diabetes mellitus, hyperlipidemia. Recently at [facility] [place] (07/28/17) due to elevated INR with left conjunctival hemorrhage, treated and discharged. Exacerbation of congestive heart failure. ECHO done Left ventricle normal size, LVEF 20-25%, Right ventricle is moderate to severely dilated, moderately reduced systolic function, Moderate AR/MR/TR, moderate pulmonary hypertension, no pericardial effusion. 05/31/16- Cardiac cath for NSTEMI,Triple vessel disease- Patent PIÑA to LAD, Patent SVG to RCA, Patent left radial sequential to OM 1 and OM2 Severely decreased LVEF 20-25%, At that time, optimal medical treatment-IV Primacor and aggresive diurese. Physical therapy in progress. Plan: Orthostatic vital signs normal Still complaining of mild shortness of breath when walking, Chest Xray from 09/30 showed mild pleural effusion Repeat chest X ray PA/Lat to evaluate pleural effusion Will give extra dose of IV Lasix Stable heart rate and blood pressure Physical therapy in progress On Lipitor 20 mg daily,Colchicine 0.6 mg daily, Lasix 40 mg daily,Imdur ER 30 mg daily,Cozaar 25 mg daily, Toprol XL 50 mg BID, coumadin 2.5 mg daily Continue current treatment Continue current medications Will follow up Plan and treatment discussed with
[2017-10-09 07:35] LABS: PROTHROMBIN TIME 70.5 SECONDS (9.4-12.5)
[2017-10-09 07:41] LABS: ALB/GLOB RATIO 0.9 (1.1-1.8); ALBUMIN 2.9 g/dL (3.0-4.8); CALCIUM 8.5 mg/dL (8.4-10.5)
[2017-10-09 07:51] LABS: INR 5.91
[2017-10-09] MEDS: Metoprolol Succinate 50 mg XL Tab PO SCH ×2 (08:27→17:44)
--- NOTE | 2017-10-09 10:40 | RAD ---
HISTORY: COMPARISON: 09/30/2017. TECHNIQUE: Chest PA and lateral FINDINGS: LINES AND TUBES: None. LUNG AND PLEURA: The lungs are well inflated and clear. No change in small pleural effusions, larger on the left. No pneumothorax. HEART AND MEDIASTINUM: Persistent severe cardiomegaly. Status post CABG. There is stable position of left-sided unipolar permanent pacing device. The hilar and mediastinal contours are within normal limits. SKELETAL STRUCTURES: The bony structures are within normal limits for the patient's age. VISUALIZED UPPER ABDOMEN: Normal. OTHER FINDINGS: None. IMPRESSION: No change in moderate cardiomegaly, small pleural effusions, larger on the left.
--- NOTE | 2017-10-09 22:03 | PN ---
Copied To: Leonila Jennings MD Attending MD: Leonila Jennings MD DATE: 10/09/2017 SUBJECTIVE: The patient is 82 years old, seen and examined, complained of feeling dizzy and lightheaded. Blood pressure was found to be low. PHYSICAL EXAMINATION: GENERAL: He is awake, alert, oriented and communicative. VITAL SIGNS: He is afebrile, pulse 67, respirations 18, blood pressure 104/63. LUNGS: Bilateral fair airflow. No rhonchi or crackle. HEART: S1 and S2 audible, irregular, rate controlled. ABDOMEN: Soft and nontender. No rebound. No guarding. NEUROLOGIC: He is awake, alert, oriented, communicative. LABORATORY DATA: WBC is 4, hemoglobin 10.3, hematocrit 29, and platelet of 85. PT 70.5 and INR 5.91. Chemistry: Sodium 130, potassium 4.5, chloride 98, CO2 of 22, BUN 65, creatinine 2.5, and blood sugar of 104. Total bilirubin 1.8. Had x-ray of the chest done that showed no change in moderate cardiomegaly, has small pleural effusion and larger on the left. ASSESSMENT: 1. Generalized weakness. 2. Chronic atrial fibrillation. 3. Status post congestive heart failure. 4. History of gout. 5. Coronary artery disease status post open heart surgery. 6. Status post defibrillator placement. 7. Chronic kidney disease. PLAN: I will hold his Coumadin. Vitamin K has been ordered. We will follow up his PT/INR in the a.m. Leonila Jennings MD
--- NOTE | 2017-10-10 07:17 | CP.PCM.PN ---
Subjective - Date & Time of Evaluation Date of Evaluation: 10/10/17 Time of Evaluation: 06:50 - Subjective Subjective: awake,alert, no distress,feels weak Reason for consultation and follow up: Continuity of care in TCU ,shortness of breath, exacerbation of congestive heart failure,history of coronary artery disease post CABG in 2007, CHF gouty arthritis,AICD, chronic atrial fibrillation on Coumadin,diabetes mellitus, hyperlipidemia. Seen and examined by me and Objective - Vital Signs/Intake and Output Vital Signs (last 24 hours): Temp Pulse Resp BP Pulse Ox 97.1 F L 57 L 16 121/73 98 10/09/17 16:00 10/09/17 17:45 10/09/17 16:00 10/10/17 06:34 10/09/17 16:54 - Medications Medications: Current Medications Atorvastatin Calcium (Lipitor) 20 mg PO DIN CHERYL PRN Reason: Protocol Last Admin: 10/09/17 17:44 Dose: 20 mg Colchicine (Colocrys) 0.6 mg PO DAILY CHERYL PRN Reason: Protocol Last Admin: 10/09/17 09:25 Dose: 0.6 mg Dicyclomine HCl (Bentyl) 10 mg PO TID CHERYL Last Admin: 10/09/17 17:43 Dose: 10 mg Docusate Sodium (Colace) 200 mg PO DAILY CHERYL Furosemide (Lasix) 40 mg PO 0600 CHERYL PRN Reason: Protocol Last Admin: 10/10/17 06:34 Dose: 40 mg Guaifenesin/Dextromethorphan (Robitussin Dm) 5 ml PO Q4H PRN PRN Reason: Cough Last Admin: 10/08/17 10:48 Dose: 5 ml Isosorbide Mononitrate (Imdur Er) 30 mg PO 0600 CHERYL PRN Reason: Protocol Last Admin: 10/10/17 06:08 Dose: 30 mg Losartan Potassium (Cozaar) 25 mg PO DIN CHERYL PRN Reason: Protocol Last Admin: 10/09/17 17:45 Dose: 25 mg Metoprolol Succinate (Toprol Xl) 50 mg PO 0800,1800 CHERYL PRN Reason: Protocol Last Admin: 10/09/17 17:44 Dose: 50 mg Phytonadione (Vitamin K Tab) 5 mg PO DAILY CHERYL Last Admin: 10/09/17 10:55 Dose: 5 mg Sitagliptin Phosphate (Januvia) 25 mg PO DAILY CHERYL PRN Reason: Protocol Last Admin: 10/09/17 09:25 Dose: 25 mg - Labs Labs: 10/09/17 07:00 10/09/17 07:00 PT 70.5 SECONDS (9.4-12.5) H 10/09/17 07:00 INR 5.91 H* 10/09/17 07:00 - Constitutional Appears: No Acute Distress - Eye Exam Eye Exam: Normal appearance - ENT Exam ENT Exam: Mucous Membranes Moist - Respiratory Exam Respiratory Exam: Decreased Breath Sounds, NORMAL BREATHING PATTERN - Cardiovascular Exam Cardiovascular Exam: +S1, +S2 Additional comments: AICD - GI/Abdominal Exam GI & Abdominal Exam: Soft, Normal Bowel Sounds - Neurological Exam Neurological Exam: Alert, Awake, Oriented x3 - Psychiatric Exam Psychiatric exam: Normal Affect - Skin Skin Exam: Intact, Warm Assessment and Plan - Assessment and Plan (Free Text) Assessment: Transferred to TCU for reconditioning. An 82 year old male, [place] who was brought to the ER by daughter due to shortness of breath. Patient woke up with difficulty breathing ("gasping for air). He was just recently seen by PMD due to constipation. He was prescribed Linzess. He took it and caused diarrhea. He claimed to have total 7 bowel movements in a day. He felt weak and went to sleep and when he woke up he experienced shortness of breath. Denies chest pain. History of hypertension, former smoker,coronary artery disease post CABG in 2007, CHF gouty arthritis,AICD, chronic atrial fibrillation on Coumadin, diabetes mellitus, hyperlipidemia. Recently at [facility] [place] (07/28/17) due to elevated INR with left conjunctival hemorrhage, treated and discharged. Exacerbation of congestive heart failure. ECHO done Left ventricle normal size, LVEF 20-25%, Right ventricle is moderate to severely dilated, moderately reduced systolic function, Moderate AR/MR/TR, moderate pulmonary hypertension, no pericardial effusion. 05/31/16- Cardiac cath for NSTEMI,Triple vessel disease- Patent PIÑA to LAD, Patent SVG to RCA, Patent left radial sequential to OM 1 and OM2 Severely decreased LVEF 20-25%, At that time, optimal medical treatment-IV Primacor and aggresive diurese. Physical therapy in progress. Orthostatic vital signs normal. Plan: Chest xray done yesterday-bilateral small pleural effusion more on left side, unchanged compared to 09/30/17 Chest X ray Coumadin held for elevated INR Stable heart rate and blood pressure Physical therapy in progress On Lipitor 20 mg daily,Colchicine 0.6 mg daily, Lasix 40 mg daily,Imdur ER 30 mg daily,Cozaar 25 mg daily, Toprol XL 50 mg BID, coumadin 2.5 mg daily Continue current treatment Continue current medications Will follow up Plan and treatment discussed with
[2017-10-10 07:46] LABS: INR 3.13; PROTHROMBIN TIME 36.9 SECONDS (9.4-12.5)
[2017-10-10] MEDS: Metoprolol Succinate 50 mg XL Tab PO SCH ×2 (08:33→17:20)
--- NOTE | 2017-10-10 16:57 | PN ---
Copied To: Leonila Jennings MD Attending MD: Leonila Jennings MD DATE: 10/10/2017 SUBJECTIVE: The patient is 82 years old, seen and examined, lying in bed. Seems to be comfortable. Eating and tolerating. No nausea or vomiting. No diarrhea. No dizziness today. PHYSICAL EXAMINATION: VITAL SIGNS: He is afebrile, pulse 73, respirations 19, blood pressure 100/61. LUNGS: Bilateral fair airflow. No rhonchi or crackle. HEART: S1 and S2 audible. ABDOMEN: Soft. Nontender. No rebound. No guarding. NEUROLOGICAL: He is awake, alert, oriented, communicative. LABORATORY EXAM: His PT 36.9, INR 3.13. Chemistries: His blood sugar is 113. ASSESSMENT: 1. Status post congestive heart failure exacerbation. 2. Coronary artery disease, status post pacemaker defibrillator placement. 3. Hypertension. 4. Swk-wqklnlf-fjphbencg diabetes. 5. Chronic atrial fibrillation. 6. History of constipation. PLAN: I will make the patient's Bentyl p.r.n. I will continue on Colace, colchicine. No Coumadin today, we will start from tomorrow 2 mg daily. Leonila Jennings MD
[2017-10-10 21:06] LABS: PH,URINE 5.5 (4.7-8.0); URINE BILIRUBIN NEGATIVE (NEGATIVE); URINE BLOOD LARGE (NEGATIVE); URINE GLUCOSE (UA) NEGATIVE (NEGATIVE); URINE LEUKOCYTE ESTERASE NEGATIVE Leu/uL (NEGATIVE); URINE PROTEIN NEGATIVE mg/dL (<30 mg/dL); URINE UROBILINOGEN 0.2 E.U./dL (<1 E.U./dL)
[2017-10-10 21:10] LABS: URINE APPEARANCE CLEAR (CLEAR); URINE COLOR YELLOW (YELLOW)
[2017-10-10 22:07] LABS: URINE BACTERIA MANY (NEG); URINE EPITHELIAL CELLS 0 - 2 /hpf (0-5); URINE WBC 0 - 2 /hpf (0-6)
--- NOTE | 2017-10-11 08:00 | CP.PCM.PN ---
Subjective - Date & Time of Evaluation Date of Evaluation: 10/11/17 Time of Evaluation: 06:35 - Subjective Subjective: awake,alert, no distress,claimed to be disoriented to place last night Reason for consultation and follow up: Continuity of care in TCU ,shortness of breath, exacerbation of congestive heart failure,history of coronary artery disease post CABG in 2007, CHF gouty arthritis,AICD, chronic atrial fibrillation on Coumadin,diabetes mellitus, hyperlipidemia. Seen and examined by me and Objective - Vital Signs/Intake and Output Vital Signs (last 24 hours): Temp Pulse Resp BP Pulse Ox 98.1 F 70 19 134/72 98 10/10/17 12:00 10/10/17 17:20 10/10/17 09:07 10/11/17 05:59 10/09/17 16:54 - Medications Medications: Current Medications Atorvastatin Calcium (Lipitor) 20 mg PO DIN CHERYL PRN Reason: Protocol Last Admin: 10/10/17 17:20 Dose: 20 mg Colchicine (Colocrys) 0.6 mg PO DAILY CHERYL PRN Reason: Protocol Last Admin: 10/10/17 09:33 Dose: 0.6 mg Dicyclomine HCl (Bentyl) 10 mg PO TID PRN PRN Reason: Pain, moderate (4-7) Docusate Sodium (Colace) 200 mg PO DAILY [facility] Last Admin: 10/10/17 09:33 Dose: 200 mg Furosemide (Lasix) 40 mg PO 0600 CHERYL PRN Reason: Protocol Last Admin: 10/11/17 05:59 Dose: 40 mg Guaifenesin/Dextromethorphan (Robitussin Dm) 5 ml PO Q4H PRN PRN Reason: Cough Last Admin: 10/08/17 10:48 Dose: 5 ml Isosorbide Mononitrate (Imdur Er) 30 mg PO 0600 CHERYL PRN Reason: Protocol Last Admin: 10/11/17 06:00 Dose: 30 mg Losartan Potassium (Cozaar) 25 mg PO DIN CHERYL PRN Reason: Protocol Last Admin: 10/10/17 17:19 Dose: 25 mg Metoprolol Succinate (Toprol Xl) 50 mg PO 0800,1800 CHERYL PRN Reason: Protocol Last Admin: 10/10/17 17:20 Dose: 50 mg Sitagliptin Phosphate (Januvia) 25 mg PO DAILY CHERYL PRN Reason: Protocol Last Admin: 10/10/17 09:32 Dose: 25 mg Warfarin Sodium (Coumadin) 2.5 mg PO 1800 CHERYL PRN Reason: Protocol Last Admin: 10/10/17 17:19 Dose: 2.5 mg - Labs Labs: 10/09/17 07:00 10/09/17 07:00 PT 36.9 SECONDS (9.4-12.5) H 10/10/17 07:00 INR 3.13 10/10/17 07:00 - Constitutional Appears: No Acute Distress - Eye Exam Eye Exam: Normal appearance - ENT Exam ENT Exam: Mucous Membranes Moist - Respiratory Exam Respiratory Exam: Decreased Breath Sounds, Clear to Ausculation Bilateral, NORMAL BREATHING PATTERN - Cardiovascular Exam Cardiovascular Exam: +S1, +S2 Additional comments: AICD - GI/Abdominal Exam GI & Abdominal Exam: Soft, Normal Bowel Sounds - Extremities Exam Extremities Exam: Normal Capillary Refill Additional comments: trace edema - Back Exam Back Exam: absent: paraspinal tenderness - Neurological Exam Neurological Exam: Alert, Awake, Oriented x3 - Psychiatric Exam Psychiatric exam: Normal Affect, Normal Mood - Skin Skin Exam: Intact, Warm Assessment and Plan - Assessment and Plan (Free Text) Assessment: An 82 year old male, [place] who was brought to the ER by daughter due to shortness of breath. Patient woke up with difficulty breathing ("gasping for air ). He was just recently seen by PMD due to constipation. He was prescribed Linzess. He took it and caused diarrhea. He claimed to have total 7 bowel movements in a day. He felt weak and went to sleep and when he woke up he experienced shortness of breath. Denies chest pain. History of hypertension, former smoker,coronary artery disease post CABG in 2007, CHF gouty arthritis, AICD, chronic atrial fibrillation on Coumadin,diabetes mellitus, hyperlipidemia. Recently at [facility] (07/28/17) due to elevated INR with left conjunctival hemorrhage, treated and discharged. Exacerbation of congestive heart failure. ECHO done Left ventricle normal size, LVEF 20-25%, Right ventricle is moderate to severely dilated, moderately reduced systolic function , Moderate AR/MR/TR, moderate pulmonary hypertension, no pericardial effusion.Transferred to TCU for reconditioning.Physical therapy in progress.Dizziness- Orthostatic vital signs normal.periods of disorientation to place. Mild shortness of breath especially walking,Chest xray done yesterday- bilateral small pleural effusion, more on left side, unchanged compared to Chest X ray, extra Lasix given with relief. 05/31/16- Cardiac cath for NSTEMI,Triple vessel disease- Patent PIÑA to LAD, Patent SVG to RCA, Patent left radial sequential to OM 1 and OM2 Severely decreased LVEF 20-25%, At that time, optimal medical treatment-IV Primacor and aggresive diurese. 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 Ruano
[2017-10-11] MEDS: Metoprolol Succinate 50 mg XL Tab PO SCH ×2 (08:02→17:47)
--- NOTE | 2017-10-11 17:37 | PN ---
Copied To: Leonila Jennings MD Attending MD: Leonila Jennings MD DATE: 10/11/2017 SUBJECTIVE: The patient is 82 years old, seen and examined, gets somewhat confused in the evening, was given Risperdal, this morning seems to be doing okay. No nausea or vomiting. No diarrhea. PHYSICAL EXAMINATION: VITAL SIGNS: He is afebrile, pulse 46, respiration 18, blood pressure 100/53. LUNGS: Bilateral good airflow. No rhonchi or crackle. HEART: S1 and S2 audible. ABDOMEN: Soft, nontender. No rebound, no guarding. NEUROLOGICAL: He is awake, alert, oriented, communicative. Moves all extremities. LABORATORY EXAMINATION: His PT is 36.9, INR 3.13. Chemistry: Blood sugar is 99. ASSESSMENT: 1. Status post congestive heart failure exacerbation. 2. Abdominal pain that has subsided. 3. History of gout. 4. Coronary artery disease status post defibrillator placement. 5. Ischemic cardiomyopathy. PLAN: We will order for CBC, CMP, PT/INR in a.m. and if the patient remains stable, discharge is planned for the morning. Leonila Jennings MD
--- NOTE | 2017-10-12 06:53 | CP.PCM.PN ---
Subjective - Date & Time of Evaluation Date of Evaluation: 10/12/17 Time of Evaluation: 06:35 - Subjective Subjective: lying in bed,awake,no distress Reason for consultation and follow up: Continuity of care in TCU ,shortness of breath, exacerbation of congestive heart failure,history of coronary artery disease post CABG in 2007, CHF gouty arthritis,AICD, chronic atrial fibrillation on Coumadin,diabetes mellitus, hyperlipidemia. Seen and examined by me and Objective - Vital Signs/Intake and Output Vital Signs (last 24 hours): Temp Pulse Resp BP Pulse Ox 98.1 F 46 L 19 123/71 100 10/10/17 12:00 10/11/17 11:45 10/10/17 09:07 10/11/17 17:47 10/11/17 11:45 - Medications Medications: Current Medications Atorvastatin Calcium (Lipitor) 20 mg PO DIN CHERYL PRN Reason: Protocol Last Admin: 10/11/17 17:47 Dose: 20 mg Colchicine (Colocrys) 0.6 mg PO DAILY CHERYL PRN Reason: Protocol Last Admin: 10/11/17 10:53 Dose: 0.6 mg Dicyclomine HCl (Bentyl) 10 mg PO TID PRN PRN Reason: Pain, moderate (4-7) Last Admin: 10/11/17 21:30 Dose: 10 mg Docusate Sodium (Colace) 200 mg PO DAILY CHERYL Last Admin: 10/11/17 10:52 Dose: 200 mg Furosemide (Lasix) 40 mg PO 0800,1400 CHERYL PRN Reason: Protocol Guaifenesin/Dextromethorphan (Robitussin Dm) 5 ml PO Q4H PRN PRN Reason: Cough Last Admin: 10/08/17 10:48 Dose: 5 ml Isosorbide Mononitrate (Imdur Er) 30 mg PO 0600 CHERYL PRN Reason: Protocol Last Admin: 10/12/17 05:47 Dose: 30 mg Losartan Potassium (Cozaar) 25 mg PO DIN CHERYL PRN Reason: Protocol Last Admin: 10/11/17 17:46 Dose: 25 mg Metoprolol Succinate (Toprol Xl) 50 mg PO 0800,1800 CHERYL PRN Reason: Protocol Last Admin: 10/11/17 17:47 Dose: 50 mg Risperidone (Risperdal Tab) 0.25 mg PO HS CHERYL PRN Reason: Protocol Last Admin: 10/11/17 21:30 Dose: 0.25 mg Sitagliptin Phosphate (Januvia) 25 mg PO DAILY CHERYL PRN Reason: Protocol Last Admin: 10/11/17 10:52 Dose: 25 mg Warfarin Sodium (Coumadin) 2 mg PO 1800 CHERYL PRN Reason: Protocol Last Admin: 10/11/17 17:47 Dose: 2 mg - Labs Labs: 10/09/17 07:00 10/09/17 07:00 PT 36.9 SECONDS (9.4-12.5) H 10/10/17 07:00 INR 3.13 10/10/17 07:00 - Constitutional Appears: No Acute Distress - Eye Exam Eye Exam: Normal appearance - ENT Exam ENT Exam: Mucous Membranes Moist - Respiratory Exam Respiratory Exam: Decreased Breath Sounds, NORMAL BREATHING PATTERN Additional comments: nasal cannula - Cardiovascular Exam Additional comments: AICD - GI/Abdominal Exam GI & Abdominal Exam: Soft, Normal Bowel Sounds - Neurological Exam Neurological Exam: Alert, Awake, Oriented x3 - Psychiatric Exam Psychiatric exam: Normal Affect - Skin Skin Exam: Warm Assessment and Plan - Assessment and Plan (Free Text) Assessment: An 82 year old male, [place] who was brought to the ER by daughter due to shortness of breath. Patient woke up with difficulty breathing ("gasping for air ). He was just recently seen by PMD due to constipation. He was prescribed Linzess. He took it and caused diarrhea. He claimed to have total 7 bowel movements in a day. He felt weak and went to sleep and when he woke up he experienced shortness of breath. Denies chest pain. History of hypertension, former smoker,coronary artery disease post CABG in 2007, CHF gouty arthritis, AICD, chronic atrial fibrillation on Coumadin,diabetes mellitus, hyperlipidemia. Recently at [facility] (07/28/17) due to elevated INR with left conjunctival hemorrhage, treated and discharged. Exacerbation of congestive heart failure. ECHO done Left ventricle normal size, LVEF 20-25%, Right ventricle is moderate to severely dilated, moderately reduced systolic function , Moderate AR/MR/TR, moderate pulmonary hypertension, no pericardial effusion.Transferred to TCU for reconditioning.Physical therapy in progress.Dizziness- Orthostatic vital signs normal.periods of disorientation to place. Mild shortness of breath especially walking,Chest xray done yesterday- bilateral small pleural effusion, more on left side, unchanged compared to Chest X ray, extra Lasix given with relief. 05/31/16- Cardiac cath for NSTEMI,Triple vessel disease- Patent PIÑA to LAD, Patent SVG to RCA, Patent left radial sequential to OM 1 and OM2 Severely decreased LVEF 20-25%, At that time, optimal medical treatment-IV Primacor and aggresive diurese. Plan: No distress in bed Fall precaution INR pending Stable heart rate and blood pressure Physical therapy in progress On Lipitor 20 mg daily,Colchicine 0.6 mg daily, Lasix 40 mg daily,Imdur ER 30 mg daily,Cozaar 25 mg daily, Toprol XL 50 mg BID, Coumadin 2.5 mg daily Continue current treatment Continue current medications Discharge planning Will follow up Plan and treatment discussed with Dr. Ruano
[2017-10-12 07:11] LABS: BASO # 0.03 K/mm3 (0.0-2.0); BASO % 0.7 % (0.0-3.0); EOS # 0.1 (0.0-0.7); EOS % 1.1 % (1.5-5.0); GRAN # 2.82 (1.4-6.5); GRAN % 64.6 % (50.0-68.0); HEMOGLOBIN 11.3 g/dL (14.0-18.0); LYMPH # 0.9 (1.2-3.4); LYMPH % 21.5 % (22.0-35.0); MEAN CELL VOLUME 94.5 fl (80.0-105.0); MEAN CORPUSCULAR HEMOGLOBIN 34.5 pg (25.0-35.0); MEAN CORPUSCULAR HGB CONC 36.5 g/dl (31.0-37.0); MEAN PLATELET VOLUME 10.7 fl (7.0-11.0); MONO # 0.5 (0.1-0.6); MONO % 12.1 % (1.0-6.0); RBC 3.28 10^6/uL (3.5-6.1); WHITE BLOOD COUNT 4.4 10^3/ul (4.5-11.0)
[2017-10-12 07:15] LABS: INR 1.89
[2017-10-12 07:26] LABS: CALCIUM 8.9 mg/dL (8.4-10.5)
[2017-10-12] MEDS: Metoprolol Succinate 50 mg XL Tab PO SCH ×2 (07:56→17:26)
[2017-10-12 10:18] VITALS: RESP 16
--- NOTE | 2017-10-12 16:25 | CON ---
Copied To: Tremayne Black MD Attending MD: Tremayne Black MD DATE: 10/12/2017 NEUROLOGY CONSULTATION CHIEF COMPLAINT: Altered mental status, change of mentation. HISTORY OF PRESENT ILLNESS: This is an 82-year-old Samoan man with past medical history of hypertension, former smoker, coronary artery disease, status post CABG in 2007, CHF, gouty arthritis, dilated ischemic cardiomyopathy with AICD, arthritis, chronic atrial fibrillation, on Coumadin, type 2 diabetes mellitus, hyperlipidemia, who was admitted initially for CHF exacerbation with LVEF of 20% to 35% and is on optimal medical treatment with IV Primacor and aggressive diuresis and is currently in TCU for rehabilitation and reconditioning. He has episodes of disorientation. The patient is seeing people who are not there, which is in a state of delirium from his underlying chronic medical conditions, otherwise no focal weakness of the extremities. He has bilateral lower extremity swelling. Decreased breath sounds on auscultation. PAST MEDICAL HISTORY: As above. SOCIAL HISTORY: No illicit drug use, smoking or EtOH abuse. He was a former smoker. FAMILY HISTORY: Noncontributory. MEDICATIONS: Reviewed by nurses' reconciliation sheet. REVIEW OF SYSTEMS: A 14-point review of systems is negative except in the HPI. ALLERGIES: TO ASPIRIN, LATEX, NATURAL RUBBER AND PENICILLIN V. LABORATORY DATA: Sodium is 132, potassium 5.1, chloride 97, carbon dioxide of 21, BUN of 67, creatinine 2.5. Random glucose of 108. PHYSICAL EXAMINATION: GENERAL: Patient is sitting up in bed, in no acute distress. VITAL SIGNS: Temperature 97.4, pulse rate 71, blood pressure 136/66, respiratory rate 18, oxygen saturation 95% on 2 liters of nasal cannula. HEENT: Atraumatic, normocephalic. PERRLA. Extraocular muscles intact. NECK: Supple. No JVD. No adenopathy noted. LUNGS: Clear to auscultation. No adventitious sounds. HEART: S1, S2. Regular rate and rhythm. No murmurs, rubs or gallops. ABDOMEN: Soft, nontender and nondistended. Bowel sounds are present. EXTREMITIES: No clubbing. No cyanosis. Peripheral pulses are 2+ felt bilaterally. He has bilateral lower extremity swelling and 1+ pedal edema. NEUROLOGIC: The patient is alert and oriented to person and place, not much of month and year. Recall after 5 minutes is 0/3. Poor attention span and slow thought process. Mild hallucinations. Cranial nerves II through XII intact. Motor: Moves all extremities equally. Mildly deconditioned. Sensory: Decreased light touch and pinprick up to the calves bilaterally. Decreased vibration of the toes. DTRs are 2+ throughout and absent at the knees and ankles. Coordination: [id number] intact. No dysmetria noted. Gait is deferred for now. ASSESSMENT AND PLAN: This is an 82-year-old Samoan man with congestive heart failure, dilated cardiomyopathy, coronary artery disease, status post coronary artery bypass graft in 2007, chronic atrial fibrillation on Coumadin, type 2 diabetes mellitus, hypertension, former smoker, hyperlipidemia, who was seen on the medical side for congestive heart failure exacerbation and is currently in Transitional Care Unit for reconditioning and has impaired mentation and mild hallucination. At this time, he has acute delirium on chronic cognitive impairment from underlying chronic medical conditions. At this time recommend; 1. Keep his blood pressure between 120s to 140s systolic and diastolic 70s to 80s. 2. Continue with physical therapy for deconditioning state. 3. Delirium precautions. 4. Frequent orientation throughout the day. 5. Avoid any sedative medications. 6. Monitor electrolytes and correct accordingly. 7. P.r.n. risperidone for hallucinations and consider psychiatric evaluation. Once again, thank you for this consult. Tremayne Black MD
[2017-10-12 16:32] VITALS: BP 135/70; PULSE 74; TEMP 97.1; O2SAT 98
--- NOTE | 2017-10-13 02:50 | CON ---
Copied To: Sherrill Prasad MD Attending MD: Sherrill Prasad MD DATE: 10/12/2017 HISTORY OF PRESENT ILLNESS: Shortly, the patient is an 82-year-old [place] male with multiple medical issues including congestive heart failure, dilated cardiomyopathy, coronary artery disease. The patient also had coronary artery bypass graft in 2007, chronic atrial fibrillation, the patient is on Coumadin. The patient also has diabetes, hypertension, history of smoking, hyperlipidemia. The patient was admitted on the medical site for congestive heart failure exacerbation. The patient was medically stable, was transferred to Transitional Care Unit. The patient became confused, has visual hallucinations. Psych consult was called. The patient was seen and examined today. The patient presented to be alert and oriented in self, time and place as well as circumstances of his admission to the medical site. The patient said that he had hallucinations overnight. The patient clearly said that most likely it was a dream. The patient said like he saw a big snake. The patient said that he cannot exclude that maybe it was a dream. The patient reported that he feels very depressed because of the medical issues. The patient has history of seeing therapist and psychiatrist, but it was many years ago. The patient reported at times he feels hopeless, but denied any thoughts of harming himself or others. Patient's primary care physician, Dr. Jennings gave this news writer a call, said that family is very concerned about the patient's safety. He was feeling very irritable, recently depressed. As per the patient, he pointed his daughter to be his power of disability attorney, but there is no legal papers in the chart. The patient's daughter, Pili Chamberlain was contacted by [employer]. The patient signed power of disability attorney documents today in the hospital. The patient had capacity to do so. The patient said after medically I am not feeling well, she is helping me, I am appointing her to be my advisor with the medications and treatment. The patient's daughter signed consent for treatment to the Psychiatric Inpatient Unit as well and treatment plan was discussed in details with primary care physician as well as family. The patient's family was in agreement with the treatment plan. Vital signs reviewed. Temperature 97.1, pulse is 74, blood pressure 135/70, respirations 16, oxygen saturation is 98. Medications reviewed. The patient is on Lipitor, CoQ10, Colace, Lasix, Robitussin, Imdur, Cozaar, metoprolol, Risperdal 0.25 mg twice a day, but we will increase the dose to 0.25 twice a day and 0.5 at the nighttime, p.r.n. medications will be given, Coumadin 2 mg will be continued. This news writer contacted Dr. Jennings. The patient will be seen by Dr. Jennings on the Psychiatric Inpatient Unit, one to one also will be initiated as well as Physical Therapy will see the patient. Reports reviewed. MENTAL STATUS EXAMINATION: The patient presented to be alert, oriented in self, time and place. The patient knows the circumstances of his admission to the medical site. Mood described as depressed and hopeless. Affect was tearful. Thought process seems to be coherent and goal directed, but as per medical team the patient has episodes of confusion. Insight and judgment seems to be limited but hopefully to be improving. Impulses are unpredictable. IMPRESSION: Rule out mood disorder due to general medical condition as per Neurology team, most likely the patient has underlying neurocognitive problems due to chronic medical issues as well as they cannot exclude underlying dementia, rule out delirium. PLAN: The patient appointed his daughter as a power of disability attorney, legal documents were signed today. The patient had capacity to do so. The patient's daughter signed consent for psychiatric admission. Medications will be continued as of now, but Risperdal will be increased to 0.5 mg at the nighttime and 0.25 mg twice a day. Physical Therapy will see the patient as well as the patient will be on one to one because risk of falls as well as restless behavior. Dr. Mirza will continue seeing the patient in the Psychiatric Inpatient Unit, p.r.n. orders are given to the nursing staff. Thank you very much for letting me participate in care of your patient. Should you have any questions, give me a call back. Sherrill Prasad MD
== END 2017-10-12 21:30 | disposition short-term general hospital (02) | DRG 292 ==
LOC: TRCU 15:35
PROVIDERS: ADMIT Internal Medicine; ATTEND Internal Medicine
PROC: F07Z9FZ Gait Training/Functional Ambulation Treatment using Assistive, Adaptive, Supportive or Protective Equipment (ICD-10-PCS; principal; 2017-10-04)
PROC: F07M6ZZ Therapeutic Exercise Treatment of Musculoskeletal System - Whole Body (ICD-10-PCS; 2017-10-04)
DX: I13.0 Hypertensive heart and chronic kidney disease with heart failure and stage 1 through stage 4 chronic kidney disease, or unspecified chronic kidney disease (principal); J44.1 Chronic obstructive pulmonary disease with (acute) exacerbation; I50.9 Heart failure, unspecified; I48.2 Chronic atrial fibrillation; I42.0 Dilated cardiomyopathy; I25.5 Ischemic cardiomyopathy; I27.20 Pulmonary hypertension, unspecified; I25.2 Old myocardial infarction; I25.10 Atherosclerotic heart disease of native coronary artery without angina pectoris; K59.00 Constipation, unspecified; E11.22 Type 2 diabetes mellitus with diabetic chronic kidney disease; E78.00 Pure hypercholesterolemia, unspecified; E78.5 Hyperlipidemia, unspecified; F22 Delusional disorders; H40.9 Unspecified glaucoma; K21.9 Gastro-esophageal reflux disease without esophagitis; K52.9 Noninfective gastroenteritis and colitis, unspecified; N18.9 Chronic kidney disease, unspecified; N40.0 Benign prostatic hyperplasia without lower urinary tract symptoms; Z79.01 Long term (current) use of anticoagulants; Z79.4 Long term (current) use of insulin; Z79.899 Other long term (current) drug therapy; Z87.01 Personal history of pneumonia (recurrent); Z87.891 Personal history of nicotine dependence; Z95.1 Presence of aortocoronary bypass graft; Z95.810 Presence of automatic (implantable) cardiac defibrillator

== ENCOUNTER 2017-10-12 21:30 | Inpatient (IN) | payer MEDICARE, OTHER ==
[2017-10-12 21:30] VITALS: PULSE 68; BMI 28.5
[2017-10-12] MEDS ORDERED: guaiFENesin DM 100 mg-10 mg/5 ml UD PO PRN (22:26)
[2017-10-12] MEDS ORDERED: Alum-Mag Hydrox-Simethicone Susp (30 mL) PO PRN (22:27)
[2017-10-12] MEDS ORDERED: Magnesium Hydroxide Susp 30 ml UD PO PRN (22:27)
--- NOTE | 2017-10-12 22:50 | ED PDOC ---
Arrival/HPI - General Chief Complaint: Psychiatric Evaluation Time Seen by Provider: 10/12/17 21:31 Historian: Patient - History of Present Illness Narrative History of Present Illness (Text): 10/12/17 21:57 82 year old male, with past medical history of coronary artery disease post CABG in 2007, CHF gouty arthritis, AICD, chronic atrial fibrillation on Coumadin , diabetes mellitus, and hyperlipidemia, presents to the Emergency department from TCU for psychiatric admission today. Patient reportedly presented intermittent episodes of confusion during his stay at TCU prompting him to present to the Emergency department for medical evaluation. Upon arrival to the Emergency department, patient states feeling fine and is alert and oriented. Patient denies any somatic complaints. Patient denies any fevers, chills, headache, dizziness, chest pain, shortness of breath, dyspnea on exertion, cough , abdominal pain, nausea, vomiting, diarrhea, back pain, neck pain, or any other complaints. PMD: Dr. Jennings Time/Duration: Prior to Arrival Symptom Onset: Gradual Symptom Course: Improving Activities at Onset: Light Context: Other (TCU) Past Medical History - Provider Review Nursing Documentation Reviewed: Yes - Infectious Disease Hx of Infectious Diseases: None - Tetanus Immunization Tetanus Immunization: Unknown - Cardiac Hx Cardiac Disorders: Yes Hx Congestive Heart Failure: Yes Hx Hypertension: Yes - Pulmonary Hx Pneumonia: Yes - Neurological Hx Neurological Disorder: (DENIES HISTORY) - HEENT Hx HEENT Disorder: Yes Hx Cataracts: Yes (Left) Hx Glaucoma: Yes (Right) - Renal Hx Renal Disorder: Yes - Endocrine/Metabolic Hx Diabetes Mellitus Type 1: Yes - Hematological/Oncological Hx Blood Disorders: Yes - Integumentary Hx Dermatological Disorder: (DENIES HISTORY) - Musculoskeletal/Rheumatological Hx Falls: Yes - Gastrointestinal Hx Gastrointestinal Disorders: Yes (constipation then diarrhea,blood in stool, gastroenteritis,gerd,cholecystect) - Genitourinary/Gynecological Hx Genitourinary Disorders: No Hx Reproductive Disorders: Yes (bph) - Psychiatric Hx Psychophysiologic Disorder: No Hx Substance Use: No - Surgical History Hx Open Heart Surgery: Yes - Anesthesia Hx Anesthesia Reactions: Yes Hx Malignant Hyperthermia: No - Suicidal Assessment Feels Threatened In Home Enviroment: No Family/Social History - Physician Review Nursing Documentation Reviewed: Yes Family/Social History: No Known Family HX Smoking Status: Former Smoker Hx Alcohol Use: No Hx Substance Use: No Hx Substance Use Treatment: No Allergies/Home Meds Allergies/Adverse Reactions: Allergies aspirin Allergy (Verified 10/04/17 20:59) RASH Latex, Natural Rubber Allergy (Verified 10/04/17 20:59) RASH Penicillins Allergy (Verified 10/12/17 21:51) ANAPHYLAXIS Home Medications: Home Meds Medication Instructions Recorded Confirmed Atorvastatin [Lipitor] 20 mg PO DAILY 05/18/16 10/12/17 Colchicine [Colcrys] 0.6 mg PO DAILY 05/18/16 10/12/17 Docusate Sodium [Col-Rite] 100 mg PO DAILY 05/18/16 10/12/17 Isosorbide Mononitrate ER [Imdur 30 mg PO DAILY 05/18/16 10/12/17 ER] Losartan [Cozaar] 25 mg PO DIN 05/18/16 10/12/17 Metoprolol Succinate [Metoprolol 50 mg PO BID 09/05/16 10/12/17 Succinate] Multivitamin/Iron/Folic Acid 1 tab PO DAILY 04/20/17 10/12/17 [Centrum Adults Tablet] Review of Systems - Physician Review All systems were reviewed & negative as marked: Yes - Review of Systems Constitutional: absent: Fevers Respiratory: absent: SOB, Cough Cardiovascular: absent: Chest Pain, LONG Gastrointestinal: absent: Abdominal Pain, Diarrhea, Nausea, Vomiting Musculoskeletal: absent: Back Pain, Neck Pain Neurological: absent: Headache, Dizziness Physical Exam Vital Signs Reviewed: Yes Vital Signs Temp Pulse Resp BP Pulse Ox 10/13/17 00:45 97.8 F 71 18 135/71 97 10/12/17 21:52 97.9 F 72 18 126/66 99 Temperature: Afebrile Blood Pressure: Normal Pulse: Regular Respiratory Rate: Normal Appearance: Positive for: Well-Appearing, Non-Toxic, Comfortable Pain Distress: None Mental Status: Positive for: Alert and Oriented X 3 - Systems Exam Head: Present: Atraumatic, Normocephalic Pupils: Present: PERRL Extroacular Muscles: Present: EOMI Conjunctiva: Present: Normal Mouth: Present: Moist Mucous Membranes Neck: Present: Normal Range of Motion Respiratory/Chest: Present: Clear to Auscultation, Good Air Exchange. No: Respiratory Distress, Accessory Muscle Use Cardiovascular: Present: Regular Rate and Rhythm, Normal S1, S2. No: Murmurs Abdomen: No: Tenderness, Distention, Peritoneal Signs Back: Present: Normal Inspection Upper Extremity: Present: Normal Inspection. No: Cyanosis, Edema Lower Extremity: Present: Normal Inspection. No: Edema Neurological: Present: GCS=15, CN II-XII Intact, Speech Normal Skin: Present: Warm, Dry, Normal Color. No: Rashes Psychiatric: Present: Alert, Oriented x 3, Normal Insight, Normal Concentration Medical Decision Making ED Course and Treatment: 10/12/17 21:57 Impression: 82 year old male presents to the Emergency department for evaluation of intermittent episodes of confusion. Plan: -- CT of Head -- Reassess and disposition Prior Visits: Notes and results from previous visits were reviewed. Progress Notes: 10/12/17 22:50 CT of head reviewed by radiologist, shows: IMPRESSION: 1. 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 2. Chronic ischemic changes bilaterally. 10/12/17 22:[address] Jennings, who is aware and agrees with Emergency department management plan to admit patient under Dr. Prasad for psychiatric evaluation. Dr. Prasad agrees with admission. - RAD Interpretation Radiology Orders: 10/12/17 21:57 HEAD W/O CONTRAST [CT] Stat Ship Engineer: Radiologist - Medication Orders Current Medication Orders: Acetaminophen (Tylenol 325mg Tab) 650 mg PO Q4H PRN PRN Reason: Pain, Mild (1-3) Al Hydrox/Mg Hydrox/Simethicone (Maalox Plus 30 Ml) 30 ml PO DAILY PRN PRN Reason: Upset Stomach Alprazolam (Xanax) 0.25 mg PO BID PRN; Protocol PRN Reason: Anxiety Stop: 10/19/17 22:30 Atorvastatin Calcium (Lipitor) 20 mg PO DAILY CHERYL Colchicine (Colocrys) 0.6 mg PO DAILY CHERYL Docusate Sodium (Colace) 100 mg PO DAILY CHERYL Furosemide (Lasix) 40 mg PO 0800,1400 CHERYL Guaifenesin/Dextromethorphan (Robitussin Dm) 5 ml PO Q4H PRN PRN Reason: Cough Isosorbide Mononitrate (Imdur Er) 30 mg PO DAILY CHERYL Losartan Potassium (Cozaar) 25 mg PO DIN CHERYL Magnesium Hydroxide (Milk Of Magnesia) 30 ml PO DAILY PRN PRN Reason: Constipation Metoprolol Succinate (Toprol Xl) 50 mg PO BID CHERYL Risperidone (Risperdal Tab) 0.5 mg PO HS CHERYL PRN Reason: Protocol Sitagliptin Phosphate (Januvia) 25 mg PO DAILY CHERYL Warfarin Sodium (Coumadin) 2 mg PO 1800 CHERYL PRN Reason: Protocol Ziprasidone (Geodon Inj) 10 mg IM Q8H PRN; Protocol PRN Reason: Agitation - Scribe Statement The provider has reviewed the documentation as recorded by the Parvizibnew Malone. All medical record entries made by the Parvizibnew were at my direction and personally dictated by me. I have reviewed the chart and agree that the record accurately reflects my personal performance of the history, physical exam, medical decision making, and the department course for this patient. I have also personally directed, reviewed, and agree with the discharge instructions and disposition. Disposition/Present on Arrival - Present on Arrival Any Indicators Present on Arrival: No History of DVT/PE: No History of Uncontrolled Diabetes: No Urinary Catheter: No History of Decub. Ulcer: No History Surgical Site Infection Following: CABG - Mediastinitis, Orthopedic Procedures - Disposition Have Diagnosis and Disposition been Completed?: Yes Diagnosis: Dementia Disposition: HOSPITALIZED Disposition Time: 22:50 Condition: FAIR
[2017-10-13 00:46] VITALS: O2SAT 97
--- NOTE | 2017-10-13 05:20 | PCM.BM ---
<Ophelia Dasilva - Last Filed: 10/13/17 05:17> Treatment Plan Problems - Problems identified on initial assessmt VISUAL HALLUCINATIONS Date Initiated: 10/13/17 Time Initiated: 05:00 Assessment reference: NA Status: Active Priority: 1 DIFFICULTY IN AMBULATION Date Initiated: 10/13/17 Time Initiated: 05:00 Assessment reference: NA Status: Active Priority: 3 ALTERED MEMORY AND ORIENTATION Date Initiated: 10/13/17 Time Initiated: 05:00 Assessment reference: NA Status: Active Priority: 2 Treatment assets and liabiliti Patient Assests: adapts well, cooperative, self-reliant, ADL independent, good support system, negotiates basic needs, good past tx response, financial stabiity, cognitively intact Patient Liabilities: medical problems - Milieu Protocol Maintain good personal hygiene: every other day Encourage regular showers, every shift Remind patient to perform daily oral care, every shift Assist patient to perform ADL's Maintain personal safety: every shift Educate patient to report safety concerns to staff, every shift Monitor environment for contraband/sharps Medication safety: Monitor for expected outcome, potential side effects: every shift, Assess barriers to learning: every shift, Assess readiness for medication education: every shift Family Contact Family involvement: Family/SO is involved Family contact: Patient agrees to contact Discharge/Continuing Care - Education Needs Education Needs: Patient Medication, Patient Diagnosis/Disease Process, Patient Coping Skills, Patient Placement options, Patient Activities of Daily Living, Patient Health Practices/Safety - Discharge Discharge Criteria: Tolerates medication w/o severe side effects, Free of paranoid thoughts, Normal sleep pattern, Ability to care for self <Arnol Mirza - Last Filed: 10/13/17 12:20> - Diagnosis (1) Mood altered Status: Acute Interventions: xanax 0.25 mg po bid prn: anxiety * risperdal 0.5 mg po HS for history of hallucinations * consider initiating antidepressant if patient continues to c/o depression * Awaiting medical f/u 10/13/17 12:20 (2) Hallucination Status: Acute Interventions: xanax 0.25 mg po bid prn: anxiety * risperdal 0.5 mg po HS for history of hallucinations * consider initiating antidepressant if patient continues to c/o depression * Awaiting medical f/u 10/13/17 12:20 (3) Dementia Status: Acute Interventions: xanax 0.25 mg po bid prn: anxiety * risperdal 0.5 mg po HS for history of hallucinations * consider initiating antidepressant if patient continues to c/o depression * Awaiting medical f/u 10/13/17 12:20
--- NOTE | 2017-10-13 08:41 | CT ---
Date of service: 10/12/2017 PROCEDURE: CT HEAD WITHOUT CONTRAST. HISTORY: ams COMPARISON: Noncontrast head CT performed 04/20/17 TECHNIQUE: Axial computed tomography images were obtained through the head/brain without intravenous contrast. Radiation dose: Total exam DLP = 913.21 mGy-cm. This CT exam was performed using one or more of the following dose reduction techniques: Automated exposure control, adjustment of the mA and/or kV according to patient size, and/or use of iterative reconstruction technique. FINDINGS: HEMORRHAGE: No intracranial hemorrhage. BRAIN: Diffuse atrophy with prominence of the ventricles and sulci noted. No mass effect or edema. Dense intracranial atherosclerotic calcifications. Encephalomalacia within the right posterior cerebellum. Scattered periventricular and subcortical white matter hypodensities, which are nonspecific, but often seen with chronic microvascular ischemic disease. Please note that MRI with diffusion imaging is more sensitive in the detection of acute ischemic event. VENTRICLES: No hydrocephalus. CALVARIUM: Unremarkable. PARANASAL SINUSES: Unremarkable as visualized. No significant inflammatory changes. MASTOID AIR CELLS: Unremarkable as visualized. No inflammatory changes. OTHER FINDINGS: None. IMPRESSION: Chronic right posterior cerebellar infarction. Nonspecific white matter changes as above. Preliminary impression was provided by virtual radiologic.
[2017-10-13] MEDS: Metoprolol Succinate 50 mg XL Tab PO SCH ×2 (09:26→17:43)
--- NOTE | 2017-10-13 12:19 | PCM.PSYCH ---
Initial Psychiatric Evaluation - Initial Psychiatric Evaluation Type of Admission: Voluntary Legal Status: Capacity History of Present Illness and Precipitating Events: Patient is an 82-year-old Syrian male with no prior psychiatric hospitalizations, no history of SA, who was transferred from [facility] [place] after being evaluated by Dr. Prasad for confusion and visual hallucinations. During Dr. Prasad's consultation on 10/12/17 patient was oriented to self, location and circumstances of his medical admission. Patient reported depression, hopelessness and visual hallucinations "seeing a snake overnight" however he could not rule out that it was just a dream. Patient's primary care physician, Dr. Jennings indicated that patient's family was very concerned about his safety. Records indicate that patient signed POA documents on October 12 which appointed his daughter as POA. Daughter subsequently signed patient into the psychiatric unit. I met with patient at bedside this morning. He is fairly groomed and cooperative with my questioning. Patient's thought process and focus are a little scattered this morning in contrast to yesterday's evaluations. He provides inconsistent responses to some of my questions. Patient doesn't appear to be hallucinating and denies any AH. He does endorse VH however it is unclear if he is referring to the last night or the night prior. He is depressed but not suicidal. He seems only superficially aware of his current psychiatric circumstances. He has been in good control without any evidence of a paranoia, agitation or behavioral issues thus far PSYCHIATRIC HISTORY Patient does not appear to have any history of prior psychiatric hospitalizations. He denies any history of suicide attempts. Patient did see a psychiatrist and therapist in the past however this history is unclear at this time. SOCIAL HISTORY Patient was born in the [facility]. He is and reports that he resides with his . Patient provided since inconsistent information regarding number of children he has and lives with. His adult daughter was named as POA on 10/12/17. There is no history of drug, alcohol or tobacco use. Current Medications: Active Medications Generic Name Dose Route Start Last Admin Trade Name Freq PRN Reason Stop Dose Admin Acetaminophen 650 mg 10/12/17 22:27 Tylenol 325mg Tab PO Q4H PRN Pain, Mild (1-3) Al Hydrox/Mg Hydrox/Simethicone 30 ml 10/12/17 22:27 Maalox Plus 30 Ml PO DAILY PRN Upset Stomach Alprazolam 0.25 mg 10/12/17 22:29 Xanax PO 10/19/17 22:30 BID PRN Anxiety Protocol Atorvastatin Calcium 20 mg 10/13/17 08:00 Lipitor PO DAILY [facility] Colchicine 0.6 mg 10/13/17 08:00 Colocrys PO DAILY [facility] Docusate Sodium 100 mg 10/13/17 08:00 Colace PO DAILY [facility] Furosemide 40 mg 10/13/17 08:00 Lasix PO 0800,1400 [facility] Guaifenesin/Dextromethorphan 5 ml 10/12/17 22:26 Robitussin Dm PO Q4H PRN Cough Isosorbide Mononitrate 30 mg 10/13/17 08:00 Imdur Er PO DAILY [facility] Losartan Potassium 25 mg 10/13/17 17:00 Cozaar PO DIN [facility] Magnesium Hydroxide 30 ml 10/12/17 22:27 Milk Of Magnesia PO DAILY PRN Constipation Metoprolol Succinate 50 mg 10/13/17 08:00 Toprol Xl PO BID [facility] Risperidone 0.5 mg 10/13/17 22:00 Risperdal Tab PO HS [facility] Protocol Sitagliptin Phosphate 25 mg 10/13/17 08:00 Januvia PO DAILY [facility] Warfarin Sodium 2 mg 10/13/17 18:00 Coumadin PO 1800 [facility] Protocol Ziprasidone 10 mg 10/12/17 22:29 Geodon Inj IM Q8H PRN Agitation Protocol Past Psychiatric History - Past Psychiatric History Pertinent Medical Hx (Current Medical&Sleep Prob, Allergies): Allergies Allergy/AdvReac Type Severity Reaction Status Date / Time aspirin Allergy RASH Verified 10/04/17 20:59 Latex, Natural Rubber Allergy RASH Verified 10/04/17 20:59 Penicillins Allergy ANAPHYLAXIS Verified 10/12/17 21:51 Atorvastatin [Lipitor] 20 mg PO DAILY 05/18/16 Colchicine [Colcrys] 0.6 mg PO DAILY 05/18/16 Docusate Sodium [Col-Rite] 100 mg PO DAILY 05/18/16 Isosorbide Mononitrate ER [Imdur ER] 30 mg PO DAILY 05/18/16 Losartan [Cozaar] 25 mg PO DIN 05/18/16 Metoprolol Succinate [Metoprolol Succinate] 50 mg PO BID 09/05/16 Multivitamin/Iron/Folic Acid [Centrum Adults Tablet] 1 tab PO DAILY 04/20/17 Furosemide [Lasix] 40 mg PO 0800,1400 tab 10/12/17 Warfarin [Coumadin] 2 mg PO 1800 tab 10/12/17 DSM 5 DX - DSM 5 DSM 5 Diagnosis: 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 r/o delirium r/o dementia r/o MDD, severe with pseudodementia - Recommended/Plan of Treatment Treatment Recommendations and Plan of Treatment: * group, milieu and supportive tx * xanax 0.25 mg po bid prn: anxiety * risperdal 0.5 mg po HS for history of hallucinations * consider initiating antidepressant if patient continues to c/o depression * Awaiting medical f/u * Vitals reviewed and noted below: Selected Entries 10/13/17 10/13/17 10/13/17 07:13 09:26 09:27 Temperature 97.1 F L Pulse Rate 61 61 Respiratory 20 Rate Blood Pressure 129/74 129/74 129/64 * No new labs results thus far today - Smoking Cessation Smoking Cessation Initiated: No
--- NOTE | 2017-10-13 13:22 | CARD ---
APPROVED REPORT Date of service: 10/13/2017 EKG Measurement Heart [id number] <Conclusion> Atrial fibrillation ST & T wave abnormality c/w ischemia
--- NOTE | 2017-10-14 04:48 | CON ---
Copied To: Leonila Jennings MD Attending MD: Leonila Jennings MD DATE: 10/13/2017 HISTORY OF PRESENT ILLNESS: The patient is 82 years old, who was initially admitted with complaint of cough, congestion, shortness of breath and abdominal pain. He was diuresed, was on telemetry, transferred to TCU for rehab, over there he was given Bentyl once in a while, but while in his staying on TCU, he started to have hallucination, he was seeing things that people are visiting taking his clothes and he was forgetting things. He received physical therapy but towards end, he was not doing that well. Psychiatry was consulted as well as neurologist and it was found that he has dementia with delirium. PAST MEDICAL HISTORY: Significant for; 1. Hypertension. 2. Congestive heart failure. 3. Fle-qjjkixw-fzgqxgixu diabetes. 4. Ischemic cardiomyopathy. 5. Status post pacemaker and defibrillator placement. 6. Coronary artery disease, status post open heart surgery. 7. Chronic AFib. ALLERGIES: ALLERGIC TO ASPIRIN, LATEX, NATURAL RUBBER AND PENICILLIN. MEDICATIONS: At home, he is on Coumadin 2.5 mg daily, Januvia 50 mg daily, multivitamin. He is on metoprolol 50 mg twice a day, losartan 50 mg daily, isosorbide 30 mg daily, Lasix 20 mg daily, Uloric 40 mg daily, colchicine 0.6 daily, Lipitor 20 mg daily. SOCIAL HISTORY: He is , lives with his . Daughter lives upstairs. REVIEW OF SYSTEMS: Significant for recent hallucination and forgetfulness, intermittent abdominal pain and shortness of breath. PHYSICAL EXAMINATION: GENERAL: On examination today, he is awake and alert, seems to be doing well, able to answer question appropriately. According to the nurse, he is eating well. He was not found to be . VITAL SIGNS: He is afebrile, pulse 65, respirations 18, blood pressure 130/72. LUNGS: Bilateral fair airflow. No rhonchi or crackle. HEART: S1 and S2 audible. ABDOMEN: Soft, nontender. No rebound. No guarding. NEUROLOGICAL: Patient is awake, alert, oriented, able to communicate. LABORATORY EXAM: There is no new lab available today. ASSESSMENT: Dementia with visual hallucination and confusion at times. PLAN: I will order for PT/INR. He has been started on his Colace, colchicine, Coumadin 2 mg will be given. We will continue him on Cozaar. He will be given isosorbide, Januvia, Lasix 40 mg every 12 hours, atorvastatin and he is on Risperdal 0.5 at bedtime. We will follow up PT/INR in a.m. and will follow up patient in a.m. I will request for physical therapy evaluation also. Leonila Jennings MD
[2017-10-14 07:25] LABS: INR 3.02; PROTHROMBIN TIME 35.5 SECONDS (9.4-12.5)
[2017-10-14] MEDS: Metoprolol Succinate 50 mg XL Tab PO SCH ×2 (08:06→16:16)
--- NOTE | 2017-10-14 09:35 | PCM.PYCHPN ---
Psychiatric Progress Note - Psychiatric Progress Note Patient seen today, length of contact: 25 MIN Problems Identified/Issues Discussed: History of Present Illness and Precipitating Events: Patient is an 82-year-old [place] male with no prior psychiatric hospitalizations, no history of SA, who was transferred from [facility] [place] unit after being evaluated by Dr. Prasad for confusion and visual hallucinations. During Dr. Prasad's consultation on 10/12/17 patient was oriented to self, location and circumstances of his medical admission. Patient reported depression, hopelessness and visual hallucinations "seeing a snake overnight" however he could not rule out that it was just a dream. Patient's primary care physician, Dr. Jennings indicated that patient's family was very concerned about his safety. Records indicate that patient signed POA documents on October 12 which appointed his daughter as POA. Daughter subsequently signed patient into the psychiatric unit. I met with patient at bedside this morning. He is fairly groomed and cooperative with my questioning. Patient's thought process and focus are a little scattered this morning in contrast to yesterday's evaluations. He provides inconsistent responses to some of my questions. Patient doesn't appear to be hallucinating and denies any AH. He does endorse VH however it is unclear if he is referring to the last night or the night prior. He is depressed but not suicidal. He seems only superficially aware of his current psychiatric circumstances. He has been in good control without any evidence of a paranoia, agitation or behavioral issues thus far PSYCHIATRIC HISTORY Patient does not appear to have any history of prior psychiatric hospitalizations. He denies any history of suicide attempts. Patient did see a psychiatrist and therapist in the past however this history is unclear at this time. SOCIAL HISTORY Patient was born in the [facility]. He is and reports that he resides with his . Patient provided since inconsistent information regarding number of children he has and lives with. His adult daughter was named as POA on 10/12/17. There is no history of drug, alcohol or tobacco use. PROGRESS NOTE I met with patient at bedside this morning. He is fairly groomed and cooperative with my questioning. Patient's alertness, focus and thought process are improved. He is oriented to location, month, year and superficially to circumstances. Patient remembers having visual hallucinations prior to transfer however denies having any hallucinations on the psychiatric unit. He also denies any AH or paranoia. Patient denies anhedonia and reports hopefulness about the future. His affect is constricted and mildly flat. He has not been observed to be responding to internal stimuli on the unit and has been in good control without evidence of agitation. Staff have noted patient to be friendly, at times talkative and still confused at times.. Diagnostic Results: 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 r/o delirium r/o dementia r/o MDD, severe with pseudodementia Medication Change: No Medical Record Reviewed: Yes Mental Status Examination - Cognitive Function Orientation: Person, Place, Situation (superficially) Attention: Poor Concentration: Poor Association: Loose Fund of Knowledge: Poor - Mood Mood: Neutral - Affect Affect: Constricted, Flat - Speech Speech: Appropriate - Formal Thought Process Formal Thought Process: No Impairment (Denies any VH on the unit. ) - Suicidal Ideation Suicidal Ideation: No - Homicidal Ideation Homicidal Ideation: No Goal/Treatment Plan - Goal/Treatment Plan Progress Toward Problem(s) and Goals/Treatment Plan: * group, milieu and supportive tx * xanax 0.25 mg po bid prn: anxiety * risperdal 0.5 mg po HS for history of hallucinations * consider initiating antidepressant if patient c/o depression however patient is now denying * Appreciate f/u by Dr. Jennings on 10/13/17~ordering PT/INR as well as physical therapy evaluation. * Vitals reviewed and noted below: Selected Entries 10/13/17 10/13/17 10/13/17 07:13 09:26 16:01 Temperature 97.1 F L Pulse Rate 61 61 65 Respiratory 20 Rate Blood Pressure 129/74 129/74 130/72 10/13/17 10/13/17 17:43 17:44 Temperature Pulse Rate 65 Respiratory Rate Blood Pressure 130/72 130/72 * No new labs results thus far today
--- NOTE | 2017-10-14 22:14 | PN ---
Copied To: Leonila Jennings MD Attending MD: Leonila Jennings MD DATE: 10/14/2017 SUBJECTIVE: The patient is 82 years old, seen and examined, sitting in day room watching TV, seems to be answering appropriately. PHYSICAL EXAMINATION: VITAL SIGNS: He is afebrile, pulse 63, respirations 18, blood pressure 123/61. LUNGS: Bilateral fair airflow. No rhonchi or crackle. HEART: S1 and S2 audible, regular, rate controlled. ABDOMEN: Soft, nontender. No rebound, no guarding. NEUROLOGICAL: He is awake, alert, oriented, communicative. EXTREMITIES: Bilateral leg, no edema. LABORATORY DATA: PT is 35.5, INR 3.02. Chemistry: Blood sugar is 115. ASSESSMENT: 1. Dementia with delusion and confusion. 2. Hypertension. 3. Chronic atrial fibrillation. 4. Qpo-xqcvmsb-wyedhbaji diabetes. 5. Chronic kidney disease. 6. Deconditioning and difficulty walking. PLAN: I will give him Coumadin 1 mg today. We will follow up his PT/INR in a.m. We will encourage physical therapy. Discussed with the patient's daughter who came to my office; they are very concerned that when he get discharged, they might not be able to take care of him because mother is sick who lives with him and they live in their own places. We will continue to watch him closely. Leonila Jennings MD
[2017-10-15] MEDS: Metoprolol Succinate 50 mg XL Tab PO SCH ×2 (09:11→16:52)
[2017-10-15 09:17] LABS: PROTHROMBIN TIME 48.2 SECONDS (9.4-12.5)
[2017-10-15 09:19] LABS: INR 4.07
--- NOTE | 2017-10-15 09:55 | PCM.PYCHPN ---
Psychiatric Progress Note - Psychiatric Progress Note Patient seen today, length of contact: 25 MIN Problems Identified/Issues Discussed: History of Present Illness and Precipitating Events: Patient is an 82-year-old Montenegrin male with no prior psychiatric hospitalizations, no history of SA, who was transferred from [facility] transitional care unit after being evaluated by Dr. Prasad for confusion and visual hallucinations. During Dr. Prasad's consultation on 10/12/17 patient was oriented to self, location and circumstances of his medical admission. Patient reported depression, hopelessness and visual hallucinations "seeing a snake overnight" however he could not rule out that it was just a dream. Patient's primary care physician, Dr. Jennings indicated that patient's family was very concerned about his safety. Records indicate that patient signed POA documents on October 12 which appointed his daughter as POA. Daughter subsequently signed patient into the psychiatric unit. I met with patient at bedside this morning. He is fairly groomed and cooperative with my questioning. Patient's thought process and focus are a little scattered this morning in contrast to yesterday's evaluations. He provides inconsistent responses to some of my questions. Patient doesn't appear to be hallucinating and denies any AH. He does endorse VH however it is unclear if he is referring to the last night or the night prior. He is depressed but not suicidal. He seems only superficially aware of his current psychiatric circumstances. He has been in good control without any evidence of a paranoia, agitation or behavioral issues thus far PSYCHIATRIC HISTORY Patient does not appear to have any history of prior psychiatric hospitalizations. He denies any history of suicide attempts. Patient did see a psychiatrist and therapist in the past however this history is unclear at this time. SOCIAL HISTORY Patient was born in the [facility]. He is and reports that he resides with his . Patient provided since inconsistent information regarding number of children he has and lives with. His adult daughter was named as POA on 10/12/17. There is no history of drug, alcohol or tobacco use. PROGRESS NOTE I met with patient at bedside this morning. He is fairly groomed and cooperative with my questioning. Patient's alertness, focus and thought process show sustained improvement. He is oriented to location, month, year and superficially to circumstances though staff have noted that he can be forgetful/ confused at times. Patient remembers having visual hallucinations prior to transfer however continues to deny having any hallucinations on the psychiatric unit. This report conflicts with daughter's account that patient hallucinated 4 nuns sitting at the window wearing brown tops and black bottoms x2 days ago ( per note yesterday). Patient continues to deny AH or paranoia and hasn't been observe to be responding to internal stimuli. Patient doesn't feel depressed or anxious at this time. His affect is constricted and mildly flat. Patient denies any issues with his medications or any new discomfort or pain. been in good control without evidence of agitation. Staff have noted patient to be calm, cooperative and friendly without evidence of agitation. Diagnostic Results: r/o Mood Disorder secondary to C r/o delirium r/o dementia r/o MDD, severe with pseudodementia Medication Change: No Medical Record Reviewed: Yes Mental Status Examination - Cognitive Function Orientation: Person, Place, Situation (superficially) Attention: Poor Concentration: Poor Association: Loose Fund of Knowledge: Poor - Mood Mood: Neutral - Affect Affect: Constricted, Flat - Speech Speech: Appropriate - Formal Thought Process Formal Thought Process: No Impairment (Denies any VH on the unit. ) - Suicidal Ideation Suicidal Ideation: No - Homicidal Ideation Homicidal Ideation: No Goal/Treatment Plan - Goal/Treatment Plan Progress Toward Problem(s) and Goals/Treatment Plan: * group, milieu and supportive tx * xanax 0.25 mg po bid prn: anxiety * risperdal 0.5 mg po HS for history of hallucinations * consider initiating antidepressant if patient c/o depression however patient has been denying * Appreciate f/u by Dr. Jennings on 10/13/17~ordering PT/INR as well as physical therapy evaluation, 10/14/17~appreciate Dr. Jennings's communication with patient' s daughter. * Vitals reviewed and noted below: Selected Entries 10/14/17 10/14/17 06:58 16:18 Temperature 97.6 F Pulse Rate 59 L 63 Respiratory 20 18 Rate Blood Pressure 103/52 L 123/61 * New labs results noted below: 10/15/17 08:00 PT 48.2 H INR 4.07 H*
--- NOTE | 2017-10-16 02:02 | PN ---
Copied To: Leonila Jennings MD Attending MD: Leonila Jennings MD DATE: 10/15/2017 SUBJECTIVE: Patient is 82 years old, seen and examined, sitting in chair, watching TV, eating fair. As per nurse, no hallucination noted. Seems to be cooperative. Having intelligent conservation. PHYSICAL EXAMINATION: VITAL SIGNS: He is afebrile, pulse 67, respirations 18, blood pressure . LUNGS: Bilateral fair airflow. No rhonchi or crackle. HEART: S1 and S2 audible. ABDOMEN: Soft and nontender. No rebound. No guarding. NEUROLOGIC: He is awake, alert, oriented, communicative. LABORATORY EXAM: PT 48.2, INR 4.07. ASSESSMENT: 1. Dementia with acute delirium, seems to be improving. 2. Dnf-hloaoqj-aglzbanaq diabetes. 3. Hypertension. 4. Hyperlipidemia. 5. Coronary artery disease, status post open heart surgery in the remote past. 6. Status post pacemaker and defibrillator placement. 7. Chronic atrial fibrillation. PLAN: From medical point of view, we will hold Coumadin for now. Continue all other medications. We will follow up PT/INR intermittently. Cut down his Lasix to once a day. Monitor electrolyte and PT/INR on 10/17/2017. Leonila Jennings MD
--- NOTE | 2017-10-16 08:48 | PCM.PYCHPN ---
Psychiatric Progress Note - Psychiatric Progress Note Patient seen today, length of contact: 25 MIN Problems Identified/Issues Discussed: History of Present Illness and Precipitating Events: Patient is an 82-year-old Jamaican male with no prior psychiatric hospitalizations, no history of SA, who was transferred from [facility] transitional care unit after being evaluated by Dr. Prasad for confusion and visual hallucinations. During Dr. Prasad's consultation on 10/12/17 patient was oriented to self, location and circumstances of his medical admission. Patient reported depression, hopelessness and visual hallucinations "seeing a snake overnight" however he could not rule out that it was just a dream. Patient's primary care physician, Dr. Jennings indicated that patient's family was very concerned about his safety. Records indicate that patient signed POA documents on October 12 which appointed his daughter as POA. Daughter subsequently signed patient into the psychiatric unit. I met with patient at bedside this morning. He is fairly groomed and cooperative with my questioning. Patient's thought process and focus are a little scattered this morning in contrast to yesterday's evaluations. He provides inconsistent responses to some of my questions. Patient doesn't appear to be hallucinating and denies any AH. He does endorse VH however it is unclear if he is referring to the last night or the night prior. He is depressed but not suicidal. He seems only superficially aware of his current psychiatric circumstances. He has been in good control without any evidence of a paranoia, agitation or behavioral issues thus far PSYCHIATRIC HISTORY Patient does not appear to have any history of prior psychiatric hospitalizations. He denies any history of suicide attempts. Patient did see a psychiatrist and therapist in the past however this history is unclear at this time. SOCIAL HISTORY Patient was born in the [facility]. He is and reports that he resides with his . Patient provided since inconsistent information regarding number of children he has and lives with. His adult daughter was named as POA on 10/12/17. There is no history of drug, alcohol or tobacco use. PROGRESS NOTE I met with patient at bedside again this morning. He is fairly groomed and remains cooperative with my questioning. Patient's alertness, focus and thought process continues to demonstrate sustained improvement. He is oriented to location, month, year and superficially to circumstances. I agree with staff who noted that patient seemed less confused yesterday. Patient remembers having visual hallucinations prior to transfer however continues to deny having any hallucinations on the psychiatric unit. This report conflicts with daughter's account that patient hallucinated 4 nuns sitting at the window wearing brown tops and black bottoms x3 days ago (per SW note on 10/14/17). He specifically denies any visual hallucinations of snakes or seeing nuns while he has been on the unit. Patient also continues to deny AH or paranoia and hasn't been observe to be responding to internal stimuli. Patient doesn't feel depressed or anxious at this time. His affect is constricted and mildly flat. Patient denies any issues with his medications or any new discomfort or pain. He has been in good control without evidence of agitation. Staff have noted patient to be calm, cooperative and friendly (upon approach) without evidence of agitation. He is compliant with all medications and has been sleeping through the night. Diagnostic Results: r/o Mood Disorder secondary to C r/o delirium r/o dementia r/o MDD, severe with pseudodementia Medication Change: No Medical Record Reviewed: Yes Mental Status Examination - Cognitive Function Orientation: Person, Place, Situation (superficially) Attention: Poor Concentration: Poor Association: Loose Fund of Knowledge: Poor - Mood Mood: Neutral - Affect Affect: Constricted, Flat - Speech Speech: Appropriate - Formal Thought Process Formal Thought Process: No Impairment (Denies any VH on the unit. ) - Suicidal Ideation Suicidal Ideation: No - Homicidal Ideation Homicidal Ideation: No Goal/Treatment Plan - Goal/Treatment Plan Progress Toward Problem(s) and Goals/Treatment Plan: * group, milieu and supportive tx * xanax 0.25 mg po bid prn: anxiety * risperdal 0.5 mg po HS for history of hallucinations * consider initiating antidepressant if patient c/o depression however patient has been denying * Appreciate f/u by Dr. Jennings on 10/13/17~ordering PT/INR as well as physical therapy evaluation, 10/14/17~appreciate Dr. Jennings's communication with patient' s daughter, 10/15/17~cutting lasix down to once daily, next PT/INR on 10/17/17 * Vitals reviewed and noted below: 10/15/17 10/15/17 07:05 16:53 Temperature 97.9 F Pulse Rate 65 67 Respiratory 20 Rate Blood Pressure 114/60 128/68 * Yesterday's lab results noted below: 10/15/17 08:00 PT 48.2 H INR 4.07 H*
[2017-10-16] MEDS: Metoprolol Succinate 50 mg XL Tab PO SCH ×2 (09:02→16:00)
--- NOTE | 2017-10-16 22:34 | PN ---
Copied To: Leonila Jennings MD Attending MD: Leonila Jennings MD DATE: 10/16/2017 SUBJECTIVE: Patient is 82 years old, seen and examined, sitting in chair. Seems to be comfortable. Denies any nausea or vomiting. Eating and tolerating. Does not seem to be confused. Talking intelligently, answers appropriately. PHYSICAL EXAMINATION: VITAL SIGNS: He is afebrile, pulse 68, respirations 18, blood pressure 125/65. LUNGS: Bilateral fair airflow. No rhonchi or crackle. HEART: S1 and S2 audible. ABDOMEN: Soft and nontender. No rebound. No guarding. NEUROLOGIC: The patient is awake, alert, oriented, and communicative. Ambulates with the walker. ASSESSMENT: 1. Status post congestive heart failure exacerbation. 2. Hypertension. 3. Dementia. 4. Coronary artery disease, status post open heart surgery. 5. Status post defibrillator placement. 6. Chronic atrial fibrillation. 7. Ptb-jlvzcbo-yjvwmingd diabetes. 8. History of gout. PLAN: The patient seems to be stable on Risperdal 0.5 at bedtime and Xanax 0.25 in the morning. We will follow up PT/INR in a.m. Continue physical therapy. We will reevaluate the patient. Leonila Jennings MD
[2017-10-17 07:59] LABS: PROTHROMBIN TIME 45.8 SECONDS (9.4-12.5)
[2017-10-17 08:47] LABS: INR 3.87
[2017-10-17] MEDS: Metoprolol Succinate 50 mg XL Tab PO SCH ×2 (08:50→16:29)
--- NOTE | 2017-10-17 08:55 | PCM.PYCHPN ---
Psychiatric Progress Note - Psychiatric Progress Note Patient seen today, length of contact: 25 MIN Problems Identified/Issues Discussed: History of Present Illness and Precipitating Events: Patient is an 82-year-old Croatian male with no prior psychiatric hospitalizations, no history of SA, who was transferred from [facility] [place] after being evaluated by Dr. Prasad for confusion and visual hallucinations. During Dr. Prasad's consultation on 10/12/17 patient was oriented to self, location and circumstances of his medical admission. Patient reported depression, hopelessness and visual hallucinations "seeing a snake overnight" however he could not rule out that it was just a dream. Patient's primary care physician, Dr. Jennings indicated that patient's family was very concerned about his safety. Records indicate that patient signed POA documents on October 12 which appointed his daughter as POA. Daughter subsequently signed patient into the psychiatric unit. I met with patient at bedside this morning. He is fairly groomed and cooperative with my questioning. Patient's thought process and focus are a little scattered this morning in contrast to yesterday's evaluations. He provides inconsistent responses to some of my questions. Patient doesn't appear to be hallucinating and denies any AH. He does endorse VH however it is unclear if he is referring to the last night or the night prior. He is depressed but not suicidal. He seems only superficially aware of his current psychiatric circumstances. He has been in good control without any evidence of a paranoia, agitation or behavioral issues thus far PSYCHIATRIC HISTORY Patient does not appear to have any history of prior psychiatric hospitalizations. He denies any history of suicide attempts. Patient did see a psychiatrist and therapist in the past however this history is unclear at this time. SOCIAL HISTORY Patient was born in the [facility]. He is and reports that he resides with his . Patient provided since inconsistent information regarding number of children he has and lives with. His adult daughter was named as POA on 10/12/17. There is no history of drug, alcohol or tobacco use. PROGRESS NOTE I met with patient at bedside again this morning. He is fairly groomed and remains cooperative with my questioning. Patient's alertness, focus and thought process continues to demonstrate sustained improvement. He is oriented to location, month, year and superficially to circumstances. I agree with staff who note that patient is less confused this weekend. Patient remembers having visual hallucinations prior to transfer however continues to deny having any hallucinations on the psychiatric unit. This report conflicts with daughter's account that patient hallucinated 4 nuns sitting at the window wearing brown tops and black bottoms x4 days ago (per SW note on 10/14/17). He specifically denies any visual hallucinations of snakes or seeing nuns while he has been on the unit. Patient also continues to deny AH or paranoia and hasn't been observe to be responding to internal stimuli. Patient consistently denies symptoms of depression or excess anxiety. His affect is constricted and mildly flat. Patient denies any issues with his medications or any new pain. Patient spoke with nursing and this provider about his LE edema and received an extra dose of lasix. Unfortunately he was up "5 times" in the middle of the night using the bathroom because of this diuretic properties. Patient has been in good control without evidence of agitation. Staff have noted patient to be calm, cooperative and friendly (upon approach) without evidence of paranoia. He shows positive interactions with his family when they visit. He is compliant with all medications and has been sleeping through the night (except for last night). Diagnostic Results: 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 r/o delirium r/o dementia r/o MDD, severe with pseudodementia Medication Change: No Medical Record Reviewed: Yes Mental Status Examination - Cognitive Function Orientation: Person, Place, Situation (superficially) Attention: Poor Concentration: Poor Association: Loose Fund of Knowledge: Poor - Mood Mood: Neutral - Affect Affect: Constricted, Flat - Speech Speech: Appropriate - Formal Thought Process Formal Thought Process: No Impairment (Denies any VH on the unit. ) - Suicidal Ideation Suicidal Ideation: No - Homicidal Ideation Homicidal Ideation: No Goal/Treatment Plan - Goal/Treatment Plan Progress Toward Problem(s) and Goals/Treatment Plan: * group, milieu and supportive tx * xanax 0.25 mg po bid prn: anxiety * risperdal 0.5 mg po HS for history of hallucinations * consider initiating antidepressant if patient c/o depression however patient has been denying * Appreciate f/u by Dr. Jennings on: * 10/13/17~ordering PT/INR as well as physical therapy evaluation * 10/14/17~appreciate Dr. Jennings's communication with patient's daughter, * 10/15/17~cutting lasix down to once daily, * 10/16/17~c/w physical therapy * next PT/INR on 10/17/17 * Vitals reviewed and noted below: Selected Entries 10/16/17 10/16/17 07:07 18:18 Temperature 98.3 F Pulse Rate 55 L 68 Respiratory 20 Rate Blood Pressure 108/56 L 125/65 * Prior lab results noted below: 10/15/17 08:00 PT 48.2 H INR 4.07 H*
--- NOTE | 2017-10-17 20:25 | PN ---
Copied To: Leonila Jennings MD Attending MD: Leonila Jennings MD DATE: 10/17/2017 SUBJECTIVE: Patient is 82 years old, seen and examined, lying in bed. Seems to be comfortable. Complains of feeling tired. Could not sleep last night where he had to pee multiple time. According to nurse, he is awake, alert, oriented. No evidence of confusion. PHYSICAL EXAMINATION: VITAL SIGNS: He is afebrile, pulse 70, respirations 18, blood pressure 110/56. LUNGS: Bilateral fair airflow. No rhonchi or crackle. HEART: S1 and S2 audible. ABDOMEN: Soft and nontender. No rebound. No guarding. NEUROLOGIC: The patient is awake, alert, oriented, and communicative. Able to move all extremities. ASSESSMENT: 1. Hypertension. 2. Lyg-gbyjbfg-mrpugrwpc diabetes. 3. Hyperlipidemia. 4. Status post , seems to be stable. 5. Congestive heart failure. 6. Status post pacemaker placement. PLAN: The patient is currently stable, doing well. Ambulating. No report of being confused, also possible plan next week for discharge. Leonila Jennings MD
[2017-10-18] MEDS: Metoprolol Succinate 50 mg XL Tab PO SCH ×2 (08:30→17:03)
--- NOTE | 2017-10-18 09:11 | PCM.PYCHPN ---
Psychiatric Progress Note - Psychiatric Progress Note Patient seen today, length of contact: 25 MIN Problems Identified/Issues Discussed: History of Present Illness and Precipitating Events: Patient is an 82-year-old Kyrgyz male with no prior psychiatric hospitalizations, no history of SA, who was transferred from [facility] transitional care unit after being evaluated by Dr. Prasad for confusion and visual hallucinations. During Dr. Prasad's consultation on 10/12/17 patient was oriented to self, location and circumstances of his medical admission. Patient reported depression, hopelessness and visual hallucinations "seeing a snake overnight" however he could not rule out that it was just a dream. Patient's primary care physician, Dr. Jennings indicated that patient's family was very concerned about his safety. Records indicate that patient signed POA documents on October 12 which appointed his daughter as POA. Daughter subsequently signed patient into the psychiatric unit. I met with patient at bedside this morning. He is fairly groomed and cooperative with my questioning. Patient's thought process and focus are a little scattered this morning in contrast to yesterday's evaluations. He provides inconsistent responses to some of my questions. Patient doesn't appear to be hallucinating and denies any AH. He does endorse VH however it is unclear if he is referring to the last night or the night prior. He is depressed but not suicidal. He seems only superficially aware of his current psychiatric circumstances. He has been in good control without any evidence of a paranoia, agitation or behavioral issues thus far PSYCHIATRIC HISTORY Patient does not appear to have any history of prior psychiatric hospitalizations. He denies any history of suicide attempts. Patient did see a psychiatrist and therapist in the past however this history is unclear at this time. SOCIAL HISTORY Patient was born in the [facility]. He is and reports that he resides with his . Patient provided since inconsistent information regarding number of children he has and lives with. His adult daughter was named as POA on 10/12/17. There is no history of drug, alcohol or tobacco use. PROGRESS NOTE I met with patient at bedside again this morning. He is fairly groomed and remains cooperative with my questioning. Patient's alertness, focus and thought process continues to demonstrate sustained improvement. He is oriented to location, month, year and superficially to circumstances. I agree with staff who note that patient is noticeably less confused and more oriented this weekend. Patient remembers having visual hallucinations prior to transfer however continues to deny having any hallucinations on the psychiatric unit. This report conflicts with daughter's account that patient hallucinated 4 nuns sitting at the window wearing brown tops and black bottoms x5 days ago (per SW note on 10/14/17). He specifically denies any visual hallucinations of snakes or seeing nuns while he has been on the unit. Patient also continues to deny AH or paranoia and hasn't been observe to be responding to internal stimuli. Patient consistently denies symptoms of depression or excess anxiety. His affect is constricted and mildly flat. Patient denies any issues with his medications or any new pain. Patient reports that LE edema is improving and his sleep was more restful last night. Patient has been in good control without evidence of agitation throughout the course of the admission. Staff have noted patient to be calm, cooperative and friendly (upon approach) without evidence of paranoia. He shows positive interactions with his family when they visit. He is compliant with all medications and generally sleeps through the night. Patient reports that he is ready for discharge. Diagnostic Results: r/o Mood Disorder secondary to C r/o delirium r/o dementia r/o MDD, severe with pseudodementia Medication Change: No Medical Record Reviewed: Yes Mental Status Examination - Cognitive Function Orientation: Person, Place, Situation (superficially) Attention: WNL Concentration: WNL Association: Loose Fund of Knowledge: Poor - Mood Mood: Neutral - Affect Affect: Constricted, Flat - Speech Speech: Appropriate - Formal Thought Process Formal Thought Process: No Impairment (Denies any VH on the unit. ) - Suicidal Ideation Suicidal Ideation: No - Homicidal Ideation Homicidal Ideation: No Goal/Treatment Plan - Goal/Treatment Plan Progress Toward Problem(s) and Goals/Treatment Plan: * group, milieu and supportive tx * xanax 0.25 mg po bid prn: anxiety * risperdal 0.5 mg po HS for history of hallucinations * consider initiating antidepressant if patient c/o depression however patient has been denying * Appreciate f/u by Dr. Jennings on: * 10/13/17~ordering PT/INR as well as physical therapy evaluation * 10/14/17~appreciate Dr. Jennings's communication with patient's daughter, * 10/15/17~cutting lasix down to once daily, * 10/16/17~c/w physical therapy * 10/17/17~Found patient to be stable and doing well * Vitals reviewed and noted below: Selected Entries 10/17/17 10/17/17 06:59 18:32 Temperature 97.7 F Pulse Rate 70 72 Respiratory 18 Rate Blood Pressure 110/56 L 108/51 L * Prior lab results noted below: 10/17/17 07:15 PT 45.8 H INR 3.87 H* 10/15/17 08:00 PT 48.2 H INR 4.07 H*
--- NOTE | 2017-10-18 17:36 | PN ---
Copied To: Leonila Jennings MD Attending MD: Leonila Jennings MD DATE: 10/18/2017 SUBJECTIVE: The patient is 82 years old, seen and examined, sitting in chair, seems to be comfortable, participating in therapy. Mental status is much clear. PHYSICAL EXAMINATION: VITAL SIGNS: He is afebrile, pulse 65, respirations 19, blood pressure 110/52. LUNGS: Bilateral fair airflow. No rhonchi or crackle. HEART: S1 and S2 audible. ABDOMEN: Soft. Nontender. No rebound. No guarding. NEUROLOGICAL: The patient is awake and alert, able to communicate. EXTREMITIES: Bilateral leg, no edema. LABORATORY EXAM: No lab is available today; however, day before yesterday, PT was 45.8, INR 3.87. ASSESSMENT: 1. Status post congestive heart failure exacerbation. 2. Hypertension. 3. Hyperlipidemia. 4. Noninsulin-dependent diabetes. 5. Deconditioning and difficulty walking. PLAN: We will monitor his electrolytes in the a.m. Monitor his PT, INR in the a.m. and we will restart Coumadin according to his INR in the a.m. Possible discharge in a . Leonila Jennings MD
[2017-10-19 08:18] LABS: BASO # 0.04 K/mm3 (0.0-2.0); BASO % 0.9 % (0.0-3.0); EOS # 0.4 (0.0-0.7); EOS % 8.2 % (1.5-5.0); GRAN # 2.28 (1.4-6.5); GRAN % 49.2 % (50.0-68.0); HEMOGLOBIN 10.7 g/dL (14.0-18.0); LYMPH # 1.4 (1.2-3.4); MEAN CELL VOLUME 96.5 fl (80.0-105.0); MEAN CORPUSCULAR HEMOGLOBIN 33.8 pg (25.0-35.0); MEAN PLATELET VOLUME 10.6 fl (7.0-11.0); MONO # 0.5 (0.1-0.6); MONO % 11.7 % (1.0-6.0); RBC 3.17 10^6/uL (3.5-6.1); RED CELL DISTRIBUTION WIDTH 18.2 % (11.5-14.5); WHITE BLOOD COUNT 4.6 10^3/ul (4.5-11.0)
[2017-10-19 08:23] LABS: INR 2.13; PROTHROMBIN TIME 24.9 SECONDS (9.4-12.5)
[2017-10-19 08:28] LABS: ALB/GLOB RATIO 0.9 (1.1-1.8); ALBUMIN 3.2 g/dL (3.0-4.8); CALCIUM 8.9 mg/dL (8.4-10.5)
[2017-10-19] MEDS: Metoprolol Succinate 50 mg XL Tab PO SCH ×2 (11:20→17:40)
--- NOTE | 2017-10-19 14:26 | PCM.PYCHPN ---
Psychiatric Progress Note - Psychiatric Progress Note Patient seen today, length of contact: 25 MIN Patient Chief Complaint: "I don't have future plans, I am taking one day at the time" Problems Identified/Issues Discussed: Suicide/ homicide prevention, past psychiatric h/o, current psychiatric symptoms , medical problems, risk/benefits and alternatives of medications, medications compliance, coping strategies, substance abuse h/o, relapse prevention, importance of follow up with psychiatrist and therapist, discharge plan. Medical Problems: see Dr. Jennings notes for more detailed information. Diagnostic Results: 10/19/17 08:00 10/19/17 08:00 Lab Results 10/19/17 08:00: Sodium 140, Potassium 4.3, Chloride 99, Carbon Dioxide 29, Anion Gap 16, BUN 70 H, Creatinine 2.1 H, Est GFR ( Amer) 37, Est GFR ( Non-Af Amer) 30, Random Glucose 89, Calcium 8.9, Total Bilirubin 2.3 H, AST 64 H , ALT 56, Alkaline Phosphatase 141 H, Total Protein 6.6, Albumin 3.2, Globulin 3.4, Albumin/Globulin Ratio 0.9 L 10/19/17 08:00: PT 24.9 H, INR 2.13 10/19/17 08:00: WBC 4.6, RBC 3.17 L, Hgb 10.7 L, Hct 30.6 L, MCV 96.5, MCH 33.8 , MCHC 35.0, RDW 18.2 H, Plt Count 81 L, MPV 10.6, Gran % 49.2 L, Lymph % (Auto ) 30.0, Bailey % (Auto) 11.7 H, Eos % (Auto) 8.2 H, Baso % (Auto) 0.9, Gran # 2.28 , Lymph # (Auto) 1.4, Bailey # (Auto) 0.5, Eos # (Auto) 0.4, Baso # (Auto) 0.04 10/18/17 21:08: POC Glucose (mg/dL) 116 H 10/18/17 16:01: POC Glucose (mg/dL) 126 H 10/18/17 11:37: POC Glucose (mg/dL) 144 H 10/18/17 07:21: POC Glucose (mg/dL) 79 10/17/17 21:13: POC Glucose (mg/dL) 137 H 10/17/17 16:16: POC Glucose (mg/dL) 118 H 10/17/17 11:27: POC Glucose (mg/dL) 102 10/17/17 07:15: PT 45.8 H, INR 3.87 H* 10/17/17 07:12: POC Glucose (mg/dL) 89 10/16/17 21:14: POC Glucose (mg/dL) 124 H 10/16/17 16:14: POC Glucose (mg/dL) 112 H 10/16/17 11:05: POC Glucose (mg/dL) 174 H 10/16/17 07:18: POC Glucose (mg/dL) 104 10/15/17 20:57: POC Glucose (mg/dL) 114 H 10/15/17 15:58: POC Glucose (mg/dL) 130 H 10/15/17 11:08: POC Glucose (mg/dL) 108 10/15/17 08:00: PT 48.2 H, INR 4.07 H* 10/15/17 07:30: POC Glucose (mg/dL) 110 10/14/17 21:09: POC Glucose (mg/dL) 118 H 10/14/17 16:13: POC Glucose (mg/dL) 115 H 10/14/17 11:32: POC Glucose (mg/dL) 125 H 10/14/17 07:25: POC Glucose (mg/dL) 99 10/14/17 06:30: PT 35.5 H, INR 3.02 10/13/17 21:00: POC Glucose (mg/dL) 119 H 10/13/17 11:18: POC Glucose (mg/dL) 124 H Vital Signs Temp Pulse Resp BP Pulse Ox 10/19/17 11:20 60 114/65 10/19/17 09:29 104/51 L 10/19/17 07:08 98.4 F 59 L 19 95/40 L 10/18/17 19:46 70 135/72 10/18/17 19:45 70 135/72 10/18/17 17:03 64 110/52 L 10/18/17 15:37 64 110/52 L 10/18/17 09:20 62 104/51 L 10/18/17 08:30 65 114/55 L 10/18/17 08:29 114/55 L 10/18/17 07:04 7.6 F L 65 19 114/55 L 10/17/17 18:32 72 108/51 L 10/17/17 16:30 60 120/57 L 10/17/17 16:29 60 120/57 L 10/17/17 08:50 70 110/56 L 10/17/17 06:59 97.7 F 70 18 110/56 L 10/16/17 18:19 125/65 10/16/17 18:18 68 125/65 10/16/17 16:42 64 18 111/53 L 10/16/17 16:00 64 111/53 L 10/16/17 15:00 64 111/53 L 10/16/17 09:02 55 L 108/56 L 10/16/17 07:07 98.3 F 55 L 20 108/56 L 10/15/17 16:53 67 128/68 10/15/17 16:52 67 128/68 10/15/17 15:00 67 128/68 10/15/17 14:39 114/60 10/15/17 09:11 65 114/60 10/15/17 07:05 97.9 F 65 20 114/60 10/14/17 16:18 63 18 123/61 10/14/17 16:16 63 123/61 10/14/17 16:13 63 123/61 10/14/17 13:57 115/66 10/14/17 13:35 65 115/66 10/14/17 08:07 103/52 L 10/14/17 08:06 59 L 103/52 L 10/14/17 06:58 97.6 F 59 L 20 103/52 L 10/13/17 17:44 65 130/72 10/13/17 17:43 65 130/72 10/13/17 16:01 65 130/72 10/13/17 13:35 65 115/66 10/13/17 09:27 129/64 10/13/17 09:26 61 129/74 10/13/17 07:13 97.1 F L 61 20 129/74 10/13/17 04:24 20 10/13/17 04:01 97.4 F L 70 20 135/86 10/13/17 00:45 97.8 F 71 18 135/71 97 10/12/17 21:52 97.9 F 72 18 126/66 99 DSM 5 Symptoms Update: Patient is an 82-year-old [place] male with no prior psychiatric hospitalizations, no history of SA, who was transferred from [facility] transitional care unit after being evaluated by this writer producer for confusion, visual hallucinations, depressive symptoms. Patient's primary care physician, Dr. Jennings indicated that patient's family was very concerned about his safety. Records indicate that patient signed POA documents on October 12 which appointed his daughter as POA. Daughter subsequently signed patient into the psychiatric unit. patient was seen today at the day treatment area, patient presented with some improvement with her spouse and patient to compare with the last week, hygiene is improving, patient reported that his mood is still depressed but with some improvements, patient denied any thoughts of harming himself or others, patient reported that she does not have any future plans because of his medical condition, reported transient feeling of hopelessness but denied thoughts of killing himself. No episodes of agitation or aggression, patient does not have visual hallucinations so far. As per staff patient is compliant with the medications, pleasant, corporative, no aggression or agitation so far. as per staff and Dr. Mirza's assessment patient is noticeably less confused and more oriented this weekend. Patient remembers having visual hallucinations prior to transfer however continues to deny having any hallucinations on the psychiatric unit. This report conflicts with daughter's account that patient hallucinated 4 nuns sitting at the window wearing brown tops and black bottoms x5 days ago (per SW note on 10/14/17). He specifically denies any visual hallucinations of snakes or seeing nuns while he has been on the unit. Patient also continues to deny AH or paranoia and hasn't been observe to be responding to internal stimuli. physical therapy evaluation recommended to finalize decision about subacute rehabilitation or plan to discharge home with services. Patient tolerates medications well, no side effects observed or reported, aims 0 , no EPS. Diagnostic Results: 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 r/o delirium r/o dementia r/o MDD, severe with pseudodementia Medication Change: No Medical Record Reviewed: Yes Consults ordered or reviewed: medical consult appreciated Mental Status Examination - Cognitive Function Orientation: Person, Place, Situation (superficially) Attention: WNL Concentration: WNL Association: Loose Fund of Knowledge: Poor - Mood Mood: Neutral - Affect Affect: Constricted, Flat - Speech Speech: Appropriate - Formal Thought Process Formal Thought Process: No Impairment (Denies any VH on the unit. ) - Suicidal Ideation Suicidal Ideation: No - Homicidal Ideation Homicidal Ideation: No Goal/Treatment Plan - Goal/Treatment Plan Need for Continued Stay: Remain at risks for inpatient hospitalization, Severe depression anxiety, Discharge may exacerbated symptoms, Severe functional impairment Progress Toward Problem(s) and Goals/Treatment Plan: group, milieu and supportive tx xanax 0.25 mg po bid prn: anxiety risperdal 0.5 mg po HS for history of hallucinations consider initiating antidepressant if patient c/o depression however patient has been denying Appreciate f/u by Dr. Jennings on: 10/13/17~ordering PT/INR as well as physical therapy evaluation 10/14/17~appreciate Dr. Jennings's communication with patient's daughter, 10/15/17~cutting lasix down to once daily, 10/16/17~c/w physical therapy 10/17/17~Found patient to be stable and doing well Family involvement Follow up on labs Will monitor closely Pt was educated about risk/benefits and alternatives of medications, coping strategies (safety plan, suicide prevention), relapse prevention, importance of follow up with psychiatrist and therapist, stay away from drugs/alcohol/smoking Estimated Date of D/C: 10/21/17 If changed, why: PT evaluation to determine [facility] vs home - Smoking Cessation Smoking Cessation Initiated: No
--- NOTE | 2017-10-19 15:02 | PN ---
Copied To: Leonila Jennings MD Attending MD: Leonila Jennings MD DATE: 10/19/2017 SUBJECTIVE: The patient is 82 years old, seen and examined, seems to be stable; awake, alert, oriented, communicative, ambulates with a walker. PHYSICAL EXAMINATION VITAL SIGNS: He is afebrile, pulse 60, respirations 19, blood pressure 114/65. LUNGS: Bilateral fair airflow. No rhonchi or crackle. HEART: S1 and S2 audible. ABDOMEN: Soft, nontender. No rebound. No guarding. He has flank edema that is dependent edema because of the cardiomyopathy. NEUROLOGICAL: The patient is awake and alert, able to communicate. Ambulates with a walker. LABORATORY DATA: WBC 4.6, hemoglobin 10.7, hematocrit 30.6, and platelet 81. PT is 24.9 and INR 2.13. Chemistry: Sodium 140, potassium 4.3, chloride 99, CO2 of 29, BUN 70, creatinine 2.1, blood sugar of 89. ASSESSMENT: 1. Nonischemic cardiomyopathy. 2. Congestive heart failure, resolved. 3. Chronic kidney disease. 4. Chronic atrial fibrillation. 5. Deconditioning and difficulty walking. 6. History of gout. PLAN: We will continue the patient on current medication, plan to transfer him to subacute rehab when bed is available either today or tomorrow. Leonila Jennings MD
[2017-10-20 07:08] VITALS: BP 114/59; PULSE 60; RESP 20; TEMP 98.1
[2017-10-20] MEDS: Metoprolol Succinate 50 mg XL Tab PO SCH (08:30)
[2017-10-20 10:03] LABS: INR 1.8; PROTHROMBIN TIME 20.9 SECONDS (9.4-12.5)
--- NOTE | 2017-10-20 15:40 | PCM.PYCHPN ---
Psychiatric Progress Note - Psychiatric Progress Note Patient seen today, length of contact: 25 MIN Patient Chief Complaint: "I feel little better, I think it is a good plan to go to the therapy facility" Problems Identified/Issues Discussed: Suicide/ homicide prevention, past psychiatric h/o, current psychiatric symptoms , medical problems, risk/benefits and alternatives of medications, medications compliance, coping strategies, substance abuse h/o, relapse prevention, importance of follow up with psychiatrist and therapist, discharge plan. Medical Problems: see Dr. Jennings notes for more detailed information. Diagnostic Results: 10/19/17 08:00 10/19/17 08:00 Lab Results 10/19/17 08:00: Sodium 140, Potassium 4.3, Chloride 99, Carbon Dioxide 29, Anion Gap 16, BUN 70 H, Creatinine 2.1 H, Est GFR ( Amer) 37, Est GFR ( Non-Af Amer) 30, Random Glucose 89, Calcium 8.9, Total Bilirubin 2.3 H, AST 64 H , ALT 56, Alkaline Phosphatase 141 H, Total Protein 6.6, Albumin 3.2, Globulin 3.4, Albumin/Globulin Ratio 0.9 L 10/19/17 08:00: PT 24.9 H, INR 2.13 10/19/17 08:00: WBC 4.6, RBC 3.17 L, Hgb 10.7 L, Hct 30.6 L, MCV 96.5, MCH 33.8 , MCHC 35.0, RDW 18.2 H, Plt Count 81 L, MPV 10.6, Gran % 49.2 L, Lymph % (Auto ) 30.0, Hemphill % (Auto) 11.7 H, Eos % (Auto) 8.2 H, Baso % (Auto) 0.9, Gran # 2.28 , Lymph # (Auto) 1.4, Hemphill # (Auto) 0.5, Eos # (Auto) 0.4, Baso # (Auto) 0.04 10/18/17 21:08: POC Glucose (mg/dL) 116 H 10/18/17 16:01: POC Glucose (mg/dL) 126 H 10/18/17 11:37: POC Glucose (mg/dL) 144 H 10/18/17 07:21: POC Glucose (mg/dL) 79 10/17/17 21:13: POC Glucose (mg/dL) 137 H 10/17/17 16:16: POC Glucose (mg/dL) 118 H 10/17/17 11:27: POC Glucose (mg/dL) 102 10/17/17 07:15: PT 45.8 H, INR 3.87 H* 10/17/17 07:12: POC Glucose (mg/dL) 89 10/16/17 21:14: POC Glucose (mg/dL) 124 H 10/16/17 16:14: POC Glucose (mg/dL) 112 H 10/16/17 11:05: POC Glucose (mg/dL) 174 H 10/16/17 07:18: POC Glucose (mg/dL) 104 10/15/17 20:57: POC Glucose (mg/dL) 114 H 10/15/17 15:58: POC Glucose (mg/dL) 130 H 10/15/17 11:08: POC Glucose (mg/dL) 108 10/15/17 08:00: PT 48.2 H, INR 4.07 H* 10/15/17 07:30: POC Glucose (mg/dL) 110 10/14/17 21:09: POC Glucose (mg/dL) 118 H 10/14/17 16:13: POC Glucose (mg/dL) 115 H 10/14/17 11:32: POC Glucose (mg/dL) 125 H 10/14/17 07:25: POC Glucose (mg/dL) 99 10/14/17 06:30: PT 35.5 H, INR 3.02 10/13/17 21:00: POC Glucose (mg/dL) 119 H 10/13/17 11:18: POC Glucose (mg/dL) 124 H Vital Signs Temp Pulse Resp BP Pulse Ox 10/19/17 11:20 60 114/65 10/19/17 09:29 104/51 L 10/19/17 07:08 98.4 F 59 L 19 95/40 L 10/18/17 19:46 70 135/72 10/18/17 19:45 70 135/72 10/18/17 17:03 64 110/52 L 10/18/17 15:37 64 110/52 L 10/18/17 09:20 62 104/51 L 10/18/17 08:30 65 114/55 L 10/18/17 08:29 114/55 L 10/18/17 07:04 7.6 F L 65 19 114/55 L 10/17/17 18:32 72 108/51 L 10/17/17 16:30 60 120/57 L 10/17/17 16:29 60 120/57 L 10/17/17 08:50 70 110/56 L 10/17/17 06:59 97.7 F 70 18 110/56 L 10/16/17 18:19 125/65 10/16/17 18:18 68 125/65 10/16/17 16:42 64 18 111/53 L 10/16/17 16:00 64 111/53 L 10/16/17 15:00 64 111/53 L 10/16/17 09:02 55 L 108/56 L 10/16/17 07:07 98.3 F 55 L 20 108/56 L 10/15/17 16:53 67 128/68 10/15/17 16:52 67 128/68 10/15/17 15:00 67 128/68 10/15/17 14:39 114/60 10/15/17 09:11 65 114/60 10/15/17 07:05 97.9 F 65 20 114/60 10/14/17 16:18 63 18 123/61 10/14/17 16:16 63 123/61 10/14/17 16:13 63 123/61 10/14/17 13:57 115/66 10/14/17 13:35 65 115/66 10/14/17 08:07 103/52 L 10/14/17 08:06 59 L 103/52 L 10/14/17 06:58 97.6 F 59 L 20 103/52 L 10/13/17 17:44 65 130/72 10/13/17 17:43 65 130/72 10/13/17 16:01 65 130/72 10/13/17 13:35 65 115/66 10/13/17 09:27 129/64 10/13/17 09:26 61 129/74 10/13/17 07:13 97.1 F L 61 20 129/74 10/13/17 04:24 20 10/13/17 04:01 97.4 F L 70 20 135/86 10/13/17 00:45 97.8 F 71 18 135/71 97 10/12/17 21:52 97.9 F 72 18 126/66 99 DSM 5 Symptoms Update: Patient is an 82-year-old [place]er male with no prior psychiatric hospitalizations, no history of SA, who was [place] [facility] [place] after being evaluated by this internal communications writer for confusion, visual hallucinations, depressive symptoms. Patient's primary care physician, Dr. Jennings indicated that patient's family was very concerned about his safety. Records indicate that patient signed POA documents on October 12 which appointed his daughter as POA. Daughter subsequently signed patient into the psychiatric unit. patient was seen today at the day treatment area, patient presented with some improvement with presentation to compare with the last week, hygiene is improving, patient reported that his mood is still depressed but with some improvements, pt does not want to be on antidepressants, patient denied any thoughts of harming himself or others, patient reported that she does not have any future plans because of his medical condition, reported transient feeling of hopelessness but denied thoughts of killing himself. No episodes of agitation or aggression, patient does not have visual hallucinations so far. As per staff patient is compliant with the medications, pleasant, corporative, no aggression or agitation so far. physical therapy evaluation appreciated 10/19/2017, recommended subacute rehabilitation, awaiting for [facility] approval. Patient tolerates medications well, no side effects observed or reported, aims 0 , no EPS. Diagnostic Results: r/o Mood Disorder secondary to C r/o delirium r/o dementia r/o MDD, severe with pseudodementia Medication Change: Yes (Risperdal as needed only) Medical Record Reviewed: Yes Mental Status Examination - Cognitive Function Orientation: Person, Place, Situation (superficially) Attention: WNL Concentration: WNL Association: Loose (iimproving) Fund of Knowledge: Poor - Mood Mood: Neutral - Affect Affect: Constricted (more reactive, mood congruent) - Speech Speech: Appropriate - Formal Thought Process Formal Thought Process: No Impairment (Denies any VH on the unit. ) - Suicidal Ideation Suicidal Ideation: No - Homicidal Ideation Homicidal Ideation: No Goal/Treatment Plan - Goal/Treatment Plan Need for Continued Stay: Remain at risks for inpatient hospitalization, Severe depression anxiety, Discharge may exacerbated symptoms, Severe functional impairment Progress Toward Problem(s) and Goals/Treatment Plan: group, milieu and supportive tx xanax 0.25 mg po bid prn: anxiety risperdal 0.5 mg po HS for history of hallucinations, will give PRN consider initiating antidepressant if patient c/o depression however patient has been denying Appreciate f/u by Dr. Jennings on: 10/13/17~ordering PT/INR as well as physical therapy evaluation 10/14/17~appreciate Dr. Jennings's communication with patient's daughter, 10/15/17~cutting lasix down to once daily, 10/16/17~c/w physical therapy 10/17/17~Found patient to be stable and doing well Family involvement Follow up on labs Will monitor closely Pt was educated about risk/benefits and alternatives of medications, coping strategies (safety plan, suicide prevention), relapse prevention, importance of follow up with psychiatrist and therapist, stay away from drugs/alcohol/smoking Estimated Date of D/C: 10/21/17
--- NOTE | 2017-10-21 02:09 | PN ---
DATE: 10/20/2017 SUBJECTIVE: The patient is 82 years old who was admitted initially with cough, congestion, and shortness of breath. He was in CHF. He was diuresed. He was having shortness of breath with leg swelling. He was transferred to TCU where he started to have hallucinations, delusions. He was seeing things, so he was admitted in Psych Unit. Medication was adjusted and being transferred to [facility] for rehab and gait training. PHYSICAL EXAMINATION: GENERAL: He is awake, alert, oriented, communicative. VITAL SIGNS: He is afebrile, pulse 60, respirations 20, blood pressure 114/59. LUNGS: Bilateral good airflow. No rhonchi or crackle. HEART: S1 and S2 audible. ABDOMEN: Soft, nontender. No rebound, no guarding. NEUROLOGIC: He is awake, alert, oriented, communicative. LABORATORY EXAMINATION: WBC is 4.6, hemoglobin 10.7, hematocrit 30.6, platelet 81. PT 20.9, INR 1.8. Chemistry; sodium 140, potassium 4.3, chloride 99, CO2 29, BUN 70, creatinine 2.1, blood sugar of 122. ASSESSMENT: 1. Coronary artery disease. 2. Hypertension. 3. Hyperlipidemia. 4. Rlb-trmssnb-rhmdoiedg diabetes. 5. Anxiety. 6. Mild dementia. PLAN: The patient is being discharged to [facility] for rehab. I will follow up the patient up there. Leonila Jennings MD
--- NOTE | 2017-10-21 17:12 | PCM.PYCHDC ---
Mental Status Examination - Mental Status Examination Orientation: Person, Place, Situation, Time Memory: Intact Mood: Neutral Affect: Constricted Attention: WNL Concentration: WNL Association: WNL Fund of Knowledge: WNL Formal Thought Process: No Impairment Description of patient's judgement and insight: Pt has improved insight into mental and medical illness, pt was compliant with medications and unit rules and regulations, pt was going to groups, was calm, cooperative, socially appropriate, no behavioral incidents, no agitation, no aggression. Psychotic Thoughts and Behaviors: Pt denied v/a/t hallucinations, denied paranoid ideations, pt does not appear to be psychotic, and thought process is goal directed. Suicidal Ideation: No Current Homicidal Ideation?: No Plan: pt adamantly denied thoughts of harming self or others denied intent or plan. Discharge Summary - Discharge Note Reason for Hospitalization: depression and hallucinations Psychiatric History (includes Medical, Family, Personal Hx): ddepression Laboratory Data: 10/19/17 08:00 10/19/17 08:00 Lab Results 10/20/17 11:19: POC Glucose (mg/dL) 122 H 10/20/17 09:40: PT 20.9 H, INR 1.80 10/20/17 07:15: POC Glucose (mg/dL) 72 10/19/17 21:10: POC Glucose (mg/dL) 120 H 10/19/17 16:18: POC Glucose (mg/dL) 87 10/19/17 11:12: POC Glucose (mg/dL) 138 H 10/19/17 08:00: Sodium 140, Potassium 4.3, Chloride 99, Carbon Dioxide 29, Anion Gap 16, BUN 70 H, Creatinine 2.1 H, Est GFR ( Amer) 37, Est GFR ( Non-Af Amer) 30, Random Glucose 89, Calcium 8.9, Total Bilirubin 2.3 H, AST 64 H , ALT 56, Alkaline Phosphatase 141 H, Total Protein 6.6, Albumin 3.2, Globulin 3.4, Albumin/Globulin Ratio 0.9 L 10/19/17 08:00: PT 24.9 H, INR 2.13 10/19/17 08:00: WBC 4.6, RBC 3.17 L, Hgb 10.7 L, Hct 30.6 L, MCV 96.5, MCH 33.8 , MCHC 35.0, RDW 18.2 H, Plt Count 81 L, MPV 10.6, Gran % 49.2 L, Lymph % (Auto ) 30.0, Mchenry % (Auto) 11.7 H, Eos % (Auto) 8.2 H, Baso % (Auto) 0.9, Gran # 2.28 , Lymph # (Auto) 1.4, Mchenry # (Auto) 0.5, Eos # (Auto) 0.4, Baso # (Auto) 0.04 10/19/17 07:06: POC Glucose (mg/dL) 84 10/18/17 21:08: POC Glucose (mg/dL) 116 H 10/18/17 16:01: POC Glucose (mg/dL) 126 H 10/18/17 11:37: POC Glucose (mg/dL) 144 H 10/18/17 07:21: POC Glucose (mg/dL) 79 10/17/17 21:13: POC Glucose (mg/dL) 137 H 10/17/17 16:16: POC Glucose (mg/dL) 118 H 10/17/17 11:27: POC Glucose (mg/dL) 102 10/17/17 07:15: PT 45.8 H, INR 3.87 H* 10/17/17 07:12: POC Glucose (mg/dL) 89 10/16/17 21:14: POC Glucose (mg/dL) 124 H 10/16/17 16:14: POC Glucose (mg/dL) 112 H 10/16/17 11:05: POC Glucose (mg/dL) 174 H 10/16/17 07:18: POC Glucose (mg/dL) 104 10/15/17 20:57: POC Glucose (mg/dL) 114 H 10/15/17 15:58: POC Glucose (mg/dL) 130 H 10/15/17 11:08: POC Glucose (mg/dL) 108 10/15/17 08:00: PT 48.2 H, INR 4.07 H* 10/15/17 07:30: POC Glucose (mg/dL) 110 10/14/17 21:09: POC Glucose (mg/dL) 118 H 10/14/17 16:13: POC Glucose (mg/dL) 115 H 10/14/17 11:32: POC Glucose (mg/dL) 125 H 10/14/17 07:25: POC Glucose (mg/dL) 99 10/14/17 06:30: PT 35.5 H, INR 3.02 10/13/17 21:00: POC Glucose (mg/dL) 119 H 10/13/17 11:18: POC Glucose (mg/dL) 124 H Vital Signs Temp Pulse Resp BP Pulse Ox 10/20/17 08:31 114/59 L 10/20/17 07:07 98.1 F 60 20 114/59 L 10/19/17 17:42 64 115/66 10/19/17 17:40 64 115/66 10/19/17 16:00 64 115/66 10/19/17 11:20 60 114/65 10/19/17 09:29 104/51 L 10/19/17 07:08 98.4 F 59 L 19 95/40 L 10/18/17 19:46 70 135/72 10/18/17 19:45 70 135/72 10/18/17 17:03 64 110/52 L 10/18/17 15:37 64 110/52 L 10/18/17 09:20 62 104/51 L 10/18/17 08:30 65 114/55 L 10/18/17 08:29 114/55 L 10/18/17 07:04 7.6 F L 65 19 114/55 L 10/17/17 18:32 72 108/51 L 10/17/17 16:30 60 120/57 L 10/17/17 16:29 60 120/57 L 10/17/17 08:50 70 110/56 L 10/17/17 06:59 97.7 F 70 18 110/56 L 10/16/17 18:19 125/65 10/16/17 18:18 68 125/65 10/16/17 16:42 64 18 111/53 L 10/16/17 16:00 64 111/53 L 10/16/17 15:00 64 111/53 L 10/16/17 09:02 55 L 108/56 L 10/16/17 07:07 98.3 F 55 L 20 108/56 L 10/15/17 16:53 67 128/68 10/15/17 16:52 67 128/68 10/15/17 15:00 67 128/68 10/15/17 14:39 114/60 10/15/17 09:11 65 114/60 10/15/17 07:05 97.9 F 65 20 114/60 10/14/17 16:18 63 18 123/61 10/14/17 16:16 63 123/61 10/14/17 16:13 63 123/61 10/14/17 13:57 115/66 10/14/17 13:35 65 115/66 10/14/17 08:07 103/52 L 10/14/17 08:06 59 L 103/52 L 10/14/17 06:58 97.6 F 59 L 20 103/52 L 10/13/17 17:44 65 130/72 10/13/17 17:43 65 130/72 10/13/17 16:01 65 130/72 10/13/17 13:35 65 115/66 10/13/17 09:27 129/64 10/13/17 09:26 61 129/74 10/13/17 07:13 97.1 F L 61 20 129/74 10/13/17 04:24 20 10/13/17 04:01 97.4 F L 70 20 135/86 10/13/17 00:45 97.8 F 71 18 135/71 97 10/12/17 21:52 97.9 F 72 18 126/66 99 Consultations:: List each consultation separately and include: 1. Reason for request. 2. Findings. 3. Follow-up Consultations: medical consult appreciated see notes for more detailed information Summary of Hospital Course include:: 1. Description of specific treatment plan utilized for patients during their course of treatmen. 2. Summarize the time- course for resolution of acute symptoms and/or regressed behaviors. 3. Describe issues identified and worked on during hospitalization. 4. Describe medication utilized. 5. Describe medical problems identified and treated. 6. Reassessment of suicide risk Summary of Hospital Course: Patient is an 82-year-old Syrian male with no prior psychiatric hospitalizations, no history of SA, who was transferred from [facility] transitional care unit after being evaluated by this television script writer for confusion, visual hallucinations, depressive symptoms. Patient's primary care physician, Dr. Jennings indicated that patient's family was very concerned about his safety. Records indicate that patient signed POA documents on October 12 which appointed his daughter as POA. Daughter subsequently signed patient into the psychiatric unit. at the time of initial evaluation patient presented to be depressed confused and psychotic Over the course of this hospitalization patient improved significantly, affect was brighter, no hallucinations observed or reported, patient had fare appetite and sleep, no agitation or aggression. Patient was evaluated by physical therapy, patient was recommended to have subacute rehabilitation, patient was transferred for further treatment at the subacute rehabilitation. Patient remembered having visual hallucinations prior to transfer however continues to deny having any hallucinations on the psychiatric unit. This report conflicts with daughter's account that patient hallucinated 4 nuns sitting at the window wearing brown tops and black bottoms x5 days ago (per SW note on 10/14/17). He specifically denies any visual hallucinations of snakes or seeing nuns while he has been on the unit. Patient also continues to deny AH or paranoia and hasn't been observe to be responding to internal stimuli. ppatient was on Risperdal 0.5 mg of the nighttime which was subsequently discontinued with good effect. Xanax when necessary Patient did not experience any side effects from the medications, patient was seen by medical team on daily basis. Over the course of this hospitalization pt was attending groups, pt also had medication management, had therapeutic milieu. Overall pt improved significantly, pt's affect became brighter, pt was less depressed, has realistic future oriented plans, pt also does not appear to be psychotic, or anxious, pt was socially appropriate, no behavioral issues, pts insight improved as well and soon pt deemed to be ready for discharge. At the time of the discharge pt denied been depressed, denied thoughts of harming self or others, denied psychotic symptoms, and pt does not appeared to be psychotic, denied been anxious, pt is not in imminent danger to self or others, will be following up the psychiatrist at subacute rehabilitation, pt needs follow up wtihin 72hrs, after that it is pt's responsibility to follow up with outpatient clinic, PMD as well as specialists (see SW note for more detailed information). In case pt will need to obtain results of studies pending at discharge pt was provided with contact information of Psychiatric Inpatient unit [phone] as well as Medical Record Department [phone]. patient does not smoke, patient does not use any drugs, patient denied drinking alcohol patient will continue all the medications what he was taking here into the psychiatric inpatient unit. No prescriptions given, info was sent through E- script. Pt was educated about safety plan in case of worsening of symptoms or in case of suicidal or homicidal ideation call 911 or go to the nearest ER, also was educated to take meds as prescribed and stay away from drugs, pt verbalized understanding. 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 Status: Acute - Final Diagnosis (DSM 5) Condition upon Discharge: IMPROVED DSM 5: ddelirium due to general medical condition, improved Disposition: NURSING FACILITY MEDICAID CERT Follow-up Treatment Plan: At the time of the discharge pt denied been depressed, denied thoughts of harming self or others, denied psychotic symptoms, and pt does not appeared to be psychotic, denied been anxious, pt is not in imminent danger to self or others, will be following up the psychiatrist at subacute rehabilitation, pt needs follow up wtihin 72hrs, after that it is pt's responsibility to follow up with outpatient clinic, PMD as well as specialists (see SW note for more detailed information). In case pt will need to obtain results of studies pending at discharge pt was provided with contact information of Psychiatric Inpatient unit [phone] as well as Medical Record Department [phone]. patient does not smoke, patient does not use any drugs, patient denied drinking alcohol patient will continue all the medications what he was taking here into the psychiatric inpatient unit. No prescriptions given, info was sent through E- script. Pt was educated about safety plan in case of worsening of symptoms or in case of suicidal or homicidal ideation call 911 or go to the nearest ER, also was educated to take meds as prescribed and stay away from drugs, pt verbalized understanding. - Smoking Cessation Smoking Cessation Medication prescribed: No Reason for not providing: ddenied smoking - Antipsychotic Medications Pt discharged on 2 or more routine antipsychotic medications: No
== END 2017-10-20 16:38 | DRG 884 ==
LOC: ED 21:30 → ERH 23:41 → PSYC 10-13 01:37
PROVIDERS: ADMIT Psychiatry & Neurology Psychiatry; ATTEND Psychiatry & Neurology Psychiatry
DX: F03.90 Unspecified dementia, unspecified severity, without behavioral disturbance, psychotic disturbance, mood disturbance, and anxiety (principal); F05 Delirium due to known physiological condition; I13.0 Hypertensive heart and chronic kidney disease with heart failure and stage 1 through stage 4 chronic kidney disease, or unspecified chronic kidney disease; F32.89 Other specified depressive episodes; E10.22 Type 1 diabetes mellitus with diabetic chronic kidney disease; E10.36 Type 1 diabetes mellitus with diabetic cataract; E78.5 Hyperlipidemia, unspecified; F41.9 Anxiety disorder, unspecified; H40.9 Unspecified glaucoma; N18.9 Chronic kidney disease, unspecified; I50.9 Heart failure, unspecified; I48.2 Chronic atrial fibrillation; Z79.01 Long term (current) use of anticoagulants; I25.10 Atherosclerotic heart disease of native coronary artery without angina pectoris; I25.5 Ischemic cardiomyopathy; K21.9 Gastro-esophageal reflux disease without esophagitis; N40.0 Benign prostatic hyperplasia without lower urinary tract symptoms; Z86.73 Personal history of transient ischemic attack (TIA), and cerebral infarction without residual deficits; Z87.01 Personal history of pneumonia (recurrent); Z95.810 Presence of automatic (implantable) cardiac defibrillator; Z95.1 Presence of aortocoronary bypass graft; Z88.0 Allergy status to penicillin; Z87.892 Personal history of anaphylaxis; Z88.6 Allergy status to analgesic agent; Z91.040 Latex allergy status

== ENCOUNTER 2017-12-17 15:50 | Observation (INO) | payer MEDICARE, OTHER ==
[2017-12-17 15:50] VITALS: PULSE 68
--- NOTE | 2017-12-17 16:14 | ED PDOC ---
Arrival/HPI - General Chief Complaint: Abnormal Labs Time Seen by Provider: 12/17/17 15:51 Historian: Patient - History of Present Illness Narrative History of Present Illness (Text): 12/17/17 16:07 A 82 year old male, whose past medical history includes cardiac catheter in 2017, presents to the emergency department for evaluation of low INR levels since earlier today. Patient reports he had a routine visiting nurse check his INR levels, results showing low levels to which Dr. Jennings told him to go to ER to be evaluated. Patient reports he has chronic shortness of breath and chronic edema that is no different from usual. Patient denies any fever, chills, chest pain, diarrhea, nausea, vomiting, urinary symptoms, back pain, neck pain, headache, dizziness, or any other complaints. Patient states he quit smoking and drinking 20 years ago. EF 20-25%. PMD: Dr. Jennings Time/Duration: Other (earlier today) Symptom Onset: Gradual Symptom Course: Unchanged Activities at Onset: Light Context: Home Associated Symptoms (Text): 12/17/17 16:34 On Coumadin for atrial fibrillation. He had routine visiting nurse evaluation yesterday and had an INR which was elevated. Told by PMD to go to the emergency department today. Chronic edema and chronic dyspnea and no different from usual. Past Medical History - Provider Review Nursing Documentation Reviewed: Yes - Infectious Disease Hx of Infectious Diseases: None - Tetanus Immunization Tetanus Immunization: Unknown - Cardiac Hx Congestive Heart Failure: Yes Hx Hypertension: Yes - Pulmonary Hx Pneumonia: Yes - Neurological Hx Neurological Disorder: (DENIES HISTORY) - HEENT Hx HEENT Disorder: Yes Hx Cataracts: Yes (Left) Hx Glaucoma: Yes (Right) - Renal Hx Renal Disorder: Yes - Endocrine/Metabolic Hx Diabetes Mellitus Type 2: Yes - Hematological/Oncological Hx Blood Disorders: Yes - Integumentary Hx Dermatological Disorder: (DENIES HISTORY) - Musculoskeletal/Rheumatological Hx Falls: Yes - Gastrointestinal Hx Gastrointestinal Disorders: Yes (constipation then diarrhea,blood in stool,gastroenteritis,gerd,cholecystect) - Genitourinary/Gynecological Hx Genitourinary Disorders: No Hx Reproductive Disorders: Yes (bph) - Psychiatric Hx Psychophysiologic Disorder: No Hx Substance Use: No - Surgical History Hx Open Heart Surgery: Yes - Anesthesia Hx Anesthesia: Yes Hx Anesthesia Reactions: Yes Hx Malignant Hyperthermia: No - Suicidal Assessment Feels Threatened In Home Enviroment: No Family/Social History - Physician Review Nursing Documentation Reviewed: Yes Family/Social History: Unknown Family HX Smoking Status: Former Smoker (quit smoking 20 years ago) Hx Alcohol Use: No Hx Substance Use: No Hx Substance Use Treatment: No Allergies/Home Meds Allergies/Adverse Reactions: Allergies aspirin Allergy (Verified 10/13/17 06:17) RASH Latex, Natural Rubber Allergy (Verified 10/13/17 06:17) RASH Penicillins Allergy (Verified 10/13/17 06:17) ANAPHYLAXIS Home Medications: Home Meds Medication Instructions Recorded Confirmed Atorvastatin [Lipitor] 20 mg PO HS 05/18/16 12/17/17 Colchicine [Colcrys] 0.6 mg PO DAILY 05/18/16 12/17/17 Docusate Sodium [Col-Rite] 100 mg PO DAILY 05/18/16 12/17/17 Isosorbide Mononitrate ER [Imdur 30 mg PO DAILY 05/18/16 12/17/17 ER] Losartan [Cozaar] 25 mg PO DIN 05/18/16 12/17/17 Metoprolol Succinate 50 mg PO BID 09/05/16 12/17/17 Alprazolam [Xanax] 0.5 mg PO DAILY 12/17/17 12/17/17 Febuxostat [Uloric] 40 mg PO DAILY 12/17/17 12/17/17 Loratadine [Claritin] 10 mg PO DAILY 12/17/17 12/17/17 SITagliptin [Januvia] 25 mg PO DAILY 12/17/17 12/17/17 Warfarin [Coumadin] 1 mg PO FRI 12/17/17 12/17/17 Warfarin [Coumadin] 1 mg PO MON 12/17/17 12/17/17 Warfarin [Coumadin] 1 mg PO WED 12/17/17 12/17/17 Warfarin [Coumadin] 2 mg PO SAT 12/17/17 12/17/17 Warfarin [Coumadin] 2 mg PO SUN 12/17/17 12/17/17 Warfarin [Coumadin] 2 mg PO DARNELL 12/17/17 12/17/17 Warfarin [Coumadin] 2 mg PO TUE 12/17/17 12/17/17 risperiDONE [RisperDAL Tab] 0.25 mg PO HS 12/17/17 12/17/17 Review of Systems - Physician Review All systems were reviewed & negative as marked: Yes - Review of Systems Constitutional: Fatigue. absent: Fevers, Night Sweats Respiratory: SOB (+chronic condition). absent: Cough, Wheezing Cardiovascular: Edema (+chronic condition). absent: Chest Pain, Palpitations, Syncope Gastrointestinal: absent: Abdominal Pain, Diarrhea, Nausea, Vomiting, Hematochezia, Hematemesis Genitourinary Male: absent: Hematuria, Urinary Output Changes Musculoskeletal: absent: Back Pain, Neck Pain Neurological: absent: Headache, Dizziness, Focal Weakness Physical Exam Vital Signs Reviewed: Yes Temperature: Afebrile Blood Pressure: Normal Pulse: Regular Respiratory Rate: Normal Appearance: Positive for: Well-Appearing, Non-Toxic, Comfortable Pain Distress: None Mental Status: Positive for: Alert and Oriented X 3 - Systems Exam Head: Present: Atraumatic, Normocephalic Pupils: Present: PERRL Extroacular Muscles: Present: EOMI Conjunctiva: Present: Normal Mouth: Present: Moist Mucous Membranes Pharnyx: No: ERYTHEMA, EXUDATE, TONSILS ENLARGED Neck: Present: Normal Range of Motion Respiratory/Chest: Present: Decreased Breath Sounds (+bilaterally). No: Respiratory Distress, Accessory Muscle Use, Wheezes, Rales, Retracting, Rhonchi, Tachypneic Cardiovascular: Present: Irregular Rhythm (normal rate) Abdomen: No: Tenderness, Distention, Peritoneal Signs Back: Present: Normal Inspection Upper Extremity: Present: Normal Inspection. No: Cyanosis, Edema Lower Extremity: Present: Edema (+1 pitting edema on bilateral lower extremities) Neurological: Present: GCS=15, CN II-XII Intact, Speech Normal, Motor Func Grossly Intact Skin: Present: Warm, Dry, Normal Color. No: Rashes Psychiatric: Present: Alert, Oriented x 3, Normal Insight, Normal Concentration Medical Decision Making ED Course and Treatment: 12/17/17 16:10 Impression: 82 year old male presenting to the emergency room for evaluation of low INR levels. Plan: -- EKG -- Labs -- CBC -- COAGs -- Chest X-ray -- Reassess and disposition Prior Visits: Notes and results from previous visits were reviewed. Progress Notes: 12/17/17 16:25 EKG: Ordered, reviewed, and independently interpreted the EKG. Rate : 72 BPM Rhythm : Atrial Fibrillation Interpretation :Low voltage QRS, No ST-segment elevations or depressions. 12/17/17 16:37 EKG shows atrial fibrillation rate approximately [address] and T- wave changes and no acute changes. 12/17/17 17:10 Procedure: Chest X-ray Impression: Pulmonary vascular congestion small bilateral pleural effusions. Dictator: Landon Rene MD 12/17/17 18:28 Discussed with , who requests by mouth vitamin K, IV Lasix, telemetry observation, and consultation with . All of which have been ordered for her. - RAD Interpretation Radiology Orders: 12/17/17 16:07 CHEST PORTABLE [RAD] Stat Chest one view as read by the radiologist shows stable cardiomegaly with a device present hardware present bilateral small pleural effusions increased markings and atelectasis Special Events Fundraiser: Radiologist - Scribe Statement The provider has reviewed the documentation as recorded by the [facility] Gonzalez All medical record entries made by the Scribe were at my direction and personally dictated by me. I have reviewed the chart and agree that the record accurately reflects my personal performance of the history, physical exam, medical decision making, and the department course for this patient. I have also personally directed, reviewed, and agree with the discharge instructions and disposition. Disposition/Present on Arrival - Present on Arrival Any Indicators Present on Arrival: No History of DVT/PE: No History of Uncontrolled Diabetes: No Urinary Catheter: No History of Decub. Ulcer: No History Surgical Site Infection Following: CABG - Mediastinitis, Orthopedic Procedures - Disposition Have Diagnosis and Disposition been Completed?: Yes Diagnosis: CHF (congestive heart failure), CKD (chronic kidney disease), Coagulopathy, Pedal edema Disposition: HOSPITALIZED Disposition Time: 18:29 Patient Plan: Observation, Telemetry Condition: FAIR Discharge Instructions (ExitCare): Heart Failure (ED) Referrals: Leonila Jennings MD [Primary Care Provider] - Follow up with primary Forms: [employer] ([place]ian)
--- NOTE | 2017-12-17 17:08 | RAD ---
Date of service: 12/17/2017 HISTORY: sob COMPARISON: Chest radiograph dated 10/09/2017. FINDINGS: LUNGS: Pulmonary vascular congestion. Bibasilar atelectasis. PLEURA: Small bilateral pleural effusions. CARDIOVASCULAR: Prior sternotomy with sternal wires and surgical clips redemonstrated. Aortic atherosclerotic calcifications. Cardiomediastinal silhouette stably enlarged. OSSEOUS STRUCTURES: Unchanged. VISUALIZED UPPER ABDOMEN: Normal. OTHER FINDINGS: Left chest wall battery pack with lead terminating in the anterior subcutaneous tissues. IMPRESSION: Pulmonary vascular congestion small bilateral pleural effusions.
[2017-12-17 17:16] LABS: BASO # 0.04 K/mm3 (0.0-2.0); EOS # 0.2 (0.0-0.7); EOS % 4.9 % (1.5-5.0); GRAN # 2.39 (1.4-6.5); GRAN % 58.5 % (50.0-68.0); LYMPH # 0.6 (1.2-3.4); LYMPH % 15.6 % (22.0-35.0); MEAN CELL VOLUME 101.7 fl (80.0-105.0); MEAN CORPUSCULAR HEMOGLOBIN 34.2 pg (25.0-35.0); MEAN CORPUSCULAR HGB CONC 33.7 g/dl (31.0-37.0); MEAN PLATELET VOLUME 11.7 fl (7.0-11.0); MONO # 0.8 (0.1-0.6); RBC 2.92 10^6/uL (3.5-6.1); RED CELL DISTRIBUTION WIDTH 17.9 % (11.5-14.5); WHITE BLOOD COUNT 4.1 10^3/uL (4.5-11.0)
[2017-12-17 17:26] LABS: PARTIAL THROMBOPLASTIN TIME 76.7 Seconds (25.1-36.5)
[2017-12-17 17:59] LABS: INR 5.99; PROTHROMBIN TIME 70.8 SECONDS (9.4-12.5)
[2017-12-17 18:12] LABS: ALB/GLOB RATIO 0.9 (1.1-1.8); ALBUMIN 3.2 g/dL (3.0-4.8)
[2017-12-17 18:22] LABS: TROPONIN I 0.07 ng/mL
[2017-12-17 18:38] LABS: CK-MB 3.6 ng/mL (0.0-3.6)
[2017-12-17] MEDS: Insulin Lispro (humaLOG) MEDIUM Coverage SC SCH (21:47)
--- NOTE | 2017-12-18 01:23 | HP ---
HISTORY OF PRESENT ILLNESS: The patient is 82 years old who is being followed as outpatient by me, had PT/INR done yesterday and was found to have INR of 6.1. The patient's daughter also states he has been having increasing general weakness, shortness of breath on minimal walking. Denies any chest pain. No history of nausea or vomiting. No history of gum bleeding. No rectal bleeding. No blood in the urine. PAST MEDICAL HISTORY: Significant for; 1. Dilated cardiomyopathy, status post pacemaker placement. 2. Hypertension. 3. Chronic kidney disease. 4. Noninsulin-dependent diabetes. 5. Deconditioning and difficulty walking. 6. Hyperlipidemia. 7. Open heart surgery. ALLERGIES: HE IS ALLERGIC TO ASPIRIN, LATEX, NATURAL RUBBER, AND PENICILLIN. MEDICATIONS AT HOME: He is on Lipitor 20 mg at bedtime, losartan 25 daily, Xanax 0.5 twice a day, Risperdal 0.25 at bedtime, Uloric, he is on Januvia 25 daily, he is on Claritin as needed, he is on metoprolol 25 twice a day, isosorbide 30 mg daily, Lasix 40 mg twice a day, and he is on colchicine. SOCIAL HISTORY: He is and lives with his . He was a heavy smoker in the past. PHYSICAL EXAMINATION: GENERAL: Mild shortness of breath, looks pale. VITAL SIGNS: He is afebrile, pulse 77, respirations 18, and blood pressure 115/59. LUNGS: Bilateral diffusely breath sounds. Soft crackles at the bases. HEART: S1 and S2 audible. ABDOMEN: Soft and nontender. No rebound. No guarding. NEUROLOGIC: The patient is awake, alert, oriented, communicative, and moves all extremities. EXTREMITIES: Bilateral leg, +1 edema. LABORATORY DATA: WBC 4.1, hemoglobin 10, hematocrit 29.7, and platelets 84. PT 70.8 and INR 5.99. Chemistry; sodium 140, calcium 4.1,chloride 104, CO2 of 27, BUN 64, and creatinine 3.3. LFTs are within normal limits. AST 40, ALT 44, and alkaline phosphatase 134. CPK 381. BNP 4250. DIAGNOSTIC DATA: X-ray chest was done that shows pulmonary vascular congestion, small bilateral pleural effusions. ASSESSMENT: 1. Congestive heart failure exacerbation. 2. Supratherapeutic Coumadin level. 3. Chronic atrial fibrillation. 4. Coronary artery disease, status post open heart surgery. 5. Chronic kidney disease. 6. Noninsulin-dependent diabetes. 7. Hypertension. 8. Hyperlipidemia. PLAN: We will monitor his blood sugar. Resume his medications, 5 mg of vitamin K has been given. We will follow PT/INR in a.m. Start him on IV diuretics. We will reevaluate in a.m. Leonila Jennings MD
[2017-12-18 02:48] VITALS: BMI 28.8
[2017-12-18 07:21] LABS: ALB/GLOB RATIO 0.8 (1.1-1.8); ALBUMIN 2.9 g/dL (3.0-4.8); CALCIUM 8.9 mg/dL (8.4-10.5)
[2017-12-18] MEDS: Insulin Lispro (humaLOG) MEDIUM Coverage SC SCH ×4 (07:46→22:31)
--- NOTE | 2017-12-18 07:52 | CARD ---
APPROVED REPORT Date of service: 12/17/2017 EKG Measurement Heart [id number] <Conclusion> Atrial fibrillation Low voltage QRS Nonspecific ST and T wave abnormality, probably digitalis effect Abnormal ECG
[2017-12-18 07:59] LABS: INR 5.34; PROTHROMBIN TIME 63.5 SECONDS (9.4-12.5)
[2017-12-18] MEDS ORDERED: Phytonadione 10 mg/ml Inj (Adult) SC ONE (09:38)
[2017-12-18 11:30] LABS: BASO # 0.04 K/mm3 (0.0-2.0); EOS # 0.2 (0.0-0.7); EOS % 5.6 % (1.5-5.0); GRAN # 1.89 (1.4-6.5); HEMOGLOBIN 9.5 g/dL (14.0-18.0); LYMPH # 1.1 (1.2-3.4); LYMPH % 28.9 % (22.0-35.0); MEAN CELL VOLUME 102.5 fl (80.0-105.0); MEAN CORPUSCULAR HEMOGLOBIN 34.2 pg (25.0-35.0); MEAN CORPUSCULAR HGB CONC 33.3 g/dl (31.0-37.0); MEAN PLATELET VOLUME 11.6 fl (7.0-11.0); MONO # 0.7 (0.1-0.6); MONO % 16.5 % (1.0-6.0); RBC 2.78 10^6/uL (3.5-6.1); WHITE BLOOD COUNT 3.9 10^3/uL (4.5-11.0)
--- NOTE | 2017-12-18 12:46 | CT ---
Date of service: 12/18/2017 PROCEDURE: CT Abdomen and Pelvis without intravenous contrast HISTORY: Elevated INR and teder ABD, R/o Bleed COMPARISON: CT chest 10/01/2017 TECHNIQUE: Without contrast.. Contrast dose: Radiation dose: Total exam DLP = 1060.82 mGy-cm. This CT exam was performed using one or more of the following dose reduction techniques: Automated exposure control, adjustment of the mA and/or kV according to patient size, and/or use of iterative reconstruction technique. FINDINGS: LOWER THORAX: Small bilateral pleural effusions right greater than left LIVER: Unremarkable. No gross lesion or ductal dilatation. GALLBLADDER AND BILE DUCTS: Gallbladder removed PANCREAS: Unremarkable. No gross lesion or ductal dilatation. SPLEEN: Unremarkable. ADRENALS: Unremarkable. No mass. KIDNEYS AND URETERS: Unremarkable. No hydronephrosis. No solid mass. VASCULATURE: Unremarkable. No aortic aneurysm. No aortic atherosclerotic calcification or mural plaque present. BOWEL: Unremarkable. No obstruction. No gross mural thickening. APPENDIX: Unremarkable. Normal appendix. PERITONEUM: There is a small volume of ascites. There is no evidence of hemorrhage. LYMPH NODES: Unremarkable. No enlarged lymph nodes. BLADDER: Unremarkable. REPRODUCTIVE: Unremarkable. BONES: No acute fracture. OTHER FINDINGS: None. IMPRESSION: Mild ascites. No evidence of intra-abdominal hemorrhage.
--- NOTE | 2017-12-18 16:58 | PN ---
DATE: 12/18/2017 SUBJECTIVE: The patient is 82 years old, seen and examined, lying in bed, seems to be comfortable, no evidence of bleeding or hemoptysis, no hematemesis. PHYSICAL EXAMINATION: VITAL SIGNS: He is afebrile, pulse 68, respirations 18, and blood pressure 144/72. LUNGS: Bilateral fair airflow. No rhonchi or crackles. HEART: S1 and S2 audible. ABDOMEN: Soft, nontender. No rebound, no guarding. NEUROLOGIC: The patient is awake, alert, and oriented, able to communicate. EXTREMITIES: Bilateral legs, no edema. LABORATORY DATA: WBC 3.9, hemoglobin 9.5, hematocrit 28.5, platelets of 82, PT 63.5, INR 5.34. Chemistries; Sodium 140, potassium 4.4, chloride 103, CO2 31, BUN 65, creatinine 3.5, and blood sugar of 89. ASSESSMENT: 1. Supratherapeutic INR, there is no evidence of bleeding. 2. Congestive heart failure exacerbation. 3. Hypertension. 4. Coronary artery disease, status post open heart surgery. 5. Cardiomyopathy, status post defibrillator placement. 6. [id number] renal insufficiency. PLAN: The patient is given 5 mg of vitamin K. We will follow up with PT and INR in the a.m. if it is therapeutic, and I will also request Physical Therapy evaluation. Leonila Jennings MD
--- NOTE | 2017-12-19 01:13 | CON ---
DATE: 12/18/2017 REASON FOR CONSULTATION: Follow up cardiac evaluation, history of coronary artery disease, CABG, history of AICD, history of cardiomyopathy ischemic, admitted with abdominal pain, found to be elevated INR. BRIEF CLINICAL HISTORY: This is an 82-year-old male with past medical history significant for coronary artery disease; CABG, stent; cardiomyopathy, ischemic; status post AICD; chronic atrial fibrillation, on anticoagulation; history of CKD; admitted with abdominal pain, found to be elevated INR. INR is at 5.99. He denies any chest pain. Denies any shortness of breath. Denies any palpitations, but complains of abdominal pain. Denies any history of bleeding from the gums. Denies any history of black colored stools or any blood in the urine or a stool. PAST MEDICAL HISTORY: Significant for coronary artery disease, status post coronary artery bypass graft x4 in 2007; history of AICD; history of CKD; history of chronic atrial fibrillation, on Coumadin; history of multiple admissions with elevated INR. Yesterday, the INR was found to be 6, so the patient was advised admission by Dr. Jennings. Denies any chest pain. Denies any shortness of breath. Denies any palpitation. PREVIOUS CARDIAC WORKUP: As follows: The patient had cardiac catheterization when the patient admitted with STEMI as the patient had open heart surgery in 2007. Last catheterization after non-STEMI on 05/31/2016 shows a triple vessel disease with patent PIÑA to LAD, patent SVG to RCA and patent left radial sequential to OM1 and OM2. Severely decreased LV function, ejection fraction 20-25%, history of chronic atrial fibrillation. Last echo dated 10/01/2017 done that showed ejection fraction 20-25%, right ventricle moderate to severely dilated, systolic function moderately reduced, moderate aortic regurgitation, aortic sclerosis versus aortic stenosis, [id number] mitral regurgitation, wnbljoqj-sk-kzhnuh tricuspid regurgitation, RV systolic pressure of 58. CURRENT MEDICATIONS: The patient is taking at home; atorvastatin, losartan, Risperdal, Januvia, Coumadin 1 mg alternated with 2 mg, metoprolol succinate 2 mg daily, isosorbide nitrate, Lasix and colchicine for gout. ALLERGY: ASPIRIN, RASH; LATEX; AND PENICILLIN. REVIEW OF SYSTEMS: As per HPI. PHYSICAL EXAMINATION VITAL SIGNS: Height of the patient 6 feet, weight of the patient 219 pounds, body mass index 29.8 kg/m2. Temperature afebrile, heart rate 68, blood pressure 104/72. HEENT: PERRLA. Extraocular muscles intact. NECK: Supple. No carotid bruit or thyromegaly. CHEST: Clear to auscultation. HEART: S1, S2 regular. ABDOMEN: Soft and mild tenderness noted. EXTREMITIES: Clubbing and cyanosis negative. LABORATORY DATA: Blood workup as follows: WBC 4, hemoglobin 10, hematocrit 29.7, and platelet count 84. Chemistry shows sodium 140, potassium 4.4, chloride 103, carbon dioxide 31, anion gap 11, BUN 65, and creatinine 3.5. Troponin is 0.07 with a creatinine clearance of mL, significant unknown. IMPRESSION: An 82-year-old male with past medical history significant for coronary artery disease, coronary artery bypass grafting in 2007, history of four-vessel, recent catheterization in 2017, patent left internal mammary artery to left anterior descending, patent saphenous graft to right coronary artery and left radial sequential to OM1 and OM2, increased LV function, ejection fraction 20%, chronic atrial fibrillation, admitted with elevated INR from the office, found to be in worsened renal insufficiency and complained of abdominal pain. So far, troponin is borderline, but does not show any evidence of ischemia, rule out gastrointestinal bleed or intraabdominal bleeding. We got a stat CBC yesterday with a hemoglobin of 10, we will do stat CBC and stat ultrasound of the abdomen to rule out any bleed. We will give one dose of vitamin K and monitor hemoglobin and hematocrit. So far, no evidence of acute myocardial infarction. We will follow with you. Thank you Dr. Jennings for providing us the opportunity in taking care of the patient, Jese Damon. Johanna Ruano MD
[2017-12-19 02:53] VITALS: RESP 20
[2017-12-19 08:09] LABS: INR 2.43; PROTHROMBIN TIME 28.4 SECONDS (9.4-12.5)
[2017-12-19 08:29] LABS: ALB/GLOB RATIO 0.9 (1.1-1.8); ALBUMIN 2.9 g/dL (3.0-4.8); CALCIUM 8.9 mg/dL (8.4-10.5)
[2017-12-19 08:32] LABS: BASO # 0.02 K/mm3 (0.0-2.0); BASO % 0.5 % (0.0-3.0); EOS # 0.2 (0.0-0.7); EOS % 4.4 % (1.5-5.0); GRAN # 1.91 (1.4-6.5); GRAN % 52.4 % (50.0-68.0); HEMOGLOBIN 9.3 g/dL (14.0-18.0); LYMPH % 27.1 % (22.0-35.0); MEAN CELL VOLUME 101.4 fl (80.0-105.0); MEAN CORPUSCULAR HEMOGLOBIN 33.6 pg (25.0-35.0); MEAN CORPUSCULAR HGB CONC 33.1 g/dl (31.0-37.0); MEAN PLATELET VOLUME 11.3 fl (7.0-11.0); MONO # 0.6 (0.1-0.6); MONO % 15.6 % (1.0-6.0); RBC 2.77 10^6/uL (3.5-6.1); WHITE BLOOD COUNT 3.7 10^3/uL (4.5-11.0)
--- NOTE | 2017-12-19 08:34 | CP.PCM.PN ---
Subjective - Date & Time of Evaluation Date of Evaluation: 12/19/17 Time of Evaluation: 06:25 - Subjective Subjective: Awake, alert, no distress, denies shortness of breath Reason for consultation and follow up:Cardiac evaluation of coronary artery disease, post CABG, history of AICD, ischemic cardiomyopathy, admitted for elevated INR and complaining of abdominal pain Seen and examined by me and Dr. Ruano Objective - Vital Signs/Intake and Output Vital Signs (last 24 hours): Temp Pulse Resp BP Pulse Ox 97.7 F 69 20 99/50 L 97 12/19/17 00:01 12/19/17 02:00 12/19/17 00:01 12/19/17 00:01 12/19/17 00:01 Intake and Output: 12/19/17 12/19/17 06:59 18:59 Intake Total Output Total Balance - Medications Medications: Current Medications Alprazolam (Xanax) 0.25 mg PO TID PRN; Protocol PRN Reason: Anxiety Last Admin: 12/18/17 10:25 Dose: 0.25 mg Atorvastatin Calcium (Lipitor) 20 mg PO HS [facility] Last Admin: 12/18/17 22:05 Dose: 20 mg Colchicine (Colocrys) 0.6 mg PO DAILY [facility] Last Admin: 12/18/17 09:34 Dose: 0.6 mg Docusate Sodium (Colace) 100 mg PO DAILY [facility] Last Admin: 12/18/17 09:34 Dose: 100 mg Furosemide (Lasix) 40 mg IVP DAILY [facility] Last Admin: 12/18/17 09:34 Dose: 40 mg Insulin Human Lispro (Humalog Med) 0 units SC [facility]; Protocol Last Admin: 12/18/17 22:31 Dose: Not Given Isosorbide Mononitrate (Imdur Er) 30 mg PO DAILY [facility] Last Admin: 12/18/17 09:34 Dose: 30 mg Risperidone (Risperdal Tab) 0.25 mg PO HS [facility]; Protocol Last Admin: 12/18/17 22:05 Dose: 0.25 mg Sitagliptin Phosphate (Januvia) 25 mg PO DAILY [facility] Last Admin: 12/18/17 09:36 Dose: 25 mg - Labs Labs: 12/18/17 11:10 12/19/17 07:30 PT 28.4 SECONDS (9.4-12.5) H 12/19/17 07:30 INR 2.43 12/19/17 07:30 APTT 76.7 Seconds (25.1-36.5) H 12/17/17 16:51 - Constitutional Appears: Non-toxic, No Acute Distress - Head Exam Head Exam: NORMAL INSPECTION, NORMOCEPHALIC - Eye Exam Eye Exam: Normal appearance Pupil Exam: NORMAL ACCOMODATION - ENT Exam ENT Exam: Mucous Membranes Moist, Normal Exam - Respiratory Exam Respiratory Exam: Decreased Breath Sounds, Clear to Ausculation Bilateral, NORMAL BREATHING PATTERN - Cardiovascular Exam Cardiovascular Exam: Irregular Rhythm Additional comments: Telemetry Atrial fibrillation AICD - GI/Abdominal Exam GI & Abdominal Exam: Soft, Normal Bowel Sounds - Extremities Exam Extremities Exam: Full ROM Additional comments: 1-2+ pedal edema - Neurological Exam Neurological Exam: Alert, Awake, Oriented x3 - Psychiatric Exam Psychiatric exam: Normal Affect, Normal Mood - Skin Skin Exam: Dry, Normal Color, Warm Assessment and Plan - Assessment and Plan (Free Text) Assessment: An 82 year old male who was sent to the ER by PMD due to elevated INR, taking Coumadin for chronic atrial fibrillation. History of coronary artery disease post CABG 2007, post cardiac cath 2017 with patent bypass graft, ischemic cardiomyopathy,AICD,chronic atrial fibrillation,hypertension, hyperlipidemia, diabetes mellitus, CHF, BPH, former smoker, chronic renal insufficiency. Complaints of abdominal pain. Patient reports he has chronic shortness of breath and chronic edema that is no different from usual. Borderline troponin so far no evidence of myocardial ischemia, denies chest pain, Elevated due to worsening renal insufficiency renal .Vitamin K given in ER, Repeat was 5.99. Another dose of Vitamin K given,repeat 5.34. CT of abdomen done and showed negative for hemorrhage, mild ascites. Plan: No distress,denies shortness of breath Sit at side of bed Heart rate controlled Blood pressure controlled So far no signs of bleeding INR today 2.4 On Lipitor 20 mg daily, Colchicine 0.6 mg daily,Lasix 40 mg daily, Imdur 30 mg daily Continue current medications Continue current treatment Chart reviewed Will follow up Plan and treatment discussed with Dr. Ruano
[2017-12-19 09:02] VITALS: TEMP 98.7
[2017-12-19 09:37] VITALS: BP 119/61; O2SAT 100
[2017-12-19] MEDS: Insulin Lispro (humaLOG) MEDIUM Coverage SC SCH ×2 (09:39→12:24)
[2017-12-19 10:59] VITALS: PULSE 72
[2017-12-19 11:06] LABS: IRON 157 ug/dL (45-180)
[2017-12-19 11:15] LABS: % IRON SATURATION 70 % (20-55); TOTAL IRON BINDING CAPACITY 222 ug/dL (261-462)
[2017-12-19 11:52] LABS: URINE BILIRUBIN NEGATIVE (NEGATIVE); URINE BLOOD MODERATE (NEGATIVE); URINE GLUCOSE (UA) NEGATIVE (NEGATIVE); URINE LEUKOCYTE ESTERASE NEGATIVE Leu/uL (NEGATIVE); URINE PROTEIN NEGATIVE mg/dL (<30 mg/dL); URINE UROBILINOGEN 0.2 E.U./dL (<1 E.U./dL)
[2017-12-19 11:56] LABS: CREATININE,RANDOM URINE 77 mg/dL
[2017-12-19 12:18] LABS: URINE APPEARANCE CLEAR (CLEAR); URINE COLOR YELLOW (YELLOW)
[2017-12-19 12:22] LABS: URINE BACTERIA NEG (NEG); URINE WBC NEGATIVE /hpf (0-6)
--- NOTE | 2017-12-19 19:23 | CON ---
DATE OF CONSULTATION: 12/19/2017 REASON FOR CONSULTATION: Acute kidney injury superimposed on chronic kidney disease stage IV. HISTORY OF PRESENT ILLNESS: This is an 82-year-old male previously unknown to me. The patient was sent to the emergency room because of an INR of 6.1. The patient, on questioning, reports lower abdominal pain. He complains of cramping. He reports that he has been having this pain for 2-3 weeks. He also reports dyspnea on exertion. He becomes dyspneic with mild exertion. He denies any chest pain. He denies any palpitations. He denies any nausea or vomiting. He has a history of constipation, but now he takes milk of magnesium, so his stool is soft. He denies any melena. He denies any fever or chills. In the emergency room, he was found to have blood pressure of 115/59, heart rate of 70, respiratory rate of 20, temperature 97.1. His blood work showed his INR to be 5.9. His BUN was 68 and creatinine was 3.3. His baseline creatinine is around 2.5. Hence, consultation is requested for acute kidney injury. PAST MEDICAL AND SURGICAL HISTORY: CHF, cardiomyopathy, decreased ejection fraction, AICD, CAD, CABG, PTCA and stent, chronic atrial fibrillation, chronic anticoagulation, chronic kidney disease stage IV, decreased ejection fraction of 25%, moderate to severely dilated LV, elevated right ventricular systolic pressure of 58. This is from echocardiogram in 09/2017. FAMILY HISTORY: Noncontributory. SOCIAL HISTORY: No smoking, no alcohol use, no IV drug abuse. ALLERGIES: ASPIRIN. REVIEW OF SYSTEMS: All systems are reviewed, pertinent positives as mentioned in the history presenting illness, rest unremarkable. PHYSICAL EXAMINATION: GENERAL: Elderly male lying in bed, in mild distress. VITAL SIGNS: Blood pressure 99/50, heart rate 68, respiratory rate 20, temperature 97.7. HEENT: Normocephalic, atraumatic, positive pallor. NECK: Supple, no JVD. LUNGS: Bilateral equal air entry, bilateral equal expansion, minimal rales. CARDIAC: S1 and S2, irregularly irregular, no murmur, no rub. ABDOMEN: Obese, distended, soft, mild tenderness in the lower abdomen. EXTREMITIES: No lower extremity edema. LABORATORY DATA: WBC 3.7, hemoglobin 9.3, hematocrit 28, platelets 86. Sodium 140, potassium 4.4, chloride 103, CO2 of 31, BUN 68, creatinine 3.3, glucose 93, calcium 8.9, phosphorus 4.1, magnesium 1.9. Total bili 2.3, AST 88, ALT 47, albumin 2.9, globulin 3.4. CT of the abdomen is unremarkable except for mild ascites. CURRENT MEDICATIONS: Colace, Colcrys 0.6, Coreg 3.125 b.i.d., Coumadin on hold, Imdur 30, Januvia 25, Lasix 40, Lipitor 20, Risperdal, Xanax, vitamin K given yesterday. ASSESSMENT: 1. Acute kidney injury superimposed on chronic kidney disease stage IV, need to consider GI blood loss in light of elevated INR, drop in hemoglobin. 2. Supratherapeutic INR. 3. Severe cardiomyopathy, congestive heart failure, decreased ejection fraction, AICD, coronary artery disease, CABG, chronic atrial fibrillation. 4. Xsd-jyubtmk-aewpajous diabetes mellitus. 5. Congestive hepatopathy. 6. Ascites. PLAN: 1. Check urine sodium, urine creatinine. 2. Check serial hemoglobin. 3. Check iron TIBC and ferritin. 4. Check stool occults. 5. Avoid over diuresis. Thank you for the courtesy of this consultation. We will follow this patient closely with you. Angelia Escalante MD
--- NOTE | 2017-12-20 01:11 | DS ---
HISTORY OF PRESENT ILLNESS: The patient is 82 years old, seen and examined, lying in bed, and seems to be comfortable. Mild shortness of breath on exertion. Denies any chest pain. No shortness of breath, eating and tolerating. PHYSICAL EXAMINATION: VITAL SIGNS: He is afebrile, pulse 72, respirations 20, and blood pressure 119/61. LUNGS: Bilateral soft crackles at bases. HEART: S1 and S2 audible, rate controlled. ABDOMEN: Soft and nontender. No rebound. No guarding. NEUROLOGIC: He is awake, alert, oriented, and able to communicate. LABORATORY DATA: WBC 3.7, hemoglobin 9.3, hematocrit 28, and platelet of 56. His 28.4 and INR 2.43. Chemistry: Sodium 140, potassium 4.4, chloride 103, CO2 of 31, BUN 68, creatinine 3.3, and blood sugar of 84. ASSESSMENT: 1. Supratherapeutic INR, was given 2 doses of vitamin K, no need for vitamin K today and we can skip today's Coumadin. He his Coumadin schedule. 2. Coronary artery disease, status post open heart surgery. 3. Acute on chronic kidney disease. 4. Hypertension. 5. Cardiomyopathy, status post pacemaker placement. 6. Noninsulin-dependent diabetes. 7. Deconditioning and difficulty walking. 8. History of gout. PLAN: We will continue the patient on his usual medications. I spoke to daughter, Pili. The patient is going to be discharge and he will be followed by Dr. Escalante in 3-4 months to monitor his kidney function. We will monitor his PT/INR as an outpatient. Leonila Jennings MD
--- NOTE | 2017-12-20 08:46 | PN ---
DATE: 12/19/2017 REASON FOR CONSULTATION AND FOLLOW UP: Cardiac evaluation, coronary artery disease, CABG, admitted with elevated INR, rule out intraabdominal bleed. The patient denies any chest pain, shortness of breath, or any palpitation. The patient yesterday underwent CAT scan of the abdomen and pelvis. Mild ascites noted. No evidence of intraabdominal hemorrhage noted. The patient's INR was elevated, supratherapeutic INR. On today's lab, INR is 2.43. We will start low dose of Coumadin and if remain stable, possible discharge home tomorrow or today. CVS status is stable. We will discontinue telemetry. History of underlying CKD, creatinine clearance 18 mL an hour, history of AICD placed in the past. We will put low dose of Coreg as blood pressure is tolerated. We will also discontinue telemetry. Patient is stable from Cardiology point of view to be discharged. This note is an addition to note dictated by nurse practitioner. Thank you Dr. Jennings for providing opportunity in taking care of the patient Jese Damon. Johanna Ruano MD
== END 2017-12-19 15:51 | disposition home or self-care (01) ==
LOC: ED 15:50 → ERH 18:29 → 2RNO 21:05
PROVIDERS: ADMIT Internal Medicine; ATTEND Internal Medicine
DX: D68.9 Coagulation defect, unspecified (principal); I13.0 Hypertensive heart and chronic kidney disease with heart failure and stage 1 through stage 4 chronic kidney disease, or unspecified chronic kidney disease; I50.22 Chronic systolic (congestive) heart failure; N18.4 Chronic kidney disease, stage 4 (severe); N17.9 Acute kidney failure, unspecified; K76.1 Chronic passive congestion of liver; N40.0 Benign prostatic hyperplasia without lower urinary tract symptoms; R18.8 Other ascites; K21.9 Gastro-esophageal reflux disease without esophagitis; I48.2 Chronic atrial fibrillation; I42.0 Dilated cardiomyopathy; I25.5 Ischemic cardiomyopathy; E11.22 Type 2 diabetes mellitus with diabetic chronic kidney disease; E78.5 Hyperlipidemia, unspecified; H40.9 Unspecified glaucoma; I08.3 Combined rheumatic disorders of mitral, aortic and tricuspid valves; I25.10 Atherosclerotic heart disease of native coronary artery without angina pectoris; I25.2 Old myocardial infarction; Z79.01 Long term (current) use of anticoagulants; Z79.84 Long term (current) use of oral hypoglycemic drugs; Z87.01 Personal history of pneumonia (recurrent); Z87.891 Personal history of nicotine dependence; Z95.1 Presence of aortocoronary bypass graft; Z95.5 Presence of coronary angioplasty implant and graft; Z95.810 Presence of automatic (implantable) cardiac defibrillator
CPT/HCPCS: 36415; 71045; 74176; 80053; 80061; 81001; 82550; 82553; 82570; 82728; 82948; 83036; 83540; 83550; 83615; 83735; 83880; 84100; 84300; 84443; 84484; 84550; 85025; 85610; 85730; 87086; 93005; 96374; 97116; 97161; 99285; G0378; G8978; G8979; J1940; J3430

== ENCOUNTER 2018-01-02 13:29 | Inpatient (IN) | payer MEDICARE, OTHER ==
[2018-01-02 13:31] VITALS: PULSE 68
[2018-01-02 13:58] VITALS: BMI 30.2
--- NOTE | 2018-01-02 14:08 | ED PDOC ---
Arrival/HPI - General Chief Complaint: Weakness/Neurological Deficit Time Seen by Provider: 01/02/18 13:38 Historian: Spouse - History of Present Illness Narrative History of Present Illness (Text): 01/02/18 14:11 82 M with PMHx of cardiac catheter in 2017, end stage heart failure, chronic kidney disease, hypertension, atrial fibrillation, diabetes, CHF on Coumadin, CAD, CABG, brought in to the Emergency department by family, with cc of fluid retention, shortness of breath, weakness, hypotension, and generalized body pain, with weight gain of 6.9 pounds in 6 days. reports patient is retaining more fluid than usual, noting swelling everywhere (feet, hands, face). states that patient is drooling a lot from mouth when sleeping at night, noting "it is water coming out, not saliva." states patient is taking a lot when sleeping and sleeps with eyes half open. denies any other complaints. PMD: Leonila Quintana Time/Duration: > week ( states patient is retaining more fluid than usual, with weight gain of 6.9 pounds in 6 days) Symptom Onset: Sudden Symptom Course: Unchanged Activities at Onset: Light Past Medical History - Infectious Disease Hx of Infectious Diseases: None - Tetanus Immunization Tetanus Immunization: Unknown - Cardiac Hx Congestive Heart Failure: Yes Hx Hypertension: Yes - Pulmonary Hx Pneumonia: Yes - Neurological Hx Neurological Disorder: (DENIES HISTORY) - HEENT Hx HEENT Disorder: Yes Hx Cataracts: Yes (Left) Hx Glaucoma: Yes (Right) - Renal Hx Renal Disorder: Yes - Endocrine/Metabolic Hx Diabetes Mellitus Type 2: Yes - Hematological/Oncological Hx Blood Disorders: Yes - Integumentary Hx Dermatological Disorder: (DENIES HISTORY) - Musculoskeletal/Rheumatological Hx Falls: Yes - Gastrointestinal Hx Gastrointestinal Disorders: Yes (constipation then diarrhea,blood in stool,gastroenteritis,gerd,cholecystect) - Genitourinary/Gynecological Hx Genitourinary Disorders: No - Psychiatric Hx Psychophysiologic Disorder: No Hx Substance Use: No - Surgical History Hx Open Heart Surgery: Yes - Anesthesia Hx Anesthesia: Yes Hx Anesthesia Reactions: Yes Hx Malignant Hyperthermia: No - Suicidal Assessment Feels Threatened In Home Enviroment: No Family/Social History Family/Social History: No Known Family HX Smoking Status: Former Smoker Hx Alcohol Use: No Hx Substance Use: No Hx Substance Use Treatment: No Allergies/Home Meds Allergies/Adverse Reactions: Allergies aspirin Allergy (Verified 10/13/17 06:17) RASH Latex, Natural Rubber Allergy (Verified 10/13/17 06:17) RASH Penicillins Allergy (Verified 10/13/17 06:17) ANAPHYLAXIS Home Medications: Home Meds Medication Instructions Recorded Confirmed Atorvastatin [Lipitor] 20 mg PO HS 05/18/16 12/17/17 Colchicine [Colcrys] 0.6 mg PO DAILY 05/18/16 12/17/17 Docusate Sodium [Col-Rite] 100 mg PO DAILY 05/18/16 12/17/17 Isosorbide Mononitrate ER [Imdur 30 mg PO DAILY 05/18/16 12/17/17 ER] Losartan [Cozaar] 25 mg PO DIN 05/18/16 12/17/17 Metoprolol Succinate 50 mg PO BID 09/05/16 12/17/17 Alprazolam [Xanax] 0.5 mg PO DAILY 12/17/17 12/17/17 Febuxostat [Uloric] 40 mg PO DAILY 12/17/17 12/17/17 Loratadine [Claritin] 10 mg PO DAILY 12/17/17 12/17/17 SITagliptin [Januvia] 25 mg PO DAILY 12/17/17 12/17/17 Warfarin [Coumadin] 1 mg PO FRI 12/17/17 12/17/17 Warfarin [Coumadin] 1 mg PO MON 12/17/17 12/17/17 Warfarin [Coumadin] 1 mg PO WED 12/17/17 12/17/17 Warfarin [Coumadin] 2 mg PO SAT 12/17/17 12/17/17 Warfarin [Coumadin] 2 mg PO SUN 12/17/17 12/17/17 Warfarin [Coumadin] 2 mg PO DARNELL 12/17/17 12/17/17 Warfarin [Coumadin] 2 mg PO TUE 12/17/17 12/17/17 risperiDONE [RisperDAL Tab] 0.25 mg PO HS 12/17/17 12/17/17 Review of Systems - Physician Review All systems were reviewed & negative as marked: Yes (All other systems negative except that noted in the HPI.) Physical Exam - Physical Exam Narrative Physical Exam (Text): Gen: VS reviewed, alert, well developed, well nourished, nontoxic, mild distress Eye: EOMI, PERRL Neck: no JVD, supple, no adenopathy CV: regular rate, regular rhythm, no rubs,no murmur, S1, S2 Pulm: no distress, clear to auscultation, no wheeze, no rhonchi, breath sounds equal, no rales Abd: soft, nontender, no guarding, no rebound, no rigidity Ext: diffuse edema all the way up to abdomen, consistent with anasarca Skin: good color, no rash, no cyanosis Psych: responds appropriately to questions, normal affect Neuro: oriented x3, CN2-12 intact grossly, motor intact, sensation intact Vital Signs Reviewed: Yes Temperature: Afebrile Blood Pressure: Hypotensive Pulse: Regular Respiratory Rate: Normal Appearance: Positive for: Well-Appearing, Non-Toxic, Comfortable Pain Distress: Mild Mental Status: Positive for: Alert and Oriented X 3 Medical Decision Making ED Course and Treatment: 01/02/18 14:08 Impression: 82 M brought into the Emergency department for fluid retention, s hortness of breath, weakness, hypotension, and generalized body pain, with weight gain of 6.9 pounds in 6 days. Differential Diagnosis included but are not limited to: Plan: -- Labs -- EKG -- Comp Metabolic Panel -- Magnesium -- Troponin I -- CBC (with differential) -- Partial Thromboplastin -- PT [Prothrombin Time] -- X-Ray of chest -- Oxygen Therapy [O2 via Nasal Cannula] -- Reassess and disposition Prior Visits: Notes and results from previous visits were reviewed. Last on 12/17/17 for evaluation of low INR levels since earlier today. Patient was hospitalized with diagnosis of congestive heart failure, chronic kidney disease, coagulopathy and pedal edema. Progress Notes: 01/02/18 16:[address] hernandez, she has already placed admit orders. 01/02/18 16:[address] navarro,nephrology, recommends dose of lasix 60mg iv now x 1 - RAD Interpretation Narrative RAD Interpretations (Text): X-Ray of chest reviewed by radiologist, shows: Dictator : Debbi Mascorro MD Report Date : 01/02/2018 16:41:31 FINDINGS: Examination limited by habitus. LUNGS: Moderate pulmonary venous congestion. No focal consolidation. Please note that chest x-ray has limited sensitivity for the detection of pulmonary masses. PLEURA: Small bilateral pleural effusions. No definite pneumothorax . CARDIOVASCULAR: Median sternotomy wires with evidence of CABG. Cardiomegaly. Atherosclerotic calcification present. OSSEOUS STRUCTURES: Degenerative changes. VISUALIZED UPPER ABDOMEN: Unremarkable. OTHER FINDINGS: Left chest wall battery pack re-identified with lead appearing in similar position. IMPRESSION: Moderate pulmonary venous congestion. Small pleural effusions. Cardiomegaly. Additional findings as above. Radiology Orders: 01/02/18 14:03 CHEST PORTABLE [RAD] Stat Bell Captain: Radiologist - EKG Interpretation EKG Interpretation (Text): 01/02/18 15:06 13:59 atrial fibrillation at 69 bpm, nml qrs, low voltage, nonspecific t wave abn Interpreted by ED Physician: Yes - Scribe Statement The provider has reviewed the documentation as recorded by the Scribe rUsula Rushing All medical record entries made by the Scribe were at my direction and personally dictated by me. I have reviewed the chart and agree that the record accurately reflects my personal performance of the history, physical exam, medical decision making, and the department course for this patient. I have also personally directed, reviewed, and agree with the discharge instructions and disposition. Disposition/Present on Arrival - Present on Arrival Any Indicators Present on Arrival: No History of DVT/PE: No History of Uncontrolled Diabetes: No Urinary Catheter: No History of Decub. Ulcer: No History Surgical Site Infection Following: None - Disposition Have Diagnosis and Disposition been Completed?: Yes Diagnosis: Anasarca Disposition: HOSPITALIZED Disposition Time: 15:59 Patient Plan: Admission Patient Problems: Current Active Problems Problem Status Onset Anasarca Acute Condition: STABLE
[2018-01-02 14:49] LABS: BASO # 0.03 K/mm3 (0.0-2.0); BASO % 0.7 % (0.0-3.0); EOS # 0.3 (0.0-0.7); EOS % 7.3 % (1.5-5.0); GRAN # 2.4 (1.4-6.5); GRAN % 58.6 % (50.0-68.0); HEMOGLOBIN 9.9 g/dL (14.0-18.0); LYMPH % 25.1 % (22.0-35.0); MEAN CELL VOLUME 101.7 fl (80.0-105.0); MEAN CORPUSCULAR HGB CONC 33.4 g/dl (31.0-37.0); MEAN PLATELET VOLUME 11.6 fl (7.0-11.0); MONO # 0.3 (0.1-0.6); MONO % 8.3 % (1.0-6.0); RBC 2.91 10^6/uL (3.5-6.1); RED CELL DISTRIBUTION WIDTH 18.8 % (11.5-14.5); WHITE BLOOD COUNT 4.1 10^3/uL (4.5-11.0)
[2018-01-02 14:58] LABS: ALB/GLOB RATIO 0.9 (1.1-1.8); ALBUMIN 3.1 g/dL (3.0-4.8)
[2018-01-02 15:10] LABS: TROPONIN I 0.06 ng/mL
--- NOTE | 2018-01-02 16:45 | RAD ---
HISTORY: chf COMPARISON: Chest x-ray performed 12/17/17 TECHNIQUE: Chest, one view. FINDINGS: Examination limited by habitus. LUNGS: Moderate pulmonary venous congestion. No focal consolidation. Please note that chest x-ray has limited sensitivity for the detection of pulmonary masses. PLEURA: Small bilateral pleural effusions. No definite pneumothorax . CARDIOVASCULAR: Median sternotomy wires with evidence of CABG. Cardiomegaly. Atherosclerotic calcification present. OSSEOUS STRUCTURES: Degenerative changes. VISUALIZED UPPER ABDOMEN: Unremarkable. OTHER FINDINGS: Left chest wall battery pack re-identified with lead appearing in similar position. IMPRESSION: Moderate pulmonary venous congestion. Small pleural effusions. Cardiomegaly. Additional findings as above.
[2018-01-02] MEDS: Insulin Lispro (humaLOG) MEDIUM Coverage SC SCH ×2 (16:54→21:49)
[2018-01-02] MEDS ORDERED: Sod Polystyrene Sulf 15 gm/60 ml Susp PO ONE (21:29)
--- NOTE | 2018-01-02 22:15 | CARD ---
APPROVED REPORT Date of service: 01/02/2018 EKG Measurement Heart [id number] <Conclusion> Atrial fibrillation Low voltage QRS Nonspecific ST and T wave abnormality, probably digitalis effect Abnormal ECG
--- NOTE | 2018-01-02 22:16 | HP ---
DATE OF EXAM: 01/02/2018 HISTORY OF PRESENT ILLNESS: The patient is 82 years old who has been monitored by me at home very closely for the last one week. According to daughter, he has been gaining weight and he gets short of breath even on going to the bathroom and his creatinine seems to creeping up. According to daughter, he has gained weight, not eating that well, sleeping a lot at home. So, I advised them to bring to ER for further evaluation. There is no history of fever or chills. There is scanty cough. No nausea or vomiting. No rectal bleeding. PAST MEDICAL HISTORY: Significant for; 1. Ischemic cardiomyopathy. 2. Status post defibrillator placement. 3. Hypertension. 4. Icm-flumwva-rpujesiut diabetes. 5. Chronic kidney disease. 6. History of gout. 7. History of open heart surgery. 8. Dilated cardiomyopathy. ALLERGIES: HE IS ALLERGIC TO ASPIRIN, LATEX, NATURAL RUBBER, AND PENICILLIN. MEDICATIONS: At home, he is on Uloric, colchicine 0.6 mg daily, Januvia 25 mg daily, Risperdal 0.25 mg at bedtime, isosorbide 30 mg daily, Colace 100 mg daily, atorvastatin 20 mg at bedtime, Xanax 0.5 mg daily, Coumadin, metoprolol 50 mg twice a day but recently has been decreased to 12.5 mg daily, losartan 25 mg at dinnertime, Lasix 40 mg twice a day. SOCIAL HISTORY: He used to be a smoker in the past, but has quit smoking for many years. Denies alcohol abuse. He is , lives with his . PHYSICAL EXAMINATION GENERAL: He is awake and alert. Able to communicate. He has mild shortness of breath. VITAL SIGNS: He is afebrile, pulse 76, respirations 20, blood pressure 90/60. LUNGS: Heart rate is symmetrical. NECK: JVD positive. No thyromegaly. No lymphadenopathy. Bilateral soft crackles at the bases. HEART: S1, S2 audible. Regular rate, rate controlled. ABDOMEN: Soft, nontender. No rebound, no guarding. NEUROLOGIC: The patient is awake and alert. Able to communicate. Bilateral leg cluster edema. LABORATORY DATA: WBC 4.1, hemoglobin 9.9, hematocrit 29.6, platelets 86,000. Chemistry; sodium 138, potassium 5.2, chloride 103, CO2 of 27, BUN 97, creatinine 4.6, blood sugar of 98. Magnesium 2.3. ASSESSMENT: 1. Worsening kidney failure, acute of chronic. 2. Hypertension. 3. Congestive heart failure. 4. ischemic cardiomyopathy. 5. History of gout. 6. Wtd-jyftsvd-sfckpkrkl diabetes. PLAN: The patient will be admitted in telemetry. We will try to diurese him. His blood pressure is running on the low side. We will carefully give him beta-rolando and JUAN inhibitor. Dr. Escalante for nephrology evaluation and Dr. Villalobos for cardiology evaluation have been consulted. Leonila Jennings MD (Delete this signature block when dictator is a preceptor.) cc: MD Nimisha (Delete if not dictated.)
[2018-01-02 23:03] LABS: ALB/GLOB RATIO 0.8 (1.1-1.8)
[2018-01-02 23:15] LABS: TROPONIN I 0.06 ng/mL
[2018-01-03] MEDS: Levalbuterol 1.25 MG/3 ML Inhal Soln UD IH SCH ×4 (07:32→19:49)
[2018-01-03] MEDS: Insulin Lispro (humaLOG) MEDIUM Coverage SC SCH ×4 (07:37→22:22)
[2018-01-03] MEDS: metOLazone 2.5 MG TAB PO SCH (09:39)
[2018-01-03] MEDS: Milrinone 20mg/100ml D5W 100 ML IV PRN (12:19)
[2018-01-03 12:30] LABS: INR 3.34; PROTHROMBIN TIME 39.4 SECONDS (9.4-12.5)
--- NOTE | 2018-01-03 15:18 | CP.PCM.CON ---
<ShayyHernan - Last Filed: 01/03/18 15:05> History of Present Illness - History of Present Illness History of Present Illness: Nephrology consult note: Sahyy, PGY - 2 Reason for consult: LARRY on CKD HPI: 82 M with pertinent medical history of A Fib on Coumadin, DM, HTN, CHF with AICD and EF of 20-25% in 09/2017, and CKD 3 with baseline creatinine in the low 2's presented on 01/02/18 for generalized weakness, LONG, and urine retention. Nephrology was consulted for urine retention and 6 pound weight gain. Patient's states that patient has had very little urine output for the past few days, as well as edema. Patient himself states that he gets short of breath when he is walking around but does not get dyspnea at rest. Review of Systems: 12 point ROS obtained and negative except as per HPI PSH: CABG, defibrillator PMH: CAD, HTN, HLD, DM Allergies: ASA, PCN, natural rubber Social hx: Former smoker. Quit 1989. Does not drink or use drugs. Born in [facility]. Home meds: Reviewed, see MAR FH: Non - contributory Past Patient History - Infectious Disease Hx of Infectious Diseases: None - Tetanus Immunizations Tetanus Immunization: Unknown - Past Medical History & Family History Past Medical History?: Yes - Past Social History Smoking Status: Never Smoked - CARDIAC Hx Congestive Heart Failure: Yes Hx Hypertension: Yes - PULMONARY Hx Bronchitis: Yes Hx Pneumonia: Yes - NEUROLOGICAL Hx Neurological Disorder: (DENIES HISTORY) - HEENT Hx HEENT Problems: Yes Hx Cataracts: Yes (Left) Hx Glaucoma: Yes (Right) - RENAL Hx Chronic Kidney Disease: Yes - ENDOCRINE/METABOLIC Hx Diabetes Mellitus Type 2: Yes - HEMATOLOGICAL/ONCOLOGICAL Hx Blood Disorders: Yes - INTEGUMENTARY Hx Dermatological Problems: (DENIES HISTORY) - MUSCULOSKELETAL/RHEUMATOLOGICAL Hx Falls: No - GASTROINTESTINAL Hx Gastrointestinal Disorders: Yes (constipation then diarrhea,blood in stool,gastroenteritis,gerd,cholecystect) - GENITOURINARY/GYNECOLOGICAL Hx Genitourinary Disorders: No - PSYCHIATRIC Hx Psychophysiologic Disorder: No Hx Substance Use: No - SURGICAL HISTORY Hx Open Heart Surgery: Yes - ANESTHESIA Hx Anesthesia: Yes Hx Anesthesia Reactions: Yes Hx Malignant Hyperthermia: No Meds Allergies/Adverse Reactions: Allergies Allergy/AdvReac Type Severity Reaction Status Date / Time aspirin Allergy RASH Verified 10/13/17 06:17 Latex, Natural Rubber Allergy RASH Verified 10/13/17 06:17 Penicillins Allergy ANAPHYLAXIS Verified 10/13/17 06:17 - Medications Medications: Current Medications Alprazolam (Xanax) 0.25 mg PO DAILY [facility]; Protocol Last Admin: 01/03/18 09:38 Dose: 0.25 mg Atorvastatin Calcium (Lipitor) 20 mg PO HS [facility] Last Admin: 01/02/18 21:17 Dose: 20 mg Colchicine (Colocrys) 0.6 mg PO DAILY [facility] Last Admin: 01/02/18 16:51 Dose: 0.6 mg Docusate Sodium (Colace) 100 mg PO DAILY [facility] Last Admin: 01/03/18 09:37 Dose: 100 mg Furosemide (Lasix) 80 mg IVP Q12 [facility] Milrinone Lactate/Dextrose (Primacor 20mg/100ml D5w) 100 mls @ 5.781 mls/hr IV .[id number] PRN; Protocol PRN Reason: TITRATE PER MD ORDER Stop: 01/05/18 12:00 Last Admin: 01/03/18 12:19 Dose: 0.2 mcg/kg/min, 5.781 mls/hr Insulin Human Lispro (Humalog Med) 0 units SC ACHS [facility]; Protocol Last Admin: 01/03/18 11:19 Dose: Not Given Isosorbide Mononitrate (Imdur Er) 30 mg PO DAILY [facility] Last Admin: 01/03/18 09:37 Dose: 30 mg Levalbuterol HCl (Xopenex) 1.25 mg IH TIDRESP [facility] Last Admin: 01/03/18 13:44 Dose: 1.25 mg Metolazone (Zaroxolyn) 2.5 mg PO DAILY [facility] Last Admin: 01/03/18 09:39 Dose: 2.5 mg Risperidone (Risperdal Tab) 0.25 mg PO [facility]; Protocol Last Admin: 01/02/18 21:17 Dose: 0.25 mg Sitagliptin Phosphate (Januvia) 25 mg PO DAILY [facility] Last Admin: 01/03/18 09:37 Dose: 25 mg Physical Exam - Constitutional Appears: Well, Non-toxic, No Acute Distress - Head Exam Head Exam: ATRAUMATIC, NORMAL INSPECTION, NORMOCEPHALIC - Eye Exam Eye Exam: EOMI, Normal appearance, PERRL Pupil Exam: NORMAL ACCOMODATION, PERRL - ENT Exam ENT Exam: Mucous Membranes Moist, Normal Exam - Neck Exam Neck exam: Positive for: Normal Inspection Additional comments: No JVD - Respiratory Exam Respiratory Exam: Clear to Auscultation Bilateral, NORMAL BREATHING PATTERN - Cardiovascular Exam Cardiovascular Exam: REGULAR RHYTHM, Systolic Murmur - GI/Abdominal Exam GI & Abdominal Exam: Normal Bowel Sounds, Soft. absent: Tenderness - Extremities Exam Extremities exam: Positive for: normal capillary refill, pedal edema (3+ pitting edema). Negative for: tenderness - Back Exam Back exam: NORMAL INSPECTION - Neurological Exam Neurological exam: Alert, CN II-XII Intact, Normal Gait, Oriented x3, Reflexes Normal - Psychiatric Exam Psychiatric exam: Normal Affect, Normal Mood - Skin Skin Exam: Dry, Intact, Normal Color, Warm Additional comments: Anasarca Results - Vital Signs Recent Vital Signs: Last Vital Signs Temp 98.0 F 01/03/18 12:00 Pulse 76 01/03/18 12:00 Resp 19 01/03/18 12:00 BP 97/54 L 01/03/18 12:18 Pulse Ox 97 01/03/18 06:00 - Labs Result Diagrams: 01/02/18 14:43 01/02/18 22:42 Labs: Laboratory Results - last 24 hr 01/02/18 01/02/18 01/02/18 14:43 15:30 16:53 PT INR Sodium Potassium Chloride Carbon Dioxide Anion Gap BUN Creatinine Est GFR ( Amer) Est GFR (Non-Af Amer) POC Glucose (mg/dL) 83 Random Glucose Calcium Total Bilirubin AST ALT Alkaline Phosphatase Troponin I 0.06 NT-Pro-B Natriuret Pep Total Protein Albumin Globulin Albumin/Globulin Ratio Blood Type O POSITIVE Antibody Screen Negative BBK History Checked Patient has bt 01/02/18 01/02/18 01/03/18 21:35 22:42 07:30 PT INR Sodium 139 Potassium 5.0 Chloride 103 Carbon Dioxide 28 Anion Gap 13 BUN 95 H Creatinine 4.9 H Est GFR ( Amer) 14 Est GFR (Non-Af Amer) 11 POC Glucose (mg/dL) 119 H 90 Random Glucose 119 H Calcium 9.0 Total Bilirubin 2.5 H AST 70 H ALT 53 Alkaline Phosphatase 133 H Troponin I 0.06 NT-Pro-B Natriuret Pep 4020 H Total Protein 6.6 Albumin 3.0 Globulin 3.6 Albumin/Globulin Ratio 0.8 L Blood Type Antibody Screen BBK History Checked 01/03/18 01/03/18 11:00 12:00 PT 39.4 H INR 3.34 Sodium Potassium Chloride Carbon Dioxide Anion Gap BUN Creatinine Est GFR ( Amer) Est GFR (Non-Af Amer) POC Glucose (mg/dL) 112 H Random Glucose Calcium Total Bilirubin AST ALT Alkaline Phosphatase Troponin I NT-Pro-B Natriuret Pep Total Protein Albumin Globulin Albumin/Globulin Ratio Blood Type Antibody Screen BBK History Checked Assessment & Plan - Assessment and Plan (Free Text) Assessment: 82 year old male with pertinent history of A-Fib, CHF, DM, HTN, and CKD presents with LONG and urinary retention. ECHO in 09/2017 showed EF of 20-25% as well as RSVP of 58. On presentation, patient had BNP of 4020; Creatinine has been slowly trending upward since September. In light of this information, the patien t's LARRY and fluid retention/overload seems to be of cardio-renal etiology, and that the underlying initiating event is CHF. Regarding patient's HTN, he has been normotensive here for the most part. Plan LARRY on CKD, likely 2/2 cardio-renal etiology - Continue aggressive diuresis; increase Lasix to 80 BID - Recommend initiating milrinone to increase ionotropic activity - Patient's RSVP is elevated - may require dialysis in the future if stress on the RV is excessive HTN - Continue diuretic treatment as above, as well as metolazone - Hold Cohungar for now Thank you for the consult. We will continue to follow the patient <Bola Leonard - Last Filed: 01/04/18 08:23> Meds - Medications Medications: Current Medications Acetaminophen (Tylenol 325mg Tab) 650 mg PO Q6H PRN PRN Reason: Pain, moderate (4-7) Last Admin: 01/03/18 17:55 Dose: 650 mg Alprazolam (Xanax) 0.25 mg PO DAILY [facility]; Protocol Last Admin: 01/03/18 09:38 Dose: 0.25 mg Atorvastatin Calcium (Lipitor) 20 mg PO HS [facility] Last Admin: 01/03/18 21:37 Dose: 20 mg Colchicine (Colocrys) 0.6 mg PO DAILY [facility] Last Admin: 01/02/18 16:51 Dose: 0.6 mg Docusate Sodium (Colace) 100 mg PO DAILY [facility] Last Admin: 01/03/18 09:37 Dose: 100 mg Furosemide (Lasix) 80 mg IVP Q12 [facility] Last Admin: 01/03/18 21:34 Dose: Not Given Milrinone Lactate/Dextrose (Primacor 20mg/100ml D5w) 100 mls @ 5.781 mls/hr IV .[id number] PRN; Protocol PRN Reason: TITRATE PER MD ORDER Stop: 01/05/18 12:00 Last Admin: 01/04/18 00:54 Dose: 0.2 mcg/kg/min, 5.781 mls/hr Sodium Chloride (Sodium Chloride 0.9%) 1,000 mls @ 50 mls/hr IV .Q20H [facility] Insulin Human Lispro (Humalog Med) 0 units SC ACHS [facility]; Protocol Last Admin: 01/04/18 07:29 Dose: Not Given Isosorbide Mononitrate (Imdur Er) 30 mg PO DAILY [facility] Last Admin: 01/03/18 09:37 Dose: 30 mg Levalbuterol HCl (Xopenex) 1.25 mg IH TIDRESP [facility] Last Admin: 01/04/18 07:48 Dose: 1.25 mg Metolazone (Zaroxolyn) 2.5 mg PO DAILY [facility] Last Admin: 01/03/18 09:39 Dose: 2.5 mg Risperidone (Risperdal Tab) 0.25 mg PO HS [facility]; Protocol Last Admin: 01/03/18 21:37 Dose: 0.25 mg Sitagliptin Phosphate (Januvia) 25 mg PO DAILY [facility] Last Admin: 01/03/18 09:37 Dose: 25 mg Results - Vital Signs Recent Vital Signs: Last Vital Signs Temp 97.5 F L 01/04/18 06:00 Pulse 87 01/04/18 06:00 Resp 19 01/04/18 06:00 BP 84/43 L 01/04/18 06:00 Pulse Ox 94 L 01/04/18 06:00 - Labs Result Diagrams: 01/04/18 06:00 01/04/18 06:00 Labs: Laboratory Results - last 24 hr 01/03/18 01/03/18 01/03/18 07:30 11:00 12:00 WBC RBC Hgb Hct MCV MCH MCHC RDW Plt Count MPV Gran % Lymph % (Auto) [place] % (Auto) Eos % (Auto) Baso % (Auto) Gran # Lymph # (Auto) [place] # (Auto) Eos # (Auto) Baso # (Auto) PT 39.4 H INR 3.34 Sodium Potassium Chloride Carbon Dioxide Anion Gap BUN Creatinine Est GFR ( Amer) Est GFR (Non-Af Amer) POC Glucose (mg/dL) 90 112 H Random Glucose Calcium Phosphorus Magnesium Total Bilirubin AST ALT Alkaline Phosphatase Total Protein Albumin Globulin Albumin/Globulin Ratio Triglycerides Cholesterol LDL Cholesterol Direct HDL Cholesterol 01/03/18 01/03/18 01/04/18 16:23 21:37 06:00 WBC 4.2 L RBC 2.52 L Hgb 8.8 L Hct 25.3 L MCV 100.4 MCH 34.9 MCHC 34.8 RDW 18.9 H Plt Count 74 L MPV 10.9 Gran % 57.0 Lymph % (Auto) 29.7 [place] % (Auto) 9.3 H Eos % (Auto) 3.3 Baso % (Auto) 0.7 Gran # 2.40 Lymph # (Auto) 1.3 [place] # (Auto) 0.4 Eos # (Auto) 0.1 Baso # (Auto) 0.03 PT INR Sodium Potassium Chloride Carbon Dioxide Anion Gap BUN Creatinine Est GFR ( Amer) Est GFR (Non-Af Amer) POC Glucose (mg/dL) 107 133 H Random Glucose Calcium Phosphorus Magnesium Total Bilirubin AST ALT Alkaline Phosphatase Total Protein Albumin Globulin Albumin/Globulin Ratio Triglycerides Cholesterol LDL Cholesterol Direct HDL Cholesterol 01/04/18 06:00 WBC RBC Hgb Hct MCV MCH MCHC RDW Plt Count MPV Gran % Lymph % (Auto) [place] % (Auto) Eos % (Auto) Baso % (Auto) Gran # Lymph # (Auto) [place] # (Auto) Eos # (Auto) Baso # (Auto) PT INR Sodium 139 Potassium 4.8 Chloride 105 Carbon Dioxide 23 Anion Gap 15 BUN 100 H Creatinine 4.7 H Est GFR ( Amer) 15 Est GFR (Non-Af Amer) 12 POC Glucose (mg/dL) Random Glucose 118 H Calcium 8.7 Phosphorus 5.1 H Magnesium 2.2 Total Bilirubin 2.5 H AST 66 H ALT 45 Alkaline Phosphatase 128 H Total Protein 6.1 Albumin 2.7 L Globulin 3.4 Albumin/Globulin Ratio 0.8 L Triglycerides 100 Cholesterol 98 L LDL Cholesterol Direct 56 HDL Cholesterol 21 L Attending/Attestation - Attestation I have personally seen and examined this patient.: Yes I have fully participated in the care of the patient.: Yes I have reviewed all pertinent clinical information: Yes Notes (Text): Patient seen and examined; I agree with the resident's note as above with the following additions/edits: 82 yo M w/ pmh of Afib on Coumadin, DM, HTN, CHF w/ biventricular dysfunction ( EF of 20-25%, moderate pulm htn), and CKD IIIB/IV, admitted with acute decompensated CHF, nephrology being consulted for acute renal failure; Patient reports increased dyspnea on exertion and leg swelling; admitted earlier this month with coagulopathy at which time serum creatinine had already incr eased from baseline of low to mid 2's -> low 3's; at that time, patient was continued on same dose of diuretics and discharged; Patient now with worsening renal function; showing some response to IV lasix but still not achieving adequate net negative fluid balance; anasarca on exam; mildly hypotensive but warm distal extremities and stable mental status; Underlying CKD is likely cardiorenal with lack of albuminuria on previous UA (although we should check total urine protein/creatinine); concern is that cardiorenal syndrome is spiraling downward with both worsening biventricular failure, pulm htn and renal failure; need to achieve adequate volume removal to decrease venous congestion as well as optimize RV/LV; -Will give trial of increased diuretic doses with IV lasix 80 mg q12h; -Discussed with cardio, milrinone being started for inotropic support; -Avoid nephrotoxic agents (NSAIDS, phosphate enema, etc); -Checking urine studies; -If unable to achieve adequate diuresis with medical management alone, will need FIELD TEST ENGINEER; prognosis is very grave and need to discuss with patient/family that we can give trial of dialysis but that dependence on it may be permanent;
--- NOTE | 2018-01-03 16:53 | PN ---
DATE: 01/03/2018 SUBJECTIVE: The patient is 82-year-old, seen and examined, has exertional shortness of breath, retaining fluid. He has gained 5 to 10 pounds within a week, being given Lasix twice a day at home with no significant improvement, so he was brought to emergency room for further evaluation. PHYSICAL EXAMINATION: GENERAL: He is awake, alert, and oriented, able to communicate. VITAL SIGNS: He is afebrile, pulse 71, respirations 20, blood pressure . LUNGS: Bilateral decreased breath sounds at bases. HEART: S1 and S2 audible, irregular, rate controlled. ABDOMEN: Soft, obese, and nontender. No rebound. No guarding. NEUROLOGICAL: The patient is awake and alert, able to communicate. LABORATORY DATA: Sodium 139, potassium 5, chloride 103, CO2 of 20, BUN 95, creatinine 4.9, blood sugar of 112, total bili 2.5, and his BNP is 12,020. ASSESSMENT: 1. Wgggd-pn-ozmtajg renal failure. 2. Congestive heart failure. 3. Ischemic cardiomyopathy. 4. Status post pacemaker placement. 5. Cky-dbpffgt-osynbgoiy diabetes. 6. Hypertension. PLAN: Currently, the patient is on colchicine. His blood sugar is being monitored. He is on Lasix 80 every 12 hours. He has been started on milrinone drip. He will continue nebulizer treatment. We will follow the patient in the a.m. and follow up electrolytes. Leonila Jennings MD
--- NOTE | 2018-01-03 17:32 | US ---
Date of service: 01/03/2018 PROCEDURE: Ultrasound of the Kidneys HISTORY: urinary retention COMPARISON: None available comparison made with prior CT scan abdomen pelvis 12/18/2017. TECHNIQUE: Sonogram of the kidneys. FINDINGS: RIGHT KIDNEY: Measures: 9.0 x 5.4 x 5.5. There cm. Normal in size, contour and echogenicity. No stone, solid mass lesion or hydronephrosis visualized. Mid/upper pole septated cyst measuring 2.9 x 1.9 x 2.4 cm. LEFT KIDNEY: Measures: 9.1 x 2.8 x 5.0 cm. Normal in size, contour and echogenicity. No stone, solid mass lesion or hydronephrosis visualized. Parapelvic cyst measures 1.3 x 1.0 x 1.1 cm OTHER FINDINGS: Abdominal ascites. IMPRESSION: Bilateral renal cysts. Abdominal ascites.
--- NOTE | 2018-01-03 23:27 | CON ---
DATE: 01/03/2018 CARDIOLOGY CONSULTATION REASON FOR CONSULTATION: Follow up acute decompensated congestive heart failure and systolic dysfunction, history of coronary artery disease, history of CABG, and history of renal insufficiency. BRIEF CLINICAL HISTORY: This is an 82-year-old male with past medical history significant for ischemic cardiomyopathy, coronary artery disease, CABG, status post defibrillator, type 2 diabetes, gout, history of dilated cardiomyopathy, ishemic cardiomyopathy, hypertension, being followed by Dr. Jennings, who recently seen at home and found to be progressively worsening shortness of breath and gaining weight and increased leg edema, so the patient came to the emergency room. Denies any chest pain, denies any palpitation, denies any nausea or vomiting, denies any fevers or chills. PAST MEDICAL HISTORY: Past history significant for coronary artery disease, status post coronary artery bypass graft x4 in 2018, history of AICD, history of CKD, history of chronic atrial fibrillation, on Coumadin, history of multiple admissions with elevated INR as well as congestive heart failure. PREVIOUS CARDIAC WORKUP: The patient had a cardiac catheterization. The patient admitted with non-STEMI, had an open heart surgery in 2007, last catheterization after the NSTEMI dated 05/31/2016 shows [place] triple-vessel disease, patent PIÑA to LAD, patent SVG to RCA, patent left radial sequential to OM1, OM2, severe decreased LV function, ejection fraction 25%, history of chronic atrial fibrillation. Last echo, 10/01/2017 done, that showed ejection fraction 20% to 25%, right ventricle moderate to severely dilated, aortic function moderate to severely reduced, moderate aortic regurgitation, moderate sclerosis versus mild aortic stenosis. Akos-kd-mwjymbwv mitral regurgitation, rioragyx-dm-kygswy tricuspid regurgitation, diastolic pressure 58. ALLERGIES: ALLERGIC TO ASPIRIN, LATEX, NATURAL RUBBER, AND PENICILLIN. CURRENT MEDICATIONS: At home, he was taking Risperdal, Coumadin 2 mg alternating with 1 mg daily, Januvia, metoprolol succinate 50 mg twice, losartan, Cozaar 40 mg daily, Uloric, colchicine, atorvastatin, and Xanax. REVIEW OF SYSTEMS: per HPI. PHYSICAL EXAMINATION: VITAL SIGNS: The height of the patient is 6 feet, weight of the patient 212 pounds, body mass index 32 kg/meter square. Temperature afebrile, heart rate 70, blood pressure 101/55. HEENT: PERRLA. Extraocular muscles are intact. NECK: Supple. No carotid bruits. No thyromegaly. CHEST: Clear to auscultation. HEART: S1 and S2 regular. ABDOMEN: Soft. EXTREMITIES: Clubbing and cyanosis, negative. LABORATORY DATA: Blood work up as follows: WBC 4.0, hemoglobin 9.9, hematocrit 29.6, platelet count 87,000. Chemistries showed sodium 139, potassium 5, chloride of 103, carbon dioxide 28, anion gap of 30, BUN 95, creatinine 4.9. BNP 4020. Impression: Acute decompensated congestive heart failure, so far troponin remains negative at 0.06 and phase of creatine clearance 11 mL. BNP elevated. IMPRESSION: An 82-year-old male with past medical history significant for coronary artery disease, coronary artery bypass graft x4, ischemic cardiomyopathy, mitral regurgitation, tricuspid regurgitation, aortic regurgitation, due to acute decompensated congestive heart failure and worsening renal insufficiency. History of diabetes, hypertension, hyperlipidemia, chest x-ray consistent with pulmonary edema, cannot rule out right lower lobe pneumonia. RECOMMENDATIONS: We will start Primacor, start IV Lasix, and the metaxalone as well. Monitor closely renal function. Further recommendation will depend on the hospital course. We will repeat chest x-ray PA and lateral tomorrow to rule out any underlying pneumonia. The patient will get the benefit from Primacor. Since the patient does not have any PT/INR, we cannot start Coumadin. We will do a stat PT/INR. We will follow with you. Thank you Dr. Jennings for providing us the opportunity in taking care of patient Jese Damon. Johanna Ruano MD
[2018-01-04] MEDS: Milrinone 20mg/100ml D5W 100 ML IV PRN (00:54)
[2018-01-04] MEDS ORDERED: Sodium Chloride 0.9% 250 ML IV STA ×2 (06:16→06:49)
[2018-01-04 06:34] LABS: BASO # 0.03 K/mm3 (0.0-2.0); BASO % 0.7 % (0.0-3.0); EOS # 0.1 (0.0-0.7); EOS % 3.3 % (1.5-5.0); GRAN # 2.4 (1.4-6.5); HEMOGLOBIN 8.8 g/dL (14.0-18.0); LYMPH # 1.3 (1.2-3.4); LYMPH % 29.7 % (22.0-35.0); MEAN CELL VOLUME 100.4 fl (80.0-105.0); MEAN CORPUSCULAR HEMOGLOBIN 34.9 pg (25.0-35.0); MEAN CORPUSCULAR HGB CONC 34.8 g/dl (31.0-37.0); MEAN PLATELET VOLUME 10.9 fl (7.0-11.0); MONO # 0.4 (0.1-0.6); MONO % 9.3 % (1.0-6.0); RBC 2.52 10^6/uL (3.5-6.1); RED CELL DISTRIBUTION WIDTH 18.9 % (11.5-14.5); WHITE BLOOD COUNT 4.2 10^3/uL (4.5-11.0)
[2018-01-04 07:22] LABS: ALB/GLOB RATIO 0.8 (1.1-1.8); ALBUMIN 2.7 g/dL (3.0-4.8); CALCIUM 8.7 mg/dL (8.4-10.5)
[2018-01-04] MEDS: Insulin Lispro (humaLOG) MEDIUM Coverage SC SCH ×4 (07:29→21:44)
--- NOTE | 2018-01-04 07:43 | CP.PCM.PN ---
Subjective - Date & Time of Evaluation Date of Evaluation: 01/04/18 Time of Evaluation: 06:10 - Subjective Subjective: Awake, alert, no distress but per RN blood pressure low Reason for consultation and follow up: Cardiac evaluation for acute on chronic systolic dysfunction decompensated congestive heart failure, history of coronary artery disease, post CABG,history of renal insufficiency Seen and examined by me and Dr. Ruano Objective - Vital Signs/Intake and Output Vital Signs (last 24 hours): Temp Pulse Resp BP Pulse Ox 97.5 F L 87 19 84/43 L 94 L 01/04/18 06:00 01/04/18 06:00 01/04/18 06:00 01/04/18 06:00 01/04/18 06:00 Intake and Output: 01/04/18 01/04/18 06:59 18:59 Intake Total 790 Balance 790 - Medications Medications: Current Medications Acetaminophen (Tylenol 325mg Tab) 650 mg PO Q6H PRN PRN Reason: Pain, moderate (4-7) Last Admin: 01/03/18 17:55 Dose: 650 mg Alprazolam (Xanax) 0.25 mg PO DAILY [facility]; Protocol Last Admin: 01/03/18 09:38 Dose: 0.25 mg Atorvastatin Calcium (Lipitor) 20 mg PO HS [facility] Last Admin: 01/03/18 21:37 Dose: 20 mg Colchicine (Colocrys) 0.6 mg PO DAILY [facility] Last Admin: 01/02/18 16:51 Dose: 0.6 mg Docusate Sodium (Colace) 100 mg PO DAILY [facility] Last Admin: 01/03/18 09:37 Dose: 100 mg Furosemide (Lasix) 80 mg IVP Q12 [facility] Last Admin: 01/03/18 21:34 Dose: Not Given Milrinone Lactate/Dextrose (Primacor 20mg/100ml D5w) 100 mls @ 5.781 mls/hr IV .[id number] PRN; Protocol PRN Reason: TITRATE PER MD ORDER Stop: 01/05/18 12:00 Last Admin: 01/04/18 00:54 Dose: 0.2 mcg/kg/min, 5.781 mls/hr Sodium Chloride (Sodium Chloride 0.9%) 1,000 mls @ 50 mls/hr IV .Q20H [facility] Insulin Human Lispro (Humalog Med) 0 units SC ACHS [facility]; Protocol Last Admin: 01/04/18 07:29 Dose: Not Given Isosorbide Mononitrate (Imdur Er) 30 mg PO DAILY [facility] Last Admin: 01/03/18 09:37 Dose: 30 mg Levalbuterol HCl (Xopenex) 1.25 mg IH TIDRESP [facility] Last Admin: 01/03/18 19:49 Dose: 1.25 mg Metolazone (Zaroxolyn) 2.5 mg PO DAILY [facility] Last Admin: 01/03/18 09:39 Dose: 2.5 mg Risperidone (Risperdal Tab) 0.25 mg PO HS [facility]; Protocol Last Admin: 01/03/18 21:37 Dose: 0.25 mg Sitagliptin Phosphate (Januvia) 25 mg PO DAILY [facility] Last Admin: 01/03/18 09:37 Dose: 25 mg - Labs Labs: 01/04/18 06:00 01/04/18 06:00 PT 39.4 SECONDS (9.4-12.5) H 01/03/18 12:00 INR 3.34 01/03/18 12:00 - Constitutional Appears: Non-toxic, No Acute Distress - Head Exam Head Exam: NORMAL INSPECTION, NORMOCEPHALIC - Eye Exam Eye Exam: Normal appearance Pupil Exam: NORMAL ACCOMODATION - ENT Exam ENT Exam: Mucous Membranes Moist, Normal Exam - Respiratory Exam Respiratory Exam: Decreased Breath Sounds, NORMAL BREATHING PATTERN - Cardiovascular Exam Cardiovascular Exam: Irregular Rhythm, +S1, +S2 Additional comments: AICD Telemetry atrial fibrillation - GI/Abdominal Exam GI & Abdominal Exam: Soft, Normal Bowel Sounds - Extremities Exam Extremities Exam: Full ROM Additional comments: 2-3+ edema - Neurological Exam Neurological Exam: Alert, Awake, Oriented x3 - Psychiatric Exam Psychiatric exam: Normal Affect, Normal Mood - Skin Skin Exam: Dry, Normal Color, Warm Assessment and Plan - Assessment and Plan (Free Text) Assessment: An 82 year old male who came in to the Er due to shortness of breath. History of ischemic cardiomyopathy, CAD post CABG, AICD, diabetes, gout,hypertension,renal insufficiency, chronic atrial fibrllation on Coumadin, multiple admissions including elevated INR. and exacerbation of CHF. Admitted for exacerbation of CHF and worsening renal insufficiency.Started on Primacor. Lasix to diurese. Plan: Awake, alert but SBP was 80's Primacor stopped IV Bolus of total of 500 cc Systolic Blood pressure went up to 90's NSS started at 50 cc/hr Heart rate controlled Continue current medications Continue current treatment Will follow up Plan and treatment discussed with Dr. Ruano
[2018-01-04] MEDS ORDERED: Sodium Chloride 0.9% 1,000 ML IV SCH (07:45)
[2018-01-04] MEDS: Levalbuterol 1.25 MG/3 ML Inhal Soln UD IH SCH ×3 (07:48→19:59)
[2018-01-04] MEDS: metOLazone 2.5 MG TAB PO SCH (11:36)
[2018-01-04 12:26] LABS: PH,URINE 5.5 (4.7-8.0); URINE BILIRUBIN NEGATIVE (NEGATIVE); URINE BLOOD LARGE (NEGATIVE); URINE GLUCOSE (UA) NEGATIVE (NEGATIVE); URINE LEUKOCYTE ESTERASE SMALL Leu/uL (NEGATIVE); URINE PROTEIN TRACE mg/dL (<30 mg/dL)
[2018-01-04 12:27] LABS: URINE APPEARANCE CLEAR (CLEAR); URINE COLOR YELLOW (YELLOW)
[2018-01-04 12:41] LABS: URINE RBC 25 - 30 /hpf (0-2)
[2018-01-04 12:42] LABS: URINE AMORPHOUS SEDIMENT SMALL; URINE BACTERIA LARGE (NEG); URINE COARSE GRANULAR CAST TRACE /hpf (0-2); URINE EPITHELIAL CELLS 0 - 2 /hpf (0-5)
--- NOTE | 2018-01-04 13:40 | CP.PCM.PN ---
<ShayyHernan Tavera - Last Filed: 01/04/18 13:36> Subjective - Date & Time of Evaluation Date of Evaluation: 01/04/18 Time of Evaluation: 13:36 - Subjective Subjective: Nephrology progress note - Shayy PGY - 2 Patient seen and examined at bedside. Lasix was changed to 40 BID yesterday, but patient did not receive pm dose 2/2 hypotension. Patient was given two fluid boli this am 2/2 hypotension. Patient presents complaints this am of suprapubic pain and generally feeling ill. Saeed catheter was placed in front of me - ~100 mls were drained. Patient states that he voided 2-3 times this morning, but very little volume. Denies shortness of breath, chest pain. Objective - Vital Signs/Intake and Output Vital Signs (last 24 hours): Temp Pulse Resp BP Pulse Ox 97.4 F L 88 20 92/43 L 94 L 01/04/18 12:00 01/04/18 12:00 01/04/18 12:00 01/04/18 12:00 01/04/18 06:00 Intake and Output: 01/04/18 01/04/18 06:59 18:59 Intake Total 790 Balance 790 - Medications Medications: Current Medications Acetaminophen (Tylenol 325mg Tab) 650 mg PO Q6H PRN PRN Reason: Pain, moderate (4-7) Last Admin: 01/03/18 17:55 Dose: 650 mg Alprazolam (Xanax) 0.25 mg PO DAILY [facility]; Protocol Last Admin: 01/04/18 11:48 Dose: 0.25 mg Atorvastatin Calcium (Lipitor) 20 mg PO HS [facility] Last Admin: 01/03/18 21:37 Dose: 20 mg Colchicine (Colocrys) 0.6 mg PO DAILY [facility] Last Admin: 01/04/18 11:48 Dose: 0.6 mg Docusate Sodium (Colace) 100 mg PO DAILY [facility] Last Admin: 01/04/18 11:44 Dose: Not Given Furosemide (Lasix) 40 mg IV 0800,1400 [facility] Milrinone Lactate/Dextrose (Primacor 20mg/100ml D5w) 100 mls @ 5.781 mls/hr IV .[id number] PRN; Protocol PRN Reason: TITRATE PER MD ORDER Stop: 01/05/18 12:00 Last Admin: 01/04/18 00:54 Dose: 0.2 mcg/kg/min, 5.781 mls/hr Insulin Human Lispro (Humalog Med) 0 units SC ACHS [facility]; Protocol Last Admin: 01/04/18 11:44 Dose: Not Given Isosorbide Mononitrate (Imdur Er) 30 mg PO DAILY [facility] Last Admin: 01/04/18 11:49 Dose: 30 mg Levalbuterol HCl (Xopenex) 1.25 mg IH TIDRESP [facility] Last Admin: 01/04/18 07:48 Dose: 1.25 mg Metolazone (Zaroxolyn) 2.5 mg PO DAILY [facility] Last Admin: 01/04/18 11:36 Dose: Not Given Risperidone (Risperdal Tab) 0.25 mg PO HS [facility]; Protocol Last Admin: 01/03/18 21:37 Dose: 0.25 mg Sitagliptin Phosphate (Januvia) 25 mg PO DAILY [facility] Last Admin: 01/04/18 11:43 Dose: 25 mg - Labs Labs: 01/04/18 06:00 01/04/18 06:00 PT 39.4 SECONDS (9.4-12.5) H 01/03/18 12:00 INR 3.34 01/03/18 12:00 - Constitutional Appears: Well - Head Exam Head Exam: ATRAUMATIC, NORMAL INSPECTION, NORMOCEPHALIC - Eye Exam Eye Exam: EOMI, Normal appearance, PERRL Pupil Exam: NORMAL ACCOMODATION, PERRL - ENT Exam ENT Exam: Mucous Membranes Moist, Normal Exam - Neck Exam Neck Exam: Full ROM, Normal Inspection. absent: Lymphadenopathy - Respiratory Exam Respiratory Exam: Clear to Ausculation Bilateral, NORMAL BREATHING PATTERN - Cardiovascular Exam Cardiovascular Exam: REGULAR RHYTHM, +S1, +S2. absent: Murmur Additional comments: No JVD - GI/Abdominal Exam GI & Abdominal Exam: Soft, Normal Bowel Sounds. absent: Tenderness - Rectal Exam Rectal Exam: NORMAL INSPECTION - Extremities Exam Extremities Exam: Full ROM, Normal Capillary Refill, Pedal Edema. absent: Joint Swelling Additional comments: 2+ pitting edema - Back Exam Back Exam: NORMAL INSPECTION - Neurological Exam Neurological Exam: Alert, Awake, CN II-XII Intact, Normal Gait, Oriented x3 - Psychiatric Exam Psychiatric exam: Normal Affect, Normal Mood - Skin Skin Exam: Dry, Intact, Normal Color, Warm Assessment and Plan - Assessment and Plan (Free Text) Assessment: 82 year old male with pertinent history of A-Fib, CHF, DM, HTN, and CKD presents with LONG and urinary retention. ECHO in 09/2017 showed EF of 20-25% as well as RSVP of 58. On presentation, patient had BNP of 4020; Creatinine has been slowly trending upward since September. In light of this information, the patient's LARRY and fluid retention/overload seems to be of cardio-renal etiology, and that the underlying initiating event appears to be CHF. Renal ultrasound was negative for any hydronephrosis, which further supports the diagnosis. BUN today is 100, but patient mentation is currently at baseline. Regarding patient's HTN, he has actually been becoming hypotensive while here at [facility]. Urine studies are still pending. Plan LARRY on CKD, likely 2/2 cardio-renal etiology - Continue aggressive diuresis; increase Lasix to 80 BID - Recommend initiating milrinone to increase ionotropic activity - Patient's RSVP is elevated - may require dialysis in the future if stress on the RV becomes excessive - Will also have to consider dialysis if fluid retention remains refractory to aggressive diuresis - UA, Urine Culture, Spot urine, Urine electrolytes, Urine sodium HTN - Continue diuretic treatment as above, as well as metolazone - Star Calderon for now Thank you for the consult. We will continue to follow the patient <Bola Leonard - Last Filed: 01/05/18 08:13> Objective - Vital Signs/Intake and Output Vital Signs (last 24 hours): Temp Pulse Resp BP Pulse Ox 98.0 F 91 H 18 118/54 L 96 01/05/18 06:00 01/05/18 06:00 01/05/18 06:00 01/05/18 06:00 01/05/18 06:00 Intake and Output: 01/05/18 01/05/18 06:59 18:59 Intake Total 240 Output Total 1200 Balance -960 - Medications Medications: Current Medications Acetaminophen (Tylenol 325mg Tab) 650 mg PO Q6H PRN PRN Reason: Pain, moderate (4-7) Last Admin: 01/03/18 17:55 Dose: 650 mg Alprazolam (Xanax) 0.25 mg PO DAILY [facility]; Protocol Last Admin: 01/04/18 11:48 Dose: 0.25 mg Atorvastatin Calcium (Lipitor) 20 mg PO HS [facility] Last Admin: 01/04/18 21:17 Dose: 20 mg Colchicine (Colocrys) 0.6 mg PO DAILY [facility] Last Admin: 01/04/18 11:48 Dose: 0.6 mg Docusate Sodium (Colace) 100 mg PO DAILY [facility] Last Admin: 01/04/18 11:44 Dose: Not Given Furosemide (Lasix) 40 mg IV 0800,1400 [facility] Last Admin: 01/04/18 14:16 Dose: Not Given Milrinone Lactate/Dextrose (Primacor 20mg/100ml D5w) 100 mls @ 5.781 mls/hr IV .[id number] PRN; Protocol PRN Reason: TITRATE PER MD ORDER Stop: 01/05/18 12:00 Last Admin: 01/04/18 00:54 Dose: 0.2 mcg/kg/min, 5.781 mls/hr Insulin Human Lispro (Humalog Med) 0 units SC [facility]; Protocol Last Admin: 01/05/18 07:29 Dose: Not Given Isosorbide Mononitrate (Imdur Er) 30 mg PO DAILY [facility] Last Admin: 01/04/18 11:49 Dose: 30 mg Levalbuterol HCl (Xopenex) 1.25 mg IH TIDRESP [facility] Last Admin: 01/05/18 07:10 Dose: 1.25 mg Metolazone (Zaroxolyn) 10 mg PO DAILY [facility] Risperidone (Risperdal Tab) 0.25 mg PO HS [facility]; Protocol Last Admin: 01/04/18 21:17 Dose: 0.25 mg Sitagliptin Phosphate (Januvia) 25 mg PO DAILY [facility] Last Admin: 01/04/18 11:43 Dose: 25 mg - Labs Labs: 01/05/18 07:30 01/04/18 06:00 PT 28.9 SECONDS (9.4-12.5) H 01/05/18 07:30 INR 2.47 01/05/18 07:30 Attending/Attestation - Attestation I have personally seen and examined this patient.: Yes I have fully participated in the care of the patient.: Yes I have reviewed all pertinent clinical information, including history, physical exam and plan: Yes Notes (Text): Patient seen and examined; I agree with the resident's note as above with the following additions/edits: 82 yo M w/ pmh of Afib on Coumadin, DM, HTN, CHF w/ biventricular dysfunction (EF of 20-25%, moderate pulm htn), and CKD IIIB/IV, admitted with acute decompensated CHF, nephrology following for acute renal failure; Started on milrinone for inotropic support yesterday but with resulting hypotension, subsequently held this morning by cardiology; hemodynamically has been much more stable since then; Total urine output from yesterday unclear but appears borderline oliguric (18 hr urine collection with 400 cc in container); did not receive adequate diuresis due to hypotension (evening dose of IV lasix held); Mainstay of treatment for presumed cardiorenal syndrome continues to be adequate volume removal to decrease venous congestion and offload RV/LV in patient with biventricular failure and pulm htn; trial of large bolus doses of IV lasix today appears to be responding; goal is to keep net neg at least 1-1.5L per day, otherwise we will need to initiate [employer] to achieve our goal (without which heart failure will continue to progress with concomitant worsening of renal failure); discussed at length with daughter (POA) who is agreeable to [employer] if needed; however, our goal is to avoid HD as much as possible in this elderly patient who will be prone to complications (particularly catheter related issues and hypotension); -Continue IV lasix 100 mg q8h; -Metolazone 5 mg given this afternoon, will increase dose upward as needed; -Holding further imdur (vasodilator contributing to hypotension); -Avoid nephrotoxic agents (especially NSAIDS); -Checking iron studies (anemia with declining hgb); if iron replete, will give EPO; Thank you Dr. Jennings for allowing us to participate in the care of Mr. Damon, we will continue to f/u closely.
--- NOTE | 2018-01-04 14:12 | PN ---
DATE: 01/04/2018 REASON FOR CONSULTATION AND FOLLOWUP: Acute decompensated congestive heart failure, an event noted. The patient started on Primacor, dropped the blood pressure giving 250 mL bolus saline now the blood pressure is 90. I advised them to move the patient to ICU if the blood pressure does not go up, but the repeat blood pressure went to 90, probably aggressive diuresed, intravascular volume depleted. This note is in addition to dictated by nurse practitioner, Adrianna Stacy. The plan is to hold Primacor, the patient did not tolerate. Continue gentle hydration. Monitor H and H. Today, creatinine is 4.7. Follow up interactive developer. The patient has ischemic cardiomyopathy, history of coronary artery bypass grafting, history of automatic implantable cardioverter-defibrillator, renal insufficiency with . Last echo showed ejection fraction of 20% to 25%. Last echo dated 10/01/2017. RECOMMENDATIONS: As mentioned, discontinue Primacor . We will cut down Lasix to 40 b.i.d., hold for systolic less than 90. Continue . We will follow with you. We will change the Lasix to 40 at 8 a.m. and 2 p.m. with holding parameters. We will hold for SBP less than 100. Overall, the patient's condition is critical. Long-term prognosis is guarded. Yesterday INR was 3.39, today INR is pending. Thank you Dr. Jennings for providing us the opportunity in taking care of the patient, Jese Damon. Johanna Ruano MD
--- NOTE | 2018-01-04 14:15 | PN ---
DATE: 01/04/2018 SUBJECTIVE: The patient is 82 years old, seen and examined. Short of breath even at rest. He seems edematous. PHYSICAL EXAMINATION VITAL SIGNS: He is afebrile, pulse 87, respirations 19, blood pressure 90/44. LUNGS: Bilateral decreased breath sounds at bases. HEART: S1, S2 audible. Regular, rate controlled. ABDOMEN: Soft, obese, nontender. No rebound, no guarding. EXTREMITIES: Bilateral legs, +2 edema. NEUROLOGIC: He is awake and alert. Able to communicate and answer appropriately. LABORATORY DATA: WBC is 4.2, hemoglobin 8.8, hematocrit 25.3, platelets of 74,000. Chemistry; sodium 139, potassium 4.8, chloride 105, CO2 of 23, BUN 100, creatinine 4.7, blood sugar . Phosphorus 5.1. ASSESSMENT: 1. Acute on chronic renal failure. 2. Bilateral renal cysts. 3. Cardiomyopathy. 4. Chronic atrial fibrillation. 5. Coronary artery disease. 6. Status post pacemaker and defibrillator placement. PLAN: So, plan is currently, the patient is on IV diuretic. We will monitor his blood sugar. He is on nebulizer treatment. We will continue the patient on IV diuretics. Nephrology input noted and appreciated. I will discuss with the patient's power of employment law attorney, Pili, that he might need dialysis soon because of worsening hypoperfusion of his kidneys and because of worsening cardiomyopathy. Leonila Jennings MD
[2018-01-04] MEDS ORDERED: metOLazone 5 MG TAB PO ONE (15:11)
[2018-01-04 20:47] LABS: CREATININE,RANDOM URINE 179 mg/dL
[2018-01-05] MEDS: Levalbuterol 1.25 MG/3 ML Inhal Soln UD IH SCH ×3 (07:10→20:07)
--- NOTE | 2018-01-05 07:17 | CP.PCM.PN ---
Subjective - Date & Time of Evaluation Date of Evaluation: 01/05/18 Time of Evaluation: 06:30 - Subjective Subjective: Awake, alert, no distress, feels beter today Reason for consultation and follow up: Cardiac evaluation for acute on chronic systolic dysfunction decompensated congestive heart failure, history of coronary artery disease, post CABG,history of renal insufficiency Seen and examined by me and Dr. Ruano Objective - Vital Signs/Intake and Output Vital Signs (last 24 hours): Temp Pulse Resp BP Pulse Ox 98.0 F 91 H 18 118/54 L 96 01/05/18 06:00 01/05/18 06:00 01/05/18 06:00 01/05/18 06:00 01/05/18 06:00 Intake and Output: 01/05/18 01/05/18 06:59 18:59 Intake Total 240 Output Total 1200 Balance -960 - Medications Medications: Current Medications Acetaminophen (Tylenol 325mg Tab) 650 mg PO Q6H PRN PRN Reason: Pain, moderate (4-7) Last Admin: 01/03/18 17:55 Dose: 650 mg Alprazolam (Xanax) 0.25 mg PO DAILY [facility]; Protocol Last Admin: 01/04/18 11:48 Dose: 0.25 mg Atorvastatin Calcium (Lipitor) 20 mg PO HS [facility] Last Admin: 01/04/18 21:17 Dose: 20 mg Colchicine (Colocrys) 0.6 mg PO DAILY [facility] Last Admin: 01/04/18 11:48 Dose: 0.6 mg Docusate Sodium (Colace) 100 mg PO DAILY [facility] Last Admin: 01/04/18 11:44 Dose: Not Given Furosemide (Lasix) 40 mg IV 0800,1400 [facility] Last Admin: 01/04/18 14:16 Dose: Not Given Milrinone Lactate/Dextrose (Primacor 20mg/100ml D5w) 100 mls @ 5.781 mls/hr IV .[id number] PRN; Protocol PRN Reason: TITRATE PER MD ORDER Stop: 01/05/18 12:00 Last Admin: 01/04/18 00:54 Dose: 0.2 mcg/kg/min, 5.781 mls/hr Insulin Human Lispro (Humalog Med) 0 units SC ACHS [facility]; Protocol Last Admin: 01/04/18 21:44 Dose: Not Given Isosorbide Mononitrate (Imdur Er) 30 mg PO DAILY [facility] Last Admin: 01/04/18 11:49 Dose: 30 mg Levalbuterol HCl (Xopenex) 1.25 mg IH TIDRESP [facility] Last Admin: 01/05/18 07:10 Dose: 1.25 mg Metolazone (Zaroxolyn) 2.5 mg PO DAILY [facility] Last Admin: 01/04/18 11:36 Dose: Not Given Risperidone (Risperdal Tab) 0.25 mg PO HS [facility]; Protocol Last Admin: 01/04/18 21:17 Dose: 0.25 mg Sitagliptin Phosphate (Januvia) 25 mg PO DAILY [facility] Last Admin: 01/04/18 11:43 Dose: 25 mg - Labs Labs: 01/04/18 06:00 01/04/18 06:00 PT 39.4 SECONDS (9.4-12.5) H 01/03/18 12:00 INR 3.34 01/03/18 12:00 - Constitutional Appears: Non-toxic, No Acute Distress - Head Exam Head Exam: NORMAL INSPECTION, NORMOCEPHALIC - Eye Exam Eye Exam: Normal appearance - ENT Exam ENT Exam: Mucous Membranes Moist, Normal Exam - Respiratory Exam Respiratory Exam: Decreased Breath Sounds, NORMAL BREATHING PATTERN - Cardiovascular Exam Cardiovascular Exam: Irregular Rhythm, +S1, +S2 Additional comments: Telemetry atrial fibrillation 90's AICD - GI/Abdominal Exam GI & Abdominal Exam: Soft, Normal Bowel Sounds - Exam Additional comments: gates catheter - Extremities Exam Extremities Exam: Full ROM Additional comments: 2-3+ edema - Neurological Exam Neurological Exam: Alert, Awake, Oriented x3 - Psychiatric Exam Psychiatric exam: Normal Affect, Normal Mood - Skin Skin Exam: Dry, Normal Color, Warm Assessment and Plan - Assessment and Plan (Free Text) Assessment: An 82 year old male who came in to the Er due to shortness of breath. History of ischemic cardiomyopathy, CAD post CABG, AICD, diabetes, gout,hypertension,renal insufficiency, chronic atrial fibrllation on Coumadin, multiple admissions including elevated INR. and exacerbation of CHF. Admitted for exacerbation of CHF and worsening renal insufficiency.Started on Primacor. Viraj to iraida.Had episode of hypotension yesterday, IV bolus given. Primacor turned off. Stabilized blood pressure. Plan: Awake, alert ,no distress Blood pressure better SBP 110's Will resume Primacor, hold if SBP below 90's Monitor blood pressure Heart rate controlled Continue to diurese Continue current medications Continue current treatment Will follow up Plan and treatment discussed with Dr. Ruano
[2018-01-05] MEDS: Insulin Lispro (humaLOG) MEDIUM Coverage SC SCH ×4 (07:29→21:22)
[2018-01-05 07:48] LABS: BASO # 0.01 K/mm3 (0.0-2.0); BASO % 0.2 % (0.0-3.0); EOS # 0.1 (0.0-0.7); EOS % 2.7 % (1.5-5.0); GRAN # 3.37 (1.4-6.5); GRAN % 64.3 % (50.0-68.0); HEMOGLOBIN 9.1 g/dL (14.0-18.0); LYMPH # 0.6 (1.2-3.4); MEAN CELL VOLUME 101.1 fl (80.0-105.0); MEAN CORPUSCULAR HEMOGLOBIN 34.2 pg (25.0-35.0); MEAN CORPUSCULAR HGB CONC 33.8 g/dl (31.0-37.0); MEAN PLATELET VOLUME 11.1 fl (7.0-11.0); MONO # 1.1 (0.1-0.6); MONO % 20.8 % (1.0-6.0); PLATELET COUNT 75 10^3/uL (120.0-450.0); RBC 2.66 10^6/uL (3.5-6.1); RED CELL DISTRIBUTION WIDTH 18.9 % (11.5-14.5); WHITE BLOOD COUNT 5.2 10^3/uL (4.5-11.0)
[2018-01-05 07:53] LABS: INR 2.47; PROTHROMBIN TIME 28.9 SECONDS (9.4-12.5)
[2018-01-05 07:56] LABS: IRON 112 ug/dL (45-180)
[2018-01-05 08:05] LABS: % IRON SATURATION 49 % (20-55); ALB/GLOB RATIO 0.9 (1.1-1.8); CALCIUM 8.9 mg/dL (8.4-10.5); TOTAL IRON BINDING CAPACITY 229 ug/dL (261-462)
[2018-01-05 08:18] LABS: EOSINOPHIL 4 % (0.0-3.0); LYMPHOCYTE 12 % (22.0-35.0); MONOCYTE 11 % (1.0-6.0); NEUTROPHIL 73 % (50.0-70.0)
[2018-01-05 08:19] LABS: HYPOCHROMIA SLIGHT; MICROCYTOSIS SLIGHT; POIKILOCYTOSIS SLIGHT
[2018-01-05 08:20] LABS: OVALOCYTES SLIGHT; PLATELET ESTIMATE LOW (NORMAL); TARGET CELLS SLIGHT; TEAR DROP CELLS SLIGHT
[2018-01-05] MEDS: metOLazone 5 MG TAB PO SCH (10:06)
--- NOTE | 2018-01-05 12:07 | PN ---
DATE: 01/05/2018 SUBJECTIVE: The patient is 82 years old, seen and examined. Seems to be a little better. Less shortness of breath. No nausea or vomiting. Eating and tolerating. PHYSICAL EXAMINATION: VITAL SIGNS: He is afebrile, pulse 91, respirations 18, blood pressure 105/57. LUNGS: Bilateral decreased breath sound at bases. HEART: S1 and S2 audible. ABDOMEN: Soft. Nontender. No rebound. No guarding. NEUROLOGICAL: The patient is awake, alert, oriented, communicative. EXTREMITIES: Bilateral leg, +2 edema. LABORATORY EXAM: WBC 5.2, hemoglobin 9.1, hematocrit 26.9, platelet Of 75, PT 28.9, INR 2.47. Chemistry: Sodium 139, potassium 4.5, chloride 102, CO2 of 29, BUN 105, creatinine 5, blood sugar of 128, TIBC is 229. His urine cultures are negative. ASSESSMENT: 1. Acute on chronic renal failure. 2. Ischemic cardiomyopathy. 3. Status post pacemaker placement. 4. Hypertension. 5. Hyperlipidemia. 6. Noninsulin-dependent diabetes. PLAN: The patient will be given Coumadin [address] Ruano. We will continue him on his colchicine. He was given 120 Lasix yesterday morning and 80 in the evening. His metolazone has been increased. Clinically, he seems to be stable. We will discuss with Nephrology. Eventually, he might need to go on dialysis. Leonila Jennings MD
[2018-01-05] MEDS ORDERED: Darbepoetin Alfa 60 mcg/ml Inj SC ONE (12:34)
--- NOTE | 2018-01-05 13:31 | PN ---
DATE: 01/05/2018 REASON FOR CONSULTATION AND FOLLOWUP: Cardiac evaluation. Admitted with CHF, acute kidney injury. Patient was started on IV Primacor, dropped the blood pressure, requiring holding the Primacor as IV fluid was given. Today patient's creatinine is getting worse. Blood pressure . Plan to restart IV Primacor, but the patient's Revatio on hold now, so we held back again on Primacor. This note is in addition to dictated by nurse practitioner, Adrianna Stacy. Today INR is 2.47 and BUN 100, creatinine 4.7. Admitting creatinine was 4.6. Yesterday jumped to 4.9 with IV fluid, improved little bit today's 5 with creatinine clearance 11 mL on high doses of Lasix. Yesterday, the patient got 120 at 9 p.m. and 100 at 3 a.m. RECOMMENDATIONS: Cautious diuretics. Patient may need dialysis, did not tolerate Primacor, off Primacor. Further fluid and diuretic management leave per Dr. Leonard. There is fair possibility that the patient may need dialysis, but leave this decision as per renal specialist and present health and safety director Dr. Leonard. We will closely follow with you. Patient is on Coumadin. Today INR is therapeutic. We will start 1 mg of Coumadin, but if the patient needs Shiley catheter or something, so can be hold. Overall, the patient's condition is critical. Long-term prognosis is extremely guarded. We will follow with you. We will repeat the lab in the morning, repeat PT/INR in the morning. Thank you, Dr. Jennings, for providing us the opportunity in taking care of the patient, Jese Damon. Johanna Ruano MD
--- NOTE | 2018-01-05 16:33 | CP.PCM.PN ---
<Hernan Lucas Ayse - Last Filed: 01/05/18 16:26> Subjective - Date & Time of Evaluation Date of Evaluation: 01/05/18 Time of Evaluation: 16:26 - Subjective Subjective: Nephrology progress note - Shayy, PGY - 2 Patient seen and examined at bedside. Patient is feeling better this am, and is walking around with PT with less reported LONG. Pt denies fever, chills, chest pain. No acute overnight events. Objective - Vital Signs/Intake and Output Vital Signs (last 24 hours): Temp Pulse Resp BP Pulse Ox 97.7 F 89 18 100/52 L 98 01/05/18 12:00 01/05/18 14:00 01/05/18 12:00 01/05/18 12:00 01/05/18 10:00 Intake and Output: 01/05/18 01/05/18 06:59 18:59 Intake Total 240 Output Total 1200 Balance -960 - Medications Medications: Current Medications Acetaminophen (Tylenol 325mg Tab) 650 mg PO Q6H PRN PRN Reason: Pain, moderate (4-7) Last Admin: 01/03/18 17:55 Dose: 650 mg Alprazolam (Xanax) 0.25 mg PO DAILY [facility]; Protocol Last Admin: 01/05/18 10:06 Dose: 0.25 mg Atorvastatin Calcium (Lipitor) 20 mg PO HS [facility] Last Admin: 01/04/18 21:17 Dose: 20 mg Colchicine (Colocrys) 0.6 mg PO DAILY [facility] Last Admin: 01/05/18 10:06 Dose: 0.6 mg Docusate Sodium (Colace) 100 mg PO DAILY [facility] Last Admin: 01/05/18 10:06 Dose: 100 mg Furosemide (Lasix) 100 mg IVP Q12H [facility] Insulin Human Lispro (Humalog Med) [address] [facility]; Protocol Last Admin: 01/05/18 12:10 Dose: 1 unit Isosorbide Mononitrate (Imdur Er) 30 mg PO DAILY [facility] Last Admin: 01/04/18 11:49 Dose: 30 mg Levalbuterol HCl (Xopenex) 1.25 mg IH TIDRESP [facility] Last Admin: 01/05/18 12:59 Dose: 1.25 mg Metolazone (Zaroxolyn) 10 mg PO DAILY [facility] Last Admin: 01/05/18 10:06 Dose: 10 mg Risperidone (Risperdal Tab) 0.25 mg PO HS [facility]; Protocol Last Admin: 01/04/18 21:17 Dose: 0.25 mg Sitagliptin Phosphate (Januvia) 25 mg PO DAILY [facility] Last Admin: 01/05/18 10:06 Dose: 25 mg Warfarin Sodium (Coumadin) 1 mg PO 1800 [facility]; Protocol - Labs Labs: 01/05/18 07:30 01/05/18 07:30 PT 28.9 SECONDS (9.4-12.5) H 01/05/18 07:30 INR 2.47 01/05/18 07:30 - Constitutional Appears: Well - Head Exam Head Exam: ATRAUMATIC, NORMAL INSPECTION, NORMOCEPHALIC - Eye Exam Eye Exam: EOMI, Normal appearance, PERRL Pupil Exam: NORMAL ACCOMODATION, PERRL - ENT Exam ENT Exam: Mucous Membranes Moist, Normal Exam - Neck Exam Neck Exam: Full ROM, Normal Inspection. absent: Lymphadenopathy - Respiratory Exam Respiratory Exam: Clear to Ausculation Bilateral, NORMAL BREATHING PATTERN - Cardiovascular Exam Cardiovascular Exam: REGULAR RHYTHM, +S1, +S2. absent: Murmur - GI/Abdominal Exam GI & Abdominal Exam: Soft, Normal Bowel Sounds. absent: Tenderness - Extremities Exam Extremities Exam: Full ROM, Normal Capillary Refill, Normal Inspection. absent: Joint Swelling, Pedal Edema - Back Exam Back Exam: NORMAL INSPECTION - Neurological Exam Neurological Exam: Alert, Awake, CN II-XII Intact, Normal Gait, Oriented x3 - Psychiatric Exam Psychiatric exam: Normal Affect, Normal Mood - Skin Skin Exam: Dry, Intact, Normal Color, Warm Assessment and Plan - Assessment and Plan (Free Text) Assessment: 82 year old male with pertinent history of A-Fib, CHF, DM, HTN, and CKD presented 01/02/18 with LONG and urinary retention. ECHO in 09/2017 showed EF of 20-25% as well as RSVP of 58. On presentation, patient had BNP of 4020; Creatinine has been slowly trending upward since September. In light of this information, the patient's LARRY and fluid retention/overload seems to be of cardio-renal etiology, and that the underlying initiating event appears to be CHF. Renal ultrasound was negative for any hydronephrosis, which further supports the diagnosis. Urine protein, UA, and U Cx have been insignificant. Today, 01/05, patient's urine output has improved to > .5 ml/kg/hr. Patient is both feeling better and looking better clinically. Regarding patient's HTN, he was initially hypotensive, but is now normalizing. Urine studies are still pending. Plan Anemia, 2/2 CKD - Darbepoitin LARRY on CKD, likely 2/2 cardio-renal etiology - Continue aggressive diuresis; increase Lasix to 100 q12 - Continue milrinone to increase ionotropic activity - We are considering initiating dialysis, with insertion of dialysis catheter tomorrow HTN - Continue diuretic treatment as above, as well as metolazone - Hold Kvng for now Thank you for the consult. We will continue to follow the patient <Bola Leonard - Last Filed: 01/06/18 07:34> Objective - Vital Signs/Intake and Output Vital Signs (last 24 hours): Temp Pulse Resp BP Pulse Ox 97.9 F 83 20 110/63 97 01/06/18 06:00 01/06/18 06:00 01/06/18 06:00 01/06/18 06:00 01/06/18 06:00 Intake and Output: 01/06/18 01/06/18 06:59 18:59 Intake Total 120 Output Total 1300 Balance -1180 - Medications Medications: Current Medications Acetaminophen (Tylenol 325mg Tab) 650 mg PO Q6H PRN PRN Reason: Pain, moderate (4-7) Last Admin: 01/03/18 17:55 Dose: 650 mg Alprazolam (Xanax) 0.25 mg PO DAILY [facility]; Protocol Last Admin: 01/05/18 10:06 Dose: 0.25 mg Atorvastatin Calcium (Lipitor) 20 mg PO HS [facility] Last Admin: 01/05/18 21:25 Dose: 20 mg Colchicine (Colocrys) 0.6 mg PO DAILY [facility] Last Admin: 01/05/18 10:06 Dose: 0.6 mg Docusate Sodium (Colace) 100 mg PO DAILY [facility] Last Admin: 01/05/18 10:06 Dose: 100 mg Furosemide (Lasix) 100 mg IVP Q12H [facility] Last Admin: 01/06/18 05:36 Dose: 100 mg Insulin Human Lispro (Humalog Med) 0 units SC [facility]; Protocol Last Admin: 01/05/18 21:22 Dose: Not Given Isosorbide Mononitrate (Imdur Er) 30 mg PO DAILY [facility] Last Admin: 01/04/18 11:49 Dose: 30 mg Levalbuterol HCl (Xopenex) 1.25 mg IH TIDRESP [facility] Last Admin: 01/05/18 20:07 Dose: 1.25 mg Metolazone (Zaroxolyn) 10 mg PO DAILY [facility] Last Admin: 01/05/18 10:06 Dose: 10 mg Risperidone (Risperdal Tab) 0.25 mg PO HS [facility]; Protocol Last Admin: 01/05/18 21:25 Dose: 0.25 mg Sitagliptin Phosphate (Januvia) 25 mg PO DAILY [facility] Last Admin: 01/05/18 10:06 Dose: 25 mg Warfarin Sodium (Coumadin) 1 mg PO 1800 [facility]; Protocol - Labs Labs: 01/05/18 07:30 01/05/18 07:30 PT 27.6 SECONDS (9.4-12.5) H 01/06/18 06:30 INR 2.36 01/06/18 06:30 Attending/Attestation - Attestation I have personally seen and examined this patient.: Yes I have fully participated in the care of the patient.: Yes I have reviewed all pertinent clinical information, including history, physical exam and plan: Yes Notes (Text): Patient seen and examined; I agree with the resident's note as above with the following additions/edits: 82 yo M w/ pmh of Afib on Coumadin, DM, HTN, CHF w/ biventricular dysfunction (EF of 20-25%, moderate pulm htn), and CKD IIIB/IV, admitted with acute decompensated systolic CHF, nephrology following for acute renal failure; Patient with less dyspnea on exertion on ambulation with PT today; tolerating diet well; Cardiorenal etiology of renal failure; relatively stable electrolyte status and urine output responding well to diuretics; slight increase in serum creatinine since starting aggressive diuresis may be more hemoconcentration than actual worsening of renal function; hemodynamically much more stable; mainstay of treatment is to continue diuresis with goal of decreasing venous congestion and offloading RV/LV; unfortunatley, due to chronicity of renal failure, guarded hope for any significant recovery of renal function but we will wait another 24- 48 hrs to decide on initiation of HD; -Continue IV lasix 100 mg q12h; -Metolazone 10 mg daily; -Holding coumadin for possible HD catheter placement; -Giving dose of aranesp 60 mcg (anemia of CKD); -Avoid nephrotoxic agents;
[2018-01-06 06:52] LABS: INR 2.36; PROTHROMBIN TIME 27.6 SECONDS (9.4-12.5)
[2018-01-06 07:01] LABS: BASO # 0.03 K/mm3 (0.0-2.0); BASO % 0.6 % (0.0-3.0); EOS # 0.2 (0.0-0.7); EOS % 4.5 % (1.5-5.0); GRAN # 2.92 (1.4-6.5); HEMOGLOBIN 8.9 g/dL (14.0-18.0); LYMPH # 1.1 (1.2-3.4); LYMPH % 22.5 % (22.0-35.0); MEAN CELL VOLUME 100.4 fl (80.0-105.0); MEAN CORPUSCULAR HEMOGLOBIN 34.6 pg (25.0-35.0); MEAN CORPUSCULAR HGB CONC 34.5 g/dl (31.0-37.0); MEAN PLATELET VOLUME 11.5 fl (7.0-11.0); MONO # 0.7 (0.1-0.6); MONO % 13.4 % (1.0-6.0); RBC 2.57 10^6/uL (3.5-6.1); RED CELL DISTRIBUTION WIDTH 18.9 % (11.5-14.5); WHITE BLOOD COUNT 4.9 10^3/uL (4.5-11.0)
[2018-01-06] MEDS: Levalbuterol 1.25 MG/3 ML Inhal Soln UD IH SCH ×3 (07:30→19:31)
[2018-01-06 07:36] LABS: ALB/GLOB RATIO 0.8 (1.1-1.8); ALBUMIN 2.8 g/dL (3.0-4.8); CALCIUM 8.8 mg/dL (8.4-10.5)
[2018-01-06] MEDS: Insulin Lispro (humaLOG) MEDIUM Coverage SC SCH ×3 (08:37→17:26)
[2018-01-06] MEDS: metOLazone 5 MG TAB PO SCH (10:29)
--- NOTE | 2018-01-06 10:49 | PN ---
DATE: 01/06/2018 HISTORY OF PRESENT ILLNESS: Mr. Damon is an 82-year-old male admitted to the hospital with shortness of breath, and acute renal failure. He has history of pacemaker placement, ischemic cardiomyopathy. Evaluated by Dr. Leonard, Renal. Creatinine elevated at 4.8. Today, hemoglobin is 8.9. Feeling better. No nausea. No vomiting. No shortness of breath. PAST MEDICAL HISTORY: Ischemic cardiomyopathy status post defibrillator placement, hypertension, diabetes mellitus type 2, chronic kidney disease, history of gout, open-heart surgery and dilated cardiomyopathy. ALLERGIES: ASPIRIN, LATEX, RUBBER AND PENICILLIN. CURRENT MEDICATIONS: Risperdal, atorvastatin, Xanax, metoprolol, losartan, Lasix and colchicine. SOCIAL HISTORY: Ex-smoker, quit smoking few years ago. No history of alcohol abuse. FAMILY HISTORY: Noncontributory. PHYSICAL EXAMINATION: GENERAL: Awake, alert, oriented. No focal sensory motor deficit. VITAL SIGNS: Stable. Afebrile, temperature 98.7, heart rate 76 per minute, respiratory 20 per minute and blood pressure 90/60. HEENT: Pallor positive. NECK: No lymphadenopathy. HEART: S1 and S2 normal. No murmur. No gallop. ABDOMEN: Soft and nontender. No hepatosplenomegaly. EXTREMITIES: No edema. NEURO: Awake, alert and oriented x3. Able to communicate. LABORATORY DATA: White count 4.9, hemoglobin 8.9, hematocrit 25.8 and platelet count 80,000. Sodium 138, potassium 4.5, BUN 109 and creatinine 4.8. Electrolytes normal. Iron 1120 and saturation 49%. Bilirubin 2.8. ASSESSMENT: 1. Acute on chronic renal failure. 2. Anemia. 3. Thrombocytopenia. 4. Congestive heart failure. 5. Ischemic cardiomyopathy. 6. Diabetes mellitus type 2. PLAN: Hemoglobin/hematocrit stable. Does not need blood transfusion. Evaluated by Renal, Dr. Leonard. We will continue Xanax 0.25 mg daily, Lipitor 20 mg daily, colchicine to continue, Lasix 100 mg every 12 hours, insulin to continue, Risperdal 0.25 mg at bedtime, Januvia 25 mg daily and Coumadin 1 mg daily. We will continue to monitor PT/INR. Gris Bowers MD [facility] # [id number] ANGELINA
--- NOTE | 2018-01-06 12:30 | PN ---
DATE: 01/06/2018 REASON FOR CONSULTATION AND FOLLOWUP: Cardiac evaluation; admitted with acute CHF, acute kidney injury, worsened renal insufficiency, was on Primacor, stopped because of the drop in the blood pressure, attempted twice. SUBJECTIVE: Patient denies any chest pain, shortness of breath, any palpitation, feels better. PHYSICAL EXAMINATION GENERAL: Not in apparent distress. VITAL SIGNS: Temperature afebrile, heart rate 82, blood pressure 110/63. HEENT: PERRLA. Extraocular muscles intact. NECK: Supple. No carotid bruit or thyromegaly. CHEST: Clear to auscultation. HEART: S1, S2 regular. ABDOMEN: Soft. EXTREMITIES: Clubbing and cyanosis negative. LABORATORY DATA: Blood workup as follows; WBC 4.9, hemoglobin 8.9, hematocrit 25.8, platelet count 80,000. Chemistry shows sodium 130, potassium 4.5, chloride 100, carbon dioxide 29, anion gap of 13, BUN 109, creatinine 4.8. IMPRESSION: A 82-year-old male with past medical history significant for coronary artery disease status post coronary artery bypass grafting in 2007, last catheterization after non-ST elevation myocardial infarction on 05/31/2016 shows [place] triple vessel disease, patent left internal mammary artery to left anterior descending, patent saphenous vein graft to right coronary artery, patent left radial sequential to obtuse marginal 1, obtuse marginal 2, severely decreased left ventricular function, ejection fraction 25%, history of chronic atrial fibrillation, last echo on 10/01/2017 shows ejection fraction 25%, right ventricle moderate to severely dilated and right ventricle systolic function severely reduced, moderate aortic regurgitation, moderate sclerosis versus mild aortic stenosis, [id number] mitral regurgitation, [id number] tricuspid regurgitation, right ventricular systolic pressure 58, history of acute kidney injury worsening, baseline patient had a creatinine around admitted for now with a 4.8 with a creatinine , patient started IV Primacor and Dilaudid. Patient did not tolerate Primacor, dropped the blood pressure to 60, requiring IV fluid 250 bolus twice followed by IV fluid, restarted yesterday, pressure drops to again 100, so off Primacor. Currently, on diuretics as per automotive parts coordinator, INR today is 2.36, 1 mg of Coumadin started and continued. Admitting INR was elevated, so was on hold, now restarted yesterday. RECOMMENDATION: Continue , possibly patient need dialysis because of renal insufficiency getting worse, so as diuretics as per automotive parts coordinator, patient is running low blood pressure in the position of the dialysis, will hold Coreg for now and the metoprolol is on hold because of low blood pressure. We will follow with you possibly, patient needs dialysis sooner than later, we will discuss with automotive parts coordinator. Thank you Dr. Jennings for providing us the opportunity in taking care of the patient, Jese Damon. We will repeat the blood workup in the morning. Jhoanna Ruano MD
[2018-01-06] MEDS ORDERED: POLYETHYLENE GLYCOL 3350 17 GM/Dose PACKET PO ONE (16:27)
--- NOTE | 2018-01-06 22:03 | CP.PCM.PN ---
Subjective - Date & Time of Evaluation Date of Evaluation: 01/06/18 Time of Evaluation: 13:00 - Subjective Subjective: Patient reports some nausea at times, otherwise tolerating diet well; no sob; reports being constipated; seen again this evening after developing hematuria in gates; Objective - Vital Signs/Intake and Output Vital Signs (last 24 hours): Temp Pulse Resp BP Pulse Ox 97.9 F 93 H 20 116/67 97 01/06/18 18:00 01/06/18 18:00 01/06/18 18:00 01/06/18 18:00 01/06/18 06:00 - Medications Medications: Current Medications Acetaminophen (Tylenol 325mg Tab) 650 mg PO Q6H PRN PRN Reason: Pain, moderate (4-7) Last Admin: 01/03/18 17:55 Dose: 650 mg Alprazolam (Xanax) 0.25 mg PO DAILY [facility]; Protocol Last Admin: 01/06/18 10:29 Dose: 0.25 mg Atorvastatin Calcium (Lipitor) 20 mg PO HS [facility] Last Admin: 01/06/18 21:27 Dose: 20 mg Colchicine (Colocrys) 0.6 mg PO DAILY [facility] Last Admin: 01/06/18 10:29 Dose: 0.6 mg Docusate Sodium (Colace) 100 mg PO DAILY [facility] Last Admin: 01/06/18 10:29 Dose: 100 mg Furosemide (Lasix) 100 mg IVP Q12H [facility] Last Admin: 01/06/18 17:42 Dose: 100 mg Insulin Human Lispro (Humalog Med) 0 units SC ACHS [facility]; Protocol Last Admin: 01/06/18 17:26 Dose: Not Given Isosorbide Mononitrate (Imdur Er) 30 mg PO DAILY [facility] Last Admin: 01/04/18 11:49 Dose: 30 mg Levalbuterol HCl (Xopenex) 1.25 mg IH TIDRESP [facility] Last Admin: 01/06/18 19:31 Dose: 1.25 mg Metolazone (Zaroxolyn) 10 mg PO DAILY [facility] Last Admin: 01/06/18 10:29 Dose: 10 mg Risperidone (Risperdal Tab) 0.25 mg PO HS [facility]; Protocol Last Admin: 01/06/18 21:27 Dose: 0.25 mg Sitagliptin Phosphate (Januvia) 25 mg PO DAILY [facility] Last Admin: 01/06/18 10:29 Dose: 25 mg Warfarin Sodium (Coumadin) 1 mg PO 1800 [facility]; Protocol - Labs Labs: 01/06/18 06:30 01/06/18 06:30 PT 27.6 SECONDS (9.4-12.5) H 01/06/18 06:30 INR 2.36 01/06/18 06:30 - Constitutional Appears: Non-toxic, No Acute Distress - Eye Exam Eye Exam: Normal appearance - Respiratory Exam Respiratory Exam: Clear to Ausculation Bilateral. absent: Respiratory Distress - Cardiovascular Exam Cardiovascular Exam: Irregular Rhythm. absent: Gallop, Rubs - GI/Abdominal Exam GI & Abdominal Exam: Soft. absent: Distended, Tenderness - Exam Exam: absent: Bladder Distension - Extremities Exam Additional comments: markedly edematous legs, anasarca - Neurological Exam Neurological Exam: Alert, Awake - Psychiatric Exam Psychiatric exam: Normal Affect, Normal Mood. absent: Agitated - Skin Skin Exam: Normal Color, Warm. absent: Cyanosis Assessment and Plan (1) Acute renal failure Assessment & Plan: LARRY on CKD IV; cardiorenal etiology of renal failure in the setting of severe CHF w/ biventricular failure/pulm htn; responding well to aggressive diuresis; stable electrolyte status; serum creatinine slightly improved; patient does have some mild uremic signs/symptoms but overall no urgent indication to begin HD; goal remains to decrease venous congestion and offload RV/LV; needs to be done gradually and since we are making some progress with diuretics, we will hold off on HD as much as possible (the more rapid fluid shifts with HD pose greater risk for hypotension and ensuing ATN insults); nevertheless, we will monitor closely on daily basis and will be ready to start HD whenever needed; -continue IV lasix 100 mg q12 and metolazone 10 mg dailiy; goal to achieve ~1.5L net neg fluid balance without causing hypotension; -keeping NPO past MN in case we need HD catheter placement tomorrow; -avoid nephrotoxic agents; Status: Acute (2) CHF (congestive heart failure) Assessment & Plan: See above; hemodynamically much more stable; will discuss with cardiology about restarting low dose B-rolando for cardiac optimization which will benefit renal failure; Status: Acute (3) Hematuria Assessment & Plan: Developed suddenly in the setting of having gates and being on anti-coagulation; nursing staff instructed to flush gates with 50 cc NS twice a shift; Status: Acute (4) Coagulopathy Assessment & Plan: INR therapeutic despite holding coumadin; may need to reverse in order to place HD catheter, will check in am; Status: Acute (5) Anemia Assessment & Plan: Hgb relatively stable, s/p 1 dose of aranesp; will monitor, especially with new hematuria; Status: Chronic
[2018-01-07] MEDS: Insulin Lispro (humaLOG) MEDIUM Coverage SC SCH ×5 (01:45→21:42)
--- NOTE | 2018-01-07 06:27 | CP.PCM.PN ---
Subjective - Date & Time of Evaluation Date of Evaluation: 01/07/18 Time of Evaluation: 06:10 - Subjective Subjective: Awake, alert, no distress, denies shortness of breath Reason for consultation and follow up: Cardiac evaluation for acute on chronic s ystolic dysfunction decompensated congestive heart failure, history of coronary artery disease, post CABG,history of renal insufficiency Seen and examined by me and Dr. Ruano Objective - Vital Signs/Intake and Output Vital Signs (last 24 hours): Temp Pulse Resp BP Pulse Ox 98.3 F 97 H 19 112/60 97 01/07/18 00:01 01/07/18 06:00 01/07/18 00:01 01/07/18 05:58 01/07/18 00:01 Intake and Output: 01/06/18 01/07/18 18:59 06:59 Intake Total 120 Output Total 2000 Balance -1880 - Medications Medications: Current Medications Acetaminophen (Tylenol 325mg Tab) 650 mg PO Q6H PRN PRN Reason: Pain, moderate (4-7) Last Admin: 01/03/18 17:55 Dose: 650 mg Alprazolam (Xanax) 0.25 mg PO DAILY [facility]; Protocol Last Admin: 01/06/18 10:29 Dose: 0.25 mg Atorvastatin Calcium (Lipitor) 20 mg PO HS [facility] Last Admin: 01/06/18 21:27 Dose: 20 mg Colchicine (Colocrys) 0.6 mg PO DAILY [facility] Last Admin: 01/06/18 10:29 Dose: 0.6 mg Docusate Sodium (Colace) 100 mg PO DAILY [facility] Last Admin: 01/06/18 10:29 Dose: 100 mg Furosemide (Lasix) 100 mg IVP Q12H [facility] Last Admin: 01/07/18 05:58 Dose: 100 mg Insulin Human Lispro (Humalog Med) 0 units SC ACHS [facility]; Protocol Last Admin: 01/07/18 01:45 Dose: Not Given Isosorbide Mononitrate (Imdur Er) 30 mg PO DAILY [facility] Last Admin: 01/04/18 11:49 Dose: 30 mg Levalbuterol HCl (Xopenex) 1.25 mg IH TIDRESP [facility] Last Admin: 01/06/18 19:31 Dose: 1.25 mg Metolazone (Zaroxolyn) 10 mg PO DAILY [facility] Last Admin: 01/06/18 10:29 Dose: 10 mg Risperidone (Risperdal Tab) 0.25 mg PO HS [facility]; Protocol Last Admin: 01/06/18 21:27 Dose: 0.25 mg Sitagliptin Phosphate (Januvia) 25 mg PO DAILY [facility] Last Admin: 01/06/18 10:29 Dose: 25 mg Warfarin Sodium (Coumadin) 1 mg PO 1800 [facility]; Protocol - Labs Labs: 01/06/18 06:30 01/06/18 06:30 PT 27.6 SECONDS (9.4-12.5) H 01/06/18 06:30 INR 2.36 01/06/18 06:30 - Constitutional Appears: Non-toxic, No Acute Distress - Head Exam Head Exam: NORMAL INSPECTION, NORMOCEPHALIC - Eye Exam Eye Exam: Normal appearance Pupil Exam: NORMAL ACCOMODATION - ENT Exam ENT Exam: Mucous Membranes Moist, Normal Exam - Respiratory Exam Respiratory Exam: Decreased Breath Sounds, NORMAL BREATHING PATTERN - Cardiovascular Exam Cardiovascular Exam: Irregular Rhythm, +S1, +S2 Additional comments: Telemetry atrial fibrillation 90's - GI/Abdominal Exam GI & Abdominal Exam: Soft, Normal Bowel Sounds - Exam Additional comments: gates catheter - Extremities Exam Extremities Exam: Normal Capillary Refill - Neurological Exam Neurological Exam: Alert, Awake, Oriented x3 - Psychiatric Exam Psychiatric exam: Normal Affect, Normal Mood - Skin Skin Exam: Dry, Normal Color, Warm Assessment and Plan - Assessment and Plan (Free Text) Assessment: An 82 year old male who came in to the Er due to shortness of breath. History of ischemic cardiomyopathy, CAD post CABG, AICD, diabetes, gout,hypertension,renal insufficiency, chronic atrial fibrllation on Coumadin, multiple admissions including elevated INR. and exacerbation of CHF. Admitted for exacerbation of CHF and worsening renal insufficiency.Started on Primacor. Lasix to diurese. Hypotension, IV boluses, Unable to tolerate Primacor. Turned off. Renal on consult. Plan: Unable to tolerate Primacor, so discontinued So far, Blood pressure holding to systolic of 100 -110's Worsening renal insuffciency, Renal on consult May eventually need hemodialysis Episode of bloody urine with blood clots as per RN, Irrigated and cleared up to yellow urine Will monitor, if further bleeding will stop Coumadin Awake, alert ,no distress Heart rate atrial fibrillation, controlled Continue to diurese per renal On Lipitor 20 mg daily,Colchicine 0.6 mg daily, Lasix 100 mg IV every 12 hours,Imdur ER 30 mg daily, Zaroxylyn 10 mg daily,Warfarin 1 mg daily Continue current medications Continue current treatment Will follow up Plan and treatment discussed with Dr. Ruano
[2018-01-07 07:11] LABS: BASO # 0.04 K/mm3 (0.0-2.0); BASO % 0.8 % (0.0-3.0); EOS # 0.3 (0.0-0.7); EOS % 6.1 % (1.5-5.0); GRAN # 2.64 (1.4-6.5); GRAN % 55.9 % (50.0-68.0); HEMOGLOBIN 9.2 g/dL (14.0-18.0); LYMPH # 1.3 (1.2-3.4); LYMPH % 27.5 % (22.0-35.0); MEAN CORPUSCULAR HEMOGLOBIN 34.7 pg (25.0-35.0); MEAN CORPUSCULAR HGB CONC 34.7 g/dl (31.0-37.0); MEAN PLATELET VOLUME 10.7 fl (7.0-11.0); MONO # 0.5 (0.1-0.6); MONO % 9.7 % (1.0-6.0); RBC 2.65 10^6/uL (3.5-6.1); WHITE BLOOD COUNT 4.7 10^3/uL (4.5-11.0)
[2018-01-07 07:20] LABS: INR 2.03; PARTIAL THROMBOPLASTIN TIME 51.8 Seconds (25.1-36.5); PROTHROMBIN TIME 23.7 SECONDS (9.4-12.5)
[2018-01-07] MEDS: Levalbuterol 1.25 MG/3 ML Inhal Soln UD IH SCH ×3 (07:21→20:01)
[2018-01-07 07:23] LABS: ALB/GLOB RATIO 0.8 (1.1-1.8); ALBUMIN 2.9 g/dL (3.0-4.8); CALCIUM 9.1 mg/dL (8.4-10.5)
[2018-01-07] MEDS: metOLazone 5 MG TAB PO SCH (09:39)
--- NOTE | 2018-01-07 11:33 | PN ---
DATE: 01/07/2018 REASON FOR CONSULTATION AND FOLLOWUP: History of coronary artery disease, CABG, cardiomyopathy, ischemic, admitted with acute kidney injury. Started on Primacor but did not tolerate because of low blood pressure, attempted twice and then on hold. BUN and creatinine is elevated, possibly needs dialysis. He was on anticoagulation 2.03 on Coumadin and hold for possible placement of dialysis catheter. We will start low dose of Coreg, and once the dialysis is started, we will start JUAN inhibitors. Patient was on 50 of metoprolol at home, but since the blood pressure is in the lower side, we will change to Coreg 3.125 twice a day. Continue Imdur, continue colchicine, diuretics as per home health cna, we will follow with you. Thank you Dr. Jennings for providing us the opportunity in taking care of Mr. Jese Damon. This note is in addition to dictated by our nurse practitioner. Once the patient is started on dialysis as mentioned, we will start JUAN inhibitors. Johanna Ruano MD
[2018-01-07] MEDS ORDERED: Magnesium Citrate Oral SOL (300 ml) PO ONE ×2 (14:49→17:34)
--- NOTE | 2018-01-07 18:47 | CP.PCM.PN ---
<Josiah Meza - Last Filed: 01/07/18 18:44> Subjective - Date & Time of Evaluation Date of Evaluation: 01/07/18 Time of Evaluation: 08:40 - Subjective Subjective: Nephrology progress note for Dr. Leonard Patient seen and examined at bedside. Patient with no acute events overnight. Patient states he feels well, with no complaints at this time. Denies chest pain, shortness of breath, nausea, vomiting, diarrhea, fever, chills. Objective - Vital Signs/Intake and Output Vital Signs (last 24 hours): Temp Pulse Resp BP Pulse Ox 98.3 F 93 H 18 104/65 97 01/07/18 12:00 01/07/18 14:00 01/07/18 12:00 01/07/18 17:54 01/07/18 06:00 Intake and Output: 01/07/18 01/07/18 06:59 18:59 Intake Total 120 Output Total 2000 Balance -1880 - Medications Medications: Current Medications Acetaminophen (Tylenol 325mg Tab) 650 mg PO Q6H PRN PRN Reason: Pain, moderate (4-7) Last Admin: 01/03/18 17:55 Dose: 650 mg Alprazolam (Xanax) 0.25 mg PO DAILY [facility]; Protocol Last Admin: 01/07/18 09:38 Dose: 0.25 mg Atorvastatin Calcium (Lipitor) 20 mg PO HS [facility] Last Admin: 01/06/18 21:27 Dose: 20 mg Carvedilol (Coreg) 3.125 mg PO BID [facility] Last Admin: 01/07/18 12:05 Dose: 3.125 mg Colchicine (Colocrys) 0.6 mg PO Q48H [facility] Docusate Sodium (Colace) 100 mg PO DAILY [facility] Last Admin: 01/07/18 09:38 Dose: 100 mg Furosemide (Lasix) 100 mg IVP Q12H [facility] Last Admin: 01/07/18 17:54 Dose: 100 mg Insulin Human Lispro (Humalog Med) 0 units SC [facility]; Protocol Last Admin: 01/07/18 17:52 Dose: Not Given Isosorbide Mononitrate (Imdur Er) 30 mg PO DAILY [facility] Last Admin: 01/04/18 11:49 Dose: 30 mg Levalbuterol HCl (Xopenex) 1.25 mg IH TIDRESP [facility] Last Admin: 01/07/18 13:16 Dose: 1.25 mg Metolazone (Zaroxolyn) 10 mg PO DAILY [facility] Last Admin: 01/07/18 09:39 Dose: 10 mg Risperidone (Risperdal Tab) 0.25 mg PO HS [facility]; Protocol Last Admin: 01/06/18 21:27 Dose: 0.25 mg Sitagliptin Phosphate (Januvia) 25 mg PO DAILY [facility] Last Admin: 01/07/18 09:38 Dose: 25 mg Warfarin Sodium (Coumadin) 1 mg PO 1800 [facility]; Protocol - Labs Labs: 01/07/18 07:00 01/07/18 07:00 PT 23.7 SECONDS (9.4-12.5) H 01/07/18 07:00 INR 2.03 01/07/18 07:00 APTT 51.8 Seconds (25.1-36.5) H 01/07/18 07:00 - Constitutional Appears: Non-toxic, No Acute Distress - Head Exam Head Exam: ATRAUMATIC, NORMAL INSPECTION, NORMOCEPHALIC - ENT Exam ENT Exam: Mucous Membranes Moist - Respiratory Exam Respiratory Exam: Clear to Ausculation Bilateral, NORMAL BREATHING PATTERN. absent: Rales, Rhonchi, Wheezes - Cardiovascular Exam Cardiovascular Exam: Irregular Rhythm, +S1, +S2 - GI/Abdominal Exam GI & Abdominal Exam: Soft, Normal Bowel Sounds. absent: Tenderness - Extremities Exam Extremities Exam: Pedal Edema Additional comments: +1 b/l lower extremity edema - Neurological Exam Neurological Exam: Alert, Awake, CN II-XII Intact, Oriented x3 - Psychiatric Exam Psychiatric exam: Normal Affect, Normal Mood - Skin Skin Exam: Intact, Warm Assessment and Plan - Assessment and Plan (Free Text) Plan: 82 year old male with past medical history of HTN, CHF, A-fib, DM, and CKD stage 4 presents with acute renal failure. 1. Acute renal failure Patient with improvement in creatinine today Increase in urine output, negative 1800 cc Will continue to decrease venous congestion with diuretics Continue Lasix 100 mg q12 IV and Metolazone 10 mg daily Acetazolimide given once to offset contraction alkalosis from high dose diuretics Goal net negative fluid balance is 1500 cc Avoid hypotension No need for dialysis at this time Avoid nephrotoxic agents 2. CHF Patient hemodynamically stable Patient off milrinone at this time as per Cardio Restart low dose Coreg 3. Hematuria Resolved at this time Recommend to flush twice per shift with 50 cc 4. Normocytic Anemia Stable at this time Aranesp given previously 5. Coagulopathy Warfarin on hold at this time for possible surgical intervention for dialysis catheter, although at this time patient does not require dialysis INR therapeutic Susana, PGY-3 <Bola Leonard - Last Filed: 01/08/18 07:20> Objective - Vital Signs/Intake and Output Vital Signs (last 24 hours): Temp Pulse Resp BP Pulse Ox 98 F 78 21 108/58 L 98 01/08/18 05:44 01/08/18 05:44 01/08/18 05:44 01/08/18 05:44 01/08/18 05:44 Intake and Output: 01/08/18 01/08/18 06:59 18:59 Intake Total 300 Output Total 1800 Balance -1500 - Medications Medications: Current Medications Acetaminophen (Tylenol 325mg Tab) 650 mg PO Q6H PRN PRN Reason: Pain, moderate (4-7) Last Admin: 01/03/18 17:55 Dose: 650 mg Alprazolam (Xanax) 0.25 mg PO DAILY [facility]; Protocol Last Admin: 01/07/18 09:38 Dose: 0.25 mg Atorvastatin Calcium (Lipitor) 20 mg PO HS [facility] Last Admin: 01/07/18 21:46 Dose: 20 mg Carvedilol (Coreg) 3.125 mg PO BID [facility] Last Admin: 01/07/18 18:45 Dose: 3.125 mg Colchicine (Colocrys) 0.6 mg PO Q48H [facility] Docusate Sodium (Colace) 100 mg PO DAILY [facility] Last Admin: 01/07/18 09:38 Dose: 100 mg Furosemide (Lasix) 100 mg IVP Q12H [facility] Last Admin: 01/08/18 05:20 Dose: 100 mg Insulin Human Lispro (Humalog Med) 0 units SC [facility]; Protocol Last Admin: 01/07/18 21:42 Dose: Not Given Isosorbide Mononitrate (Imdur Er) 30 mg PO DAILY [facility] Last Admin: 01/04/18 11:49 Dose: 30 mg Levalbuterol HCl (Xopenex) 1.25 mg IH TIDRESP [facility] Last Admin: 01/07/18 20:01 Dose: 1.25 mg Metolazone (Zaroxolyn) 10 mg PO DAILY [facility] Last Admin: 01/07/18 09:39 Dose: 10 mg Risperidone (Risperdal Tab) 0.25 mg PO HS [facility]; Protocol Last Admin: 01/07/18 21:46 Dose: 0.25 mg Sitagliptin Phosphate (Januvia) 25 mg PO DAILY [facility] Last Admin: 01/07/18 09:38 Dose: 25 mg Warfarin Sodium (Coumadin) 1 mg PO 1800 [facility]; Protocol - Labs Labs: 01/07/18 07:00 01/07/18 07:00 PT 23.7 SECONDS (9.4-12.5) H 01/07/18 07:00 INR 2.03 01/07/18 07:00 APTT 51.8 Seconds (25.1-36.5) H 01/07/18 07:00 Assessment and Plan (1) Acute renal failure Status: Acute (2) CHF (congestive heart failure) Status: Acute (3) Hematuria Status: Acute (4) Coagulopathy Status: Acute (5) Anemia Status: Chronic Attending/Attestation - Attestation I have personally seen and examined this patient.: Yes I have fully participated in the care of the patient.: Yes I have reviewed all pertinent clinical information, including history, physical exam and plan: Yes Notes (Text): Patient seen and examined; I agree with the resident's note as above with the following additions/edits: 82 yo M w/ pmh of Afib on Coumadin, DM, HTN, CHF w/ biventricular dysfunction (EF of 20-25%, moderate pulm htn), and CKD IIIB/IV, admitted with acute decompensated systolic CHF, nephrology following for acute renal failure; Cardiorenal etiology of both LARRY and CKD; renal function showing mild improvement over past 2 days with aggressive diuretic regimen; will continue the same with goal of decreasing venous congestion and offloading RV/LV; unclear how much improvement we can expect before serum creatinine reaches plateau; the hope is that patient can reach the level he was at just 2 months ago when eGFR was as high as 30 ml/min; trying to avoid HD as much as possible to prevent hypotensive events and further renal insults in patient with already borderline BP; will continue with current management and decide on need for HD on daily basis; Mild metabolic alkalosis induced by loop/thiazide diuretics, giving dose of diamox 250 mg IV; CHF status improving as indicated by improving renal function; agree with further cardiac optimization with restarting of B-blockers by cardiology; Gross hematuria resolved; continue to flush gates twice per shift; Continue to hold coumadin for now (in case catheter needed), INR just therapeutic; Thank you for the opportunity to participate in the care of Mr. Damon, we will continue to f/u closely.
--- NOTE | 2018-01-07 22:05 | PN ---
DATE: 01/07/2018 SUBJECTIVE: The patient is an 82-year-old, seen and examined, lying in bed. He states he is less short of breath. Complains of constipation. No chest pain. No other significant complaints. PHYSICAL EXAMINATION: VITAL SIGNS: The patient is afebrile, pulse 74, respirations 18, and blood pressure 111/64. LUNGS: Bilateral decreased breath sound at bases. HEART: S1 and S2 audible, irregular, rate controlled. ABDOMEN: Soft, obese, and nontender. No rebound. No guarding. NEUROLOGIC: He is awake, alert, oriented, and communicative. EXTREMITIES: Bilateral leg +3 edema. LABORATORY DATA: WBC is 4.7, hemoglobin 9.2, hematocrit 26.5, and platelet of 74,000. His PT 23.7 and INR 2.03. Chemistry; sodium 138, potassium 4.3, chloride 98, CO2 of 32, BUN 107, and creatinine 4.5. Urine cultures are negative. ASSESSMENT: 1. Acute on chronic renal failure. 2. Ischemic cardiomyopathy. 3. Rrw-luyjjkp-kobbgywor diabetes. 4. History of gout. 5. Constipation. PLAN: We will give patient one dose of magnesium citrate. He is on carvedilol. He is on Coumadin. We will follow up his electrolyte in the a.m. So, plan is currently patient seems to be stable. He is symptomatically improving regarding his shortness of breath. For now, he is on Lasix mg every 12 hours and metolazone 10 mg daily. Cardiology and Nephrology input noted and appreciated. I discussed with the patient's family who is at the bedside. Leonila Jennings MD
[2018-01-08] MEDS: Insulin Lispro (humaLOG) MEDIUM Coverage SC SCH ×4 (07:37→22:02)
[2018-01-08 08:00] LABS: ALB/GLOB RATIO 0.9 (1.1-1.8); ALBUMIN 2.9 g/dL (3.0-4.8); CALCIUM 9.3 mg/dL (8.4-10.5)
[2018-01-08] MEDS: Levalbuterol 1.25 MG/3 ML Inhal Soln UD IH SCH ×3 (08:08→19:44)
[2018-01-08] MEDS: metOLazone 5 MG TAB PO SCH (09:09)
--- NOTE | 2018-01-08 11:27 | PN ---
DATE: 01/08/2018 SUBJECTIVE: The patient is an 82-year-old, seen and examined, lying in bed, seems to be comfortable, less shortness of breath, had constipation yesterday, but was able to move his bowels, feels comfortable now. Denies any chest pain. PHYSICAL EXAMINATION: VITAL SIGNS: He is afebrile, pulse 78, respirations 21, and blood pressure 100/56. LUNGS: Bilateral fair air flow. No rhonchi or crackle. HEART: S1 and S2 audible, irregular, rate controlled. ABDOMEN: Soft, nontender. No rebound. No guarding. NEUROLOGIC: He is awake, alert, oriented, communicative. LABORATORY EXAM: WBC is 4.7, hemoglobin 9.2, hematocrit 26.5, platelets 74. PT 23.7, INR 2.03. Chemistry: Sodium 138, potassium 4.1, chloride 96, CO2 of 31, BUN 108, creatinine 4.5, blood sugar of 112. Urine cultures are negative. ASSESSMENT: 1. Rcbuj-xc-nbywsms renal failure. 2. Ischemic cardiomyopathy. 3. Hypertension. 4. Rui-blysjcu-yyobietzs diabetes. 5. Anxiety disorder. PLAN: Currently, the patient in on high dose of IV diuretic that is 100 mg every 12 hours. He is on metolazone 10 mg daily. He is off of his usual medication for blood pressure since his blood pressure is running low. He is on carvedilol. He is on isosorbide. He is off of losartan, we will continue that. We will discuss with Nephrology. The plan for hemodialysis is on hold for now. Leonila Jennings MD
--- NOTE | 2018-01-08 21:45 | CP.PCM.PN ---
Subjective - Date & Time of Evaluation Date of Evaluation: 01/08/18 Time of Evaluation: 11:00 - Subjective Subjective: Patient denies any sob; tolerating diet; complaining of constipation; Objective - Vital Signs/Intake and Output Vital Signs (last 24 hours): Temp Pulse Resp BP Pulse Ox 97.6 F 68 18 101/51 L 98 01/08/18 17:21 01/08/18 18:00 01/08/18 17:21 01/08/18 17:29 01/08/18 17:21 Intake and Output: 01/08/18 01/09/18 18:59 06:59 Intake Total 780 Output Total 1200 Balance -420 - Medications Medications: Current Medications Acetaminophen (Tylenol 325mg Tab) 650 mg PO Q6H PRN PRN Reason: Pain, moderate (4-7) Last Admin: 01/03/18 17:55 Dose: 650 mg Alprazolam (Xanax) 0.25 mg PO DAILY [facility]; Protocol Last Admin: 01/08/18 09:09 Dose: 0.25 mg Atorvastatin Calcium (Lipitor) 20 mg PO HS [facility] Last Admin: 01/07/18 21:46 Dose: 20 mg Carvedilol (Coreg) 3.125 mg PO BID [facility] Last Admin: 01/08/18 17:21 Dose: Not Given Colchicine (Colocrys) 0.6 mg PO Q48H [facility] Last Admin: 01/08/18 09:09 Dose: 0.6 mg Docusate Sodium (Colace) 100 mg PO DAILY [facility] Last Admin: 01/08/18 09:09 Dose: 100 mg Furosemide (Lasix) 100 mg IVP Q12H [facility] Last Admin: 01/08/18 17:29 Dose: 100 mg Insulin Human Lispro (Humalog Med) 0 units SC ACHS [facility]; Protocol Last Admin: 01/08/18 16:57 Dose: Not Given Isosorbide Mononitrate (Imdur Er) 30 mg PO DAILY [facility] Last Admin: 01/04/18 11:49 Dose: 30 mg Levalbuterol HCl (Xopenex) 1.25 mg IH TIDRESP [facility] Last Admin: 01/08/18 19:44 Dose: 1.25 mg Metolazone (Zaroxolyn) 10 mg PO DAILY [facility] Last Admin: 01/08/18 09:09 Dose: 10 mg Risperidone (Risperdal Tab) 0.25 mg PO HS [facility]; Protocol Last Admin: 01/07/18 21:46 Dose: 0.25 mg Sitagliptin Phosphate (Januvia) 25 mg PO DAILY [facility] Last Admin: 01/08/18 09:09 Dose: 25 mg Warfarin Sodium (Coumadin) 1 mg PO 1800 [facility]; Protocol - Labs Labs: 01/07/18 07:00 01/08/18 07:00 PT 23.7 SECONDS (9.4-12.5) H 01/07/18 07:00 INR 2.03 01/07/18 07:00 APTT 51.8 Seconds (25.1-36.5) H 01/07/18 07:00 - Constitutional Appears: Non-toxic, No Acute Distress - Eye Exam Eye Exam: Normal appearance - Respiratory Exam Respiratory Exam: Clear to Ausculation Bilateral. absent: Respiratory Distress - Cardiovascular Exam Cardiovascular Exam: Irregular Rhythm Additional comments: systolic murmur, no gallops/rubs; - GI/Abdominal Exam GI & Abdominal Exam: Soft. absent: Distended, Tenderness - Extremities Exam Additional comments: moderately edematous legs - Neurological Exam Neurological Exam: Alert, Awake - Psychiatric Exam Psychiatric exam: Normal Mood. absent: Agitated - Skin Skin Exam: Warm. absent: Cyanosis Assessment and Plan (1) Acute renal failure Assessment & Plan: LARRY on CKD IIIB; cardiorenal syndrome in the setting of severe CHF w/ biventricular failure, showed some mild improvement in renal function with agg ressive diuresis; continues to respond well to diuretics; however, periods of mild hypotension and renal function appear to have reached plateau; stable electrolytes; no urgent indication to initiate HD; however, we cannot discharge patient at this low level of GFR and volume overload will recur once off IV diuretics; discussed with PMD, will plan to have tunneled HD catheter placement by IR and initiation of HD on Wednesday/Wednesday; -continue IV lasix 100 mg q12h, metolazone 10 mg daily; -avoid nephrotoxic agents (especially NSAIDS); Status: Acute (2) CHF (congestive heart failure) Assessment & Plan: See above; low dose B-blockers started by cardio; can restart REYNA blockade once on HD; Status: Acute (3) Hematuria Assessment & Plan: Gross hematuria resolved; continue to flush gates twice per shift; Status: Acute (4) Coagulopathy Assessment & Plan: Coumadin on hold; monitor INR; need to keep INR < 2.0 for HD catheter placement; Status: Acute (5) Anemia Assessment & Plan: Anemia of CKD/chronic disease; hgb stable; aranesp given this week, will re-dose next week; Status: Chronic
[2018-01-09] MEDS: Insulin Lispro (humaLOG) MEDIUM Coverage SC SCH ×4 (07:30→22:14)
[2018-01-09 07:57] LABS: BASO # 0.03 K/mm3 (0.0-2.0); BASO % 0.6 % (0.0-3.0); EOS # 0.3 (0.0-0.7); GRAN # 3.03 (1.4-6.5); GRAN % 62.7 % (50.0-68.0); HEMOGLOBIN 9.3 g/dL (14.0-18.0); LYMPH # 1.1 (1.2-3.4); LYMPH % 22.3 % (22.0-35.0); MEAN CELL VOLUME 99.3 fl (80.0-105.0); MEAN CORPUSCULAR HEMOGLOBIN 33.9 pg (25.0-35.0); MEAN CORPUSCULAR HGB CONC 34.2 g/dl (31.0-37.0); MEAN PLATELET VOLUME 11.2 fl (7.0-11.0); MONO # 0.4 (0.1-0.6); MONO % 7.4 % (1.0-6.0); RBC 2.74 10^6/uL (3.5-6.1); RED CELL DISTRIBUTION WIDTH 18.6 % (11.5-14.5); WHITE BLOOD COUNT 4.8 10^3/uL (4.5-11.0)
[2018-01-09 07:58] LABS: INR 1.51; PARTIAL THROMBOPLASTIN TIME 45.8 Seconds (25.1-36.5); PROTHROMBIN TIME 17.5 SECONDS (9.4-12.5)
[2018-01-09] MEDS: Levalbuterol 1.25 MG/3 ML Inhal Soln UD IH SCH ×3 (08:38→20:40)
[2018-01-09] MEDS: metOLazone 5 MG TAB PO SCH (09:13)
--- NOTE | 2018-01-09 09:13 | CP.PCM.PN ---
Subjective - Date & Time of Evaluation Date of Evaluation: 01/09/18 Time of Evaluation: 09:00 - Subjective Subjective: HISTORY OF PRESENT ILLNESS: Mr. Damon is an 82-year-old male admitted to the hospital with shortness of breath, and acute renal failure. He has history of pacemaker placement, ischemic cardiomyopathy. Evaluated by Dr. Leonard, Renal. Creatinine elevated at 4.5. hemoglobin is 9.4. Feeling better. No nausea. No vomiting. No shortness of breath. No events overnight. PAST MEDICAL HISTORY: Ischemic cardiomyopathy status post defibrillator placement, hypertension, diabetes mellitus type 2, chronic kidney disease, history of gout, open-heart surgery and dilated cardiomyopathy. ALLERGIES: ASPIRIN, LATEX, RUBBER AND PENICILLIN. CURRENT MEDICATIONS: Risperdal, atorvastatin, Xanax, metoprolol, losartan, Lasix and colchicine. SOCIAL HISTORY: Ex-smoker, quit smoking few years ago. No history of alcohol abuse. FAMILY HISTORY: Noncontributory. PHYSICAL EXAMINATION: GENERAL: Awake, alert, oriented. No focal sensory motor deficit. VITAL SIGNS: Stable. reviewed HEENT: Pallor positive. NECK: No lymphadenopathy. HEART: S1 and S2 normal. No murmur. No gallop. ABDOMEN: Soft and nontender. No hepatosplenomegaly. EXTREMITIES: No edema. NEURO: Awake, alert and oriented x3. Able to communicate. LABORATORY DATA: reviewed. ASSESSMENT: 1. Acute on chronic renal failure. 2. Anemia. 3. Thrombocytopenia. 4. Congestive heart failure. 5. Ischemic cardiomyopathy. 6. Diabetes mellitus type 2. PLAN: Hemoglobin/hematocrit stable. Does not need blood transfusion. followed by Renal, Dr. Leonard. HD on hold. We will continue Xanax 0.25 mg daily, Lipitor 20 mg daily, colchicine to continue, Lasix 100 mg every 12 hours, insulin to continue, Risperdal 0.25 mg at bedtime, Januvia 25 mg daily and Coumadin 1 mg daily. We will continue to monitor PT/INR. electrolytes normal. labs ordered for today CBC.CMP stat. Gris Bowers MD Objective - Vital Signs/Intake and Output Vital Signs (last 24 hours): Temp Pulse Resp BP Pulse Ox 98.3 F 85 20 108/54 L 100 01/09/18 05:53 01/09/18 05:53 01/09/18 05:53 01/09/18 05:53 01/09/18 05:53 Intake and Output: 01/09/18 01/09/18 06:59 18:59 Intake Total 1810 Output Total 4650 Balance -2840 - Medications Medications: Current Medications Acetaminophen (Tylenol 325mg Tab) 650 mg PO Q6H PRN PRN Reason: Pain, moderate (4-7) Last Admin: 01/03/18 17:55 Dose: 650 mg Alprazolam (Xanax) 0.25 mg PO DAILY [facility]; Protocol Last Admin: 01/08/18 09:09 Dose: 0.25 mg Atorvastatin Calcium (Lipitor) 20 mg PO HS [facility] Last Admin: 01/08/18 22:03 Dose: 20 mg Carvedilol (Coreg) 3.125 mg PO BID [facility] Last Admin: 01/08/18 17:21 Dose: Not Given Colchicine (Colocrys) 0.6 mg PO Q48H [facility] Last Admin: 01/08/18 09:09 Dose: 0.6 mg Docusate Sodium (Colace) 100 mg PO DAILY [facility] Last Admin: 01/08/18 09:09 Dose: 100 mg Furosemide (Lasix) 100 mg IVP Q12H [facility] Last Admin: 01/09/18 05:14 Dose: 100 mg Insulin Human Lispro (Humalog Med) 0 units SC ACHS [facility]; Protocol Last Admin: 01/09/18 07:30 Dose: Not Given Isosorbide Mononitrate (Imdur Er) 30 mg PO DAILY [facility] Last Admin: 01/04/18 11:49 Dose: 30 mg Levalbuterol HCl (Xopenex) 1.25 mg IH TIDRESP [facility] Last Admin: 01/09/18 08:38 Dose: 1.25 mg Metolazone (Zaroxolyn) 10 mg PO DAILY [facility] Last Admin: 01/08/18 09:09 Dose: 10 mg Risperidone (Risperdal Tab) 0.25 mg PO HS [facility]; Protocol Last Admin: 01/08/18 22:03 Dose: 0.25 mg Sitagliptin Phosphate (Januvia) 25 mg PO DAILY [facility] Last Admin: 01/08/18 09:09 Dose: 25 mg Warfarin Sodium (Coumadin) 1 mg PO 1800 [facility]; Protocol - Labs Labs: 01/09/18 07:00 01/08/18 07:00 PT 17.5 SECONDS (9.4-12.5) H 01/09/18 07:00 INR 1.51 01/09/18 07:00 APTT 45.8 Seconds (25.1-36.5) H 01/09/18 07:00
[2018-01-09 10:00] LABS: ALB/GLOB RATIO 0.8 (1.1-1.8); ALBUMIN 2.9 g/dL (3.0-4.8); CALCIUM 9.4 mg/dL (8.4-10.5)
[2018-01-09] MEDS ORDERED: Potassium Chloride 40 mEq/30 ml LIQ UD PO ONE (10:18)
[2018-01-09] MEDS ORDERED: A C T ELECTRONICS XX ONE (11:26)
--- NOTE | 2018-01-10 06:51 | CP.PCM.PN ---
Subjective - Date & Time of Evaluation Date of Evaluation: 01/10/18 Time of Evaluation: 06:20 - Subjective Subjective: Lying in bed, Awake, alert, no distress, denies shortness of breath Reason for consultation and follow up: Cardiac evaluation for acute on chronic systolic dysfunction decompensated congestive heart failure, history of coronary artery disease, post CABG,history of renal insufficiency Seen and examined by me and Dr. Ruano Objective - Vital Signs/Intake and Output Vital Signs (last 24 hours): Temp Pulse Resp BP Pulse Ox 98.2 F 80 16 97/51 L 99 01/10/18 06:00 01/10/18 06:00 01/10/18 06:00 01/10/18 06:00 01/10/18 06:00 Intake and Output: 01/09/18 01/10/18 18:59 06:59 Intake Total 1180 1480 Output Total 5600 5400 Balance -4420 -3920 - Medications Medications: Current Medications Acetaminophen (Tylenol 325mg Tab) 650 mg PO Q6H PRN PRN Reason: Pain, moderate (4-7) Last Admin: 01/03/18 17:55 Dose: 650 mg Alprazolam (Xanax) 0.25 mg PO DAILY [facility]; Protocol Last Admin: 01/09/18 09:12 Dose: 0.25 mg Atorvastatin Calcium (Lipitor) 20 mg PO HS [facility] Last Admin: 01/09/18 22:15 Dose: 20 mg Carvedilol (Coreg) 3.125 mg PO BID [facility] Last Admin: 01/09/18 17:46 Dose: Not Given Colchicine (Colocrys) 0.6 mg PO Q48H [facility] Last Admin: 01/08/18 09:09 Dose: 0.6 mg Docusate Sodium (Colace) 100 mg PO DAILY [facility] Last Admin: 01/09/18 09:13 Dose: 100 mg Furosemide (Lasix) 100 mg IVP Q12H [facility] Last Admin: 01/10/18 05:35 Dose: 100 mg Insulin Human Lispro (Humalog Med) 0 units SC ACHS [facility]; Protocol Last Admin: 01/09/18 22:14 Dose: Not Given Isosorbide Mononitrate (Imdur Er) 30 mg PO DAILY [facility] Last Admin: 01/04/18 11:49 Dose: 30 mg Levalbuterol HCl (Xopenex) 1.25 mg IH TIDRESP [facility] Last Admin: 01/09/18 20:40 Dose: 1.25 mg Metolazone (Zaroxolyn) 10 mg PO DAILY [facility] Last Admin: 01/09/18 09:13 Dose: 10 mg Risperidone (Risperdal Tab) 0.25 mg PO HS [facility]; Protocol Last Admin: 01/09/18 22:15 Dose: 0.25 mg Sitagliptin Phosphate (Januvia) 25 mg PO DAILY [facility] Last Admin: 01/09/18 09:14 Dose: 25 mg Warfarin Sodium (Coumadin) 1 mg PO 1800 [facility]; Protocol - Labs Labs: 01/09/18 07:00 01/09/18 07:00 PT 17.5 SECONDS (9.4-12.5) H 01/09/18 07:00 INR 1.51 01/09/18 07:00 APTT 45.8 Seconds (25.1-36.5) H 01/09/18 07:00 - Constitutional Appears: Non-toxic, No Acute Distress - Head Exam Head Exam: NORMAL INSPECTION, NORMOCEPHALIC - Eye Exam Eye Exam: Normal appearance Pupil Exam: NORMAL ACCOMODATION - ENT Exam ENT Exam: Mucous Membranes Moist, Normal Exam - Respiratory Exam Respiratory Exam: Decreased Breath Sounds, Clear to Ausculation Bilateral, NORMAL BREATHING PATTERN - Cardiovascular Exam Cardiovascular Exam: Irregular Rhythm, +S1, +S2 Additional comments: No JVD Telemetry atrial fibrillation 80's - GI/Abdominal Exam GI & Abdominal Exam: Soft, Normal Bowel Sounds - Exam Additional comments: gates catheter - Extremities Exam Extremities Exam: Full ROM Additional comments: 1-2+wilfred - Neurological Exam Neurological Exam: Alert, Awake, Oriented x3 - Psychiatric Exam Psychiatric exam: Normal Affect, Normal Mood - Skin Skin Exam: Dry, Normal Color, Warm Assessment and Plan - Assessment and Plan (Free Text) Assessment: An 82 year old male who came in to the Er due to shortness of breath. History of ischemic cardiomyopathy, CAD post CABG, AICD, diabetes, gout,hypertens ion,renal insufficiency, chronic atrial fibrllation on Coumadin, multiple admissions including elevated INR. and exacerbation of CHF. Admitted for exacerbation of CHF and worsening renal insufficiency.Started on Primacor. Lasix to diurese. Hypotension, IV boluses, Unable to tolerate Primacor. Discontinued Primacor. Renal on consult.Continue to diurese. Hold Coumadin for possible dialysis catheter insertion although BUN/creatinine improving. Plan: Denies shortness of breath Awake, alert ,no distress Heart rate atrial fibrillation, controlled 80's/min SBP 90's, monitor for further hypotension. Continue to diurese per renal On Lipitor 20 mg daily,Colchicine 0.6 mg daily, Coreg 3.125 mg BID, Lasix 100 mg IV every 12 hours,Imdur ER 30 mg daily, Zaroxylyn 10 mg daily, Warfarin on hold for possible dialysis catheter insertion Continue current medications Continue current treatment Will follow up Plan and treatment discussed with Dr. Ruano
[2018-01-10] MEDS: Levalbuterol 1.25 MG/3 ML Inhal Soln UD IH SCH ×3 (07:32→19:40)
--- NOTE | 2018-01-10 07:41 | CP.PCM.PN ---
Subjective - Date & Time of Evaluation Date of Evaluation: 01/09/18 Time of Evaluation: 11:00 - Subjective Subjective: Patient reports feeling well, tolerating diet; no sob; had good BM last night; Objective - Vital Signs/Intake and Output Vital Signs (last 24 hours): Temp Pulse Resp BP Pulse Ox 98.2 F 80 16 97/51 L 99 01/10/18 06:00 01/10/18 06:00 01/10/18 06:00 01/10/18 06:00 01/10/18 06:00 Intake and Output: 01/10/18 01/10/18 06:59 18:59 Intake Total 1480 Output Total 5400 Balance -3920 - Medications Medications: Current Medications Acetaminophen (Tylenol 325mg Tab) 650 mg PO Q6H PRN PRN Reason: Pain, moderate (4-7) Last Admin: 01/03/18 17:55 Dose: 650 mg Alprazolam (Xanax) 0.25 mg PO DAILY [facility]; Protocol Last Admin: 01/09/18 09:12 Dose: 0.25 mg Atorvastatin Calcium (Lipitor) 20 mg PO HS [facility] Last Admin: 01/09/18 22:15 Dose: 20 mg Carvedilol (Coreg) 3.125 mg PO BID [facility] Last Admin: 01/09/18 17:46 Dose: Not Given Colchicine (Colocrys) 0.6 mg PO Q48H [facility] Last Admin: 01/08/18 09:09 Dose: 0.6 mg Docusate Sodium (Colace) 100 mg PO DAILY [facility] Last Admin: 01/09/18 09:13 Dose: 100 mg Furosemide (Lasix) 100 mg IVP Q12H [facility] Last Admin: 01/10/18 05:35 Dose: 100 mg Insulin Human Lispro (Humalog Med) 0 units SC ACHS [facility]; Protocol Last Admin: 01/09/18 22:14 Dose: Not Given Isosorbide Mononitrate (Imdur Er) 30 mg PO DAILY [facility] Last Admin: 01/04/18 11:49 Dose: 30 mg Levalbuterol HCl (Xopenex) 1.25 mg IH TIDRESP [facility] Last Admin: 01/10/18 07:32 Dose: 1.25 mg Metolazone (Zaroxolyn) 10 mg PO DAILY [facility] Last Admin: 01/09/18 09:13 Dose: 10 mg Risperidone (Risperdal Tab) 0.25 mg PO HS [facility]; Protocol Last Admin: 01/09/18 22:15 Dose: 0.25 mg Sitagliptin Phosphate (Januvia) 25 mg PO DAILY [facility] Last Admin: 01/09/18 09:14 Dose: 25 mg Warfarin Sodium (Coumadin) 1 mg PO 1800 [facility]; Protocol - Labs Labs: 01/09/18 07:00 01/09/18 07:00 PT 17.5 SECONDS (9.4-12.5) H 01/09/18 07:00 INR 1.51 01/09/18 07:00 APTT 45.8 Seconds (25.1-36.5) H 01/09/18 07:00 - Constitutional Appears: Non-toxic, No Acute Distress - Eye Exam Eye Exam: Normal appearance - Cardiovascular Exam Cardiovascular Exam: Irregular Rhythm Additional comments: systolic murmur - GI/Abdominal Exam GI & Abdominal Exam: Soft. absent: Distended, Tenderness - Extremities Exam Additional comments: leg edema much improved; - Neurological Exam Neurological Exam: Alert, Awake - Psychiatric Exam Psychiatric exam: Normal Mood. absent: Agitated - Skin Skin Exam: Warm. absent: Cyanosis Assessment and Plan (1) Acute renal failure Assessment & Plan: LARRY on CKD IIIB; cardiorenal etiology of renal failure; showing slow improvement in renal function with diuretics although likely not enough to safely d/c as eGFR still <15 ml/min and concern that CHF status will be exacerbated once off aggressive diuretic regimen; -planning for HD catheter placement; -avoid nephrotoxic agents; -continue current IV diuretics and metolazone; -supplementing K (should keep > 4.0) to avoid arrhythmias; Status: Acute (2) CHF (congestive heart failure) Assessment & Plan: See above; f/u with cardio recs; can start REYNA blockade once on HD; Status: Acute (3) Hematuria Assessment & Plan: Again with blood tinged urine despite INR being subtherapeutic; will continue to flush gates twice per shift to prevent any blood clots from forming; Status: Acute (4) Coagulopathy Assessment & Plan: INR subtherapeutic, holding coumadin for HD cath placement; Status: Acute (5) Anemia Assessment & Plan: Hgb stable, s/p dose of aranesp, will re-dose this week; Status: Chronic
[2018-01-10] MEDS: Insulin Lispro (humaLOG) MEDIUM Coverage SC SCH ×4 (08:13→22:54)
[2018-01-10 09:19] LABS: ALB/GLOB RATIO 0.8 (1.1-1.8); ALBUMIN 3.1 g/dL (3.0-4.8); CALCIUM 9.3 mg/dL (8.4-10.5)
[2018-01-10 09:21] LABS: BASO # 0.04 K/mm3 (0.0-2.0); BASO % 0.9 % (0.0-3.0); EOS # 0.3 (0.0-0.7); EOS % 7.3 % (1.5-5.0); GRAN # 2.4 (1.4-6.5); GRAN % 51.3 % (50.0-68.0); HEMOGLOBIN 9.7 g/dL (14.0-18.0); LYMPH # 1.4 (1.2-3.4); LYMPH % 29.8 % (22.0-35.0); MEAN CELL VOLUME 99.6 fl (80.0-105.0); MEAN CORPUSCULAR HEMOGLOBIN 34.4 pg (25.0-35.0); MEAN CORPUSCULAR HGB CONC 34.5 g/dl (31.0-37.0); MEAN PLATELET VOLUME 10.9 fl (7.0-11.0); MONO # 0.5 (0.1-0.6); MONO % 10.7 % (1.0-6.0); RBC 2.82 10^6/uL (3.5-6.1); RED CELL DISTRIBUTION WIDTH 18.3 % (11.5-14.5); WHITE BLOOD COUNT 4.7 10^3/uL (4.5-11.0)
[2018-01-10 09:25] LABS: INR 1.33; PARTIAL THROMBOPLASTIN TIME 41.4 Seconds (25.1-36.5); PROTHROMBIN TIME 15.4 SECONDS (9.4-12.5)
[2018-01-10] MEDS ORDERED: Potassium Chloride 20 mEq ER Tab PO STA (11:14)
[2018-01-10] MEDS ORDERED: Lidocaine 2% Inj (20ml) ONE (14:21)
--- NOTE | 2018-01-10 14:52 | CP.PCM.PN ---
Subjective - Date & Time of Evaluation Date of Evaluation: 01/10/18 Time of Evaluation: 14:54 - Subjective Subjective: Patient seen and examined at bedside. Saeed became displaced overnight, replaced without incident. patients abdominal pain is better today. no chest pain, sob improved Objective - Vital Signs/Intake and Output Vital Signs (last 24 hours): Temp Pulse Resp BP Pulse Ox 98.1 F 75 17 100/67 99 01/10/18 12:00 01/10/18 12:00 01/10/18 12:00 01/10/18 12:00 01/10/18 06:00 Intake and Output: 01/10/18 01/10/18 06:59 18:59 Intake Total 1480 Output Total 5400 Balance -3920 - Medications Medications: Current Medications Acetaminophen (Tylenol 325mg Tab) 650 mg PO Q6H PRN PRN Reason: Pain, moderate (4-7) Last Admin: 01/03/18 17:55 Dose: 650 mg Alprazolam (Xanax) 0.25 mg PO DAILY [facility]; Protocol Last Admin: 01/10/18 10:52 Dose: 0.25 mg Atorvastatin Calcium (Lipitor) 20 mg PO HS [facility] Last Admin: 01/09/18 22:15 Dose: 20 mg Carvedilol (Coreg) 3.125 mg PO BID [facility] Last Admin: 01/10/18 10:51 Dose: Not Given Colchicine (Colocrys) 0.6 mg PO Q48H [facility] Last Admin: 01/10/18 10:52 Dose: 0.6 mg Docusate Sodium (Colace) 100 mg PO DAILY [facility] Last Admin: 01/10/18 10:51 Dose: 100 mg Furosemide (Lasix) 60 mg IVP Q12H [facility] Insulin Human Lispro (Humalog Med) 0 units SC ACHS [facility]; Protocol Last Admin: 01/10/18 12:18 Dose: Not Given Isosorbide Mononitrate (Imdur Er) 30 mg PO DAILY [facility] Last Admin: 01/04/18 11:49 Dose: 30 mg Levalbuterol HCl (Xopenex) 1.25 mg IH TIDRESP [facility] Last Admin: 01/10/18 13:04 Dose: 1.25 mg Metolazone (Zaroxolyn) 10 mg PO DAILY [facility] Last Admin: 01/09/18 09:13 Dose: 10 mg Risperidone (Risperdal Tab) 0.25 mg PO HS [facility]; Protocol Last Admin: 01/09/18 22:15 Dose: 0.25 mg Sitagliptin Phosphate (Januvia) 25 mg PO DAILY [facility] Last Admin: 01/10/18 10:52 Dose: 25 mg Warfarin Sodium (Coumadin) 1 mg PO 1800 [facility]; Protocol - Labs Labs: 01/10/18 09:00 01/10/18 09:00 PT 15.4 SECONDS (9.4-12.5) H 01/10/18 09:00 INR 1.33 01/10/18 09:00 APTT 41.4 Seconds (25.1-36.5) H 01/10/18 09:00 - Constitutional Appears: Well - Head Exam Head Exam: ATRAUMATIC, NORMAL INSPECTION, NORMOCEPHALIC - Eye Exam Eye Exam: EOMI, Normal appearance, PERRL Pupil Exam: NORMAL ACCOMODATION, PERRL - ENT Exam ENT Exam: Mucous Membranes Moist, Normal Exam - Neck Exam Neck Exam: Full ROM, Normal Inspection. absent: Lymphadenopathy - Respiratory Exam Respiratory Exam: Clear to Ausculation Bilateral, NORMAL BREATHING PATTERN - Cardiovascular Exam Cardiovascular Exam: REGULAR RHYTHM, +S1, +S2. absent: Murmur - GI/Abdominal Exam GI & Abdominal Exam: Soft, Normal Bowel Sounds. absent: Tenderness - Extremities Exam Extremities Exam: Full ROM, Normal Capillary Refill, Normal Inspection. absent: Joint Swelling, Pedal Edema - Back Exam Back Exam: NORMAL INSPECTION - Neurological Exam Neurological Exam: Alert, Awake, CN II-XII Intact, Normal Gait, Oriented x3 - Psychiatric Exam Psychiatric exam: Normal Affect, Normal Mood - Skin Skin Exam: Dry, Intact, Normal Color, Warm Assessment and Plan - Assessment and Plan (Free Text) Assessment: 82 year old male with pertinent history of A-Fib, CHF, DM, HTN, and CKD presented 01/02/18 with LONG and urinary retention. ECHO in 09/2017 showed EF of 20-25% as well as RSVP of 58. On presentation, patient had BNP of 4020; Creatinine has been slowly trending upward since September. In light of this information, the patient's LARRY and fluid retention/overload seems to be of cardio-renal etiology, and that the underlying initiating event appears to be CHF. Renal ultrasound was negative for any hydronephrosis, which further supports the diagnosis. Urine protein, UA, and U Cx have been insignificant. Today, 01/10, patient's urine output has improved to > .5 ml/kg/hr, with total of 11L loss and net -8L Patient is both feeling better and looking better cli nically. Regarding patient's HTN, he was initially hypotensive, but is now normalizing. Urine studies reveal FeNA in prerenal range. Plan Anemia, 2/2 CKD - Darbepoitin once; will continue to monitor - LARRY on CKD, likely 2/2 cardio-renal etiology - Continue aggressive diuresis; Lasix 100 q12 last dose today, will start 60 q12 - Continue milrinone to increase ionotropic activity - We are considering initiating dialysis, with insertion of dialysis catheter tomorrow HTN - Continue diuretic treatment as above, as well as metolazone - Star Calderon for now Thank you for the consult. We will continue to follow the patient.
[2018-01-10] MEDS ORDERED: Vancomycin 500 mg (Oral/Rectal USE) ONE (15:16)
[2018-01-10] MEDS ORDERED: Midazolam 2 MG/2 ML VIAL ONE ×2 (15:30→15:54)
--- NOTE | 2018-01-10 16:41 | PN ---
DATE: 01/10/2018 REASON FOR CONSULTATION AND FOLLOWUP: Cardiac evaluation; admitted with DVT, congestive heart failure, acute on chronic secondary to systolic dysfunction, history of coronary artery disease , history of CABG, history of renal insufficiency. This note is in addition to dictated by nurse practitioner, Adrianna Stacy. The patient is a good diuresis. Discussed with the nurse. Last 12 hours, the patient had 2650 output and prior to that 2200 outputs of total 4800 urine output and kidney function is improving, creatinine is 3.9 now. RECOMMENDATIONS: Aggressive medical treatment is recommended. Discussed with Dr. Leonard on Wednesday. We will treat the patient now medically since the patient's kidney function stabilizes and again a good diuresis. Coumadin on hold for possible placement of Shiley catheter. Today, INR is 1.33. We will discuss with Dr. Leonard for continue Coreg. Diuretics as per by Dr. Leonard. We will discontinue telemetry. Leg edema significantly decreased. Currently, the patient is a good diuresis, not in clinically failure. We will discontinue telemetry. Thank you Dr. Jennings for providing us the opportunity in taking care of the patient. Johanna Ruano MD
--- NOTE | 2018-01-10 20:17 | VASCULAR ---
PROCEDURE: Ultrasound and fluoroscopic tunneled right IJ dialysis catheter. CLINICAL HISTORY: ESRD PHYSICIAN(S): Luis Garvin M.D. TECHNIQUE: The relative risks and indications for the procedure were explained to the patient and informed written consent obtained. The patient was placed supine on the arteriography table and the right neck/chest was prepped and draped in the usual sterile fashion. 1% Xylocaine was used to anesthetize the skin and soft tissues at the puncture site. Conscious sedation and monitoring were provided throughout the procedure by a nurse. Under direct ultrasound guidance, the rightinternal jugular vein was punctured with a micropuncture set. A 0.035 Glidewire was advanced into the IVC. Sequential dilatation was performed with subsequent placement of a 28cm Nextgen catheter with its tip in the right atrium. A retrograde tunnel below the right clavicle was performed. The catheter was trimmed and the hub attached. Both ports aspirate and inject easily. The catheter was secured and a dressing applied. The patient tolerated the procedure well. IMPRESSION: 1. Ultrasound and fluoroscopically placed right IJ tunneled dialysis catheter.
--- NOTE | 2018-01-10 20:42 | PN ---
DATE: 01/10/2018 SUBJECTIVE: The patient is an 82-year-old, seen and examined, lying in bed, seems to be comfortable. Facial swelling, hand swelling, and leg swelling have improved feeling better. PHYSICAL EXAMINATION: VITAL SIGNS: The patient is afebrile, pulse 76, respirations 20, blood pressure 102/58. LUNGS: Bilateral fair airflow, decreased at bases. HEART: S1 and S2 audible. ABDOMEN: Soft. Nontender. No rebound. No guarding. NEUROLOGIC: The patient is awake, alert, oriented, communicative. EXTREMITIES: Bilateral legs, +1 edema. LABORATORY EXAMINATION: WBC 4.7, hemoglobin 9.7, hematocrit , platelets 86,000. PT 15.4, INR 1.33. Chemistry: Sodium 136, potassium 3.8, chloride 89, CO2 of 36, BUN 115, creatinine 3.9, blood sugar of 121. ASSESSMENT: 1. Acute on chronic renal failure. 2. Mvc-gvtyqhu-[id number] diabetes. 3. Hypertension. 4. Hyperlipidemia. 5. Coronary artery disease. 6. Status post pacemaker placement. PLAN: Give 3 mg of Coumadin today. The patient has hemodialysis catheter placed and possible hemodialysis in a.m. Leonila Jennings MD
[2018-01-11 06:02] LABS: BASO # 0.03 K/mm3 (0.0-2.0); BASO % 0.6 % (0.0-3.0); EOS # 0.4 (0.0-0.7); EOS % 7.7 % (1.5-5.0); GRAN # 2.56 (1.4-6.5); GRAN % 55.2 % (50.0-68.0); HEMOGLOBIN 9.3 g/dL (14.0-18.0); LYMPH # 1.2 (1.2-3.4); MEAN CELL VOLUME 100.7 fl (80.0-105.0); MEAN CORPUSCULAR HEMOGLOBIN 34.6 pg (25.0-35.0); MEAN CORPUSCULAR HGB CONC 34.3 g/dl (31.0-37.0); MEAN PLATELET VOLUME 11.6 fl (7.0-11.0); MONO # 0.5 (0.1-0.6); MONO % 10.5 % (1.0-6.0); RBC 2.69 10^6/uL (3.5-6.1); RED CELL DISTRIBUTION WIDTH 18.4 % (11.5-14.5); WHITE BLOOD COUNT 4.7 10^3/uL (4.5-11.0)
[2018-01-11 06:04] LABS: INR 1.32; PROTHROMBIN TIME 15.3 SECONDS (9.4-12.5)
[2018-01-11 06:08] LABS: ALB/GLOB RATIO 0.8 (1.1-1.8); ALBUMIN 2.8 g/dL (3.0-4.8); CALCIUM 9.1 mg/dL (8.4-10.5)
[2018-01-11] MEDS: Levalbuterol 1.25 MG/3 ML Inhal Soln UD IH SCH ×3 (07:17→20:24)
--- NOTE | 2018-01-11 07:24 | CP.PCM.PN ---
Subjective - Date & Time of Evaluation Date of Evaluation: 01/11/18 Time of Evaluation: 06:15 - Subjective Subjective: Lying in bed, easily awaken, alert, no distress, denies shortness of breath Reason for consultation and follow up: Cardiac evaluation for acute on chronic systolic dysfunction decompensated congestive heart failure, history of coronar y artery disease, post CABG,history of renal insufficiency Seen and examined by me and Dr. Ruano Objective - Vital Signs/Intake and Output Vital Signs (last 24 hours): Temp Pulse Resp BP Pulse Ox 97.8 F 81 18 102/54 L 94 L 01/11/18 06:00 01/11/18 06:00 01/11/18 06:00 01/11/18 06:35 01/11/18 06:00 Intake and Output: 01/11/18 01/11/18 06:59 18:59 Intake Total 240 Output Total 1650 Balance -1410 - Medications Medications: Current Medications Acetaminophen (Tylenol 325mg Tab) 650 mg PO Q6H PRN PRN Reason: Pain, moderate (4-7) Last Admin: 01/10/18 23:17 Dose: 650 mg Alprazolam (Xanax) 0.25 mg PO DAILY [facility]; Protocol Last Admin: 01/10/18 10:52 Dose: 0.25 mg Atorvastatin Calcium (Lipitor) 20 mg PO HS [facility] Last Admin: 01/10/18 22:57 Dose: 20 mg Carvedilol (Coreg) 3.125 mg PO BID [facility] Last Admin: 01/10/18 18:41 Dose: Not Given Colchicine (Colocrys) 0.6 mg PO Q48H [facility] Last Admin: 01/10/18 10:52 Dose: 0.6 mg Docusate Sodium (Colace) 100 mg PO DAILY [facility] Last Admin: 01/10/18 10:51 Dose: 100 mg Furosemide (Lasix) 60 mg IVP Q12H [facility] Last Admin: 01/11/18 06:35 Dose: 60 mg Insulin Human Lispro (Humalog Med) 0 units SC ACHS [facility]; Protocol Last Admin: 01/10/18 22:54 Dose: Not Given Isosorbide Mononitrate (Imdur Er) 30 mg PO DAILY [facility] Last Admin: 01/04/18 11:49 Dose: 30 mg Levalbuterol HCl (Xopenex) 1.25 mg IH TIDRESP [facility] Last Admin: 01/11/18 07:17 Dose: 1.25 mg Metolazone (Zaroxolyn) 10 mg PO DAILY [facility] Last Admin: 01/09/18 09:13 Dose: 10 mg Risperidone (Risperdal Tab) 0.25 mg PO HS [facility]; Protocol Last Admin: 01/10/18 22:57 Dose: 0.25 mg Sitagliptin Phosphate (Januvia) 25 mg PO DAILY [facility] Last Admin: 01/10/18 10:52 Dose: 25 mg Warfarin Sodium (Coumadin) 3 mg PO 1800 [facility]; Protocol - Labs Labs: 01/11/18 05:30 01/11/18 05:30 PT 15.3 SECONDS (9.4-12.5) H 01/11/18 05:30 INR 1.32 01/11/18 05:30 APTT 41.4 Seconds (25.1-36.5) H 01/10/18 09:00 - Constitutional Appears: Non-toxic, No Acute Distress - Head Exam Head Exam: NORMAL INSPECTION, NORMOCEPHALIC - Eye Exam Eye Exam: Normal appearance Pupil Exam: NORMAL ACCOMODATION - ENT Exam ENT Exam: Mucous Membranes Moist, Normal Exam - Respiratory Exam Respiratory Exam: Decreased Breath Sounds, Clear to Ausculation Bilateral, NORMAL BREATHING PATTERN - Cardiovascular Exam Cardiovascular Exam: Irregular Rhythm, +S1, +S2 Additional comments: Atrial fibrillation AICD Right IJ shiley catheter - GI/Abdominal Exam GI & Abdominal Exam: Soft, Normal Bowel Sounds - Exam Additional comments: gates catheter - Extremities Exam Extremities Exam: Full ROM Additional comments: 1+ edema - Neurological Exam Neurological Exam: Alert, Awake, Oriented x3 - Psychiatric Exam Psychiatric exam: Normal Affect, Normal Mood - Skin Skin Exam: Dry, Normal Color, Warm Assessment and Plan - Assessment and Plan (Free Text) Assessment: An 82 year old male who came in to the Er due to shortness of breath. History of ischemic cardiomyopathy, CAD post CABG, AICD, diabetes, gout,hyperten felipe,renal insufficiency, chronic atrial fibrllation on Coumadin, multiple admissions including elevated INR. and exacerbation of CHF. Admitted for exacerbation of CHF and worsening renal insufficiency.Started on Primacor. Lasix to diurese. Hypotension, IV boluses, Unable to tolerate Primacor. Discontinued Primacor. Renal on consult. Continue to diurese.BUN/Creatinine improving. Post shiley catheter insertion right IJ yesterday. Plan: Post shiley catheter insertion yesterday Denies shortness of breath Awake, alert ,no distress Continue to diurese per renal BUN/creatinine improving On Lipitor 20 mg daily,Colchicine 0.6 mg daily, Coreg 3.125 mg BID, Lasix 100 mg IV every 12 hours,Imdur ER 30 mg daily, Zaroxylyn 10 mg daily, Will restart Warfarin today Discontinue telemetry Continue current medications Continue current treatment Clinically improved Chart reviewed Will follow up Plan and treatment discussed with Dr. Ruano
[2018-01-11] MEDS: Insulin Lispro (humaLOG) MEDIUM Coverage SC SCH ×4 (08:17→21:44)
[2018-01-11] MEDS ORDERED: Potassium Chloride 40 mEq/30 ml LIQ UD PO ONE (09:22)
--- NOTE | 2018-01-11 11:38 | PN ---
DATE: 01/11/2018 This note is in addition to dictated by nurse practitioner. In summary, patient has a history of CABG, history of cardiomyopathy, ischemic status post AICD. Admitted with acute and chronic renal insufficiency requiring dialysis. Yesterday, patient had a dialysis catheter done. Coumadin was held for Shiley placement today, INR is 1.32. 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 Continue Coreg. Continue Coumadin. Restart followup PT/INR. Possible dialysis. We will follow with you. Thank you Dr. Jennings for providing us the opportunity in taking care of the patient, Jese Damon. Johanna Ruano MD
[2018-01-11 12:38] LABS: HEPATITIS B SURFACE AG Negative (NEGATIVE)
[2018-01-11 12:43] LABS: HEPATITIS B CORE AB NEGATIVE (NEGATIVE)
--- NOTE | 2018-01-11 13:47 | CP.PCM.PN ---
<ShayyHernan Ayse - Last Filed: 01/11/18 13:44> Subjective - Date & Time of Evaluation Date of Evaluation: 01/11/18 Time of Evaluation: 13:48 - Subjective Subjective: Nephro progress note - Clarisa PGY-2 Patient seen and examined at bedside; no new complaints, patient's daughter was informed of intent for HD today and consent was obtained. No chest pain; shortness of breath improved. Objective - Vital Signs/Intake and Output Vital Signs (last 24 hours): Temp Pulse Resp BP Pulse Ox 97.8 F 82 18 94/54 L 94 L 01/11/18 06:00 01/11/18 10:09 01/11/18 06:00 01/11/18 10:09 01/11/18 06:00 Intake and Output: 01/11/18 01/11/18 06:59 18:59 Intake Total 240 Output Total 1650 Balance -1410 - Medications Medications: Current Medications Acetaminophen (Tylenol 325mg Tab) 650 mg PO Q6H PRN PRN Reason: Pain, moderate (4-7) Last Admin: 01/10/18 23:17 Dose: 650 mg Alprazolam (Xanax) 0.25 mg PO DAILY [facility]; Protocol Last Admin: 01/11/18 10:25 Dose: 0.25 mg Atorvastatin Calcium (Lipitor) 20 mg PO HS [facility] Last Admin: 01/10/18 22:57 Dose: 20 mg Bumetanide (Bumex) 2 mg PO DAILY [facility] Carvedilol (Coreg) 3.125 mg PO BID [facility] Last Admin: 01/11/18 10:09 Dose: Not Given Colchicine (Colocrys) 0.6 mg PO Q48H [facility] Last Admin: 01/10/18 10:52 Dose: 0.6 mg Docusate Sodium (Colace) 100 mg PO DAILY [facility] Last Admin: 01/11/18 10:25 Dose: 100 mg Insulin Human Lispro (Humalog Med) 0 units SC [facility]; Protocol Last Admin: 01/11/18 08:17 Dose: Not Given Isosorbide Mononitrate (Imdur Er) 30 mg PO DAILY [facility] Last Admin: 01/04/18 11:49 Dose: 30 mg Levalbuterol HCl (Xopenex) 1.25 mg IH TIDRESP [facility] Last Admin: 01/11/18 13:26 Dose: Not Given Metolazone (Zaroxolyn) 10 mg PO DAILY [facility] Last Admin: 01/09/18 09:13 Dose: 10 mg Risperidone (Risperdal Tab) 0.25 mg PO HS [facility]; Protocol Last Admin: 01/10/18 22:57 Dose: 0.25 mg Sitagliptin Phosphate (Januvia) 25 mg PO DAILY [facility] Last Admin: 01/11/18 10:25 Dose: 25 mg Warfarin Sodium (Coumadin) 3 mg PO 1800 [facility]; Protocol - Labs Labs: 01/11/18 05:30 01/11/18 05:30 PT 15.3 SECONDS (9.4-12.5) H 01/11/18 05:30 INR 1.32 01/11/18 05:30 APTT 41.4 Seconds (25.1-36.5) H 01/10/18 09:00 - Constitutional Appears: Well - Head Exam Head Exam: ATRAUMATIC, NORMAL INSPECTION, NORMOCEPHALIC - Eye Exam Eye Exam: EOMI, Normal appearance, PERRL Pupil Exam: NORMAL ACCOMODATION, PERRL - ENT Exam ENT Exam: Mucous Membranes Moist, Normal Exam - Neck Exam Neck Exam: Full ROM, Normal Inspection. absent: Lymphadenopathy - Respiratory Exam Respiratory Exam: Clear to Ausculation Bilateral, NORMAL BREATHING PATTERN - Cardiovascular Exam Cardiovascular Exam: REGULAR RHYTHM, +S1, +S2. absent: Murmur - GI/Abdominal Exam GI & Abdominal Exam: Soft, Normal Bowel Sounds. absent: Tenderness - Extremities Exam Extremities Exam: Full ROM, Normal Capillary Refill, Normal Inspection, Pedal Edema. absent: Joint Swelling Additional comments: 1+ pitting edema b/l LE - Back Exam Back Exam: NORMAL INSPECTION - Neurological Exam Neurological Exam: Alert, Awake, CN II-XII Intact, Normal Gait, Oriented x3 - Psychiatric Exam Psychiatric exam: Normal Affect, Normal Mood - Skin Skin Exam: Dry, Intact, Normal Color, Warm Assessment and Plan - Assessment and Plan (Free Text) Assessment: 82 year old male with pertinent history of A-Fib, CHF, DM, HTN, and CKD presented 01/02/18 with LONG and urinary retention. ECHO in 09/2017 showed EF of 20-25% as well as RSVP of 58. On presentation, patient had BNP of 4020; Creatinine has been slowly trending upward since September. In light of this information, the patient's LARRY and fluid retention/overload seems to be of cardio-renal etiology, and that the underlying initiating event appears to be CHF. Renal ultrasound was negative for any hydronephrosis, which further supports the diagnosis. Urine protein, UA, and U Cx have been insignificant. Today, 01/11, patient's urine output decreased, but is still at > .5 ml/kg/hr, with total net of 1.4L loss. Patient is both feeling better and looking better clinically. CR improved very slightly Regarding patient's HTN, he was initially hypotensive, but is now normalizing. Urine studies reveal FeNA in prerenal range. Plan Anemia, 2/2 CKD - Darbepoitin once; will continue to monitor LARRY on CKD, likely 2/2 cardio-renal etiology - Patient for HD today, with minimal fluid removed - Continue aggressive diuresis; change Lasix 60 q12 to Bumex 2 q12 starting tonight - Will hold Bumex tomorrow AM until after dialysis; will reassess after dialysis - Continue milrinone to increase ionotropic activity HTN - Continue diuretic treatment as above, as well as metolazone - Hold Cozaar for now Contraction Alkalosis - Continue Acetazolamide Thank you for the consult. We will continue to follow the patient. <Bola Leonard - Last Filed: 01/12/18 08:40> Objective - Vital Signs/Intake and Output Vital Signs (last 24 hours): Temp Pulse Resp BP Pulse Ox 97.9 F 77 18 93/56 L 94 L 01/11/18 17:34 01/11/18 18:02 01/11/18 17:34 01/11/18 18:02 01/11/18 06:00 - Medications Medications: Current Medications Acetaminophen (Tylenol 325mg Tab) 650 mg PO Q6H PRN PRN Reason: Pain, moderate (4-7) Last Admin: 01/10/18 23:17 Dose: 650 mg Alprazolam (Xanax) 0.25 mg PO DAILY [facility]; Protocol Last Admin: 01/11/18 10:25 Dose: 0.25 mg Atorvastatin Calcium (Lipitor) 20 mg PO HS [facility] Last Admin: 01/11/18 21:19 Dose: 20 mg Bumetanide (Bumex) 2 mg PO DAILY [facility] Last Admin: 01/11/18 21:18 Dose: 2 mg Carvedilol (Coreg) 3.125 mg PO DAILY [facility] Colchicine (Colocrys) 0.6 mg PO Q48H [facility] Last Admin: 01/10/18 10:52 Dose: 0.6 mg Docusate Sodium (Colace) 100 mg PO DAILY [facility] Last Admin: 01/11/18 10:25 Dose: 100 mg Insulin Human Lispro (Humalog Med) 0 units SC [facility]; Protocol Last Admin: 01/12/18 08:13 Dose: Not Given Isosorbide Mononitrate (Imdur Er) 30 mg PO DAILY [facility] Last Admin: 01/04/18 11:49 Dose: 30 mg Levalbuterol HCl (Xopenex) 1.25 mg IH TIDRESP [facility] Last Admin: 01/12/18 07:19 Dose: 1.25 mg Risperidone (Risperdal Tab) 0.25 mg PO HS [facility]; Protocol Last Admin: 01/11/18 21:19 Dose: 0.25 mg Sitagliptin Phosphate (Januvia) 25 mg PO DAILY [facility] Last Admin: 01/11/18 10:25 Dose: 25 mg Warfarin Sodium (Coumadin) 3 mg PO 1800 [facility]; Protocol Last Admin: 01/11/18 18:02 Dose: 3 mg - Labs Labs: 01/12/18 05:45 01/12/18 05:45 PT 13.6 SECONDS (9.4-12.5) H 01/12/18 05:45 INR 1.18 01/12/18 05:45 APTT 41.4 Seconds (25.1-36.5) H 01/10/18 09:00 Assessment and Plan (1) Acute renal failure Status: Acute (2) CHF (congestive heart failure) Status: Acute (3) Hematuria Status: Acute (4) Coagulopathy Status: Acute (5) Anemia Status: Chronic Attending/Attestation - Attestation I have personally seen and examined this patient.: Yes I have fully participated in the care of the patient.: Yes I have reviewed all pertinent clinical information, including history, physical exam and plan: Yes Notes (Text): Patient seen and examined; I agree with the resident's note as above with the following additions/edits: Patient initiated on HD today in the setting of severe CHF w/ biventricular dysfunction, 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, had been maximized on IV diuretic therapy with renal function showing some improvement but not considered adequate to be discharged on outpatient diuretics and prevent recurrent CHF decompensation; Seen on HD; tolerating well; done via new R IJ tunneled catheter; using low blood flow to minimize chances of dialysis dysequilibrium in chronically uremic patient; goal net UF of only 500 cc to avoid hypotension (BP borderline); will continue HD daily for next 2 days using progressively higher blood flow; manager social responsibility to setup outpatient HD; will hold off on AVF placement for now, can be done as outpatient (want to see how well he tolerates HD; also, there is a certain level of morbidity that comes with AVF placement and will let patient/family decide on future course of action); CHF status much improved but overall roasterman prognosis guarded; didn't tolerate milrinone well due to hypotension but doesn't seem to need it for now; -Changing diuretics to bumex 2 mg PO bid in preparation for eventual d/c; -can add REYNA blockade slowly as tolerated; -avoid nephrotoxic agents; -will re-dose aranesp weekly (hgb below goal); -keeping K ~4.0 to avoid arrhythmias;
--- NOTE | 2018-01-11 15:11 | CP.PCM.PN ---
Subjective - Date & Time of Evaluation Date of Evaluation: 01/11/18 Time of Evaluation: 10:00 - Subjective Subjective: Clinical Care Coordination Note Seen and examined 82 y/o M with fluid overload, shortness of breath, weakness, hypotension, and generalized body pain, with a weight gain of 6.9 pounds in 6 days. PMHx of cardiac catheter in 2017, end stage heart failure, chronic kidney disease, hypertension, atrial fibrillation, diabetes, CHF on Coumadin, CAD, CABG. In ED patient found to be hyperkalemic, fluid overloaded and LARRY on chronic renal failure. Objective - Vital Signs/Intake and Output Vital Signs (last 24 hours): Temp Pulse Resp BP Pulse Ox 97.8 F 82 18 94/54 L 94 L 01/11/18 06:00 01/11/18 10:09 01/11/18 06:00 01/11/18 10:09 01/11/18 06:00 Intake and Output: 01/11/18 01/11/18 06:59 18:59 Intake Total 240 Output Total 1650 Balance -1410 - Medications Medications: Current Medications Acetaminophen (Tylenol 325mg Tab) 650 mg PO Q6H PRN PRN Reason: Pain, moderate (4-7) Last Admin: 01/10/18 23:17 Dose: 650 mg Alprazolam (Xanax) 0.25 mg PO DAILY [facility]; Protocol Last Admin: 01/11/18 10:25 Dose: 0.25 mg Atorvastatin Calcium (Lipitor) 20 mg PO HS [facility] Last Admin: 01/10/18 22:57 Dose: 20 mg Bumetanide (Bumex) 2 mg PO DAILY [facility] Carvedilol (Coreg) 3.125 mg PO BID [facility] Last Admin: 01/11/18 10:09 Dose: Not Given Colchicine (Colocrys) 0.6 mg PO Q48H [facility] Last Admin: 01/10/18 10:52 Dose: 0.6 mg Docusate Sodium (Colace) 100 mg PO DAILY [facility] Last Admin: 01/11/18 10:25 Dose: 100 mg Insulin Human Lispro (Humalog Med) 0 units SC [facility]; Protocol Last Admin: 01/11/18 11:30 Dose: Not Given Isosorbide Mononitrate (Imdur Er) 30 mg PO DAILY [facility] Last Admin: 01/04/18 11:49 Dose: 30 mg Levalbuterol HCl (Xopenex) 1.25 mg IH TIDRESP [facility] Last Admin: 01/11/18 13:26 Dose: Not Given Metolazone (Zaroxolyn) 10 mg PO DAILY [facility] Last Admin: 01/09/18 09:13 Dose: 10 mg Risperidone (Risperdal Tab) 0.25 mg PO HS [facility]; Protocol Last Admin: 01/10/18 22:57 Dose: 0.25 mg Sitagliptin Phosphate (Januvia) 25 mg PO DAILY [facility] Last Admin: 01/11/18 10:25 Dose: 25 mg Warfarin Sodium (Coumadin) 3 mg PO 1800 [facility]; Protocol - Labs Labs: 01/11/18 05:30 01/11/18 05:30 PT 15.3 SECONDS (9.4-12.5) H 01/11/18 05:30 INR 1.32 01/11/18 05:30 APTT 41.4 Seconds (25.1-36.5) H 01/10/18 09:00 - Constitutional Appears: Non-toxic, No Acute Distress, Chronically Ill - Head Exam Head Exam: ATRAUMATIC, NORMOCEPHALIC - Eye Exam Eye Exam: EOMI, Normal appearance, PERRL Pupil Exam: NORMAL ACCOMODATION - Neck Exam Neck Exam: Full ROM - Respiratory Exam Respiratory Exam: Decreased Breath Sounds, Rales, NORMAL BREATHING PATTERN - Cardiovascular Exam Cardiovascular Exam: Irregular Rhythm, +S1, +S2 - GI/Abdominal Exam GI & Abdominal Exam: Soft, Normal Bowel Sounds - Rectal Exam Rectal Exam: Deferred - Extremities Exam Extremities Exam: Full ROM, Normal Capillary Refill - Neurological Exam Neurological Exam: Alert, Awake, CN II-XII Intact, Oriented x3 Neuro motor strength exam: Left Upper Extremity: 5, Right Upper Extremity: 5, Left Lower Extremity: 4 (generalized weakness), Right Lower Extremity: 4 (generalized weakness ) - Psychiatric Exam Psychiatric exam: Normal Affect, Normal Mood - Skin Skin Exam: Dry, Normal Color, Warm Assessment and Plan - Assessment and Plan (Free Text) Assessment: A: Fluid overload LARRY on CKD Plan: P: Hemodialysis initiated 01/10/18 Repeat Hemodialysis 01/11/18 PT recommended HWS as 01/07/18 Medications as per MAR Cardiology will continue to follow with recommendations Renal will continue to follow, patient is for hemodialysis three times per week slot and facility needed.
--- NOTE | 2018-01-11 19:27 | PN ---
DATE: 01/11/2018 SUBJECTIVE: The patient is an 82-year-old, seen and examined while getting dialysis. Complains of generalized weakness. Had brief episode of confusion yesterday, but seems to be doing well today, ate better. PHYSICAL EXAMINATION: VITAL SIGNS: He is afebrile, pulse 77, respirations 18, and blood pressure 93/56. LUNGS: Bilateral fair airflow. No rhonchi or crackle. HEART: S1 and S2 audible. ABDOMEN: Soft. Nontender. No rebound. No guarding. NEUROLOGIC: The patient is awake, alert, oriented, and able to communicate. EXTREMITIES: Bilateral legs, +1 edema. LABORATORY DATA: WBC 4.7, hemoglobin 9.3, hematocrit 27.1, and platelets of 84,000. PT 15.3 and INR 1.32. Chemistry: Sodium 137, potassium 3.6, chloride 90, CO2 of 38, BUN 109, creatinine 3.8, and blood sugar of 99. ASSESSMENT: 1. Acute on chronic failure, now end-stage renal disease, on hemodialysis, will require hemodialysis three times a week. 2. Nonischemic cardiomyopathy. 3. Status post pacemaker placement. 4. History of hypertension, currently hypotensive. 5. History of gout. 6. Chronic atrial fibrillation. PLAN: The patient will be getting dialysis three times a week. We will restart him on Coumadin. We will follow up his PT/INR in a.m. He is being given Coumadin 3 mg daily. We will follow up his PT/INR in a.m. Leonila Jennings MD
[2018-01-12 06:11] LABS: BASO # 0.03 K/mm3 (0.0-2.0); BASO % 0.4 % (0.0-3.0); EOS # 0.4 (0.0-0.7); EOS % 4.9 % (1.5-5.0); GRAN # 5.81 (1.4-6.5); GRAN % 75.4 % (50.0-68.0); HEMOGLOBIN 9.8 g/dL (14.0-18.0); LYMPH % 13.2 % (22.0-35.0); MEAN CELL VOLUME 102.8 fl (80.0-105.0); MEAN CORPUSCULAR HEMOGLOBIN 34.3 pg (25.0-35.0); MEAN CORPUSCULAR HGB CONC 33.3 g/dl (31.0-37.0); MEAN PLATELET VOLUME 11.2 fl (7.0-11.0); MONO # 0.5 (0.1-0.6); MONO % 6.1 % (1.0-6.0); RBC 2.86 10^6/uL (3.5-6.1); RED CELL DISTRIBUTION WIDTH 18.5 % (11.5-14.5); WHITE BLOOD COUNT 7.7 10^3/uL (4.5-11.0)
[2018-01-12 06:16] LABS: INR 1.18; PROTHROMBIN TIME 13.6 SECONDS (9.4-12.5)
[2018-01-12 06:42] LABS: ALB/GLOB RATIO 0.8 (1.1-1.8); ALBUMIN 3.2 g/dL (3.0-4.8); CALCIUM 8.9 mg/dL (8.4-10.5)
[2018-01-12] MEDS: Levalbuterol 1.25 MG/3 ML Inhal Soln UD IH SCH ×4 (07:19→19:21)
--- NOTE | 2018-01-12 07:26 | CP.PCM.PN ---
Subjective - Date & Time of Evaluation Date of Evaluation: 01/12/18 Time of Evaluation: 06:35 - Subjective Subjective: Awake, Lying in bed, alert, no distress, denies shortness of breath Reason for consultation and follow up: Cardiac evaluation for acute on chronic systolic dysfunction decompensated congestive heart failure, history of coronary artery disease, post CABG,history of renal insufficiency Seen and examined by me and Dr. Ruano Objective - Vital Signs/Intake and Output Vital Signs (last 24 hours): Temp Pulse Resp BP Pulse Ox 97.9 F 77 18 93/56 L 94 L 01/11/18 17:34 01/11/18 18:02 01/11/18 17:34 01/11/18 18:02 01/11/18 06:00 - Medications Medications: Current Medications Acetaminophen (Tylenol 325mg Tab) 650 mg PO Q6H PRN PRN Reason: Pain, moderate (4-7) Last Admin: 01/10/18 23:17 Dose: 650 mg Alprazolam (Xanax) 0.25 mg PO DAILY [facility]; Protocol Last Admin: 01/11/18 10:25 Dose: 0.25 mg Atorvastatin Calcium (Lipitor) 20 mg PO [facility] Last Admin: 01/11/18 21:19 Dose: 20 mg Bumetanide (Bumex) 2 mg PO DAILY [facility] Last Admin: 01/11/18 21:18 Dose: 2 mg Carvedilol (Coreg) 3.125 mg PO DAILY [facility] Colchicine (Colocrys) 0.6 mg PO Q48H [facility] Last Admin: 01/10/18 10:52 Dose: 0.6 mg Docusate Sodium (Colace) 100 mg PO DAILY [facility] Last Admin: 01/11/18 10:25 Dose: 100 mg Insulin Human Lispro (Humalog Med) 0 units SC [facility]; Protocol Last Admin: 01/11/18 21:44 Dose: Not Given Isosorbide Mononitrate (Imdur Er) 30 mg PO DAILY [facility] Last Admin: 01/04/18 11:49 Dose: 30 mg Levalbuterol HCl (Xopenex) 1.25 mg IH TIDRESP [facility] Last Admin: 01/12/18 07:19 Dose: 1.25 mg Risperidone (Risperdal Tab) 0.25 mg PO HS [facility]; Protocol Last Admin: 01/11/18 21:19 Dose: 0.25 mg Sitagliptin Phosphate (Januvia) 25 mg PO DAILY [facility] Last Admin: 01/11/18 10:25 Dose: 25 mg Warfarin Sodium (Coumadin) 3 mg PO 1800 [facility]; Protocol Last Admin: 01/11/18 18:02 Dose: 3 mg - Labs Labs: 01/12/18 05:45 01/12/18 05:45 PT 13.6 SECONDS (9.4-12.5) H 01/12/18 05:45 INR 1.18 01/12/18 05:45 APTT 41.4 Seconds (25.1-36.5) H 01/10/18 09:00 - Constitutional Appears: Non-toxic, No Acute Distress - Head Exam Head Exam: NORMAL INSPECTION, NORMOCEPHALIC - Eye Exam Eye Exam: Normal appearance Pupil Exam: NORMAL ACCOMODATION - ENT Exam ENT Exam: Mucous Membranes Moist, Normal Exam - Respiratory Exam Respiratory Exam: Decreased Breath Sounds, Clear to Ausculation Bilateral, NORMAL BREATHING PATTERN - Cardiovascular Exam Cardiovascular Exam: +S1, +S2 Additional comments: AICD Right IJ shiley catheter - GI/Abdominal Exam GI & Abdominal Exam: Soft, Normal Bowel Sounds - Exam Additional comments: gates catheter - Extremities Exam Extremities Exam: Full ROM Additional comments: 1+edema - Neurological Exam Neurological Exam: Alert, Awake, Oriented x3 - Psychiatric Exam Psychiatric exam: Normal Affect, Normal Mood - Skin Skin Exam: Dry, Normal Color, Warm Assessment and Plan - Assessment and Plan (Free Text) Assessment: An 82 year old male who came in to the Er due to shortness of breath. History of ischemic cardiomyopathy, CAD post CABG, AICD, diabetes, gout,hypertension,renal insufficiency, chronic atrial fibrllation on Coumadin, multiple admissions including elevated INR. and exacerbation of CHF. Admitted for exacerbation of CHF and worsening renal insufficiency.Started on Primacor. Lasix to diurese. Hypotension, IV boluses, Unable to tolerate Primacor. Discontinued Primacor. Renal on consult. Continue to diurese.BUN/Creatinine improving however still elevated. Post shiley catheter insertion right IJ for possible hemodialysis. Plan: Denies shortness of breath Awake, alert ,no distress Symptoms improved BUN/Creatinine improving/slowly trending down but still elevated For Hemodialysis per renal On Lipitor 20 mg daily,Colchicine 0.6 mg daily, Coreg 3.125 mg BID, Lasix 100 mg IV every 12 hours,Imdur ER 30 mg daily, Zaroxylyn 10 mg daily, Continue current medications Continue current treatment Clinically improved Chart reviewed Will follow up Plan and treatment discussed with Dr. Ruano
[2018-01-12] MEDS: Insulin Lispro (humaLOG) MEDIUM Coverage SC SCH ×4 (08:13→21:42)
--- NOTE | 2018-01-12 08:54 | CP.PCM.PN ---
Subjective - Date & Time of Evaluation Date of Evaluation: 01/12/18 Time of Evaluation: 07:00 - Subjective Subjective: seen and examined 82 y/o M AAOx3, with intermittent forgetfulness breathing even easy, excursion wnl, NAD, non-toxic in presentation. Admitted for fluid overload, dyspnea and LARRY on CKD requiring initiation of hemodialysis three days per week. PMHx of cardiac catheter in 2017, end stage heart failure, chronic kidney disease, hypertension, atrial fibrillation, diabetes, CHF on Coumadin, CAD, CABG. Patient denies fever, chills, [place], dizziness, SOB, cough, hemoptysis, chest pain, abdominal pain, N/V/D, hematemesis or rectal bleeding. Objective - Vital Signs/Intake and Output Vital Signs (last 24 hours): T-97.8 HR-83 B/P-116/67 RR-20 SPO2-100% on nebulizer [place] - Medications Medications: Current Medications Acetaminophen (Tylenol 325mg Tab) 650 mg PO Q6H PRN PRN Reason: Pain, moderate (4-7) Last Admin: 01/10/18 23:17 Dose: 650 mg Alprazolam (Xanax) 0.25 mg PO DAILY [facility]; Protocol Last Admin: 01/11/18 10:25 Dose: 0.25 mg Atorvastatin Calcium (Lipitor) 20 mg PO HS [facility] Last Admin: 01/11/18 21:19 Dose: 20 mg Bumetanide (Bumex) 2 mg PO DAILY [facility] Last Admin: 01/11/18 21:18 Dose: 2 mg Carvedilol (Coreg) 3.125 mg PO DAILY [facility] Colchicine (Colocrys) 0.6 mg PO Q48H [facility] Last Admin: 01/10/18 10:52 Dose: 0.6 mg Docusate Sodium (Colace) 100 mg PO DAILY [facility] Last Admin: 01/11/18 10:25 Dose: 100 mg Insulin Human Lispro (Humalog Med) 0 units SC [facility]; Protocol Last Admin: 01/12/18 08:13 Dose: Not Given Isosorbide Mononitrate (Imdur Er) 30 mg PO DAILY [facility] Last Admin: 01/04/18 11:49 Dose: 30 mg Levalbuterol HCl (Xopenex) 1.25 mg IH TIDRESP [facility] Last Admin: 11/28/18 07:19 Dose: 1.25 mg Risperidone (Risperdal Tab) 0.25 mg PO HS [facility]; Protocol Last Admin: 01/11/18 21:19 Dose: 0.25 mg Sitagliptin Phosphate (Januvia) 25 mg PO DAILY [facility] Last Admin: 01/11/18 10:25 Dose: 25 mg Warfarin Sodium (Coumadin) 3 mg PO 1800 [facility]; Protocol Last Admin: 01/11/18 18:02 Dose: 3 mg - Labs Labs: 01/12/18 05:45 01/12/18 05:45 PT 13.6 SECONDS (9.4-12.5) H 01/12/18 05:45 INR 1.18 01/12/18 05:45 APTT 41.4 Seconds (25.1-36.5) H 01/10/18 09:00 - Constitutional Appears: Well, Non-toxic, No Acute Distress, Chronically Ill - Head Exam Head Exam: ATRAUMATIC, NORMOCEPHALIC - Eye Exam Eye Exam: EOMI, PERRL Pupil Exam: NORMAL ACCOMODATION - Neck Exam Neck Exam: Full ROM - Respiratory Exam Respiratory Exam: Decreased Breath Sounds, NORMAL BREATHING PATTERN Additional comments: fine rales scattered improvement - Cardiovascular Exam Cardiovascular Exam: Irregular Rhythm, +S1, +S2 - GI/Abdominal Exam GI & Abdominal Exam: Soft, Normal Bowel Sounds - Rectal Exam Rectal Exam: Deferred - Extremities Exam Extremities Exam: Full ROM, Normal Capillary Refill Additional comments: PICKARD's - Neurological Exam Neurological Exam: Alert, Awake, CN II-XII Intact, Oriented x3 Neuro motor strength exam: Left Upper Extremity: 5, Right Upper Extremity: 5, Left Lower Extremity: 4 (generalized weakness), Right Lower Extremity: 4 (generalized weakness ) - Psychiatric Exam Psychiatric exam: Normal Affect, Normal Mood Additional comments: calm and cooperative, intermittent forgetfulness - Skin Skin Exam: Dry, Normal Color Assessment and Plan - Assessment and Plan (Free Text) Assessment: A: fluid overload ESRD AFIB Plan: P: Fluid overload resolving Now ESRD requiring HD 3x/week, HD slot pending Chronic AFIB coumadin restarted JAQUELIN into LTC as per family, PT note currently states JAQUELIN, OT eval pending, accepting facility pending Case Management/SW for D/C planning Will follow closely
--- NOTE | 2018-01-12 13:46 | PN ---
DATE: 01/12/2018 SUBJECTIVE: Patient is 82 years old, seen and examined, sitting in chair. Complaining of generalized weakness. Has bilateral leg pain and difficulty walking. He states he is very deconditioned. PHYSICAL EXAMINATION: GENERAL: He is awake and alert, able to communicate. VITAL SIGNS: The patient is afebrile, pulse 83, respirations 20, blood pressure 116/67. LUNGS: Bilateral fair airflow. No rhonchi or crackles. HEART: S1 and S2 audible. ABDOMEN: Soft, nontender. No rebound. No guarding. NEUROLOGICAL: The patient is awake, alert, oriented, able to communicate. LABORATORY DATA: WBC is 7.7, hemoglobin 9.8, hematocrit 29.4, platelets of 76. PT 13.6, INR 1.18. Chemistry: Sodium 137, potassium 4.1, chloride 94, CO2 of 34, BUN 83, creatinine 3.2, blood sugar of 137. ASSESSMENT: 1. End-stage renal disease, on hemodialysis. 2. Deconditioning and difficulty walking. 3. Ischemic cardiomyopathy. 4. History of hypertension, currently running hypotensive. 5. Nka-awefwjc-[id number] diabetes. PLAN: Discussed with director of social services. Spoke to metal storage worker. Patient is deconditioned, needs subacute rehab and also family wants subacute rehab to long-term placement. Patient is restarted on Coumadin. We will follow up his PT/INR. We will give him 5 mg of Coumadin today and follow up PT/INR in the a.m. Leonila Jennings MD
--- NOTE | 2018-01-12 14:07 | CP.PCM.PN ---
<Hernan Lucas - Last Filed: 01/12/18 14:01> Subjective - Date & Time of Evaluation Date of Evaluation: 01/12/18 Time of Evaluation: 14:01 - Subjective Subjective: Nephro progress note - Shayy, PGY - 2 Patient seen and examined at bedside. No acute events overnight; patient states he is feeling better and is walking around with physical therapy. HD done yesterday, being done again at 1:00 today. Objective - Vital Signs/Intake and Output Vital Signs (last 24 hours): Temp Pulse Resp BP Pulse Ox 97.8 F 83 20 116/67 100 01/12/18 06:00 01/12/18 10:30 01/12/18 06:00 01/12/18 10:30 01/12/18 06:00 - Medications Medications: Current Medications Acetaminophen (Tylenol 325mg Tab) 650 mg PO Q6H PRN PRN Reason: Pain, moderate (4-7) Last Admin: 01/10/18 23:17 Dose: 650 mg Alprazolam (Xanax) 0.25 mg PO DAILY [facility]; Protocol Last Admin: 01/12/18 10:31 Dose: 0.25 mg Atorvastatin Calcium (Lipitor) 20 mg PO HS [facility] Last Admin: 01/11/18 21:19 Dose: 20 mg Bumetanide (Bumex) 2 mg PO BID [facility] Carvedilol (Coreg) 3.125 mg PO DAILY [facility] Last Admin: 01/12/18 10:30 Dose: 3.125 mg Colchicine (Colocrys) 0.6 mg PO Q48H [facility] Last Admin: 01/12/18 10:29 Dose: 0.6 mg Docusate Sodium (Colace) 100 mg PO DAILY [facility] Last Admin: 01/12/18 10:29 Dose: 100 mg Insulin Human Lispro (Humalog Med) [address] [facility]; Protocol Last Admin: 01/12/18 08:13 Dose: Not Given Isosorbide Mononitrate (Imdur Er) 30 mg PO DAILY [facility] Last Admin: 01/04/18 11:49 Dose: 30 mg Levalbuterol HCl (Xopenex) 1.25 mg IH TIDRESP [facility] Last Admin: 01/12/18 13:50 Dose: 1.25 mg Risperidone (Risperdal Tab) 0.25 mg PO HS [facility]; Protocol Last Admin: 01/11/18 21:19 Dose: 0.25 mg Sitagliptin Phosphate (Januvia) 25 mg PO DAILY [facility] Last Admin: 01/12/18 10:31 Dose: 25 mg Warfarin Sodium (Coumadin) 5 mg PO 1800 [facility]; Protocol - Labs Labs: 01/12/18 05:45 01/12/18 05:45 PT 13.6 SECONDS (9.4-12.5) H 01/12/18 05:45 INR 1.18 01/12/18 05:45 APTT 41.4 Seconds (25.1-36.5) H 01/10/18 09:00 - Constitutional Appears: Well - Head Exam Head Exam: ATRAUMATIC, NORMAL INSPECTION, NORMOCEPHALIC - Eye Exam Eye Exam: EOMI, Normal appearance, PERRL Pupil Exam: NORMAL ACCOMODATION, PERRL - ENT Exam ENT Exam: Mucous Membranes Moist, Normal Exam - Neck Exam Neck Exam: Full ROM, Normal Inspection. absent: Lymphadenopathy - Respiratory Exam Respiratory Exam: Clear to Ausculation Bilateral, NORMAL BREATHING PATTERN - Cardiovascular Exam Cardiovascular Exam: REGULAR RHYTHM, +S1, +S2. absent: Murmur - GI/Abdominal Exam GI & Abdominal Exam: Soft, Normal Bowel Sounds. absent: Tenderness - Extremities Exam Extremities Exam: Full ROM, Normal Capillary Refill, Normal Inspection. absent: Joint Swelling, Pedal Edema - Back Exam Back Exam: NORMAL INSPECTION - Neurological Exam Neurological Exam: Alert, Awake, CN II-XII Intact, Normal Gait, Oriented x3 - Psychiatric Exam Psychiatric exam: Normal Affect, Normal Mood - Skin Skin Exam: Dry, Intact, Normal Color, Warm Assessment and Plan - Assessment and Plan (Free Text) Assessment: Assessment: 82 year old male with pertinent history of A-Fib, CHF, DM, HTN, and CKD presented 01/02/18 with LONG and urinary retention. ECHO in 09/2017 showed EF of 20-25% as well as RSVP of 58. On presentation, patient had BNP of 4020; Creatinine has been slowly trending upward since September. In light of this infor mation, the patient's LARRY and fluid retention/overload seems to be of cardio- renal etiology, and the underlying initiating event appears to be CHF exacerbation. Recent RSVP of 58 suggests that there is a great deal of right sided heart strain with severe pulmonary HTN. Renal ultrasound was negative for any hydronephrosis, which further supports the diagnosis. Urine protein, UA, and U Cx have been insignificant. Initial urine studies revealed FeNA in prerenal range, which is consistent with decreased renal perfusion 2/2 CHF. Regarding patient's HTN, he was initially hypotensive, but is now normalizing. Today, 01/12, patient's urine output decreased, but is still barely at > .5 ml/kg/hr, with total net of 0.4L loss. Patient is both feeling better and looking better clinically. CR improved significantly from yesterday, is at 3.2 today. Electrolytes have normalized; this major improvement from yesterday most likely 2/2 HD. Plan Anemia, 2/2 CKD - Darbepoitin once; will continue to monitor LARRY on CKD, likely 2/2 cardio-renal etiology - Patient for HD today - Continue aggressive diuresis; change Lasix 60 q12 to Bumex 2 q12 starting tonight - Bumex held this AM until after dialysis; will reassess after dialysis. Patient will get his evening dose - Continue milrinone to increase ionotropic activity; coreg as per cardiology recommendations - Continue with HD 3X weekly; goal of HD regimen is offloading of the RV as well as allowing patient to restart CHF medications HTN - Continue diuretic treatment as above, as well as metolazone (currrently on hold - will progress as per cardiology) - Hold Cozaar for now Contraction Alkalosis - Acetazolamide given Thank you for the consult. We will continue to follow the patient. <Bola Leonard - Last Filed: 01/13/18 08:19> Objective - Vital Signs/Intake and Output Vital Signs (last 24 hours): Temp Pulse Resp BP Pulse Ox 97.6 F 72 20 111/62 100 01/12/18 17:38 01/12/18 17:38 01/12/18 17:38 01/12/18 17:38 01/12/18 17:38 Intake and Output: 01/13/18 01/13/18 06:59 18:59 Intake Total 240 Output Total 1100 Balance -860 - Medications Medications: Current Medications Acetaminophen (Tylenol 325mg Tab) 650 mg PO Q6H PRN PRN Reason: Pain, moderate (4-7) Last Admin: 01/10/18 23:17 Dose: 650 mg Alprazolam (Xanax) 0.25 mg PO DAILY [facility]; Protocol Last Admin: 01/12/18 10:31 Dose: 0.25 mg Atorvastatin Calcium (Lipitor) 20 mg PO HS [facility] Last Admin: 01/12/18 21:38 Dose: 20 mg Bumetanide (Bumex) 2 mg PO BID [facility] Last Admin: 01/12/18 18:04 Dose: 2 mg Carvedilol (Coreg) 3.125 mg PO DAILY [facility] Last Admin: 01/12/18 10:30 Dose: 3.125 mg Colchicine (Colocrys) 0.6 mg PO Q48H [facility] Last Admin: 01/12/18 10:29 Dose: 0.6 mg Docusate Sodium (Colace) 100 mg PO DAILY [facility] Last Admin: 01/12/18 10:29 Dose: 100 mg Insulin Human Lispro (Humalog Med) 0 units SC [facility]; Protocol Last Admin: 01/12/18 21:42 Dose: Not Given Isosorbide Mononitrate (Imdur Er) 30 mg PO DAILY [facility] Last Admin: 01/04/18 11:49 Dose: 30 mg Levalbuterol HCl (Xopenex) 1.25 mg IH TIDRESP [facility] Last Admin: 01/13/18 07:17 Dose: 1.25 mg Risperidone (Risperdal Tab) 0.25 mg PO HS [facility]; Protocol Last Admin: 01/12/18 21:39 Dose: 0.25 mg Sitagliptin Phosphate (Januvia) 25 mg PO DAILY [facility] Last Admin: 01/12/18 10:31 Dose: 25 mg Warfarin Sodium (Coumadin) 5 mg PO 1800 [facility]; Protocol Last Admin: 01/12/18 18:05 Dose: 5 mg - Labs Labs: 01/13/18 05:45 01/13/18 05:45 PT 15.3 SECONDS (9.4-12.5) H 01/13/18 05:45 INR 1.32 01/13/18 05:45 APTT 41.4 Seconds (25.1-36.5) H 01/10/18 09:00 Assessment and Plan (1) Acute renal failure Status: Acute (2) CHF (congestive heart failure) Status: Acute (3) Hematuria Status: Acute (4) Coagulopathy Status: Acute (5) Anemia Status: Chronic Attending/Attestation - Attestation I have personally seen and examined this patient.: Yes I have fully participated in the care of the patient.: Yes I have reviewed all pertinent clinical information, including history, physical exam and plan: Yes Notes (Text): Patient seen and examined; I agree with the resident's note as above with the following additions/edits: Patient with acute decompensated systolic CHF w/ biventricular failure, 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, initiated on HD yesterday after maxmizing diuretic therapy and renal funciton only showing modest improvement; Second HD treatment today; mild transient hypotension seen despite low UF goal; will continue to maintain patient on diuretics as he still has significant residual renal function and is responding well to diuretics; third HD session f or tomorrow with full blood flow for maximal clearance; awaiting outpatient HD setup; Otherwise, hemodynamically improved with SBP during the day ~110; can increase CHF meds as tolerated (B-blockers, low dose ARB); -continue bumex 2 mg bid (holding on am of HD); -avoid nephrotoxic agents (important to preserve residual renal function); -keeping K ~4 to avoid arrhythmias;
--- NOTE | 2018-01-12 14:58 | PN ---
DATE: 01/12/2018 REASON FOR CONSULTATION AND FOLLOWUP: Cardiac evaluation, history of ischemic cardiomyopathy, history of CABG, history of AICD, admitted with acute kidney injury, status post Shiley catheter, status post dialysis. SUBJECTIVE: The patient feels better, had dialysis yesterday, history of atrial fibrillation, was on Coumadin and held for dialysis catheter, history of renal insufficiency, and history of CABG. RECOMMENDATIONS: We will start Coumadin. Continue Coreg. We will restart JUAN inhibitors when the patient is able to tolerate the blood pressure because the blood pressure is 90 on dialysis. Once the blood pressure stabilizes and goes above 100, we will consider starting JUAN inhibitors. Because of the cardiomyopathy, the patient is now started on dialysis. Follow up PT and INR. Goal is to keep it between 2 to 2.5. We will repeat INR tomorrow. Discharge planning. Thank you Dr. Jennings for providing us the opportunity in taking care of the patient, Jese Damon. Johanna Ruano MD
[2018-01-13 06:21] LABS: BASO # 0.03 K/mm3 (0.0-2.0); BASO % 0.5 % (0.0-3.0); EOS # 0.5 (0.0-0.7); EOS % 7.3 % (1.5-5.0); GRAN # 4.07 (1.4-6.5); GRAN % 62.1 % (50.0-68.0); HEMOGLOBIN 9.5 g/dL (14.0-18.0); INR 1.32; LYMPH # 0.6 (1.2-3.4); LYMPH % 8.7 % (22.0-35.0); MEAN CELL VOLUME 102.5 fl (80.0-105.0); MEAN CORPUSCULAR HEMOGLOBIN 34.3 pg (25.0-35.0); MEAN CORPUSCULAR HGB CONC 33.5 g/dl (31.0-37.0); MEAN PLATELET VOLUME 11.8 fl (7.0-11.0); MONO # 1.4 (0.1-0.6); MONO % 21.4 % (1.0-6.0); PLATELET COUNT 72 10^3/uL (120.0-450.0); PROTHROMBIN TIME 15.3 SECONDS (9.4-12.5); RBC 2.77 10^6/uL (3.5-6.1); RED CELL DISTRIBUTION WIDTH 18.5 % (11.5-14.5); WHITE BLOOD COUNT 6.6 10^3/uL (4.5-11.0)
[2018-01-13 06:48] LABS: ALB/GLOB RATIO 0.8 (1.1-1.8); CALCIUM 8.1 mg/dL (8.4-10.5)
[2018-01-13] MEDS: Levalbuterol 1.25 MG/3 ML Inhal Soln UD IH SCH ×3 (07:17→19:48)
[2018-01-13 07:53] LABS: EOSINOPHIL 8 % (0.0-3.0); LYMPHOCYTE 12 % (22.0-35.0); MONOCYTE 9 % (1.0-6.0); NEUTROPHIL 71 % (50.0-70.0)
[2018-01-13 07:54] LABS: PLATELET ESTIMATE LOW (NORMAL)
--- NOTE | 2018-01-13 09:07 | CP.PCM.PN ---
Subjective - Date & Time of Evaluation Date of Evaluation: 01/13/18 Time of Evaluation: 07:35 - Subjective Subjective: No distress, awake, lying in bed, alert, denies shortness of breath,feels weak Reason for consultation and follow up: Cardiac evaluation for acute on chronic systolic dysfunction decompensated congestive heart failure, history of jameson nary artery disease, post CABG,history of renal insufficiency Seen and examined by me and Dr. Ruano Objective - Vital Signs/Intake and Output Vital Signs (last 24 hours): Temp Pulse Resp BP Pulse Ox 97.6 F 72 20 111/62 100 01/12/18 17:38 01/12/18 17:38 01/12/18 17:38 01/12/18 17:38 01/12/18 17:38 Intake and Output: 01/13/18 01/13/18 06:59 18:59 Intake Total 240 Output Total 1100 Balance -860 - Medications Medications: Current Medications Acetaminophen (Tylenol 325mg Tab) 650 mg PO Q6H PRN PRN Reason: Pain, moderate (4-7) Last Admin: 01/10/18 23:17 Dose: 650 mg Alprazolam (Xanax) 0.25 mg PO DAILY [facility]; Protocol Last Admin: 01/12/18 10:31 Dose: 0.25 mg Atorvastatin Calcium (Lipitor) 20 mg PO HS [facility] Last Admin: 01/12/18 21:38 Dose: 20 mg Bumetanide (Bumex) 2 mg PO BID [facility] Last Admin: 01/12/18 18:04 Dose: 2 mg Carvedilol (Coreg) 3.125 mg PO DAILY [facility] Last Admin: 01/12/18 10:30 Dose: 3.125 mg Colchicine (Colocrys) 0.6 mg PO Q48H [facility] Last Admin: 01/12/18 10:29 Dose: 0.6 mg Docusate Sodium (Colace) 100 mg PO DAILY [facility] Last Admin: 01/12/18 10:29 Dose: 100 mg Insulin Human Lispro (Humalog Med) 0 units SC [facility]; Protocol Last Admin: 01/12/18 21:42 Dose: Not Given Isosorbide Mononitrate (Imdur Er) 30 mg PO DAILY [facility] Last Admin: 01/04/18 11:49 Dose: 30 mg Levalbuterol HCl (Xopenex) 1.25 mg IH TIDRESP [facility] Last Admin: 01/13/18 07:17 Dose: 1.25 mg Risperidone (Risperdal Tab) 0.25 mg PO HS [facility]; Protocol Last Admin: 01/12/18 21:39 Dose: 0.25 mg Sitagliptin Phosphate (Januvia) 25 mg PO DAILY [facility] Last Admin: 01/12/18 10:31 Dose: 25 mg Warfarin Sodium (Coumadin) 5 mg PO 1800 [facility]; Protocol Last Admin: 01/12/18 18:05 Dose: 5 mg - Labs Labs: 01/13/18 05:45 01/13/18 05:45 PT 15.3 SECONDS (9.4-12.5) H 01/13/18 05:45 INR 1.32 01/13/18 05:45 APTT 41.4 Seconds (25.1-36.5) H 01/10/18 09:00 - Constitutional Appears: Non-toxic, No Acute Distress - Head Exam Head Exam: NORMAL INSPECTION, NORMOCEPHALIC - Eye Exam Eye Exam: Normal appearance Pupil Exam: NORMAL ACCOMODATION - ENT Exam ENT Exam: Mucous Membranes Moist - Respiratory Exam Respiratory Exam: Clear to Ausculation Bilateral, NORMAL BREATHING PATTERN - Cardiovascular Exam Cardiovascular Exam: +S1, +S2 Additional comments: right IJ shiley catheter AICD - GI/Abdominal Exam GI & Abdominal Exam: Soft, Normal Bowel Sounds - Extremities Exam Extremities Exam: Full ROM, Normal Capillary Refill Additional comments: 1+edema - Neurological Exam Neurological Exam: Alert, Awake, Oriented x3 - Psychiatric Exam Psychiatric exam: Normal Affect, Normal Mood - Skin Skin Exam: Dry, Normal Color, Warm Assessment and Plan - Assessment and Plan (Free Text) Assessment: An 82 year old male who came in to the Er due to shortness of breath. History of ischemic cardiomyopathy, CAD post CABG, AICD, diabetes, gout,hypertension,renal insufficiency, chronic atrial fibrllation on Coumadin, multiple admissions including elevated INR. and exacerbation of CHF. Admitted for exacerbation of CHF and worsening renal insufficiency.Started on Primacor. Lasix to diurese. Hypotension, IV boluses, Unable to tolerate Primacor. Discontinued Primacor. Renal on consult. Continue to diurese.BUN/Creatinine improving however still elevated. Post shiley catheter insertion right IJ for hemodialysis. Plan: Feels weak Denies shortness of breath Awake, alert ,no distress Had Hemodialysis yesterday Restarted Coumadin On Lipitor 20 mg daily,Colchicine 0.6 mg daily, Coreg 3.125 mg BID, Lasix 100 mg IV every 12 hours,Imdur ER 30 mg daily, Zaroxylyn 10 mg daily, Continue current medications Continue current treatment Clinically improved For sub acute placement Chart reviewed Will follow up Plan and treatment discussed with Dr. Ruano
[2018-01-13] MEDS: Insulin Lispro (humaLOG) MEDIUM Coverage SC SCH ×4 (09:21→21:32)
[2018-01-13] MEDS ORDERED: Potassium Chloride 20 mEq/15 ml LIQ UD PO ONE (10:17)
--- NOTE | 2018-01-13 14:19 | CP.PCM.PCO ---
Physician Communication Note - Physician Communication Note Physician Communication Note: patient awaiting confirmation of HD slot/LTC facility as per CM/SW
--- NOTE | 2018-01-13 15:42 | CP.PCM.PN ---
<Hernan Lucas - Last Filed: 01/13/18 15:38> Subjective - Date & Time of Evaluation Date of Evaluation: 01/13/18 Time of Evaluation: 15:42 - Subjective Subjective: Nephro progress note - Shayy, PGY - 2 Patient seen and examined at bedside. No acute overnight events, no new complaints, patient is tolerating PT well and is awaiting placement for HD. Denies LONG, denies chest pain. Objective - Vital Signs/Intake and Output Vital Signs (last 24 hours): Temp Pulse Resp BP Pulse Ox 98 F 70 20 95/51 L 94 L 01/13/18 06:00 01/13/18 10:17 01/13/18 06:00 01/13/18 10:17 01/13/18 10:17 Intake and Output: 01/13/18 01/13/18 06:59 18:59 Intake Total 240 Output Total 1100 Balance -860 - Medications Medications: Current Medications Acetaminophen (Tylenol 325mg Tab) 650 mg PO Q6H PRN PRN Reason: Pain, moderate (4-7) Last Admin: 01/10/18 23:17 Dose: 650 mg Alprazolam (Xanax) 0.25 mg PO DAILY [facility]; Protocol Last Admin: 01/13/18 09:23 Dose: 0.25 mg Atorvastatin Calcium (Lipitor) 20 mg PO HS [facility] Last Admin: 01/12/18 21:38 Dose: 20 mg Bumetanide (Bumex) 2 mg PO BID [facility] Last Admin: 01/13/18 09:19 Dose: 2 mg Carvedilol (Coreg) 3.125 mg PO DAILY [facility] Last Admin: 01/13/18 09:20 Dose: 3.125 mg Colchicine (Colocrys) 0.6 mg PO Q48H [facility] Last Admin: 01/12/18 10:29 Dose: 0.6 mg Docusate Sodium (Colace) 100 mg PO DAILY [facility] Last Admin: 01/13/18 09:19 Dose: 100 mg Insulin Human Lispro (Humalog Med) 0 units SC [facility]; Protocol Last Admin: 01/13/18 11:44 Dose: Not Given Isosorbide Mononitrate (Imdur Er) 30 mg PO DAILY [facility] Last Admin: 01/04/18 11:49 Dose: 30 mg Levalbuterol HCl (Xopenex) 1.25 mg IH TIDRESP [facility] Last Admin: 01/13/18 13:04 Dose: 1.25 mg Lisinopril (Zestril) 2.5 mg PO DAILY [facility] Risperidone (Risperdal Tab) 0.25 mg PO HS [facility]; Protocol Last Admin: 01/12/18 21:39 Dose: 0.25 mg Sitagliptin Phosphate (Januvia) 25 mg PO DAILY [facility] Last Admin: 01/13/18 09:22 Dose: 25 mg Warfarin Sodium (Coumadin) 5 mg PO 1800 [facility]; Protocol Last Admin: 01/12/18 18:05 Dose: 5 mg - Labs Labs: 01/13/18 05:45 01/13/18 05:45 PT 15.3 SECONDS (9.4-12.5) H 01/13/18 05:45 INR 1.32 01/13/18 05:45 APTT 41.4 Seconds (25.1-36.5) H 01/10/18 09:00 - Constitutional Appears: Well - Head Exam Head Exam: ATRAUMATIC, NORMAL INSPECTION, NORMOCEPHALIC - Eye Exam Eye Exam: EOMI, Normal appearance, PERRL Pupil Exam: NORMAL ACCOMODATION, PERRL - ENT Exam ENT Exam: Mucous Membranes Moist, Normal Exam - Neck Exam Neck Exam: Full ROM, Normal Inspection. absent: Lymphadenopathy - Respiratory Exam Respiratory Exam: Clear to Ausculation Bilateral, NORMAL BREATHING PATTERN - Cardiovascular Exam Cardiovascular Exam: REGULAR RHYTHM, +S1, +S2. absent: Murmur - GI/Abdominal Exam GI & Abdominal Exam: Soft, Normal Bowel Sounds. absent: Tenderness - Extremities Exam Extremities Exam: Full ROM, Normal Capillary Refill, Normal Inspection. absent: Joint Swelling, Pedal Edema - Back Exam Back Exam: NORMAL INSPECTION - Neurological Exam Neurological Exam: Alert, Awake, CN II-XII Intact, Normal Gait, Oriented x3 - Psychiatric Exam Psychiatric exam: Normal Affect, Normal Mood - Skin Skin Exam: Dry, Intact, Normal Color, Warm Assessment and Plan - Assessment and Plan (Free Text) Assessment: 82 year old male with pertinent history of A-Fib, CHF, DM, HTN, and CKD presented 01/02/18 with LONG and urinary retention. ECHO in 09/2017 showed EF of 20-25% as well as RSVP of 58. On presentation, patient had BNP of 4020; Creatinine has been slowly trending upward since September. In light of this information, the patient's LARRY and fluid retention/overload seems to be of cardio-renal etiology, and the underlying initiating event appears to be CHF exacerbation. Recent RSVP of 58 suggests that there is a great deal of right sided heart strain with severe pulmonary HTN. Renal ultrasound was negative for any hydronephrosis, which further supports the diagnosis. Urine protein, UA, and U Cx have been insignificant. Initial urine studies revealed FeNA in prerenal range, which is consistent with decreased renal perfusion 2/2 CHF. Regarding patient's HTN, he was initially hypotensive, but is now normalizing. Today, 01/13, patient's urine output increased significantly; is still at > .5 m l/kg/hr, with total net of 0.86L loss. Patient is both feeling better and looking better clinically. CR improved significantly from yesterday, is at 2.6 today. Electrolytes have normalized; these major improvements most likely 2/2 HD. Patient was mildly hypokalemic, but is getting HD with minimal change in K+ Plan Anemia, 2/2 CKD - Darbepoitin once; will continue to monitor LARRY on CKD, likely 2/2 cardio-renal etiology - Patient for HD today for the last dose this week - Continue Bumex 2 q12: Bumex was not held this AM before dialysis - Continue milrinone to increase ionotropic activity; coreg as per cardiology recommendations - Continue with HD 3X weekly; goal of HD regimen is offloading of the RV as well as allowing patient to restart CHF medications HTN - Continue diuretic treatment as above, as well as metolazone (currrently on hold - will progress as per cardiology) - Hold Cozaar for now Contraction Alkalosis - Acetazolamide given Thank you for the consult. We will continue to follow the patient. <Bola Leonard - Last Filed: 01/14/18 08:27> Objective - Vital Signs/Intake and Output Vital Signs (last 24 hours): Temp Pulse Resp BP Pulse Ox 98.0 F 68 20 103/61 100 01/14/18 06:00 01/14/18 06:00 01/14/18 06:00 01/14/18 06:00 01/14/18 06:00 Intake and Output: 01/14/18 01/14/18 06:59 18:59 Intake Total 240 Output Total 300 Balance -60 - Medications Medications: Current Medications Acetaminophen (Tylenol 325mg Tab) 650 mg PO Q6H PRN PRN Reason: Pain, moderate (4-7) Last Admin: 01/10/18 23:17 Dose: 650 mg Alprazolam (Xanax) 0.25 mg PO DAILY [facility]; Protocol Last Admin: 01/13/18 09:23 Dose: 0.25 mg Atorvastatin Calcium (Lipitor) 20 mg PO HS [facility] Last Admin: 01/13/18 21:27 Dose: 20 mg Bumetanide (Bumex) 2 mg PO BID [facility] Last Admin: 01/13/18 17:50 Dose: Not Given Carvedilol (Coreg) 3.125 mg PO DAILY [facility] Last Admin: 01/13/18 09:20 Dose: 3.125 mg Colchicine (Colocrys) 0.6 mg PO Q48H [facility] Last Admin: 01/12/18 10:29 Dose: 0.6 mg Darbepoetin Darek (Aranesp) 60 mcg SC ONCE ONE Stop: 01/14/18 08:21 Docusate Sodium (Colace) 100 mg PO DAILY [facility] Last Admin: 01/13/18 09:19 Dose: 100 mg Insulin Human Lispro (Humalog Med) 0 units SC [facility]; Protocol Last Admin: 01/13/18 21:32 Dose: Not Given Isosorbide Mononitrate (Imdur Er) 30 mg PO DAILY [facility] Last Admin: 01/04/18 11:49 Dose: 30 mg Levalbuterol HCl (Xopenex) 1.25 mg IH TIDRESP [facility] Last Admin: 01/14/18 07:46 Dose: 1.25 mg Lisinopril (Zestril) 2.5 mg PO DAILY [facility] Risperidone (Risperdal Tab) 0.25 mg PO HS [facility]; Protocol Last Admin: 01/13/18 21:28 Dose: 0.25 mg Sitagliptin Phosphate (Januvia) 25 mg PO DAILY [facility] Last Admin: 01/13/18 09:22 Dose: 25 mg Warfarin Sodium (Coumadin) 5 mg PO 1800 [facility]; Protocol Last Admin: 01/13/18 17:44 Dose: 5 mg - Labs Labs: 01/14/18 05:45 01/14/18 05:45 PT 21.3 SECONDS (9.4-12.5) H 01/14/18 05:45 INR 1.83 01/14/18 05:45 APTT 41.4 Seconds (25.1-36.5) H 01/10/18 09:00 Assessment and Plan (1) Acute renal failure Status: Acute (2) CHF (congestive heart failure) Status: Acute (3) Hematuria Status: Acute (4) Coagulopathy Status: Acute (5) Anemia Status: Chronic Attending/Attestation - Attestation I have personally seen and examined this patient.: Yes I have fully participated in the care of the patient.: Yes I have reviewed all pertinent clinical information, including history, physical exam and plan: Yes Notes (Text): Patient seen and examined; I agree with the resident's note as above with the following additions/edits: Patient with CHF w/ severe systolic dysfunction, biventricular failure, CKD IV, admitted with decompensated CHF and LARRY; Initiated on HD 2 days ago, 3rd HD session today using full blood flow via R IJ catheter; goal for gentle UF to avoid hypotension (500 cc); will continue PO bumex 2 mg bid (should be held on mornings of HD); goal is to continue to decrease venous congestion and offload RV/LV; Otherwise stable electrolyte status; continues to diurese well; need to avoid nephrotoxic agents as he will benefit from preserving residual renal function; agree with cardio to restart REYNA blockade as tolerated; Intermittent hematuria; nursing staff should continue to flush gates twice per shift; can d/c gates tomorrow; Anemia has overall improved; continuing with weekly aranesp;
--- NOTE | 2018-01-13 18:38 | PN ---
DATE: 01/12/2018 SEX OF THE PATIENT: Male. AGE: 82. REASON FOR CONSULTATION: Follow up cardiac evaluation, history of cardiomyopathy ischemic; open heart surgery, status post CABG; history of renal insufficiency; history of decompensated congestive heart failure; ikiji-ay-ealdnij systolic dysfunction, history of AICD. in fact, this note is in addition to dictated by nurse practitioner. Discussed with Dr. Leonard. The patient is started on dialysis, post Shiley catheter placement, restarted Coumadin yesterday. Today, INR is 1.32. RECOMMENDATIONS: Continue low-dose of Coreg 3.125 and we will start low-dose of lisinopril as the blood pressure is tolerated. Continue PT, INR. Follow PT, INR. We will start lisinopril 2.5 daily, hold if systolic less than 120. Continue PT, INR in the morning. Thank you Dr. Jennings for providing us the opportunity in taking care of the patient, Jese Damon. Johanna Ruano MD
[2018-01-13 18:40] VITALS: O2SAT 100
--- NOTE | 2018-01-13 18:56 | PN ---
DATE: 01/13/2018 SUBJECTIVE: The patient is an 82-year-old, seen and examined, lying in bed, seems to be comfortable. He feels very weak, tired, sleepy since he just came back from dialysis. No chest pain, no shortness of breath. PHYSICAL EXAMINATION: VITAL SIGNS: He is afebrile, pulse 70, respirations 20, blood pressure 95/51. LUNGS: Bilateral fair airflow. No rhonchi or crackle. HEART: S1, S2 audible. ABDOMEN: Soft, nontender. No rebound, no guarding. NEUROLOGIC: He is awake, alert, oriented. Communicative. Has generalized weakness. EXTREMITIES: Bilateral legs, no edema. LABORATORY DATA: WBC 6.6, hemoglobin 9.5, hematocrit 28.4, platelet of 72. PT 15.3, INR 1.32. Chemistry; sodium 137, potassium 3.9, chloride 98, CO2 of 29, BUN 59, creatinine 2.6, blood sugar of 120. ASSESSMENT: 1. Status post congestive heart failure. 2. End-stage renal disease, on hemodialysis. 3. Xbn-rrljypn-okobnzktn diabetes. 4. Cardiomyopathy. 5. Status post pacemaker defibrillator placement. PLAN: So, plan is discussed with daughter, discussed with shoe caser, awaiting long-term facility accommodation with hemodialysis facility. As soon arranged, the patient will be discharged. We will give Coumadin 5 mg today and follow up PT/INR tomorrow. Leonila Jennings MD
--- NOTE | 2018-01-14 05:59 | CP.PCM.PN ---
Subjective - Date & Time of Evaluation Date of Evaluation: 01/14/18 Time of Evaluation: 06:15 - Subjective Subjective: Awake, lying in bed, no distress, denies shortness of breath Reason for consultation and follow up: Cardiac evaluation for acute on chronic systolic dysfunction decompensated congestive heart failure, history of coronary artery disease, post CABG,history of renal insufficiency Seen and examined by me and Dr. Ruano Objective - Vital Signs/Intake and Output Vital Signs (last 24 hours): Temp Pulse Resp BP Pulse Ox 97.3 F L 75 20 95/55 L 100 01/13/18 18:39 01/13/18 18:39 01/13/18 18:39 01/13/18 18:39 01/13/18 18:39 - Medications Medications: Current Medications Acetaminophen (Tylenol 325mg Tab) 650 mg PO Q6H PRN PRN Reason: Pain, moderate (4-7) Last Admin: 01/10/18 23:17 Dose: 650 mg Alprazolam (Xanax) 0.25 mg PO DAILY [facility]; Protocol Last Admin: 01/13/18 09:23 Dose: 0.25 mg Atorvastatin Calcium (Lipitor) 20 mg PO HS [facility] Last Admin: 01/13/18 21:27 Dose: 20 mg Bumetanide (Bumex) 2 mg PO BID [facility] Last Admin: 01/13/18 17:50 Dose: Not Given Carvedilol (Coreg) 3.125 mg PO DAILY [facility] Last Admin: 01/13/18 09:20 Dose: 3.125 mg Colchicine (Colocrys) 0.6 mg PO Q48H [facility] Last Admin: 01/12/18 10:29 Dose: 0.6 mg Docusate Sodium (Colace) 100 mg PO DAILY [facility] Last Admin: 01/13/18 09:19 Dose: 100 mg Insulin Human Lispro (Humalog Med) 0 units SC [facility]; Protocol Last Admin: 01/13/18 21:32 Dose: Not Given Isosorbide Mononitrate (Imdur Er) 30 mg PO DAILY [facility] Last Admin: 01/04/18 11:49 Dose: 30 mg Levalbuterol HCl (Xopenex) 1.25 mg IH TIDRESP [facility] Last Admin: 01/13/18 19:48 Dose: 1.25 mg Lisinopril (Zestril) 2.5 mg PO DAILY [facility] Risperidone (Risperdal Tab) 0.25 mg PO HS [facility]; Protocol Last Admin: 01/13/18 21:28 Dose: 0.25 mg Sitagliptin Phosphate (Januvia) 25 mg PO DAILY [facility] Last Admin: 01/13/18 09:22 Dose: 25 mg Warfarin Sodium (Coumadin) 5 mg PO 1800 [facility]; Protocol Last Admin: 01/13/18 17:44 Dose: 5 mg - Labs Labs: 01/13/18 05:45 01/13/18 05:45 PT 15.3 SECONDS (9.4-12.5) H 01/13/18 05:45 INR 1.32 01/13/18 05:45 APTT 41.4 Seconds (25.1-36.5) H 01/10/18 09:00 - Constitutional Appears: Non-toxic, No Acute Distress - Head Exam Head Exam: NORMAL INSPECTION, NORMOCEPHALIC - Eye Exam Eye Exam: Normal appearance Pupil Exam: NORMAL ACCOMODATION - ENT Exam ENT Exam: Mucous Membranes Moist - Respiratory Exam Respiratory Exam: Decreased Breath Sounds, Clear to Ausculation Bilateral, NORMAL BREATHING PATTERN - Cardiovascular Exam Cardiovascular Exam: +S1, +S2 Additional comments: right IJ shiley catheter - GI/Abdominal Exam GI & Abdominal Exam: Soft, Normal Bowel Sounds - Extremities Exam Extremities Exam: Full ROM, Normal Capillary Refill Additional comments: 1+ edema improved - Neurological Exam Neurological Exam: Alert, Awake, Oriented x3 - Psychiatric Exam Psychiatric exam: Normal Affect, Normal Mood - Skin Skin Exam: Dry, Normal Color, Warm Assessment and Plan - Assessment and Plan (Free Text) Assessment: An 82 year old male who came in to the Er due to shortness of breath. History of ischemic cardiomyopathy, CAD post CABG, AICD, diabetes, gout,hypertension,renal insufficiency, chronic atrial fibrllation on Coumadin, multiple admissions including elevated INR. and exacerbation of CHF. Admitted for exacerbation of CHF and worsening renal insufficiency.Started on Primacor. Lasix to diurese. Hypotension, IV boluses, Unable to tolerate Primacor. Discontinued Primacor. Renal on consult. Continue to diurese.BUN/Creatinine improving however still elevated. Post shiley catheter insertion right IJ for hemodialysis. Plan: Denies shortness of breath Awake, alert ,no distress Clinically improved Awaiting placement LTC and hemodialysis slot On Hemodialysis On Lipitor 20 mg daily,Colchicine 0.6 mg daily, Coreg 3.125 mg BID, Lasix 100 mg IV every 12 hours,Imdur ER 30 mg daily,Coumadin 5 mg daily Zaroxylyn 10 mg daily, Cardiac status stable Heart rate and blood pressure controlled/stable Continue current medications Continue current treatment Chart reviewed Will follow up Plan and treatment discussed with Dr. Ruano
[2018-01-14 06:24] LABS: INR 1.83; PROTHROMBIN TIME 21.3 SECONDS (9.4-12.5)
[2018-01-14 06:54] LABS: BASO # 0.02 K/mm3 (0.0-2.0); BASO % 0.3 % (0.0-3.0); EOS # 0.3 (0.0-0.7); EOS % 4.8 % (1.5-5.0); GRAN # 4.19 (1.4-6.5); GRAN % 66.9 % (50.0-68.0); HEMOGLOBIN 8.8 g/dL (14.0-18.0); LYMPH % 15.2 % (22.0-35.0); MEAN CELL VOLUME 102.8 fl (80.0-105.0); MEAN CORPUSCULAR HEMOGLOBIN 34.6 pg (25.0-35.0); MEAN CORPUSCULAR HGB CONC 33.7 g/dl (31.0-37.0); MEAN PLATELET VOLUME 12.8 fl (7.0-11.0); MONO # 0.8 (0.1-0.6); MONO % 12.8 % (1.0-6.0); RBC 2.54 10^6/uL (3.5-6.1); RED CELL DISTRIBUTION WIDTH 18.5 % (11.5-14.5); WHITE BLOOD COUNT 6.3 10^3/uL (4.5-11.0)
[2018-01-14 07:16] LABS: CALCIUM 7.9 mg/dL (8.4-10.5)
[2018-01-14] MEDS: Levalbuterol 1.25 MG/3 ML Inhal Soln UD IH SCH ×3 (07:46→20:45)
[2018-01-14] MEDS ORDERED: Darbepoetin Alfa 60 mcg/ml Inj SC ONE (08:20)
[2018-01-14] MEDS: Insulin Lispro (humaLOG) MEDIUM Coverage SC SCH ×4 (10:55→22:08)
--- NOTE | 2018-01-14 11:35 | CP.PCM.PCO ---
Physician Communication Note - Physician Communication Note Physician Communication Note: patient is medically cleared as per Dr. Vasques awaiting [facility]/LTC
--- NOTE | 2018-01-14 13:40 | PN ---
DATE: 01/14/2018 SUBJECTIVE: The patient is an 82-year-old, seen and examined, lying in bed, seems to be comfortable, has generalized weakness, lost lot of water weight, looks little pale, not in any respiratory symptoms. PHYSICAL EXAMINATION VITAL SIGNS: The patient is afebrile. Pulse 68, respirations 20, blood pressure 103/61. HEART: S1, S2 audible. LUNGS: Bilateral fair airflow, no rhonchi or crackle. ABDOMEN: Soft, nontender, no rebound, no guarding. NEUROLOGICALLY: The patient is awake, alert, oriented, able to communicate. LABORATORY EXAM: WBC 6.3, hemoglobin 8.8, hematocrit 26.1, platelets of 55. PT 21.3, INR 1.83. Chemistry; Sodium 137, potassium 4.0, chloride 103, CO2 of 26, BUN 37, creatinine 2.0, and blood sugar of 81. ASSESSMENT: 1. End stage renal disease, on hemodialysis. 2. Chronic atrial fibrillation. 3. Sjr-cehighb-girskcrlr diabetes mellitus. 4. Hypertension. 5. Cardiomyopathy. 6. Status post pacemaker placement. PLAN: We will give 1 mg of Coumadin today. We will continue him on current diabetes medicine. Continue nebulizer treatment. inpatient services director are in the process of making arrangement for subacute long-term placement with the facility who can provide hemodialysis. As soon as arrangement is made, he will be discharged. Leonila Jennings MD
[2018-01-14 17:07] VITALS: BP 102/55; PULSE 71; RESP 19; TEMP 98.1
--- NOTE | 2018-01-15 07:46 | CP.PCM.PN ---
Subjective - Date & Time of Evaluation Date of Evaluation: 01/14/18 Time of Evaluation: 10:00 - Subjective Subjective: Patient reports feeling well; set for d/c to retirement care facility; has been eating well overall; Objective - Vital Signs/Intake and Output Vital Signs (last 24 hours): Temp Pulse Resp BP Pulse Ox 98.1 F 71 19 102/55 L 100 01/14/18 17:06 01/14/18 17:06 01/14/18 17:06 01/14/18 17:06 01/14/18 17:06 Intake and Output: 01/15/18 01/15/18 06:59 18:59 Intake Total 60 Output Total 500 Balance -440 - Labs Labs: 01/14/18 05:45 01/14/18 05:45 PT 21.3 SECONDS (9.4-12.5) H 01/14/18 05:45 INR 1.83 01/14/18 05:45 APTT 41.4 Seconds (25.1-36.5) H 01/10/18 09:00 - Constitutional Appears: Non-toxic, No Acute Distress - Eye Exam Eye Exam: Normal appearance - Respiratory Exam Respiratory Exam: Clear to Ausculation Bilateral. absent: Respiratory Distress - Cardiovascular Exam Cardiovascular Exam: absent: Gallop, Rubs - GI/Abdominal Exam GI & Abdominal Exam: Soft. absent: Distended, Tenderness - Extremities Exam Additional comments: minimal leg edema; - Neurological Exam Neurological Exam: Alert, Awake - Psychiatric Exam Psychiatric exam: Normal Mood. absent: Agitated - Skin Skin Exam: Warm. 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; cardiorenal etiology; initiated on HD to control volume st atus; stable volume and electrolyte status; last HD yesterday, next for tomorrow (can be done as outpatient); Status: Acute (2) CHF (congestive heart failure) Assessment & Plan: Acute decompensated systolic CHF w/ biventricular failure; overall much improved; continue on bumex 2 mg bid and metolazone 5 mg daily; continue B-rolando and JUAN inhibitor as tolerated; Status: Acute (3) Hematuria Assessment & Plan: Resolved; likely due to being on AC as well as being thromboytopenic; monitor; Status: Acute (4) Coagulopathy Status: Acute (5) Anemia Assessment & Plan: Improved with aranesp, will continue EPO on HD; Status: Chronic (6) Thrombocytopenia Assessment & Plan: Has been present since past few months; platelet count even lower today; will avoid heparin on HD; Status: Acute
[2018-01-15] MEDS ORDERED: metOLazone 5 MG TAB PO SCH (10:00)
--- NOTE | 2018-01-17 08:38 | PN ---
DATE: 01/14/2018 REASON FOR CONSULTATION AND FOLLOWUP: Cardiac evaluation, history of coronary artery disease, history of CABG, history of cardiomyopathy, admitted with decompensated congestive heart failure, acute kidney injury, and chronic renal insufficiency, on dialysis. This note is in addition to dictated by the nurse practitioner. The patient is on dialysis and feels a lot better. The patient improving, started low dose of Coreg and we will start lisinopril as tolerated. We will started anticoagulation also for chronic atrial fibrillation ____ INR is 1.83, will gradually build up INR, we will discharge INR tomorrow and we will followup INR in the morning. Thank you Dr. Jennings for providing us the opportunity in taking care of the patient, Jese Damon. Johanna Ruano MD
== END 2018-01-15 00:20 | DRG 291 ==
LOC: ED 13:29 → ERH 16:28 → 2RNO 19:04 → 3RSO 01-11 19:49
PROVIDERS: ADMIT Internal Medicine; ATTEND Internal Medicine
PROC: 05HM33Z Insertion of Infusion Device into Right Internal Jugular Vein, Percutaneous Approach (ICD-10-PCS; principal; 2018-01-10)
PROC: B543ZZA Ultrasonography of Right Jugular Veins, Guidance (ICD-10-PCS; 2018-01-10)
PROC: 5A1D70Z Performance of Urinary Filtration, Intermittent, Less than 6 Hours Per Day (ICD-10-PCS; 2018-01-11)
PROC: 5A1D70Z Performance of Urinary Filtration, Intermittent, Less than 6 Hours Per Day (ICD-10-PCS; 2018-01-12)
PROC: 5A1D70Z Performance of Urinary Filtration, Intermittent, Less than 6 Hours Per Day (ICD-10-PCS; 2018-01-13)
DX: I13.2 Hypertensive heart and chronic kidney disease with heart failure and with stage 5 chronic kidney disease, or end stage renal disease (principal); I50.23 Acute on chronic systolic (congestive) heart failure; N18.6 End stage renal disease; N17.9 Acute kidney failure, unspecified; E87.3 Alkalosis; D68.9 Coagulation defect, unspecified; I42.0 Dilated cardiomyopathy; I50.84 End stage heart failure; I25.5 Ischemic cardiomyopathy; E11.22 Type 2 diabetes mellitus with diabetic chronic kidney disease; I25.10 Atherosclerotic heart disease of native coronary artery without angina pectoris; Z95.810 Presence of automatic (implantable) cardiac defibrillator; Z87.891 Personal history of nicotine dependence; I48.2 Chronic atrial fibrillation; Z79.01 Long term (current) use of anticoagulants; I27.20 Pulmonary hypertension, unspecified; D63.1 Anemia in chronic kidney disease; R31.0 Gross hematuria; D69.6 Thrombocytopenia, unspecified; I50.82 Biventricular heart failure; E87.5 Hyperkalemia; E78.5 Hyperlipidemia, unspecified; F41.9 Anxiety disorder, unspecified; H40.9 Unspecified glaucoma; I08.3 Combined rheumatic disorders of mitral, aortic and tricuspid valves; I25.2 Old myocardial infarction; K21.9 Gastro-esophageal reflux disease without esophagitis; K59.00 Constipation, unspecified; N28.1 Cyst of kidney, acquired; Z79.84 Long term (current) use of oral hypoglycemic drugs; Z87.01 Personal history of pneumonia (recurrent); Z95.1 Presence of aortocoronary bypass graft; Z88.6 Allergy status to analgesic agent

== ENCOUNTER 2018-04-21 08:41 | Outpatient (CLI) | payer MEDICARE, OTHER | END 2018-04-21 08:42 | disposition home or self-care (01) | LOC: RAD 08:41 | DX: R31.9 Hematuria, unspecified (principal) ==

== ENCOUNTER 2018-04-27 19:07 | Inpatient (IN) | payer MEDICARE, OTHER | END 2018-04-30 08:56 | disposition hospice, inpatient (51) | LOC: 3RSO 04-29 21:46 → ED 19:07 → ERH 22:13 → CCU 23:29 ==

== ENCOUNTER 2018-04-30 09:01 | Inpatient (IN) | payer OTHER ==
[2018-04-27 19:08] VITALS: PULSE 68
[2018-04-30 09:50] VITALS: BMI 24.7
[2018-04-30] MEDS ORDERED: Albuterol-Ipratrop 3 mg / 0.5 (3 ml) UD IH STA (10:35)
[2018-04-30] MEDS ORDERED: Albuterol-Ipratrop 3 mg / 0.5 (3 ml) UD IH PRN (11:28)
[2018-04-30] MEDS: Morphine 4 mg/ml ISec IVP SCH ×3 (11:56→17:50)
--- NOTE | 2018-04-30 14:09 | HP ---
DATE OF EXAM: 04/30/2018 HISTORY OF PRESENT ILLNESS: The patient is an 83-year-old, seen and examined. He was brought in because he was found to have slurred speech during dialysis. Dr. Leonard called me it was recommend to bring him to emergency room to rule out acute CVA. The patient had neurological workup done. CT scan is unremarkable; however, the patient was noted to have bleeding from his both arm wounds. He was having GI bleed. was consulted who recommended not to have endoscopy and colonoscopy done because of the patient's multiple comorbidities. PAST MEDICAL HISTORY: The patient does have significant past medical history of: 1. Hypertension. 2. Coronary artery disease, status post angioplasty. 3. History of defibrillator placement. 4. Ischemic cardiomyopathy with ejection fraction of 15%. 5. Non-insulin dependant diabetes. 6. History of gout. 7. Hyperlipidemia. ALLERGIES: ALLERGIC TO ASPIRIN, LATEX, NATURAL RUBBER, AND PENICILLIN. HOME MEDICATION: At home, as per MAR. SOCIAL HISTORY: He is , lives with his . No history of alcohol use. He used to be smoker in remote past. PHYSICAL EXAMINATION: GENERAL: He is awake, alert and able to communicate. Complaining of back pain. VITAL SIGNS: He is afebrile. Pulse 99, respiration 18 and blood pressure 84/43. LUNGS: Bilateral fair airflow. No rhonchi or crackle. HEART: S1 and S2, audible. ABDOMEN: Soft and nontender. No rebound. No guarding. NEUROLOGIC: The patient is awake, alert and able to communicate. Has generalized weakness. ASSESSMENT: 1. Gastrointestinal bleed. 2. Thrombocytopenia. 3. History of hypertension, currently hypotensive. 4. End-stage renal disease, on hemodialysis. 5. Non-insulin dependant diabetes. PLAN: I discussed with the patient's daughter, Pili. She does not want him to get dialysis. She consulted her who also is agreeable to stop his dialysis. We will start him on Duragesic patch. We will give him Ativan 1 mg every 8 and morphine 4 mg every 6 to keep him comfortable and we will reevaluate the patient in a.m. Leonila Jennings MD [facility] # [id number]
[2018-04-30] MEDS: Albuterol-Ipratrop 3 mg / 0.5 (3 ml) UD IH SCH ×2 (14:59→20:32)
--- NOTE | 2018-04-30 23:53 | CP.PCM.CON ---
History of Present Illness - History of Present Illness History of Present Illness: 83 yo M w/ pmh of htn, dm, CAD s/p CABG, afib, CHF w/ biventricular dysfunction, and ESRD on HD (MWF, at [facility]), initially admitted to ICU after being sent from outpatient HD due to new onset slurring of speech and mild hypotension; Patient found to have mildly worsened anemia but with positive stool occult blood and with numerous ecchymoses involving upper ext with areas of blood oozing; patient was transfused 1 u prbc and platelets (patient chronically thrombocytopenic but worsened over past several months); GI was consulted and EGD was planned, however, was cancelled after patient had run of Vtach and it was determined that patient was too high risk for the procedure; Slurring of speech resolved and BP returned to baseline; head CT was negative for any bleed; Of note patient had been having gross hematuria over past 1+ month, CT abd/pelvis was done last week that showed some bladder thickening; CT also showed large R pleural effusion; Straight cath was done to check UA/culture but no urine was obtained; Given patient's multiple co-morbidities and overall poor prognosis, family opted for hospice care; Patient did have HD session yesterday and tolerated it well with 2L UF and no significant hypotension; Currently, patient reporting persistent cough; still having some L shoulder pain; Review of Systems - Cardiovascular Cardiovascular: As Per HPI - Respiratory Respiratory: As Per HPI - Gastrointestinal Gastrointestinal: As Per HPI - Genitourinary Genitourinary: As Per HPI - Musculoskeletal Musculoskeletal: As Per HPI - Integumentary Integumentary: As Per HPI - Neurological Neurological: As Per HPI - Hematologic/Lymphatic Hematologic: Easy Bruising Past Patient History - Infectious Disease Hx of Infectious Diseases: None - Tetanus Immunizations Tetanus Immunization: Unknown - Past Medical History & Family History Past Medical History?: Yes - Past Social History Smoking Status: Never Smoked - CARDIAC Hx Cardiac Disorders: Yes Hx Cardia Arrhythmia: Yes (AFIB) Hx Congestive Heart Failure: Yes Hx Hypertension: Yes Hx Pacemaker: Yes (11/19/14) Hx Peripheral Edema: Yes (BLE) - PULMONARY Hx Respiratory Disorders: Yes Hx Bronchitis: Yes Hx Pneumonia: Yes - NEUROLOGICAL Hx Neurological Disorder: (DENIES HISTORY) - HEENT Hx HEENT Problems: Yes Hx Cataracts: Yes (Left) Hx Glaucoma: Yes (Right) - RENAL Hx Chronic Kidney Disease: Yes Hx Dialysis: Yes - ENDOCRINE/METABOLIC Hx Endocrine Disorders: Yes Hx Diabetes Mellitus Type 2: Yes - HEMATOLOGICAL/ONCOLOGICAL Hx Blood Disorders: Yes - INTEGUMENTARY Hx Dermatological Problems: (DENIES HISTORY) - MUSCULOSKELETAL/RHEUMATOLOGICAL Hx Musculoskeletal Disorders: Yes Hx Arthritis: Yes - GASTROINTESTINAL Hx Gall Bladder Disease: Yes (CHOLECYSTECTOMY) - GENITOURINARY/GYNECOLOGICAL Hx Genitourinary Disorders: No - PSYCHIATRIC Hx Anxiety: Yes Hx Depression: No Hx Substance Use: No - SURGICAL HISTORY Hx Cholecystectomy: Yes (GB Sx: ? removal) Hx Coronary Artery Bypass Graft: Yes - ANESTHESIA Hx Anesthesia: Yes Hx Anesthesia Reactions: Yes Hx Malignant Hyperthermia: No Meds Allergies/Adverse Reactions: Allergies Allergy/AdvReac Type Severity Reaction Status Date / Time aspirin Allergy RASH Verified 03/31/18 11:28 Latex, Natural Rubber Allergy RASH Verified 03/31/18 11:28 Penicillins Allergy ANAPHYLAXIS Verified 03/31/18 11:28 - Medications Medications: Current Medications Acetaminophen (Tylenol 325mg Tab) 650 mg PO Q6H PRN PRN Reason: Fever >100.4 F Albuterol/Ipratropium (Duoneb 3 Mg/0.5 Mg (3 Ml) Ud) 3 ml IH Q2H PRN PRN Reason: Shortness of Breath Albuterol/Ipratropium (Duoneb 3 Mg/0.5 Mg (3 Ml) Ud) 3 ml IH [id number] [facility] Last Admin: 04/30/18 20:32 Dose: 3 ml Fentanyl (Duragesic) 1 patch TD Q72H CHERYL Last Admin: 04/30/18 11:56 Dose: Not Given Lorazepam (Ativan) 1 mg PO Q8 CHERYL; Protocol Last Admin: 04/30/18 22:28 Dose: 1 mg Morphine Sulfate (Morphine) 4 mg IVP Q6H CHERYL Last Admin: 04/30/18 17:50 Dose: Not Given Physical Exam - Constitutional Appears: Non-toxic, No Acute Distress - Eye Exam Eye Exam: Normal appearance - Respiratory Exam Respiratory Exam: absent: Respiratory Distress Additional comments: decreased breath sounds on R; - Cardiovascular Exam Cardiovascular Exam: Systolic Murmur. absent: Gallop, Rubs - GI/Abdominal Exam GI & Abdominal Exam: Soft. absent: Distended, Tenderness - Extremities Exam Additional comments: moderate leg edema b/l; - Neurological Exam Neurological exam: Alert Additional comments: slurred speech resolved - Psychiatric Exam Additional comments: not agitated; - Skin Additional comments: bilateral forearms with diffuse ecchymoses; Results - Vital Signs Recent Vital Signs: Last Vital Signs Temp 98.1 F 04/30/18 09:09 Pulse 99 H 04/30/18 09:09 Resp 18 04/30/18 09:09 BP 84/43 L 04/30/18 09:09 Pulse Ox - Labs Labs: Laboratory Results - last 24 hr 04/30/18 04/30/18 11:41 16:05 POC Glucose (mg/dL) 118 H 140 H see labs from this morning; - Imaging and Cardiology Chest x-ray Status: Image reviewed by me Additional comment: R pleural effusion; Assessment & Plan (1) ESRD (end stage renal disease) on dialysis Assessment and Plan: Stable electrolyte and volume status; question is whether HD should be continued with patient now on hospice care; discussed at length with daughter yesterday; given patient's anuric status and severe cardiomyopathy, patient will likely not survive more than a few days without continuing HD; discussed also with PMD today; patient tolerated HD well yesterday, is needed to keep him euvolemic and avoid CHF decompensation; will monitor patient's status over the weekend and decide whether to pursue HD tentatively scheduled for Wednesday; Status: Acute (2) Pleural effusion Assessment and Plan: Large R pleural effusion likely accounting for patient's respiratory symptoms; unclear if effusion is due to inadequate fluid removal on HD or patient has another cause (malignancy?); discussed with PMD, will likely not pursue thoracentesis given hospice decision; Status: Acute (3) Anemia Assessment and Plan: Patient transfused 1 u prbc on initial admission but hgb still dropping; off anticoagulation; Status: Chronic (4) CHF (congestive heart failure) Assessment and Plan: See above; Status: Chronic
[2018-05-01] MEDS: Morphine 4 mg/ml ISec IVP SCH ×2 (00:02→05:31)
[2018-05-01] MEDS: Albuterol-Ipratrop 3 mg / 0.5 (3 ml) UD IH SCH ×2 (02:40→08:05)
[2018-05-01 08:05] VITALS: BP 88/53; PULSE 59; RESP 22; TEMP 97.8; O2SAT 100
[2018-05-01] MEDS ORDERED: HYDROmorphone 0.5 mg/0.5 ml ISec IVP SCH (12:00)
--- NOTE | 2018-05-01 12:38 | CP.PCM.PRO ---
Pronouncement of Note - Clinical Findings Physical Exam: No Response Verbal/Painful Stimuli, Absent Peripheral Puls es{Carotid & Femoral}, Absent Heart & Breath Sounds, No Pupillary Light Reflex, No Corneal Reflex, Pupils Fixed & Dilated, Absence of Vital Signs - Pronouncement Time Time of Pronouncement of : 12:33 - Notifications Pronouncement Notifications: Family Notified (Family was at the bedside) Melting Supervisor Notified: Yes - Autopsy Autopsy Requested: No - [place] [id number]
== END 2018-05-01 12:30 | DRG 377 ==
LOC: 3RSO 09:01
PROVIDERS: ADMIT Internal Medicine; ATTEND Internal Medicine
DX: K92.2 Gastrointestinal hemorrhage, unspecified (principal); N18.6 End stage renal disease; I13.2 Hypertensive heart and chronic kidney disease with heart failure and with stage 5 chronic kidney disease, or end stage renal disease; I25.10 Atherosclerotic heart disease of native coronary artery without angina pectoris; I25.5 Ischemic cardiomyopathy; I50.9 Heart failure, unspecified; I48.91 Unspecified atrial fibrillation; Z99.2 Dependence on renal dialysis; D69.6 Thrombocytopenia, unspecified; E11.22 Type 2 diabetes mellitus with diabetic chronic kidney disease; Z51.5 Encounter for palliative care; Z66 Do not resuscitate; D64.9 Anemia, unspecified; E78.5 Hyperlipidemia, unspecified; Z79.84 Long term (current) use of oral hypoglycemic drugs; Z95.810 Presence of automatic (implantable) cardiac defibrillator; Z98.61 Coronary angioplasty status; Z95.1 Presence of aortocoronary bypass graft; Z87.891 Personal history of nicotine dependence